=== PATIENT | female | born 1940 | race Caucasian/White ===

== ENCOUNTER 2019-12-26 10:56 | Outpatient (CLI) | payer MEDICARE, SELFPAY ==
--- NOTE | 2019-12-26 | ECG_ITS ---
Measurements Intervals [place] Rate: 71 P: 55 HI: 154 QRS: 219 QRSD: 149 T: 54 QT: 425 QTc: 462 Interpretive Statements ATRIAL SENSE- ELECTRONIC VENTRICULAR PACEMAKER BASELINE ARTIFACT- I, II, III NO FURTHER INTERPRETATION IS POSSIBLE ATYPICAL ECG Electronically Signed On 12-26-2019 12:05:49 ANALYST FOOD AND BEVERAGE by Alberto Carter D.O.
== END 2019-12-26 10:57 | disposition home or self-care (01) ==
DX: I48.3 Typical atrial flutter (principal); I25.5 Ischemic cardiomyopathy
CPT/HCPCS: 93005

== ENCOUNTER 2021-01-02 15:39 | Outpatient (CLI) | payer MEDICARE, SELFPAY ==
--- NOTE | 2021-01-02 16:17 | ECG_ITS ---
Measurements Intervals [place] Rate: 77 P: 70 PA: 165 QRS: 235 QRSD: 137 T: 111 QT: 398 QTc: 450 Interpretive Statements ATRIAL SENSE- ELECTRONIC VENTRICULAR PACEMAKER BASELINE WANDER- V4 NO FURTHER INTERPRETATION IS POSSIBLE ATYPICAL ECG Electronically Signed On 01-02-2021 18:21:10 HUMIDIFIER OPERATOR by Alberto Carter D.O.
[2021-01-02 16:33] LABS: Anion Gap 3 mmol/L (8-16); Blood Urea Nitrogen 11 mg/dL (7-17); Calcium 8.9 mg/dL (8.4-10.2); Carbon Dioxide 33 mmol/L (22-30); Chloride 99 mmol/L (98-107); Estimated Glomerular Filt Rate > 60; Glucose 116 mg/dL (65-105); Magnesium 1.8 mg/dL (1.6-2.3); Sodium 135 mmol/L (137-145)
== END 2021-01-02 15:40 | disposition home or self-care (01) ==
LOC: ANHLAB 15:46
DX: I25.5 Ischemic cardiomyopathy (principal); I50.43 Acute on chronic combined systolic (congestive) and diastolic (congestive) heart failure
CPT/HCPCS: 36415; 80048; 83735; 93005

== ENCOUNTER 2021-01-08 11:10 | Outpatient (RCR) | payer MEDICARE, SELFPAY ==
--- NOTE | 2021-01-07 | ECG_ITS ---
Measurements Intervals [place] Rate: 105 P: [place]: 0 QRS: 198 QRSD: 145 T: 42 QT: 380 QTc: 504 Interpretive Statements ELECTRONIC VENTRICULAR PACEMAKER FUSION COMPLEXES BASELINE ARTIFACT- I, II, III, AVR, AVL, V1, V5-V6 NO FURTHER INTERPRETATION IS POSSIBLE ATYPICAL ECG Electronically Signed On 01-07-2021 11:38:37 BULB GROWER by Alberto Carter D.O.
--- NOTE | 2021-01-08 | ECG_ITS ---
Measurements Intervals [place] Rate: 69 P: 93 NE: 141 QRS: 218 QRSD: 152 T: 42 QT: 488 QTc: 526 Interpretive Statements ELECTRONIC ATRIAL PACEMAKER ELECTRONIC VENTRICULAR PACEMAKER BASELINE ARTIFACT- I, III, AVR, AVL, AVF NO FURTHER INTERPRETATION IS POSSIBLE ATYPICAL ECG Electronically Signed On 01-08-2021 13:09:45 EYEGLASS INSPECTOR by Alberto Carter D.O.
[2021-01-08 11:56] LABS: Anion Gap 3 mmol/L (8-16); Blood Urea Nitrogen 9 mg/dL (7-17); Carbon Dioxide 35 mmol/L (22-30); Chloride 96 mmol/L (98-107); Estimated Glomerular Filt Rate > 60; Glucose 108 mg/dL (65-105); Potassium 4.1 mmol/L (3.4-5.0); Sodium 134 mmol/L (137-145)
== END 2021-04-07 23:59 | disposition home or self-care (01) ==
LOC: ANHCARD 11:10
PROVIDERS: PCP Family Medicine
DX: I25.5 Ischemic cardiomyopathy (principal); I50.43 Acute on chronic combined systolic (congestive) and diastolic (congestive) heart failure; I44.7 Left bundle-branch block, unspecified
CPT/HCPCS: 36415; 80048; 83735; 93005

== ENCOUNTER 2021-08-20 19:23 | Inpatient (IN) | payer MEDICARE, SELFPAY ==
[2021-08-20] VITALS (11 sets, daily range): BP systolic 98–124; BP diastolic 56–80; PULSE 65–70; RESP 12–20; TEMP 36.6; O2SAT 97–100
--- NOTE | ~2021-08-20 | NM_ITS ---
EXAMINATION: NM pulmonary perfusion DATE: 08/21/2021 11:15 INDICATION: Hypoxia. TECHNIQUE: 5.2 mCi Tc-99m MAA by intravenous route. Scintigraphic images of the chest were obtained. COMPARISON: Chest radiograph and CT dated 08/20/2021 FINDINGS: Photopenic defect projecting over the anterior left midlung zone corresponding to a cardiac pacemaker . Small perfusion defect at the anterobasilar segment of the right lower lobe. There is some central decreased perfusion on a few of the scintigrams but with peripheral stripe signs. No other larger per fusion defects extending to the periphery. IMPRESSION: 1. Low probability for pulmonary embolism. Reviewed, dictated and finalized at location A.
--- NOTE | ~2021-08-20 | CT_ITS ---
EXAMINATION: CT diagnostic chest wo con DATE: 08/20/2021 21:25 INDICATION: Syncope TECHNIQUE: Computed tomography (CT) of the chest was performed without intravenous contrast. The dose -length product (DLP) was 316.56 mGy-cm. Automated exposure control and iterative reconstruction tech [employer] were employed. COMPARISON: 03/13/2008 FINDINGS: There is severe emphysema. There are dependent opacities of the lower lobes. No pleural eff usion or pneumothorax is identified. Cardiomegaly is noted. A triple lead cardiac pacemaker of the le ft chest wall ends with leads in expected locations. There are no pathologically enlarged thoracic ly mph nodes. Calcified bilateral breast implants are noted. There is moderate thoracic spondylosis. IMPRESSION: 1. Dependent airspace opacities of the lower lobes, consistent with atelectasis and/or pneumonia. 2. Severe emphysema. Reviewed, dictated and finalized at location A.
--- NOTE | ~2021-08-20 | CT_ITS ---
EXAMINATION: CT brain wo con INDICATION: Transient alteration of awareness COMPARISON: 07/12/2009 TECHNIQUE: Standard unenhanced head CT. The dose-length product (DLP) was 605.33 mGy-cm. The mA was a djusted according to patient size. Iterative reconstruction technique was employed. FINDINGS: There is no acute intraparenchymal hemorrhage. No evidence of mass lesion. No evidence of a cute infarction. There is mild periventricular and subcortical hypodensity probably related to small vessel ischemic disease. There is mild prominence of the sulci and ventricles related to cerebral atr ophy. Intracranial calcified cerebral atherosclerosis is noted. There are no extra-axial collections. There is no mass effect or midline shift. Changes in the globes are likely from ocular lens surgery. There is complete opacification of the right maxillary sinus. IMPRESSION: 1. No acute intracranial abnormality. 2. Sinus disease. Reviewed, dictated and finalized at location A.
--- NOTE | ~2021-08-20 | XR_ITS ---
EXAMINATION: XR chest 1V portable INDICATION: Transient alteration of awareness TECHNIQUE: Portable AP chest at 1948 hours COMPARISON: 08/17/2019 FINDINGS: There are airspace opacities of the lung bases, left greater than right. There is no pleura l effusion or pneumothorax. The heart size is normal. A triple lead cardiac pacemaker of the left soy st wall ends with leads in expected locations. Calcified breast implants are noted. Median sternotomy wires are consistent with prior cardiac surgery IMPRESSION: 1. Bibasilar airspace opacities, consistent with atelectasis versus pneumonia. Reviewed, dictated and finalized at location A.
--- NOTE | 2021-08-20 19:40 | ECG_ITS ---
Measurements Intervals [place] Rate: 69 P: 88 CT: 149 QRS: 192 QRSD: 150 T: 45 QT: 484 QTc: 521 Interpretive Statements ELECTRONIC ATRIAL PACEMAKER ELECTRONIC VENTRICULAR PACEMAKER NO FURTHER INTERPRETATION IS POSSIBLE ATYPICAL ECG Electronically Signed On 08-20-2021 20:16:36 CDT by Alberto Carter D.O.
--- NOTE | 2021-08-20 19:42 | ED.GENADULT ---
HPI - General Adult General Chief complaint: Unspecified Stated complaint: unresponsive Time Seen by Provider: 08/20/21 19:37 Source: family, EMS and RN notes reviewed Mode of arrival: EMS Limitations: no limitations History of Present Illness HPI narrative: Patient is 81 years old female brought to the emergency room by ambulance from a restaurant on with syncope, hypoxia, hypotension. Patient was sitting eating with her family in a restaurant, few minutes after finishing her meal told her daughter that she feels that she is going to faint then fainted, EMT arrived, oxygenation was 70% on room air, blood pressure was 80/40., On arrival to the ED patient became awake, alert and oriented x4 and currently complaining of general fatigue and weakness. Patient denies any headache, fever, chills, nausea, vomiting, chest pain, shortness of breath, or back pain.. Patient is telling me that she have history of COPD, hypertension, currently is a smoker, denies alcohol abuse or drugs. Patient also on baby aspirin once a day. Patient is DNR. Patient also had pacemaker/defibrillator 12 years ago. Patient denies getting shocked by the defibrillator today Related Data Allergies Allergy/AdvReac Type Severity Reaction Status Date / Time No Known Allergies Allergy Verified 08/13/19 13:36 Review of Systems Review of Systems: CONSTITUTIONAL: Denies fever, chills, or sweats. EYES: Denies visual changes, redness, or discharge. ENT: Denies rhinorrhea, congestion, sore throat, or otalgia. CARDIOVASCULAR: Denies chest pain, palpitations, or edema. RESPIRATORY: Denies cough or dyspnea. GASTROINTESTINAL: Denies abdominal pain, nausea, vomiting, or diarrhea. GENITOURINARY: Denies dysuria or hematuria. SKIN: Denies rash or itching. MUSCULOSKELETAL: Denies back pain, joint pain, or myalgia. NEUROLOGIC: Denies headache, numbness, or weakness. PSYCHIATRIC: Denies anxiety or depression. PMFSH Family History Family History Mother Hypertension Father Family history of congenital heart disease Other Cerebrovascular accident Diabetes mellitus Social History Social History Smoking status: Smoker, status unknown Alcohol intake: current Exam Narrative: General appearance: Well-developed, well-nourished, generally weak, daughter at the bedside Skin: Normal color Head: Normocephalic, nontraumatic Eyes: Clear conjunctiva ENT: Oropharynx normal, ears normal, nose normal Neck: Supple, nontender Chest and respiratory: Airway patent, no respiratory distress, no accessory muscle use Heart: Regular rate/rhythm Abdomen: Soft, nontender, no organomegaly, quiet bowel sounds Vascular: Normal peripheral pulses, normal capillary refill. Musculoskeletal: Normal range of motion, nontender back Neurologic: Alert and oriented ?3, SOCK BOARDER is normal as tested, no gross motor deficit Course Course Emergency Course: Stable, improving Vital Signs Vital signs: Vital Signs Temperature 36.6 C 08/20/21 19:23 Pulse Rate 70 08/20/21 19:23 Respiratory Rate 15 08/20/21 19:23 Blood Pressure 100/58 L 08/20/21 19:23 Pulse Oximetry 100 08/20/21 19:23 Temperature 36.6 C 08/20/21 19:23 Pulse Rate 70 08/20/21 19:23 Respiratory Rate 15 08/20/21 19:23 Blood Pressure 100/58 L 08/20/21 19:23 Pulse Oximetry 100 08/20/21 19:23 Medical Decision Making MDM Narrative Medical decision making narrative: Sudden onset of fainting, hypoxia and hypotension raises the suspicious for pulmonary pulmonary embolism, cardiogenic shock. Labs, CT brain, chest x-ray ordered. Patient u
[2021-08-20 19:51] LABS: Alveolar/Arterial O2 Gradient 100.8 mmHg; Base Excess ABG -3.7 mEq/l (+/-2.0); Fractional Inspired Oxygen 28 %; HCO3 ABG 21.5 mEq/l (22.0-26.0); Oxygen Content ABG 13.2 %vol (16.0-22.0); Oxyhemoglobin 77.4 % THb (90.0-100.0); PCO2 ABG 39.5 mmHg (35.0-45.0); PO2 ABG 52.2 mmHg (80.0-100.0); PO2 FiO2 Ratio Arterial Blood 1.86 %; Total Hemoglobin 12.1 g/dL (12.0-18.0); pH ABG 7.353 (7.350-7.450)
[2021-08-20 19:54] LABS: Modified Allen's Test Pass; Oxygen Saturation ABG 85.5 % (95.0-100.0); Site Drawn RIGHT RADIAL
[2021-08-20 19:55] LABS: Device NASAL CANNULA
[2021-08-20 20:41] LABS: Basophils Absolute Auto 0.1 K/mm3 (0.0-0.1); Basophils Percent Auto 0.5 % (0.2-1.2); Eosinophils Absolute Auto 0.2 K/mm3 (0-0.3); Eosinophils Percent Auto 1.4 % (0-4.4); Hematocrit 36.3 % (37.0-47.0); Hemoglobin 12.1 g/dL (12.0-15.0); Immature Granulocyte Absolute 0.07 K/mm3 (0.00-0.031); Immature Granulocyte Percent A 0.5 % (0-0.5); Lymphocytes Percent Auto 36.9 % (18.3-44.2); Mean Corpuscular HGB Conc 33.3 g/dl (32-36); Mean Corpuscular Hemoglobin 30.6 pg (26-34); Mean Corpuscular Volume 91.7 fl (80-100); Mean Platelet Volume 9.8 fl (7.4-10.4); Monocytes Percent Auto 7.8 % (2.6-8.5); Neutrophils Percent Auto 52.9 % (45.5-73.1); Platelet Count Result 236 k/mm3 (150-375); Red Blood Count 3.96 M/mm3 (4.2-5.4); Red Cell Distribution Width 14.2 % (11.5-14.5); White Blood Count 13.3 K/mm3 (4.5-10.0)
[2021-08-20 20:54] LABS: Partial Thromboplastin Time 28.6 SECONDS (22.3-36.8)
[2021-08-20 20:59] LABS: Lactic Acid Reflex 3.7 mmol/L (0.7-2.1)
[2021-08-20 21:01] LABS: Alanine Aminotransferase 18 U/L (4-35); Albumin Level 3.9 g/dL (3.5-5.1); Alkaline Phosphatase 101 U/L (38-126); Anion Gap 10 mmol/L (8-16); Aspartate Amino Transferase 25 U/L (14-36); Bilirubin,Total 0.4 mg/dL (0.2-1.3); Blood Urea Nitrogen 14 mg/dL (7-17); CRP < 0.5 mg/dL (<1.0); Calcium 8.7 mg/dL (8.4-10.2); Carbon Dioxide 24 mmol/L (22-30); Chloride 99 mmol/L (98-107); Estimated CRCL calculation 58 ml/min; Estimated Glomerular Filt Rate > 60; Glucose 108 mg/dL (65-110); Potassium 3.7 mmol/L (3.4-5.0); Sodium 133 mmol/L (137-145)
[2021-08-20 21:10] LABS: Troponin I < 0.012 ng/mL (0.000-0.034)
[2021-08-20 22:28] LABS: Add Urine Microscopic? YES; Appearance Urine Cloudy (Clear); Bacteria Urine Trace /hpf; Bilirubin Urine Negative (Negative); Blood Urine Negative (Negative); Color Urine Yellow (Yellow); Glucose Urine UA Negative (Negative); Ketones Urine Negative (Negative); Leukocyte Esterase Ur Trace LEU/UL (Negative); Mucus Urine Few /lpf; Nitrate Urine Positive (Negative); Protein Urine 2+ mg/dL (Negative); Specific Grav Ur 1.021 (1.001-1.035); Squamous Epithelial Cell Urine Few /hpf (Few); Urobilinogen Urine Negative mg/dL (<2.0)
[2021-08-20] MEDS: ENOXAPARIN 80 MG/0.8 ML SYRINGE SUB-Q (22:53)
--- NOTE | 2021-08-20 23:32 | PC.NURSE ---
Assumed care of pt at this time. Report from MAUREEN Arrieta
--- NOTE | 2021-08-20 23:35 | PM.IMHP ---
H&P: HPI History of Present Illness Date/Time: 08/20/21 23:35 Chief Complaint: Syncope Narrative: This is an 81-year-old female with past medical history significant for coronary artery disease, status post coronary artery bypass graft, AICD, congestive heart failure, COPD/emphysema. 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 Patient denies any chest pain any shortness of breath, any cough, no sputum production ,any lightheadedness, dizziness ,no changes in her vision, no nausea no vomiting no abdominal pain no diarrhea no focal sensorimotor deficit. Patient is allergic to contrast solution a CT of the chest without contrast was significant for bilateral bases infiltrates and severe emphysema. Patient has a productive cough of scanty sputum which is yellow according to patient is her usual and has not changed. Patient has been placed in observation for further evaluation and treatment. Review of Systems Review of Systems: Patient presented to the emergency room after she fainted at a local restaurant she has no recollection of the events after she passed out and then woke up in the emergency room Constitutional: Constitutional: Denies chills, Denies daytime sleepiness, Denies excessive sweating, Denies fatigue, Denies fever(s), Denies lethargy, Denies malaise and Denies weakness Eyes: Eyes: Denies change in vision ENT: Denies dysphagia, Denies vertigo, Denies dizziness, Denies nasal congestion, Denies nasal discharge, Denies nasal obstruction and Denies odynophagia Cardiovascular: Cardiovascular: Denies chest pain, Denies chest pain at rest, Denies chest pain with activity, Denies diaphoresis, Reports syncope, Denies irregular heart rhythm, Denies claudication, Denies leg edema, Reports lightheadedness, Denies radiating jaw, neck or arm pain, Denies palpitations, Denies dyspnea and Denies orthopnea Respiratory: Respiratory: Denies change in phlegm color and Reports cough Gastrointestinal: Gastrointestinal: Denies abdominal pain, Denies GI cramping, Denies dyspepsia, Denies diarrhea and Denies nausea Genitourinary: Genitourinary: Reports no additional female genitourinary complaints Musculoskeletal: Musculoskeletal: Reports no additional musculoskeletal complaints Integumentary/Breasts: Skin/Breast: Reports system reviewed and no additional complaints, except as docu Neurologic: Reports system reviewed and no additional complaints, except as documented, Denies vertigo, Denies headache(s), Denies focal weakness, Denies loss of vision, Denies Other visual disturbances and Denies Sensory deficit (Neuro) Psychiatric: Psychiatric: Reports no additional psychiatric complaints Endocrine: Endocrine: Reports no additional endocrine complaints Hematologic/Lymphatic: Hematologic/Lymphatic: Reports no additional hematologic/lymphatic complaints Allergic/Immunologic: Allergic/Immunologic: Reports no additional allergic/immunologic complaints [facility] Family History Family History Mother Hypertension Father Family history of congenital heart disease Other Cerebrovascular accident Diabetes mellitus Social History Social History Smoking packs per day: 0.5 Smoking cigarettes per day: 10.0 Years smoked: 65 Smoking pack-years: 32.50 Smoking status: Current every day smoker Tobacco type: cigarettes Alcohol intake: never Substance use: never Substance use type: does not use Spiritual care concerns: No
[2021-08-20 23:38] LABS: Reflex Lactic Acid Yes or No Add Lactic
[2021-08-21] VITALS (18 sets, daily range): BP systolic 112–153; BP diastolic 58–86; PULSE 69–74; RESP 14–18; TEMP 36.1–36.6; O2SAT 90–97; BMI 29.6
--- NOTE | 2021-08-21 00:01 | PC.NURSE ---
Report received by MAUREEN Waldron with the ED at [id number].
--- NOTE | 2021-08-21 00:02 | ADMGEN ---
This patient, Jannette Urena, was admitted to IMU Room 201-01 at 1201 from the ED. Patient/family oriented to hospital policies and general routines including ID bracelet, bed and alarms, visiting hours, pain management, procedures, bathroom and other care routines, personal items, smoking policy, room service/diet, and visiting hours. Information on how to activate the Rapid Response Team has been discussed. Patient/Family are encouraged to report perceived risks to care and to ask questions if they do not understand what they are told or what they should do.
[2021-08-21] MEDS: ALBUTEROL SULFATE NEB 2.5 MG/0.5 ML INH 5 MG INHALATION ×3 (02:07→14:49)
[2021-08-21] MEDS: IPRATROPIUM BR 0.02% INH SOLN 0.5 MG/2.5 ML VIAL INHALATION ×3 (02:07→14:49)
[2021-08-21 05:25] LABS: Anion Gap 4 mmol/L (8-16); Blood Urea Nitrogen 17 mg/dL (7-17); Calcium 8.6 mg/dL (8.4-10.2); Carbon Dioxide 31 mmol/L (22-30); Chloride 100 mmol/L (98-107); Estimated CRCL calculation 67 ml/min; Estimated Glomerular Filt Rate > 60; Glucose 102 mg/dL (65-110); Potassium 4.2 mmol/L (3.4-5.0); Sodium 135 mmol/L (137-145)
[2021-08-21] MEDS: carvediloL 12.5 MG TABLET PO (08:36)
[2021-08-21] MEDS: ENOXAPARIN 80 MG/0.8 ML SYRINGE SUB-Q (08:37)
[2021-08-21] MEDS: PANTOPRAZOLE 40 MG TABLET PO (08:38)
[2021-08-21] MEDS: MAGNESIUM OXIDE 400 MG TABLET PO (08:38)
[2021-08-21] MEDS: FUROSEMIDE 20 MG TABLET PO (08:38)
[2021-08-21] MEDS: lisinopriL 20 MG TABLET PO (08:38)
[2021-08-21] MEDS: Dofetilide 250 mcg capsule 250 EACH PO (09:04)
[2021-08-21] MEDS: FLUTICASONE/SALMETEROL 115-21 MCG INHALER 1 PUFF 2 PUFF INHALATION (09:22)
--- NOTE | 2021-08-21 14:59 | PC.NURSE ---
On 08/21/21, the student, [Lary Blas], provided care and completed [facility] documentation on this patient. I have reviewed the student's documentation and agree with the findings.
--- NOTE | 2021-08-21 15:12 | PM.CNCAR ---
Assessment and Plan Assessment and plan (1) Syncope: Qualifiers: Syncope type: unspecified Qualified Code(s): R55 - Syncope and collapse Code(s): R55 - Syncope and collapse Status: Acute Assessment and Plan: Episode of syncope with a prodrome, and prolonged hypotension afterwards, suggestive of vasovagal syncope. No evidence of bleeding, or anemia No evidence of acute ischemic event No arrhythmias noted on telemetry Although apparently hypoxic, her V/Q scan was normal. May not have been perfusing well enough to obtain a good oximetry reading Blood pressure stable today. A ventricular arrhythmia is unlikely but has not been ruled out. Need to interrogate her ICD. OK for discharge today. I asked the patient to check her blood pressure daily for the next week and call Dr. Keita if low, lie down or sit down immediately if she has any more episodes of presyncope/syncope, stay well hydrated. Also asked her to send in a download of her Bi V ICD manually with her bedside monitor and touch base with Dr. Patterson about this episode. (2) Coronary artery disease involving autologous artery coronary bypass graft: Code(s): I25.810 - Atherosclerosis of coronary artery bypass graft(s) without angina pectoris Status: Acute Assessment and Plan: Stable, no angina or evidence of ischemia (3) AICD (automatic cardioverter/defibrillator) present: Code(s): Z95.810 - Presence of automatic (implantable) cardiac defibrillator Status: Acute Assessment and Plan: Medtronic Bi V ICD followed by Dr. Karen Patterson (4) COPD (chronic obstructive pulmonary disease): Code(s): J44.9 - Chronic obstructive pulmonary disease, unspecified Status: Acute Assessment and Plan: Severe COPD, and wheezy. I have asked the patient to make sure she uses her inhalers and consider a nebulizer at home. History of Present Illness History of Present Illness Consult date/time: 08/21/21 15:12 Consult reason: Other (Syncope) Reason For Visit: Syncope/acute hypoxic respiratory failure/pneumoni Narrative: Jannette Urena is an 81-year-old female whom we are asked to see at the request of the hospitalist for advice and opinion regarding her syncope in consultation. The patient was at dinner yesterday but felt fainty and then passed out. When EMS arrived her oxygenation was 70% on room air, blood pressure was 80/40, pulse 70, no respiratory distress.. She was described as diaphoretic and lethargic. In the ER her systolic blood pressure was 100, but now her systolic blood pressure is 130-150 mmHg. The patient had been feeling normal, no lightheadedness recently, keeps herself hydrated, and had not skipped any meals. She does not think her defibrillator fired. Not a particularly heavy meal. She did not feel overly heated, no chest pain or palpitations. No bleeding problems. The patient is eager for discharge as she has shots in her back scheduled for tomorrow and her daughter will be getting soon. She is feeling fine. The patient is usually seen by Dr. Jany perez for ischemic cardiomyopathy and history of CABG in 2007 ([place] to the Left anterior descending, free are [place] to the RCA, radial artery from the [place] to the OM2, preop EF 30%. Subsequent catheterization in 2007 showed occlusion of the radial artery graft to the OM2.) She has a Medtronic Bi V ICD that is followed by Dr. Karen Patterson, last generator change 03/2013. She also had a flutter ablation by Dr. Patterson in December 2019. Echo in November 2019 showed an EF of 40%, mild LVH, probable apical thrombus, akinesis of the apical and apical inferior huber mild MR and TR. She has a history of left carotid endarterectomy and her carotid disease is followed by Dr. Dean Newsome. 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 Referred to Dr. Beck Blackwood for evaluation. Rev
--- NOTE | 2021-08-21 16:08 | PM.DS ---
DS: Admitting Diagnosis Discharge Date 08/21/2021 Admitting Diagnosis syncope DS: Discharge Diagnosis Discharge Diagnosis (1) Syncope: Qualifiers: Syncope type: unspecified Qualified Code(s): R55 - Syncope and collapse Code(s): R55 - Syncope and collapse Status: Acute Assessment and Plan: Unclear etiology Will obtain V/Q scan in a.m. Patient received Lovenox Had been holding apixaban due to procedure (2) Acute respiratory failure with hypoxia: Code(s): J96.01 - Acute respiratory failure with hypoxia Status: Acute Assessment and Plan: Resolved (3) Coronary artery disease involving autologous artery coronary bypass graft: Code(s): I25.810 - Atherosclerosis of coronary artery bypass graft(s) without angina pectoris Status: Acute Assessment and Plan: Continue home meds (4) AICD (automatic cardioverter/defibrillator) present: Code(s): Z95.810 - Presence of automatic (implantable) cardiac defibrillator Status: Acute Assessment and Plan: Will interrogate device (5) Tobacco abuse disorder: Code(s): Z72.0 - Tobacco use Status: Acute Assessment and Plan: Nicotine patch as needed (6) COPD (chronic obstructive pulmonary disease): Code(s): J44.9 - Chronic obstructive pulmonary disease, unspecified Status: Acute Assessment and Plan: Continue home meds Continue breathing treatments DS: Summary Hospital Course Reason for hospitalization: Chief Complaint: Syncope Narrative: This is an 81-year-old female with past medical history significant for coronary artery disease, status post coronary artery bypass graft, AICD, congestive heart failure, COPD/emphysema. 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 Patient denies any chest pain any shortness of breath, any cough, no sputum production ,any lightheadedness, dizziness ,no changes in her vision, no nausea no vomiting no abdominal pain no diarrhea no focal sensorimotor deficit. Patient is allergic to contrast solution a CT of the chest without contrast was significant for bilateral bases infiltrates and severe emphysema. Patient has a productive cough of scanty sputum which is yellow according to patient is her usual and has not changed. Patient has been placed in observation for further evaluation and treatment. Hospital Course: Patient remains clinically stable, patient with syncope, seen by material control clerk etiology is not clear, but remains stable, will dicharge patient today Status at Discharge Functional status at discharge: independent ambulation Overall status at discharge: patient is back to baseline Time Spent with Patient Time attestation: Total time spent providing and/or coordinating discharge services: Time spent: Greater than 30 minutes Exam Narrative: Patient seen and examined at the time of discharge and stable DS: Data Data Completed and Pending Labs on day of discharge: Labs from last 24 hours 08/21/21 08/21/21 08/20/21 04:23 00:16 22:15 WBC RBC Hgb Hct MCV MCH MCHC RDW Plt Count MPV Immature Gran % (Auto) Neut % (Auto) Lymph % (Auto) [place] % (Auto) Eos % (Auto) Baso % (Auto) Lymph # (Auto) [place] # (Auto) Eos # (Auto) Baso # (Auto) Abs Immat Gran (auto) Absolute Neuts (auto) Absolute Nucleated RBC Nucleated RBC % PT INR APTT Puncture Site ABG pH ABG pCO2 ABG pO2 ABG PO2/FiO2 Ratio ABG HCO3
[2021-08-21] MEDS: GABAPENTIN 300 MG CAPSULE 1200 MG PO (16:47)
== END 2021-08-21 16:55 | disposition home or self-care (01) | DRG 312 ==
LOC: ANHED 22:25 → ANHIMU 08-21 02:57
PROVIDERS: Admitting Provider Internal Medicine; Emergency Provider Emergency Medicine; PCP Family Medicine; Visit Provider Family Medicine
DX: R55 Syncope and collapse (principal); J96.01 Acute respiratory failure with hypoxia; E87.1 Hypo-osmolality and hyponatremia; I25.810 Atherosclerosis of coronary artery bypass graft(s) without angina pectoris; I25.5 Ischemic cardiomyopathy; J43.9 Emphysema, unspecified; I50.9 Heart failure, unspecified; F17.210 Nicotine dependence, cigarettes, uncomplicated; Z66 Do not resuscitate; Z79.01 Long term (current) use of anticoagulants; Z79.82 Long term (current) use of aspirin; Z95.810 Presence of automatic (implantable) cardiac defibrillator; Z91.041 Radiographic dye allergy status
CPT/HCPCS: 36415; 36600; 70450; 71045; 71250; 78580; 80048; 80053; 81001; 82805; 83605; 84484; 85025; 85610; 85730; 86140; 87040; 87077; 87086; 87088; 87186; 93005; 94640; 99285; A9270; A9540; J1650; J1956

== ENCOUNTER → 2022-02-27 08:16 | Outpatient (CLI) | payer MEDICARE, SELFPAY ==
--- NOTE | ~2022-02-27 | XR_ITS ---
EXAMINATION: XR chest 2V EXAM DATE: 02/27/2022 08:38 INDICATION: Dyspnea . TECHNIQUE: Frontal and lateral projections of the chest obtained and reviewed. Comparison is made to prior examination from 08/20/2021. FINDINGS: Sternotomy wires are present without findings to suggest sternal dehiscence. There is a du al lead pacemaker/AICD seen with leads projecting over the expected locations of the right atrial philipp endage and right ventricle. The lungs are hyperinflated which can be seen with chronic obstructive pu lmonary disease (a clinical diagnosis of functional impairment), but is not diagnostic of it. No conf luent consolidation, pneumothorax or pleural effusion suspected. There are breast implants with capsu lar calcification, retraction. There are no osseous abnormalities identified. Interval resolution of previously seen bibasilar airspace disease. IMPRESSION: 1. No acute cardiac pulmonary findings. 2. Hyperinflation. Reviewed, dictated and finalized at location A.
== END ==
PROVIDERS: PCP Nurse Practitioner Family; Visit Provider Nurse Practitioner Family
DX: R06.00 Dyspnea, unspecified (principal)
CPT/HCPCS: 71046

== ENCOUNTER 2022-04-21 09:38 | Emergency (ER) | payer MEDICARE, SELFPAY ==
--- NOTE | 2022-04-21 09:47 | ED.GENADULT ---
HPI - General Adult General Chief complaint: Fall Stated complaint: back pain/head injury Time Seen by Provider: 04/21/22 09:47 Source: patient and RN notes reviewed Mode of arrival: ambulatory Limitations: no limitations History of Present Illness HPI narrative: 81-year-old female presents to the [facility] with complaints of falling 2 days ago has had a headache, nausea, back pain. Unknown reason of falling. Does not remember falling, states that she was on the ground and that was all she remembers. Tenderness through T-spine C-spine and L-spine. Posterior head with intermittent blurry vision and nausea. Patient is currently on Eliquis. Patient acutely confused, has told 3 different stories on reason she fell. Onset (ago): day(s) Related Data Home Medications Medication Instructions Recorded Confirmed apixaban 5 mg tablet (Eliquis) 5 mg PO BID 08/21/21 04/21/22 aspirin 81 mg capsule 81 mg PO HS 08/21/21 04/21/22 atorvastatin 40 mg tablet 40 mg PO HS 08/21/21 04/21/22 carvedilol 12.5 mg tablet 12.5 mg PO BID 08/21/21 04/21/22 dofetilide 250 mcg capsule 250 mcg PO BID 08/21/21 04/21/22 fluticasone 250 mcg-salmeterol 50 250 inh inhalation BID 08/21/21 04/21/22 mcg/dose blistr powdr for inhalation (Wixela Inhub) furosemide 20 mg tablet 20 mg PO DAILY 08/21/21 04/21/22 gabapentin 300 mg capsule 1,200 mg PO DAILY 08/21/21 04/21/22 ipratropium 20 mcg-albuterol 100 20 - 100 puff inhalation Q6H PRN 08/21/21 04/21/22 mcg/actuation mist for inhalation Shortness Of Breath (Combivent Respimat) lisinopril 20 mg tablet 20 mg PO BID 08/21/21 04/21/22 magnesium oxide 400 mg (241.3 mg 400 mg PO DAILY 08/21/21 04/21/22 magnesium) tablet montelukast 10 mg tablet 10 mg PO HS 08/21/21 04/21/22 pantoprazole 40 mg tablet,delayed 40 mg PO QAM 08/21/21 04/21/22 release Allergies Allergy/AdvReac Type Severity Reaction Status Date / Time No Known Allergies Allergy Verified 04/21/22 10:20 Review of Systems Review of Systems: All systems reviewed & are unremarkable except as noted in HPI and below Constitutional: Constitutional: Reports no additional constitutional complaints, Denies chills and Denies fever(s) Eyes: Eyes: Reports as per HPI and Reports change in vision ENT: Reports system reviewed and no additional complaints, except as documented Cardiovascular: Cardiovascular: Reports no additional cardiovascular complaints Respiratory: Respiratory: Reports no additional respiratory complaints Gastrointestinal: Gastrointestinal: Reports no additional gastrointestinal complaints Musculoskeletal: Musculoskeletal: Reports as per HPI and Reports back pain (C-spine T-spine and L-spine) Integumentary/Breasts: Skin/Breast: Reports system reviewed and no additional complaints, except as docu Neurologic: Reports as per HPI, Reports confusion, Reports dizziness, Reports headache(s) and Denies numbness Psychiatric: Psychiatric: Reports no additional psychiatric complaints Allergic/Immunologic: Allergic/Immunologic: Reports no additional allergic/immunologic complaints PMFSH Past Medical History Medical History Biventricular ICD (implantable cardioverter-defibrillator) in place Followed by Dr. Karen Patterson [employer], last generator change March 2013. Coronary artery disease involving autologous artery coronary bypass graft 2008: Cunningham to the Left anterior descending, free RI MA to the RCA, radial graft from the [place] to the OM 2. Later catheterization showed occlusion of the radial artery graft. Ischemic cardiomyopathy EF 40% in 2019 Surgical History Surgical History History of left-sided carotid endarterectomy 2020, Dr. Dean Newsome Hx of CABG Family History Family History Mother Hypertension Father Family history of congenital heart disease Other Cer
[2022-04-21 10:04] VITALS: BP 151/65; PULSE 70; RESP 16; TEMP 36.8; O2SAT 94
--- NOTE | 2022-04-21 10:05 | ECG_ITS ---
Measurements Intervals [place] Rate: 69 P: 95 MT: 143 QRS: 230 QRSD: 141 T: 72 QT: 459 QTc: 494 Interpretive Statements ELECTRONIC ATRIAL PACEMAKER ELECTRONIC VENTRICULAR PACEMAKER BASELINE ARTIFACT- I, II, III, AVR, AVL, AVF NO FURTHER INTERPRETATION IS POSSIBLE ATYPICAL ECG Electronically Signed On 04-21-2022 14:12:28 CDT by Alberto Carter D.O.
== END 2022-04-21 09:55 | disposition short-term general hospital (02) ==
PROVIDERS: Emergency Provider Nurse Practitioner
DX: M54.2 Cervicalgia (principal); M54.6 Pain in thoracic spine; M54.50 Low back pain, unspecified; S09.90XA Unspecified injury of head, initial encounter; W19.XXXA Unspecified fall, initial encounter; F17.210 Nicotine dependence, cigarettes, uncomplicated; Z95.1 Presence of aortocoronary bypass graft; Z95.810 Presence of automatic (implantable) cardiac defibrillator; Z79.82 Long term (current) use of aspirin
CPT/HCPCS: 93005; 99215; G0463

== ENCOUNTER 2022-12-23 10:58 | Emergency (ER) | payer MEDICARE, SELFPAY ==
[2022-12-23] VITALS (11 sets, daily range): BP systolic 92–150; BP diastolic 50–76; PULSE 74–80; RESP 12–20; TEMP 36.6; O2SAT 91–96
--- NOTE | ~2022-12-23 | CT_ITS ---
EXAMINATION: CT brain wo con INDICATION: Head injury COMPARISON: 08/20/2021 TECHNIQUE: Standard unenhanced head CT. The dose-length product (DLP) was 605.33 mGy-cm. The mA was a djusted according to patient size. Iterative reconstruction technique was employed. FINDINGS: There is no acute intraparenchymal hemorrhage. No evidence of mass lesion. No evidence of a cute infarction. There is mild periventricular and subcortical hypodensity probably related to small vessel ischemic disease. There is mild prominence of the sulci and ventricles related to cerebral atr ophy. Intracranial calcified cerebral atherosclerosis is noted. There are no extra-axial collections. There is no mass effect or midline shift. Changes in the globes are likely from ocular lens surgery. There is mild mucosal thickening of the paranasal sinuses. IMPRESSION: 1. No acute intracranial abnormality. 2. Age related findings. Reviewed, dictated and finalized at location B. NCT LECTURER
--- NOTE | ~2022-12-23 | XR_ITS ---
EXAMINATION: XR shoulder LT min 2V INDICATION: Left shoulder pain TECHNIQUE: Four views of the left shoulder are submitted. COMPARISON: None FINDINGS: Normal alignment. No fracture. There is mild glenohumeral and acromioclavicular joint osteo arthritis. Soft tissues are unremarkable. IMPRESSION: 1. Mild osteoarthritis. Reviewed, dictated and finalized at location B. SEALER IMPRESSION: 1. Mild osteoarthritis.
--- NOTE | ~2022-12-23 | CT_ITS ---
EXAMINATION: CT abd pelvis lumbar wo con DATE: 12/23/2022 12:58 INDICATION: Status post fall 1 day ago, abdominal pain, hip pain. TECHNIQUE: Computed tomography (CT) of the abdomen, pelvis, and lumber spine was performed without in travenous contrast, given history of contrast allergy. Automated exposure control and iterative recon struction technique were employed. The dose-length product was 798.90 mGy-cm. COMPARISON: None FINDINGS: ABDOMEN/PELVIS: Dependent bilateral subsegmental and groundglass opacity. Partially visualized pacer wires. Bilateral breast augmentation. No solid organ injury. Hepatomegaly. Status post cholecystectomy. No evidence of bowel or mesenteric injury. No free air. 7.3 x 10.4 cm irregular hyperdense collection in the right lower quadrant and deep right pelvis, like ly representing clot, with lower density irregular surrounding fluid. Extension into the right paraco lic gutter. Displacement of the urinary bladder to the left. No retroperitoneal hematoma. Small calcified saccular abdominal aortic aneurysm. Severe atherosclerot ic calcifications. Loss of fat plane at the dome of the bladder which appears to be in direct communication with the flu id collection. MUSCULOSKELETAL (excluding spine): Possible nondisplaced right superior pubic ramus fracture with small adjacent extraperitoneal hematom a. Uncomplicated small fat-containing supraumbilical ventral hernia. LUMBAR SPINE: No fracture or traumatic malalignment of the lumbar spine. Multilevel severe degenerative disc diseas e. 13 mm right subarticular L2-3 disc extrusion. Multilevel severe central canal narrowing. No severe neural foraminal narrowing. IMPRESSION: 1. Large volume right lower quadrant and deep right pelvic clot with surrounding unclotted blood or o ther fluid, possibly urine. A specific bleeding source is not identified noting this determination is limited without contrast. Intraperitoneal bladder rupture should be considered in the differential. 2. Possible nondisplaced right suprapubic ramus fracture, with adjacent extraperitoneal hematoma. 3. Otherwise, no acute traumatic finding detected in the abdomen, pelvis, or lumbar spine. Reviewed, dictated and finalized at location K. NSED MASS REAL ESTATE APPRAISER IMPRESSION: 1. Large volume right lower quadrant and deep right pelvic clot with surroundin g unclotted blood or other fluid, possibly urine. A specific bleeding source is not identified noting this determination is limited without contrast. Intraper itoneal bladder rupture should be considered in the differential. 2. Possible nondisplaced right suprapubic ramus fracture, with adjacent extrape ritoneal hematoma. 3. Otherwise, no acute traumatic finding detected in the abdomen, pelvis, or sea mbar spine.
--- NOTE | ~2022-12-23 | CT_ITS ---
EXAMINATION: CT thoracic spine wo con DATE: 12/23/2022 12:58 INDICATION: Back pain TECHNIQUE: Computed tomography (CT) of the thoracic spine was performed without intravenous contrast. The dose-length product (DLP) was 1069.06 mGy-cm. Iterative reconstruction was used. COMPARISON: None FINDINGS: Bone alignment is normal. There is no fracture. There is mild loss of intervertebral disc s pace height throughout the thoracic spine. The vertebral body heights are normal. Small degenerative osteophytes project from the anterior endplates of multiple vertebral bodies. IMPRESSION: 1. Moderate thoracic spondylosis without acute findings. Reviewed, dictated and finalized at location B. WORKER
--- NOTE | ~2022-12-23 | XR_ITS ---
EXAMINATION: XR chest 2V DATE: 12/23/2022 13:13 INDICATION: Pain after fall TECHNIQUE: AP and lateral views of the chest are obtained. COMPARISON: 02/27/2022 FINDINGS: The lungs are free of acute opacities. No pleural effusion or pneumothorax. The cardiomedia stinal silhouette is normal. There is mild thoracic spondylosis. Median sternotomy wires and mediasti nal surgical clips are seen, likely from prior coronary artery bypass grafting. A triple lead cardiac pacemaker of the left chest wall ends with leads in expected locations. Bilateral breast implants ar e noted. IMPRESSION: 1. No acute cardiopulmonary abnormality. Reviewed, dictated and finalized at location B. SPRINKLER APPARATUS INSPECTOR
--- NOTE | ~2022-12-23 | CT_ITS ---
EXAMINATION: CT cervical spine wo con DATE: 12/23/2022 12:57 INDICATION: neck pain, fall TECHNIQUE: Computed tomography (CT) of the cervical spine was performed without intravenous contrast. Automated exposure control and iterative reconstruction technique were employed. The dose-length pro duct was 222.18 mGy-cm. COMPARISON: None. FINDINGS: Vertebral Body Alignment: Reversed lordosis centered at C5. 3 mm anterolisthesis at C3-4, 2 mm toni listhesis at C4-5, both presumably on a degenerative basis. . Craniocervical and atlantoaxial alignment: Severe degenerative change with pannus. Alignment intact. Osseous structures/fracture: No evidence of a lytic or blastic process in the visualized spine. No e vidence of acute fracture. Bilateral C2-3 facet fusion. Cervical soft tissues: The paraspinal soft tissues planes are maintained. Trace left mastoid fluid. S ubcentimeter calcified left thyroid lobe nodule which requires no additional workup. Right carotid bi furcation calcification. Severe emphysematous change. Degenerative changes: Degenerative changes, without severe neural foraminal or central canal narrowin g. IMPRESSION: No acute fracture or traumatic malalignment in the cervical spine. Reviewed, dictated and finalized at location K. CONSULTANT
--- NOTE | 2022-12-23 12:17 | PC.NURSE ---
EDP at bedside to assess pt.
--- NOTE | 2022-12-23 12:18 | PC.NURSE ---
Patient attempted to urinate but unable at this time.
--- NOTE | 2022-12-23 12:23 | ED.FALL ---
HPI - Fall General Chief Complaint: Fall <Xochitl Ray PA-C - Last Filed: 12/23/22 18:55> Stated Complaint: abdominal pain <Xochitl Ray PA-C - Last Filed: 12/23/22 18:55> Time Seen by Provider: 12/23/22 11:46 <Xochitl Ray PA-C - Last Filed: 12/23/22 18:55> Source: patient <DONTRELL Daniels Last Filed: 12/23/22 18:55> Mode of arrival: ambulatory <DONTRELL Daniels Last Filed: 12/23/22 18:55> Limitations: no limitations <DONTRELL Daniels Last Filed: 12/23/22 18:55> History of Present Illness HPI Narrative: This is an 82-year-old female that presents to the emergency department after a fall yesterday with multiple complaints. Reports she tripped while walking into her doctor's office yesterday. Reports she landed on her left side. She did hit her head. She did not lose consciousness. Since she has had lower abdominal pain and hip pain. Also reports neck pain radiating into her left arm. Reports some tingling in the first 3 fingers of her left hand. Denies vision changes, chest pain, shortness of breath, vomiting, diarrhea, or dysuria. <Xochitl Ray PA-C - Last Filed: 12/23/22 18:55> Related Data Home Medications: Home Medications Medication Instructions Recorded Confirmed apixaban 5 mg tablet (Eliquis) 5 mg PO BID 08/21/21 04/21/22 aspirin 81 mg capsule 81 mg PO HS 08/21/21 04/21/22 atorvastatin 40 mg tablet 40 mg PO HS 08/21/21 04/21/22 carvedilol 12.5 mg tablet 12.5 mg PO BID 08/21/21 04/21/22 dofetilide 250 mcg capsule 250 mcg PO BID 08/21/21 04/21/22 fluticasone 250 mcg-salmeterol 50 250 inh inhalation BID 08/21/21 04/21/22 mcg/dose blistr powdr for inhalation (Wixela Inhub) furosemide 20 mg tablet 20 mg PO DAILY 08/21/21 04/21/22 gabapentin 300 mg capsule 1,200 mg PO DAILY 08/21/21 04/21/22 ipratropium 20 mcg-albuterol 100 20 - 100 puff inhalation Q6H PRN 08/21/21 04/21/22 mcg/actuation mist for inhalation Shortness Of Breath (Combivent Respimat) lisinopril 20 mg tablet 20 mg PO BID 08/21/21 04/21/22 magnesium oxide 400 mg (241.3 mg 400 mg PO DAILY 08/21/21 04/21/22 magnesium) tablet montelukast 10 mg tablet 10 mg PO HS 08/21/21 04/21/22 pantoprazole 40 mg tablet,delayed 40 mg PO QAM 08/21/21 04/21/22 release <Xochitl Ray PA-C - Last Filed: 12/23/22 18:55> Allergies/Adverse Reactions: Allergies Allergy/AdvReac Type Severity Reaction Status Date / Time iohexol Allergy Unknown Verified 12/23/22 11:31 [From contrast - CT, X-RAY] <Xochitl Ray PA-C - Last Filed: 12/23/22 18:55> Review of Systems Review of Systems: CONSTITUTIONAL: Denies fever EYES: Denies visual changes CARDIOVASCULAR: Denies chest pain, or edema. RESPIRATORY: Denies dyspnea. GASTROINTESTINAL: Reports abdominal pain. Denies nausea, vomiting, or diarrhea. GENITOURINARY: Denies dysuria MUSCULOSKELETAL: Reports joint pain and myalgia. Denies back pain NEUROLOGIC: Denies headache, numbness, or weakness. <Xochitl Ray PA-C - Last Filed: 12/23/22 18:55> All systems reviewed & are unremarkable except as noted in HPI and below <Xochitl Ray PA-C - Last Filed: 12/23/22 18:55> [facility] Past Medical History Medical History: Medical History Biventricular ICD (implantable cardioverter-defibrillator) in place Followed by Dr. Karen Harris, last generator change March 2013. Coronary artery disease involving autologous artery coronary bypass graft 2008: Cunningham to the Left anterior descending, free RI MA to the RCA, radial graft from the [place] to the OM 2. Later catheterization showed occlusion of the radial artery graft. Ischemic cardiomyopathy EF 40% in 2019 <Xochitl Ray PA-C - Last Filed: 12/23/22 18:55> Surgical History Surgical History: Surgical History History of left-sided carotid endar
[2022-12-23 12:25] LABS: Basophils Absolute Auto 0.1 K/mm3 (0.0-0.1); Basophils Percent Auto 0.4 % (0.2-1.2); Eosinophils Absolute Auto 0.1 K/mm3 (0-0.3); Eosinophils Percent Auto 0.6 % (0-4.4); Hematocrit 34.6 % (37.0-47.0); Hemoglobin 11.1 g/dL (12.0-15.0); Immature Granulocyte Absolute 0.12 K/mm3 (0.00-0.031); Immature Granulocyte Percent A 0.7 % (0-0.5); Immature Platelet Fraction Pct 3.2 % (0.9-11.2); Lymphocytes Absolute Auto 2.84 K/mm3 (0.9-3.2); Lymphocytes Percent Auto 15.9 % (18.3-44.2); Mean Corpuscular HGB Conc 32.1 g/dl (32-36); Mean Corpuscular Hemoglobin 28.1 pg (26-34); Mean Corpuscular Volume 87.6 fl (80-100); Monocytes Absolute Auto 1.3 K/mm3 (0.1-0.6); Monocytes Percent Auto 7.1 % (2.6-8.5); Neutrophils Absolute Auto 13.4 K/mm3 (1.3-6.7); Neutrophils Percent Auto 75.3 % (45.5-73.1); Red Blood Count 3.95 M/mm3 (4.2-5.4); Red Cell Distribution Width 17.6 % (11.5-14.5); White Blood Count 17.8 K/mm3 (4.5-10.0)
--- NOTE | 2022-12-23 13:03 | PC.NURSE ---
Patient off unit to CT.
--- NOTE | 2022-12-23 14:43 | PC.NURSE ---
RT notified of patient's ordered breathing treatment.
[2022-12-23] MEDS: ALBUTEROL SULFATE NEB 2.5 MG/3 ML INH 5 MG INHALATION (14:48)
[2022-12-23] MEDS: IPRATROPIUM BR 0.02% INH SOLN 0.5 MG/2.5 ML VIAL INHALATION (14:48)
--- NOTE | 2022-12-23 14:59 | PC.NURSE ---
RT at bedside to admin breathing treatment.
[2022-12-23 15:10] LABS: Prothrombin Time 13.2 Seconds (11.1-14.7)
[2022-12-23 15:11] LABS: Partial Thromboplastin Time 28.8 SECONDS (22.3-36.8)
[2022-12-23 15:12] LABS: Alanine Aminotransferase 20 U/L (6-35); Albumin Level 4.1 g/dL (3.5-5.1); Alkaline Phosphatase 105 U/L (38-126); Anion Gap 4 mmol/L (8-16); Aspartate Amino Transferase 27 U/L (14-36); Bilirubin,Total 0.5 mg/dL (0.2-1.3); Blood Urea Nitrogen 22 mg/dL (7-17); Calcium 8.9 mg/dL (8.4-10.2); Carbon Dioxide 29 mmol/L (22-30); Chloride 95 mmol/L (98-107); Estimated CRCL calculation 37 ml/min; Estimated Glomerular Filt Rate 48; Glucose 124 mg/dL (65-110); Lipase 29 U/L (23-300); Sodium 128 mmol/L (137-145)
[2022-12-23 15:54] LABS: Influenza A QL RT-PCR Negative (Negative); Influenza B QL RT-PCR Negative (Negative); SARS-CoV-2 RNA PCR Negative
[2022-12-23] MEDS: SODIUM CHLORIDE 0.9% IV 500 ML 999 ML IV CONT (15:55)
[2022-12-23] MEDS: diphenhydrAMINE HCl CAP 25 MG CAPSULE 50 MG PO (16:44)
[2022-12-23] MEDS: predniSONE 40 MG, predniSONE 10 MG 50 MG PO (16:44)
[2022-12-23 16:53] LABS: Hemoglobin 10.6 g/dL (12.0-15.0)
[2022-12-23 16:54] LABS: Appearance Urine Slightly Cloudy (Clear); Bilirubin Urine 1+ (Negative); Blood Urine Negative (Negative); Color Urine Yellow (Yellow); Glucose Urine UA Negative (Negative); Ketones Urine Trace mg/dL (Negative); Leukocyte Esterase Ur Negative LEU/UL (Negative); Nitrate Urine Negative (Negative); Protein Urine 2+ mg/dL (Negative); Specific Grav Ur >= 1.030 (1.001-1.035); Urobilinogen Urine 0.2 mg/dL (<2.0); pH Urine 5.5 (5.0-9.0)
[2022-12-23 17:05] LABS: Amorphous Sediment Urine Few; Bacteria Urine Trace /hpf; Hyaline Casts Urine 20-29 /lpf; Mucus Urine Few /lpf; Squamous Epithelial Cell Urine Occasional /hpf (Few)
[2022-12-23 17:09] LABS: Add Urine Microscopic? YES
== END 2022-12-23 18:30 | disposition short-term general hospital (02) ==
PROVIDERS: Physician Assistant; Emergency Provider Emergency Medicine
DX: J96.01 Acute respiratory failure with hypoxia (principal); J44.1 Chronic obstructive pulmonary disease with (acute) exacerbation; N17.9 Acute kidney failure, unspecified; S39.91XA Unspecified injury of abdomen, initial encounter; S32.511A Fracture of superior rim of right pubis, initial encounter for closed fracture; Z20.822 Contact with and (suspected) exposure to COVID-19; Z95.810 Presence of automatic (implantable) cardiac defibrillator; I25.10 Atherosclerotic heart disease of native coronary artery without angina pectoris; I25.5 Ischemic cardiomyopathy; W01.0XXA Fall on same level from slipping, tripping and stumbling without subsequent striking against object, initial encounter
CPT/HCPCS: 36415; 70450; 71046; 72125; 72128; 72131; 73030; 74176; 80053; 81001; 83690; 85014; 85018; 85025; 85055; 85610; 85730; 86850; 86900; 86901; 87086; 87636; 94640; 96361; 96365; 99291; A9270; J0131; J7040; J7512

== ENCOUNTER 2023-02-14 18:56 | Inpatient (IN) | payer MEDICARE, SELFPAY ==
[2023-02-14] VITALS (13 sets, daily range): BP systolic 158–199; BP diastolic 71–100; PULSE 73–83; RESP 10–23; TEMP 36.8; O2SAT 88–97
--- NOTE | ~2023-02-14 | XR_ITS ---
XR chest 1V portable DATE: 02/14/2023 19:55 INDICATION: Dyspnea, shortness of breath. TECHNIQUE: Portable upright AP chest 02/14/2023 1953 hours COMPARISON: December 23, 2022 2 view chest FINDINGS: Left AICD triple lead pacemaker device Status post sternotomy. Normal heart size. Aortic calcification and mild tortuosity. No hilar or mediastinal enlargement. No pulmonary infiltrate or consolidation, pleural effusion or pulmonary vascular congestion or pneumo thorax. Briefly calcified bilateral breast implants Osteopenia. IMPRESSION: No active cardiopulmonary disease 3-lead ICD/triple lead pacemaker Reviewed, dictated and finalized at location A.
--- NOTE | 2023-02-14 19:47 | ECG_ITS ---
Measurements Intervals [place] Rate: 71 P: 64 HI: 152 QRS: 242 QRSD: 146 T: 67 QT: 420 QTc: 458 Interpretive Statements ATRIAL SENSE- ELECTRONIC VENTRICULAR PACEMAKER BASELINE ARTIFACT- I, II, III, AVR, AVL, AVF, V1-V3 NO FURTHER INTERPRETATION IS POSSIBLE ATYPICAL ECG COMPARED TO ECG 04/21/2022 09:55:04 NO SIGNIFICANT CHANGES Electronically Signed On 02-14-2023 20:24:35 CDT by Alberto Carter D.O.
[2023-02-14] MEDS: methylPREDNISolone SOD SUCC 125 MG VIAL IV PUSH (20:04)
[2023-02-14] MEDS: ONDANSETRON INJ 4 MG/2 ML VIAL IV PUSH ×2 (20:04→21:49)
[2023-02-14] MEDS: ALBUTEROL SULFATE NEB 2.5 MG/3 ML INH INHALATION (20:11)
[2023-02-14] MEDS: IPRATROPIUM BR 0.02% INH SOLN 0.5 MG/2.5 ML VIAL INHALATION (20:11)
[2023-02-14 20:19] LABS: Basophils Absolute Auto 0.1 K/mm3 (0.0-0.1); Basophils Percent Auto 0.7 % (0.2-1.2); Eosinophils Absolute Auto 0.3 K/mm3 (0-0.3); Eosinophils Percent Auto 2.5 % (0-4.4); Hematocrit 38.7 % (37.0-47.0); Hemoglobin 12.6 g/dL (12.0-15.0); Immature Granulocyte Absolute 0.07 K/mm3 (0.00-0.031); Immature Granulocyte Percent A 0.7 % (0-0.5); Lymphocytes Absolute Auto 1.93 K/mm3 (0.9-3.2); Lymphocytes Percent Auto 18.4 % (18.3-44.2); Mean Corpuscular HGB Conc 32.6 g/dl (32-36); Mean Corpuscular Hemoglobin 27.6 pg (26-34); Mean Corpuscular Volume 84.9 fl (80-100); Mean Platelet Volume 9.3 fl (7.4-10.4); Monocytes Percent Auto 9.1 % (2.6-8.5); Neutrophils Absolute Auto 7.2 K/mm3 (1.3-6.7); Neutrophils Percent Auto 68.6 % (45.5-73.1); Platelet Count Result 262 k/mm3 (150-375); Red Blood Count 4.56 M/mm3 (4.2-5.4); Red Cell Distribution Width 16.3 % (11.5-14.5); White Blood Count 10.5 K/mm3 (4.5-10.0)
[2023-02-14 20:29] LABS: INR 1.1; Prothrombin Time 13.7 Seconds (11.1-14.7)
[2023-02-14 20:30] LABS: Partial Thromboplastin Time 28.4 SECONDS (22.3-36.8)
[2023-02-14 20:32] LABS: Alanine Aminotransferase 20 U/L (6-35); Albumin Level 4.1 g/dL (3.5-5.1); Alkaline Phosphatase 166 U/L (38-126); Anion Gap 4 mmol/L (8-16); Aspartate Amino Transferase 26 U/L (14-36); Bilirubin,Total 0.8 mg/dL (0.2-1.3); Blood Urea Nitrogen 9 mg/dL (7-17); Calcium 9.1 mg/dL (8.4-10.2); Carbon Dioxide 32 mmol/L (22-30); Chloride 96 mmol/L (98-107); Estimated CRCL calculation 93 ml/min; Estimated Glomerular Filt Rate > 60; Glucose 106 mg/dL (65-110); Magnesium 1.8 mg/dL (1.6-2.3); Potassium 3.9 mmol/L (3.4-5.0); Sodium 132 mmol/L (137-145)
[2023-02-14 20:41] LABS: Lactic Acid Reflex 1.1 mmol/L (0.7-2.0)
[2023-02-14 20:42] LABS: NT Pro B Type Natriuretic Pept 1230 pg/mL (19.9-100); Troponin I < 0.012 ng/mL (0.000-0.034)
[2023-02-14 20:51] LABS: Appearance Urine Clear (Clear); Bacteria Urine 4+ /hpf; Bilirubin Urine Negative (Negative); Blood Urine Negative (Negative); Color Urine Yellow (Yellow); Glucose Urine UA Negative (Negative); Ketones Urine 2+ mg/dL (Negative); Leukocyte Esterase Ur 1+ LEU/UL (Negative); Nitrate Urine Positive (Negative); Non Pathogenic Casts 0-2; Protein Urine Negative (Negative); RBC Urine 0-2 /hpf (0-2); Specific Grav Ur 1.008 (1.001-1.035); Squamous Epithelial Cell Urine None seen /hpf (Few); Urobilinogen Urine 0.2 mg/dL (<2.0)
[2023-02-14 20:53] LABS: Add Urine Microscopic? YES
[2023-02-14 20:54] LABS: Influenza A QL RT-PCR Negative (Negative); Influenza B QL RT-PCR Negative (Negative); RSV RNA, RT-PCR Negative (Negative); SARS-CoV-2 RNA PCR Negative
--- NOTE | 2023-02-14 21:16 | ED.GENADULT ---
HPI - General Adult General Chief complaint: Shortness of Breath/Dyspnea Stated complaint: DIFFICULTY BREATHING Time Seen by Provider: 02/14/23 19:39 History of Present Illness HPI narrative: Patient 82-year-old female who presents emerged from with chief complaint of shortness of breath. Patient has prior history of congestive heart failure and COPD patient reports that she has been having increasing shortness of breath over the last several days and reports has been feeling not so well. Patient reports he has had a dry cough patient denies fever per EMS the patient was saturating in the 80s whenever she was picked up the patient did respond with oxygen but does not use home oxygen. Related Data Home Medications Medication Instructions Recorded Confirmed apixaban 5 mg tablet (Eliquis) 5 mg PO BID 08/21/21 04/21/22 aspirin 81 mg capsule 81 mg PO HS 08/21/21 04/21/22 atorvastatin 40 mg tablet 40 mg PO HS 08/21/21 04/21/22 carvedilol 12.5 mg tablet 12.5 mg PO BID 08/21/21 04/21/22 dofetilide 250 mcg capsule 250 mcg PO BID 08/21/21 04/21/22 fluticasone 250 mcg-salmeterol 50 250 inh inhalation BID 08/21/21 04/21/22 mcg/dose blistr powdr for inhalation (Wixela Inhub) furosemide 20 mg tablet 20 mg PO DAILY 08/21/21 04/21/22 gabapentin 300 mg capsule 1,200 mg PO DAILY 08/21/21 04/21/22 ipratropium 20 mcg-albuterol 100 20 - 100 puff inhalation Q6H PRN 08/21/21 04/21/22 mcg/actuation mist for inhalation Shortness Of Breath (Combivent Respimat) lisinopril 20 mg tablet 20 mg PO BID 08/21/21 04/21/22 magnesium oxide 400 mg (241.3 mg 400 mg PO DAILY 08/21/21 04/21/22 magnesium) tablet montelukast 10 mg tablet 10 mg PO HS 08/21/21 04/21/22 pantoprazole 40 mg tablet,delayed 40 mg PO QAM 08/21/21 04/21/22 release Allergies Allergy/AdvReac Type Severity Reaction Status Date / Time iohexol Allergy Unknown Verified 12/23/22 11:31 [From contrast - CT, X-RAY] Review of Systems Review of Systems: A 10 system review of systems was completed on the patient and is negative except for what is stated in the HPI. Nursing and ancillary documentation was reviewed. [facility] Past Medical History Medical History Biventricular ICD (implantable cardioverter-defibrillator) in place Followed by Dr. Karen [employer], last generator change March 2013. Coronary artery disease involving autologous artery coronary bypass graft 2008: Cunningham to the Left anterior descending, free RI MA to the RCA, radial graft from the [place] to the OM 2. Later catheterization showed occlusion of the radial artery graft. Ischemic cardiomyopathy EF 40% in 2019 Surgical History Surgical History History of left-sided carotid endarterectomy 2020, Dr. Dean Newsome Hx of CABG Family History Family History Mother Hypertension Father Family history of congenital heart disease Other Cerebrovascular accident Diabetes mellitus Social History Social History Smoking packs per day: 0.5 Smoking cigarettes per day: 10.0 Years smoked: 65 Smoking pack-years: 32.50 Smoking status: Current every day smoker Tobacco type: cigarettes Alcohol intake: never Substance use: never Substance use type: does not use Spiritual care concerns: No Exam Narrative: GENERAL: Well-appearing, well-nourished, and in no acute distress. HEAD: Normocephalic, atraumatic. EYES: PERRLA and EOMI. ENT: Nares clear, no rhinorrhea or epistaxis. Mucous membranes moist. NECK: Supple. CHEST: Crackles and rhonchi to auscultation. No respiratory distress. HEART: Regular rate and rhythm. No murmur heard. Normal peripheral pulses. ABDOMEN: Soft, nontender, nondistended, normal active bowel sounds. EXTREMITIES: Normal rang
--- NOTE | 2023-02-14 21:48 | PM.IMHP ---
H&P: HPI History of Present Illness Date/Time: 02/14/23 21:48 Chief Complaint: Shortness of breath Narrative: This is an 82-year-old female with past medical history significant for COPD/emphysema, cardiomyopathy, ischemic, coronary artery bypass graft, biventricular AICD in place, tobacco dependence, patient smokes 1 pack of cigarettes daily. Patient presents to the emergency room due to worsening shortness of breath for the last 3 days or so, cough nonproductive, chest congestion, PND, orthopnea, bilateral lower extremity swelling, denies fevers rigors or chills, no chest pain. Patient found to have low oxygen saturation and placed on supplemental oxygen by nasal cannula. Preliminary workup was significant for brain natriuretic peptide 1230, a chest x-ray was reported as: FINDINGS: Left AICD triple lead pacemaker device Status post sternotomy. Normal heart size. Aortic calcification and mild tortuosity. No hilar or mediastinal enlargement. No pulmonary infiltrate or consolidation, pleural effusion or pulmonary vascular congestion or pneumothorax. Briefly calcified bilateral breast implants Osteopenia.? IMPRESSION: No active cardiopulmonary disease 3-lead ICD/triple lead pacemaker? Review of Systems Review of Systems: Shortness of breath, bilateral lower extremity edema Constitutional: Constitutional: Denies chills, Reports fatigue, Denies fever(s), Reports lethargy, Denies malaise, Denies night sweats and Denies weakness Eyes: Eyes: Denies change in vision ENT: Denies dysphagia and Denies odynophagia Cardiovascular: Cardiovascular: Denies chest pain, Reports leg edema, Denies radiating jaw, neck or arm pain and Denies palpitations Respiratory: Respiratory: Denies change in phlegm color, Reports chest congestion, Reports cough, Reports excessive phlegm production, Reports dyspnea and Reports wheezing Gastrointestinal: Gastrointestinal: Denies abdominal pain, Denies dyspepsia, Denies heartburn, Denies diarrhea, Denies nausea and Denies vomiting Genitourinary: Genitourinary: Denies dysuria Musculoskeletal: Musculoskeletal: Denies back pain, Denies myalgias and Denies muscle weakness Integumentary/Breasts: Skin/Breast: Denies rash Neurologic: Denies focal weakness and Denies Sensory deficit (Neuro) Psychiatric: Psychiatric: Reports no additional psychiatric complaints and Reports as per HPI Endocrine: Endocrine: Denies cold intolerance, Denies flushing, Denies heat intolerance, Denies polyphagia, Denies polydipsia and Denies palpitations Hematologic/Lymphatic: Hematologic/Lymphatic: Reports no additional hematologic/lymphatic complaints and Reports as per HPI Allergic/Immunologic: Allergic/Immunologic: Reports no additional allergic/immunologic complaints and Reports as per HPI [facility] Past Medical History Medical History Biventricular ICD (implantable cardioverter-defibrillator) in place Followed by Dr. Karen Patterson [employer], last generator change March 2013. Coronary artery disease involving autologous artery coronary bypass graft 2008: Cunningham to the Left anterior descending, free RI MA to the RCA, radial graft from the [place] to the OM 2. Later catheterization showed occlusion of the radial artery graft. Ischemic cardiomyopathy EF 40% in 2019 Surgical History Surgical History History of left-sided carotid endarterectomy 2020, Dr. Dean Newsome Hx of CABG Family History Family History (Updated 02/15/23 @ 00:21 by Ade Proctor RN) Mother No problems noted. Father Family history of congenital heart disease Diabetes mellitus Cerebrovascular accident Other Hypertension Social History Social History Smoking packs per day: 0.5 Smoking cigarettes per day: 10.0 Years smoked: 65 Smoking pack-years: 32.50 Smoking s
[2023-02-14] MEDS: FUROSEMIDE INJ 40 MG/4 ML VIAL IV PUSH (21:49)
[2023-02-15] VITALS (20 sets, daily range): BP systolic 134–147; BP diastolic 57–66; PULSE 77–88; RESP 16–20; TEMP 36.3–36.4; O2SAT 90–97
--- NOTE | 2023-02-15 | ECHO_ITS ---
Patient Info Name: Jannette Urena Age: 82 years : 1940 Gender: Female Ht: 65 in Wt: 174 lbs BSA: 1.92 m2 HR: 81 bpm BP: 147 / 62 mmHg Heart Rhythm: Sinus Rhythm Technical Quality: Fair Exam Date: 02/15/2023 11:20 AM Exam Location: [facility] Patient Status: Outpatient Admit Date: 02/14/2023 Staff Ordering Physician: Rachel Stevenson MD Power Bender Operator: Georgie Coronado RDCS Attending Provider: Rachel Stevenson MD Referring Physician: Elva RODRIGUEZ; Exam Type: CA echo dop color flow w con Study Info Indications I50.9 - Heart failure, unspecified Complete two-dimensional, color flow and Doppler transthoracic echocardiogram is performed with contrast to opacify the left ventricle and to improve the deliniation of the left ventricle endocardial borders. Contrast/Agitated Saline Contrast/Ag. Saline: Definity Amount: 4.00 ml Administered By: Georgie Coronado RDCS Existing IV Access: Yes IV Access Condition: patent with no signs of infiltration Summary 1. Left ventricular hypertrophy with vigorous/hyperdynamic appearing systolic function and grade 1 diastolic dysfunction. 2. Mobile structure in left ventricle most consistent with a disrupted mitral chordal element. 3. Definity contrast used to improve visualization. 4. Trivial mitral regurgitation. 5. Enlarged left atrium. 6. Pacemaker lead noted. Left Ventricle Left ventricular chamber dimension is normal. Left ventricular systolic function is hyperdynamic, estimated at >70%. There is mild concentric increased left ventricular wall thickness. The left ventricular diastolic function is grade I diastolic dysfunction. Right Ventricle Right ventricular chamber dimension is normal. Left Atria Left atrial chamber dimension is mildly enlarged. Right Atria Right atrial chamber dimension is normal. Aortic Valve The aortic valve is trileaflet. There is mild aortic valve sclerosis. Pulmonic Valve The pulmonic valve is not well visualized. Mitral Valve The mitral valve has normal leaflets. There is trace mitral valve regurgitation. The mitral valve annulus is mildly calcified. Tricuspid Valve The tricuspid valve leaflets are normal. Pericardium/Pleural The pericardium appears normal. Aorta The aortic root size at the sinus of Valsalva is normal. Left Ventricular Outflow Tract Name Value Normal LVOT 2D LVOT Diameter 1.90 cm LVOT Doppler LVOT Peak Gradient 8 mmHg LVOT Mean Gradient 4 mmHg LVOT VTI 27.23 cm LVOT VTI/AV VTI Ratio 0.84 LVOT Stroke Volume 77.34 ml LVOT CO 6.43 l/min LVOT CI 3.34 L/min/m2 Pulmonic Valve Name Value Normal RVOT Doppler
--- NOTE | 2023-02-15 00:08 | ADMGEN ---
This patient, Jannette Urena, was admitted to 3 Med Surg Room 331-01. Patient/family oriented to hospital policies and general routines including ID bracelet, bed and alarms, visiting hours, pain management, procedures, bathroom and other care routines, personal items, smoking policy, room service/diet, and visiting hours. Information on how to activate the Rapid Response Team has been discussed. Patient/Family are encouraged to report perceived risks to care and to ask questions if they do not understand what they are told or what they should do.
[2023-02-15 01:00] LABS: Troponin I < 0.012 ng/mL (0.000-0.034)
[2023-02-15] MEDS: ATORVASTATIN 40 MG TABLET PO ×2 (02:35→21:02)
[2023-02-15] MEDS: lisinopriL 20 MG TABLET PO ×3 (02:36→21:02)
[2023-02-15] MEDS: APIXABAN 5 MG TABLET PO ×3 (02:36→21:02)
[2023-02-15] MEDS: carvediloL 12.5 MG TABLET PO ×3 (02:36→21:10)
[2023-02-15] MEDS: MONTELUKAST SODIUM 10 MG TABLET PO ×2 (02:36→21:02)
[2023-02-15] MEDS: rOPINIRole HCL 1 MG TABLET PO ×2 (02:36→21:02)
[2023-02-15] MEDS: methylPREDNISolone SOD SUCC 125 MG VIAL 60 MG IV PUSH ×3 (05:47→21:01)
[2023-02-15] MEDS: ALBUTEROL SULFATE NEB 2.5 MG/3 ML INH INHALATION ×3 (07:51→20:02)
[2023-02-15] MEDS: FLUTICASONE/SALMETEROL 115-21 MCG INHALER 1 PUFF 2 PUFF INHALATION ×2 (07:51→20:02)
[2023-02-15] MEDS: IPRATROPIUM BR 0.02% INH SOLN 0.5 MG/2.5 ML VIAL INHALATION ×3 (07:51→20:02)
[2023-02-15] MEDS: OPTI-GEN TAB 1 TABLET PO ×2 (08:31→17:01)
[2023-02-15] MEDS: MAGNESIUM OXIDE 400 MG TABLET PO (08:31)
[2023-02-15] MEDS: ASPIRIN 81 MG CHEWABLE TABLET PO (08:31)
[2023-02-15] MEDS: GABAPENTIN 300 MG CAPSULE PO ×3 (08:31→17:00)
[2023-02-15] MEDS: PANTOPRAZOLE 40 MG TABLET PO (08:32)
[2023-02-15] MEDS: FUROSEMIDE INJ 40 MG/4 ML VIAL IV PUSH ×2 (08:34→21:02)
[2023-02-15] MEDS: Dofetilide 250 mcg capsule 1 EACH BY MOUTH (08:34)
[2023-02-15] MEDS: PERFLUTREN LIPID MICROSPHERES 1.5 ML VIAL DILUTED TO 10 ML TOTAL VOLUME IV PUSH (11:50)
--- NOTE | 2023-02-15 16:39 | PM.IMPN ---
Progress Note: A&P Assessment and Plan (1) Acute respiratory failure with hypoxia: Code(s): J96.01 - Acute respiratory failure with hypoxia Status: Acute Assessment and Plan: On supplemental oxygen stool L by nasal cannula Try and keep oxygen saturation at 94% Likely CHF/COPD exacerbation (2) Acute exacerbation of CHF (congestive heart failure): Code(s): I50.9 - Heart failure, unspecified Status: Acute Assessment and Plan: Daily intake and output Aggressive diuresis on Lasix 40 b.i.d. 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: Code(s): I25.810 - Atherosclerosis of coronary artery bypass graft(s) without angina pectoris Status: Acute Assessment and Plan: Unchanged (6) Biventricular ICD (implantable cardioverter-defibrillator) in place: Code(s): Z95.810 - Presence of automatic (implantable) cardiac defibrillator Status: Acute Assessment and Plan: Unchanged (7) Tobacco abuse disorder: Code(s): Z72.0 - Tobacco use Status: Acute Assessment and Plan: Patient is a current everyday smoker of 1 pack of cigarettes daily Nicotine patch as needed Plan Atrial fibrillation on dofetilide and apixaban rate controlled UTI on ceftriaxone Subjective Date/time seen: 02/15/23 16:39 Interval history: Presented with shortness of breath. Prior history of congestive heart failure and COPD. Increased shortness of breath the several days. Dry cough which is chronic. Saturation in she picked. Does not use oxygen at home. Feeling better today. Troponin negative. BNP 1230. UA with UTI. RSV flu COVID negative chest x-ray with no acute cardiopulmonary disease. EKG with paced rhythm. Lactate was normal procalcitonin is 0 Review of Systems Review of Systems: All systems reviewed & are unremarkable except as noted in HPI and below Exam Narrative: GENERAL: Well-appearing, well-nourished, and in no acute distress. HEAD: Normocephalic, atraumatic. EYES: PERRLA and EOMI. ENT: Nares clear, no rhinorrhea or epistaxis.? Mucous membranes moist. NECK: Supple. CHEST: Coarse breath sounds and expiratory wheezes noted on auscultation.? No respiratory distress. HEART: Regular rate and rhythm.? No murmur heard.? Normal peripheral pulses. ABDOMEN: Soft, nontender, nondistended, normal active bowel sounds. EXTREMITIES: Normal range of motion.? Trace edema bilateral lower extremities SKIN: Warm, dry, no rash. NEURO: No focal deficits.? Alert and oriented x3. PSYCH: Normal mood and affect. Objective Data Vital Signs Vital Signs: Vital Signs - 24 hr 02/14/23 19:10 02/14/23 19:07 02/14/23 19:18 Temperature 98.3 F Pulse Rate 75 Respiratory Rate 14 Blood Pressure 198/84 H Pulse Oximetry 97 96 96 Oxygen Delivery Nasal Cannula Nasal Cannula Nasal Cannula Oxygen Flow Rate 2 2 2 02/14/23 19:09 02/14/23 19:16 02/14/23 19:32 Temperature Pulse Rate 76 83 73 Respiratory Rate 10 L 15 14 Blood Pressure 177/86 H 198/84 H 198/80 H Pulse Oximetry 96 95 93 Oxygen Delivery Oxygen Flow Rate 02/14/23 19:47 02/14/23 20:02 02/14/23 20:14 Temperature Pulse Rate 81 79 76 Respiratory Rate 23 H 16 19 Blood Pressure 196/100 H 199/83 H Pulse Oximetry 92 93 Oxygen Delivery Oxygen Flow Rate 02/14/23 20:24 02/14/23 22:43 02/14/23 22:56 Temperature
[2023-02-15] MEDS: ASPIRIN 81 MG ENTERIC TABLET PO (21:02)
[2023-02-15] MEDS: Dofetilide 250 mcg capsule BY MOUTH (22:30)
[2023-02-16] VITALS (20 sets, daily range): BP systolic 105; BP diastolic 76; PULSE 70–86; RESP 16–18; TEMP 36.2; O2SAT 86–94
[2023-02-16] MEDS: ACETAMINOPHEN 325 MG TABLET 650 MG PO (01:42)
[2023-02-16] MEDS: IPRATROPIUM BR 0.02% INH SOLN 0.5 MG/2.5 ML VIAL INHALATION ×3 (01:44→14:36)
[2023-02-16] MEDS: ALBUTEROL SULFATE NEB 2.5 MG/3 ML INH INHALATION ×3 (01:44→14:37)
[2023-02-16] MEDS: methylPREDNISolone SOD SUCC 125 MG VIAL 60 MG IV PUSH ×2 (05:51→13:08)
[2023-02-16] MEDS: GABAPENTIN 300 MG CAPSULE PO ×2 (08:41→13:08)
[2023-02-16] MEDS: lisinopriL 20 MG TABLET PO (08:41)
[2023-02-16] MEDS: OPTI-GEN TAB 1 TABLET PO (08:41)
[2023-02-16] MEDS: FUROSEMIDE INJ 40 MG/4 ML VIAL IV PUSH (08:41)
[2023-02-16] MEDS: PANTOPRAZOLE 40 MG TABLET PO (08:41)
[2023-02-16] MEDS: APIXABAN 5 MG TABLET PO (08:41)
[2023-02-16] MEDS: carvediloL 12.5 MG TABLET PO (08:41)
[2023-02-16] MEDS: MAGNESIUM OXIDE 400 MG TABLET PO (08:41)
[2023-02-16] MEDS: Dofetilide 250 mcg capsule BY MOUTH (08:43)
[2023-02-16] MEDS: FLUTICASONE/SALMETEROL 115-21 MCG INHALER 1 PUFF 2 PUFF INHALATION (08:45)
--- NOTE | 2023-02-16 15:02 | PM.DS ---
DS: Admitting Diagnosis Discharge Date 02/16/2023 Admitting Diagnosis shortness of breath DS: Discharge Diagnosis Discharge Diagnosis (1) Acute respiratory failure with hypoxia: Code(s): J96.01 - Acute respiratory failure with hypoxia Status: Acute (2) Acute exacerbation of CHF (congestive heart failure): Code(s): I50.9 - Heart failure, unspecified Status: Acute (3) Asthma exacerbation in COPD: Code(s): J44.1 - Chronic obstructive pulmonary disease with (acute) exacerbation; J45.901 - Unspecified asthma with (acute) exacerbation Status: Acute (4) Ischemic cardiomyopathy: Code(s): I25.5 - Ischemic cardiomyopathy Status: Acute (5) Coronary artery disease involving autologous artery coronary bypass graft: Code(s): I25.810 - Atherosclerosis of coronary artery bypass graft(s) without angina pectoris Status: Acute (6) Biventricular ICD (implantable cardioverter-defibrillator) in place: Code(s): Z95.810 - Presence of automatic (implantable) cardiac defibrillator Status: Acute (7) Tobacco abuse disorder: Code(s): Z72.0 - Tobacco use Status: Acute DS: Summary Hospital Course Hospital Course: # Acute respiratory failure with hypoxia: On supplemental oxygen via by nasal cannula Try and keep oxygen saturation at 94% Likely CHF/COPD exacerbation. Chest x-ray was negative for CHF most likely COPD exacerbation suspected home oxygen eval done and rquired oxygen. arragned with help fo resp therapy # Acute exacerbation of CHF (congestive heart failure): Daily intake and output Aggressive diuresis on Lasix 40 b.i.d. Echo With left ventricular hypertrophy with vigorous/hyperdynamic appearing systolic function and grade 1 diastolic dysfunction. Mobile structure in left ventricular most consistent with Disrupted mitral chordal alignment. # Asthma exacerbation in COPD: Breathing treatments q.4 hours Systemic steroids Solu-Medrol 60 q.8 hours Continue same with bronchodilators Will switch to prednisone at discharge with taper # Ischemic cardiomyopathy: Chest pain-free Continue home meds Continue to monitor Troponin negative # Coronary artery disease involving autologous artery coronary bypass graft: Unchanged # Biventricular ICD (implantable cardioverter-defibrillator) in place: Unchanged # Tobacco abuse disorder: Patient is a current everyday smoker of 1 pack of cigarettes daily Nicotine patch as needed #Atrial fibrillation on dofetilide and apixaban rate controlled #UTI on ceftriaxone cultures pending. Patient does 1 a stay in hospital anymore and was switched to Omnicef at discharge. Urine culture to be followed up as an outpatient basis Time Spent with Patient Time attestation: Total time spent providing and/or coordinating discharge services: 45 minutes Exam Narrative: GENERAL: Well-appearing, well-nourished, and in no acute distress. HEAD: Normocephalic, atraumatic. EYES: PERRLA and EOMI. ENT: Nares clear, no rhinorrhea or epistaxis.? Mucous membranes moist. NECK: Supple. CHEST: Coarse breath sounds and expiratory wheezes noted on auscultation.? No respiratory distress. HEART: Regular rate and rhythm.? No murmur heard.? Normal peripheral pulses. ABDOMEN: Soft, nontender, nondistended, normal active bowel sounds. EXTREMITIES: Normal range of motion.? Trace edema bilateral lower extremities SKIN: Warm, dry, no rash. NEURO: No focal deficits.? Alert and oriented x3. PSYCH: Normal mood and affect. DS: Data Data Completed and Pending Labs on day of discharge: Preliminary micro results at discharge 02/14/23 20:37 Urine Culture - Preliminary Unspecified Escherichia Coli 02/14/23 20:10 Blood Culture - Preliminary Blood 02/14/23 20:02 Blood Culture - Preliminary Blood Imaging Radiologist's impression: ITS Impressions Chest X-Ray 02/14/23 19:56 IMPRESSION: No active cardiopulmonary disease 3-lead ICD/t
--- NOTE | 2023-02-16 15:34 | PCRCNOTE ---
SET UP WITH [facility], HOME O2 AT 2 L REST AND 3 L ACTIVITY
--- NOTE | 2023-02-16 15:35 | HOMEO2EVAL ---
Evaluation was performed at [facility] Home Oxygen Evaluation RC: Home Oxygen (O2) Evaluation Start: 02/16/23 11:32 Freq: ONCE Status: Active Protocol: RPE Activity Type Activity Date Activity User E-sign Co-sign Detail Recorded Client Recorded Date Recorded By Document 02/16/23 14:00 JEFF [email or web address] 02/16/23 15:34 JEFF Document 02/16/23 14:01 [email or web address] [email or web address] 02/16/23 15:34 JEFF Document 02/16/23 14:02 [email or web address] [email or web address] 02/16/23 15:34 JEFF Document 02/16/23 14:05 [email or web address] [email or web address] 02/16/23 15:34 JEFF Document 02/16/23 14:07 [email or web address] [email or web address] 02/16/23 15:34 JEFF Document 02/16/23 14:15 [email or web address] [email or web address] 02/16/23 15:34 JEFF 02/16/23 02/16/23 02/16/23 14:00 14:01 14:02 Home O2 Evaluation [Oxygen] -Test Phase Resting Resting Resting -Oxygen Delivery Room Air Nasal Cannula Nasal Cannula -Oxygen Flow Rate (L/min) 1 2 [Pulse Oximetry] -Pulse Oximetry (90-100 %) 86 L 87 L 89 L [Comments] -Home Oxygen Evaluation Comments [Charges] -Treatment Charges O2 Evaluation - Inpatient 02/16/23 02/16/23 02/16/23 14:05 14:07 14:15 Home O2 Evaluation [Oxygen] -Test Phase Exercise Exercise Resting -Oxygen Delivery Nasal Cannula Nasal Cannula Nasal Cannula -Oxygen Flow Rate (L/min) 2 3 2 [Pulse Oximetry] -Pulse Oximetry (90-100 %) 87 L 90 91 [Comments] -Home Oxygen Evaluation Comments 2 LITER AT REST AND 3 LITER WITH ACTIVITY [Charges] -Treatment Charges
== END 2023-02-16 16:50 | disposition home health service (06) | DRG 291 ==
LOC: ANHED 21:30 → ANH3MEDSUR 22:01
PROVIDERS: Admitting Provider Internal Medicine; Emergency Provider Emergency Medicine; Visit Provider Internal Medicine
DX: I11.0 Hypertensive heart disease with heart failure (principal); I50.33 Acute on chronic diastolic (congestive) heart failure; J44.1 Chronic obstructive pulmonary disease with (acute) exacerbation; J45.901 Unspecified asthma with (acute) exacerbation; I25.810 Atherosclerosis of coronary artery bypass graft(s) without angina pectoris; N39.0 Urinary tract infection, site not specified; I25.5 Ischemic cardiomyopathy; F17.210 Nicotine dependence, cigarettes, uncomplicated; Z95.810 Presence of automatic (implantable) cardiac defibrillator; Z20.822 Contact with and (suspected) exposure to COVID-19
CPT/HCPCS: 36415; 71045; 80053; 81001; 83605; 83735; 83880; 84145; 84484; 85025; 85610; 85730; 87040; 87077; 87086; 87186; 87637; 93005; 94618; 94640; 96365; 96375; 96376; 99285; A9270; C8929; G0378; J0696; J1940; J2405; J2930; Q9957

== ENCOUNTER → 2023-04-12 09:58 | Outpatient (CLI) | payer MEDICARE, SELFPAY ==
--- NOTE | ~2023-04-12 | US_ITS ---
US abdomen complete EXAMINATION: US Abdomen Complete INDICATION: Abdomen and pelvic pain PROCEDURE: Realtime High Resolution abdomen ultrasound. COMPARISON: No prior studies for comparison FINDINGS: Gallbladder is surgically absent Common bile duct measures 3.4 mm. Liver echotexture within normal limits without focal mass. Pancreas within normal limits. Pancreati c tail is obscured by bowel gas. Spleen is unremarkeable. Renal echotexture is within normal limits bilaterally without hydronephrosis, contour deforming mass or renal stone. Right kidney measures 11.2 cm. Left kidney measures 2 cm. Visualized aspects of the aorta and IVC are within normal limits. Portal vein is patent. No sonograph ic Salas's sign indicated by the technologist. IMPRESSION: 1: Normal abdominal ultrasound postcholecystectomy. Reviewed, dictated and finalized at location B.
--- NOTE | ~2023-04-12 | US_ITS ---
EXAMINATION: US pelvic complete DATE: 04/12/2023 11:18 INDICATION: Right lower quadrant pain Comparison:No prior studies for comparison. TECHNIQUE: Multiple transabdominal sonographic images of the pelvis performed. FINDINGS: The uterus measures 6.8 x 2 x 3.8 cm. The endometrial complex measures 3 mm. The right ovary measures 4.1 x 5.5 x 4 cm. The right ovary appears complex and is not well visualized . There is normal Doppler signal in the right ovary. The left ovary is not visualized. There is no free fluid in the pelvis. There are no abnormal masses seen on either side. IMPRESSION: 1. Complex mildly enlarged right ovary with normal vascular flow. Otherwise, unremarkable pelvic ultr asound. Reviewed, dictated and finalized at location B. IMPRESSION: 1. Complex mildly enlarged right ovary with normal vascular flow. Otherwise, un remarkable pelvic ultrasound.
== END ==
PROVIDERS: PCP Nurse Practitioner Family; Visit Provider Nurse Practitioner Family
DX: R10.9 Unspecified abdominal pain (principal); Z90.49 Acquired absence of other specified parts of digestive tract
CPT/HCPCS: 76700; 76856

== ENCOUNTER 2023-04-14 12:35 | Observation (INO) | payer MEDICARE, SELFPAY ==
[2023-04-14] VITALS (10 sets, daily range): BP systolic 142–210; BP diastolic 68–89; PULSE 80–94; RESP 14–20; TEMP 36.3–36.4; O2SAT 91–95; BMI 27.1
--- NOTE | ~2023-04-14 | CT_ITS ---
EXAMINATION: CT abdomen pelvis wo con DATE: 04/14/2023 17:35 INDICATION: RLQ pain TECHNIQUE: Computed tomography (CT) of the abdomen and pelvis was performed without intravenous contr ast. Automated exposure control and iterative reconstruction technique were employed. The dose-length product was 392.14 mGy-cm. COMPARISON: CT 12/23/2022; ultrasound pelvis 04/12/2023. FINDINGS: Lower thorax: Partially visualized pacing wires. Aortic valve, mitral, and coronary artery calcificat ions. Mild dependent atelectasis and scar. Bilateral breast implants. Extracapsular rupture on the le ft. Liver: Enlarged Biliary/Gallbladder: Gallbladder is absent. No bile duct dilation. Pancreas: No mass or duct dilation. Spleen: Normal. Adrenals: Mild adrenal hyperplasia. Kidneys: No mass, stone, or hydronephrosis. GI tract: No small or large bowel dilation. Appendix not visualized. Mesentery/Peritoneum: No ascites, mass, or free air. Retroperitoneum: No mass. Atherosclerotic abdominal aortic and/or arterial calcifications. 0.6 x 1.8 cm saccular infrarenal abdominal aortic aneurysm involving a 2.6 cm length of the aorta. Pelvis: Mild bladder wall thickening and inflammatory change. 4.2 cm right ovarian lesion measuring 3 6 Hounsfield units. The uterus is normal. Soft Tissues: Small fat-containing anterior abdominal periumbilical hernia. Small umbilical hernia co ntaining a loop of small bowel, without significant inflammation or obstruction. Bones: No acute osseous finding. Subacute/chronic right pelvic fractures. IMPRESSION: 1. 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 2. Hepatomegaly. 3. 0.6 x 1.8 cm saccular infrarenal abdominal aorta aneurysm. 4. Bladder wall thickening and inflammation may be secondary to cystitis, correlate with urinalysis. 5. 4.2 cm complex right ovarian cyst, in the region of previously identified large pelvic hematoma, m ay represent a resolving hemorrhagic cyst or other hemorrhagic ovarian lesion that had ruptured/bled in the prior examination. Consider gynecology referral and outpatient pelvic MRI. 6. Uncomplicated appearing small bowel containing umbilical hernia. ... Reviewed, dictated and finalized at location K. IMPRESSION: 1. 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 2. Hepatomegaly. 3. 0.6 x 1.8 cm saccular infrarenal abdominal aorta aneurysm. 4. Bladder wall thickening and inflammation may be secondary to cystitis, corre late with urinalysis. 5. 4.2 cm complex right ovarian cyst, in the region of previously identified la rge pelvic hematoma, may represent a resolving hemorrhagic cyst or other hemorr hagic ovarian lesion that had ruptured/bled in the prior examination. Consider gynecology referral and outpatient pelvic MRI. 6. Uncomplicated appearing small bowel containing umbilical hernia. ...
--- NOTE | ~2023-04-14 | XR_ITS ---
EXAMINATION: XR chest 1V portable DATE: 04/14/2023 17:33 INDICATION: Shortness of breath TECHNIQUE: frontal view of the chest was obtained. COMPARISON: Chest radiograph dated 02/14/2023 FINDINGS: Mild increased interstitial pattern in the bilateral perihilar regions and lower lung zones consisten t with mild pulmonary edema. No more focal airspace consolidation, pleural effusion or pneumothorax. Heart size within normal limits for AP technique. Median sternotomy wires and mediastinal surgical cl ips are seen, likely from prior coronary artery bypass grafting. Three lead pacemaker/AICD seen with leads projecting over the expected locations of the right atrial appendage, apex of the right ventric le and overlying the left ventricle likely having traversed the coronary sinus. Bilateral peripherall y calcified breast implants. IMPRESSION: 1. Mild increased bilateral perihilar and lower lung interstitial pattern consistent with mild pulmon jarad edema. Reviewed, dictated and finalized at location A. IMPRESSION: 1. Mild increased bilateral perihilar and lower lung interstitial pattern consi stent with mild pulmonary edema.
--- NOTE | 2023-04-14 17:09 | ECG_ITS ---
Measurements Intervals [place] Rate: 77 P: 127 [place]: 148 QRS: -65 QRSD: 142 T: 94 QT: 400 QTc: 454 Interpretive Statements ATRIAL SENSE- ELECTRONIC VENTRICULAR PACEMAKER BASELINE ARTIFACT- I, II, III, AVR, AVL, AVF NO FURTHER INTERPRETATION IS POSSIBLE ATYPICAL ECG COMPARED TO ECG 02/14/2023 19:59:48 NO SIGNIFICANT CHANGES Electronically Signed On 04-14-2023 18:57:50 CDT by Alberto Carter D.O.
--- NOTE | 2023-04-14 17:18 | ED.GENADULT ---
HPI - General Adult General Chief complaint: Extremity Injury, Lower <Luz Guido PA-C - Last Filed: 04/21/23 02:54> Stated complaint: pelvic pain <Luz Guido PA-C - Last Filed: 04/21/23 02:54> Time Seen by Provider: 04/14/23 16:43 <Luz Guido PA-C - Last Filed: 04/21/23 02:54> History of Present Illness HPI narrative: 82-year-old female with history of COPD, CABG, ischemic cardiomyopathy, and CHF reports for evaluation of right lower quadrant pain and right groin pain x3 weeks. Patient states she has been taking ibuprofen consistently without improvement in her pain. States she was transferred to [facility] in December from [facility] after having pain similar to what she has now. At that time, CT scan showed a large volume right lower quadrant and deep right pelvic clot with surrounding unclotted blood or other fluid, possibly urine. Patient states he was hospitalized at [facility] for 5 days and then released without needing surgery. She states she improved until sudden onset of pain again 3 weeks ago. States the pain is constant and has required her to start using her walker to ambulate. Normally she ambulates without a walker or cane. She is also reporting shortness of breath which is unchanged from her baseline. Reports taking her Combivent inhaler today. Patient also states she has not taken her blood pressure medications today because she was worried about her abdominal pain. She denies fever, chest pain, headache, vision changes, focal numbness or weakness, urinary complaints, diarrhea, obstipation. Last bowel movement was yesterday. <Luz Guido PA-C - Last Filed: 04/21/23 02:54> Related Data Home medications: Home Medications Medication Instructions Recorded Confirmed apixaban 5 mg tablet (Eliquis) 5 mg PO BID 08/21/21 04/15/23 aspirin 81 mg capsule 81 mg PO HS 08/21/21 04/15/23 atorvastatin 40 mg tablet 40 mg PO HS 08/21/21 04/15/23 carvedilol 12.5 mg tablet 12.5 mg PO BID 08/21/21 04/15/23 ipratropium 20 mcg-albuterol 100 1 puff inhalation Q6H PRN 08/21/21 04/15/23 mcg/actuation mist for inhalation Shortness Of Breath (Combivent Respimat) magnesium oxide 400 mg (241.3 mg 400 mg PO DAILY 08/21/21 04/15/23 magnesium) tablet montelukast 10 mg tablet 10 mg PO HS 08/21/21 04/15/23 pantoprazole 40 mg tablet,delayed 40 mg PO QAM 08/21/21 04/15/23 release PreserVision AREDS 1 tab-cap PO BID 02/14/23 04/15/23 ergocalciferol (vitamin D2) 1,250 50,000 unit PO WEEKLY 02/14/23 04/15/23 mcg (50,000 unit) capsule ropinirole 1 mg tablet 1 mg PO HS 02/15/23 04/15/23 loratadine 10 mg tablet (Claritin) 10 mg PO DAILY PRN allergies 04/15/23 04/15/23 <Luz Guiod PA-C - Last Filed: 04/21/23 02:54> Allergies/adverse reactions: Allergies Allergy/AdvReac Type Severity Reaction Status Date / Time iohexol Allergy Unknown Verified 02/14/23 22:41 [From contrast - CT, X-RAY] <Luz Guido PA-C - Last Filed: 04/21/23 02:54> Review of Systems Review of Systems: CONSTITUTIONAL: Denies fever, chills EYES: Denies visual changes, redness, or discharge. ENT: Denies rhinorrhea, congestion, sore throat, or otalgia. CARDIOVASCULAR: Denies chest pain, palpitations, or edema. RESPIRATORY: See HPI GASTROINTESTINAL: See HPI GENITOURINARY: Denies dysuria or hematuria. SKIN: Denies rash or itching. MUSCULOSKELETAL: Denies back pain, joint pain, or myalgia. NEUROLOGIC: Denies headache, numbness, dizziness, or weakness. PSYCHIATRIC: Denies anxiety or depression. <Luz Guido PA-C - Last Filed: 04/21/23 02:54> [facility] Past Medical History Medical History: Medical History Biventricular ICD (implantable cardioverter-defibrillator) in place Followed by Dr. Karen Patterson [employer], last generator change March 2013. Coronary artery disease involving autologous artery coronary bypass graft 2008:
[2023-04-14] MEDS: ALBUTEROL SULFATE NEB 2.5 MG/3 ML INH INHALATION (17:51)
[2023-04-14] MEDS: IPRATROPIUM BR 0.02% INH SOLN 0.5 MG/2.5 ML VIAL INHALATION (17:52)
[2023-04-14 18:02] LABS: Appearance Urine Cloudy (Clear); Bacteria Urine 4+ /hpf; Bilirubin Urine Negative (Negative); Blood Urine Negative (Negative); Color Urine Yellow (Yellow); Glucose Urine UA Negative (Negative); Ketones Urine Trace mg/dL (Negative); Leukocyte Esterase Ur 1+ LEU/UL (Negative); Nitrate Urine Positive (Negative); Non Pathogenic Casts 0-2; Protein Urine Trace mg/dL (Negative); RBC Urine 0-2 /hpf (0-2); Specific Grav Ur 1.015 (1.001-1.035); Squamous Epithelial Cell Urine Occasional /hpf (Few); pH Urine 7.5 (5.0-9.0)
[2023-04-14] MEDS: ONDANSETRON INJ 4 MG/2 ML VIAL IV PUSH (18:12)
[2023-04-14] MEDS: methylPREDNISolone SOD SUCC 125 MG VIAL IV PUSH (18:12)
[2023-04-14 18:13] LABS: Add Urine Microscopic? YES
[2023-04-14] MEDS: MORPHINE SULFATE (*CRX) 2 MG/ML INJ IV PUSH (18:13)
[2023-04-14 18:27] LABS: Hematocrit 44.3 % (37.0-47.0); Hemoglobin 14.6 g/dL (12.0-15.0); Mean Corpuscular Hemoglobin 27.3 pg (26-34); Mean Platelet Volume 9.2 fl (7.4-10.4); Platelet Count Result 296 k/mm3 (150-375); Red Blood Count 5.34 M/mm3 (4.2-5.4); Red Cell Distribution Width 22.9 % (11.5-14.5); White Blood Count 12.4 K/mm3 (4.5-10.0)
[2023-04-14 18:38] LABS: INR 0.9; Partial Thromboplastin Time 26.2 SECONDS (22.3-36.8); Prothrombin Time 12.6 Seconds (11.1-14.7)
[2023-04-14 18:52] LABS: Eosinophils Absolute Manual 0.12 K/mm3 (0.02-0.5); Eosinophils Percent Manual 1 % (0-4); Monocytes Absolute Manual 0.74 K/mm3 (0.1-0.90); Monocytes Percent Manual 6 % (3-9); Neutrophils Percent Manual 51 % (46-73); Total Cells Counted 100
[2023-04-14 18:53] LABS: Platelet Estimate Adequate (Adequate); Schistocytes None Seen (NORMAL)
[2023-04-14 18:54] LABS: Anisocytosis 3+ (NORMAL)
[2023-04-14 19:32] LABS: Alanine Aminotransferase 23 U/L (6-35); Albumin Level 4.1 g/dL (3.5-5.1); Alkaline Phosphatase 141 U/L (38-126); Anion Gap 2 mmol/L (8-16); Aspartate Amino Transferase 29 U/L (14-36); Bilirubin,Total 0.5 mg/dL (0.2-1.3); Blood Urea Nitrogen 9 mg/dL (7-17); Calcium 8.7 mg/dL (8.4-10.2); Carbon Dioxide 31 mmol/L (22-30); Chloride 100 mmol/L (98-107); Estimated CRCL calculation 81 ml/min; Estimated Glomerular Filt Rate > 60; Glucose 104 mg/dL (65-110); Lipase 37 U/L (23-300); Sodium 133 mmol/L (137-145)
[2023-04-14 19:43] LABS: Troponin I < 0.012 ng/mL (0.000-0.034)
--- NOTE | 2023-04-14 20:15 | PM.IMHP ---
H&P: HPI History of Present Illness Date/Time: 04/14/23 20:15 Chief Complaint: 82 years old female with past medical history of COPD cardiomyopathy CHF right lower quadrant pain going on for 3 weeks patient was recently seen [facility] in December CT scan of the abdomen showed right pelvic clot was transferred to [facility] for further evaluation and treatment patient presented again with shortness of breath lower extremity swelling and right lower quadrant abdominal pain chest x-ray consistent with pulmonary edema and probable pneumonia CT scan of the abdomen showed complex cyst with possible hemorrhage recommended manager ethics evaluation [facility] was consulted from the ER recommended pelvic ultrasound patient will be admitted for further evaluation and treatment of CHF exacerbation hypertensive urgency probable pneumonia and ID cyst/hemorrhage . Review of Systems Review of Systems: 12 system review was done negative except above [facility] Past Medical History Medical History Biventricular ICD (implantable cardioverter-defibrillator) in place Followed by Dr. Karen Patterson [employer], last generator change March 2013. Coronary artery disease involving autologous artery coronary bypass graft 2008: [place] to the Left anterior descending, free RI MA to the RCA, radial graft from the [place] to the OM 2. Later catheterization showed occlusion of the radial artery graft. Ischemic cardiomyopathy EF 40% in 2019 Surgical History Surgical History History of left-sided carotid endarterectomy 2020, Dr. Dean Newsome Hx of CABG Family History Family History Mother No problems noted. Father Family history of congenital heart disease Diabetes mellitus Cerebrovascular accident Other Hypertension Social History Social History Smoking packs per day: 1 Smoking cigarettes per day: 20.0 Years smoked: 71 Smoking pack-years: 71.00 Smoking status: Current every day smoker Tobacco type: cigarettes Alcohol intake: never Substance use: never Substance use type: does not use Lack of Transportation: No Lack of Food: Never True Current Housing: I Have Housing Concerned About Future Housing: No Difficulty Paying Gas/Electric Bills: No Difficulty Paying for Meds: No Currently Unemployed: No Education: High School Diploma/GED Difficulty w/ Childcare or Family Care: No Spiritual care concerns: No Meds Home Medications and Allergies Home Medications Medication Instructions Recorded Confirmed Type apixaban 5 mg tablet (Eliquis) 5 mg PO BID 08/21/21 02/15/23 History aspirin 81 mg capsule 81 mg PO HS 08/21/21 02/15/23 History atorvastatin 40 mg tablet 40 mg PO HS 08/21/21 02/15/23 History carvedilol 12.5 mg tablet 12.5 mg PO BID 08/21/21 02/15/23 History dofetilide 250 mcg capsule 250 mcg PO BID 08/21/21 02/15/23 History fluticasone 250 mcg-salmeterol 50 250 inh inhalation BID 08/21/21 02/15/23 History mcg/dose blistr powdr for inhalation (Wixela Inhub) furosemide 20 mg tablet 20 mg PO DAILY 08/21/21 02/15/23 History gabapentin 300 mg capsule 1,200 mg PO TID 08/21/21 02/15/23 History ipratropium 20 mcg-albuterol 100 20 - 100 puff inhalation Q6H PRN 08/21/21 02/15/23 History mcg/actuation mist for inhalation Shortness Of Breath (Combivent Respimat) lisinopril 20 mg tablet 20 mg PO BID 08/21/21 02/15/23 History magnesium oxide 400 mg (241.3 mg 400 mg PO DAILY 08/21/21 02/15/23 History magnesium) tablet montelukast 10 mg tablet 10 mg PO HS 08/21/21 02/15/23 History pantoprazole 40 mg tablet,delayed 40 mg PO QAM 08/21/21 02/15/23 History release PreserVision AREDS 1 tab-cap PO BID 02/14/23 02/15/23 History ergocalciferol (vitamin D2) 1,250 50,000 unit PO WEEK
[2023-04-14] MEDS: FUROSEMIDE INJ 40 MG/4 ML VIAL 20 MG IV PUSH (20:26)
[2023-04-14] MEDS: NITROGLYCERIN SL 0.4 MG TABLET SUBLINGUAL (20:26)
[2023-04-14] MEDS: hydrALAZINE HCL 20 MG/ML VIAL 10 MG IV PUSH (21:16)
[2023-04-14] MEDS: DOXYCYCLINE 100 MG/NS 100 ML 100 MG/100 ML BAG IVPB (22:30)
--- NOTE | 2023-04-14 23:53 | PC.NURSE ---
Dr. Gleason aware patient request DNR, ok to make DNR. Also aware patient does not have medication list and will call daughter in the morning to medication list. Patient does not want daughter called radha to go over medication list.
[2023-04-15] VITALS (17 sets, daily range): BP systolic 138–184; BP diastolic 53–86; PULSE 81–96; RESP 14–18; TEMP 35.7–36.1; O2SAT 90–94
[2023-04-15] MEDS: ALBUTEROL SULFATE NEB 2.5 MG/3 ML INH INHALATION ×4 (01:34→20:13)
[2023-04-15 06:48] LABS: Basophils Percent Auto 0.3 % (0.2-1.2); Hematocrit 40.2 % (37.0-47.0); Hemoglobin 13.1 g/dL (12.0-15.0); Immature Granulocyte Absolute 0.14 K/mm3 (0.00-0.031); Immature Granulocyte Percent A 1.3 % (0-0.5); Lymphocytes Percent Auto 15.8 % (18.3-44.2); Mean Corpuscular HGB Conc 32.6 g/dl (32-36); Mean Corpuscular Hemoglobin 26.8 pg (26-34); Mean Corpuscular Volume 82.2 fl (80-100); Monocytes Absolute Auto 0.4 K/mm3 (0.1-0.6); Monocytes Percent Auto 3.3 % (2.6-8.5); Neutrophils Absolute Auto 8.5 K/mm3 (1.3-6.7); Neutrophils Percent Auto 79.3 % (45.5-73.1); Platelet Count Result 286 k/mm3 (150-375); Red Blood Count 4.89 M/mm3 (4.2-5.4); Red Cell Distribution Width 22.5 % (11.5-14.5); White Blood Count 10.8 K/mm3 (4.5-10.0)
[2023-04-15 07:04] LABS: Alanine Aminotransferase 22 U/L (6-35); Albumin Level 3.8 g/dL (3.5-5.1); Alkaline Phosphatase 117 U/L (38-126); Anion Gap 4 mmol/L (8-16); Aspartate Amino Transferase 27 U/L (14-36); Bilirubin,Total 0.5 mg/dL (0.2-1.3); Blood Urea Nitrogen 13 mg/dL (7-17); Calcium 8.8 mg/dL (8.4-10.2); Carbon Dioxide 29 mmol/L (22-30); Chloride 99 mmol/L (98-107); Estimated CRCL calculation 81 ml/min; Estimated Glomerular Filt Rate > 60; Glucose 171 mg/dL (65-110); Sodium 132 mmol/L (137-145)
[2023-04-15 08:20] LABS: Platelet Estimate Adequate (Adequate)
[2023-04-15 08:21] LABS: Anisocytosis 1+ (NORMAL); Burr Cells 1+ (NORMAL); Schistocytes None Seen (NORMAL); Target Cells 1+ (NORMAL)
[2023-04-15] MEDS: FAMOTIDINE 20 MG TABLET PO ×2 (08:57→21:18)
[2023-04-15] MEDS: FUROSEMIDE INJ 40 MG/4 ML VIAL IV PUSH ×2 (08:58→18:08)
[2023-04-15] MEDS: DOXYCYCLINE 100 MG/NS 100 ML 100 MG/100 ML BAG IVPB (08:59)
--- NOTE | 2023-04-15 11:58 | PM.IMPN ---
Progress Note: A&P Assessment and Plan (1) CHF exacerbation: Qualifiers: Heart failure type: unspecified Qualified Code(s): I50.9 - Heart failure, unspecified Code(s): I50.9 - Heart failure, unspecified Status: Acute Assessment and Plan: acute on chronic systolic CHF exacerbation Continue iV Lasix echo daily weight intake and output (2) Complex cyst of right ovary: Code(s): N83.291 - Other ovarian cyst, right side Status: Acute Assessment and Plan: concern for possible hemorrhage monitor CBC Gynecology consulted (3) Asymptomatic hypertensive urgency: Code(s): I16.0 - Hypertensive urgency Status: Acute Assessment and Plan: resume home medication once confirmed p.r.n. hydralazine continue IV Lasix (4) Coronary artery disease involving autologous artery coronary bypass graft: Code(s): I25.810 - Atherosclerosis of coronary artery bypass graft(s) without angina pectoris Status: Acute Assessment and Plan: hold antiplatelet pending gynecology workup (5) AICD (automatic cardioverter/defibrillator) present: Code(s): Z95.810 - Presence of automatic (implantable) cardiac defibrillator Status: Acute Assessment and Plan: tele monitor was ordered (6) COPD (chronic obstructive pulmonary disease): Code(s): J44.9 - Chronic obstructive pulmonary disease, unspecified Status: Acute Assessment and Plan: stable resume home medication once confirmed (7) Aortic aneurysm: Code(s): I71.9 - Aortic aneurysm of unspecified site, without rupture Status: Acute Assessment and Plan: follow-up with cardiology as outpatient Subjective Date/time seen: 04/15/23 11:58 Interval history: No shortness of breath, no chest pain Review of Systems Review of Systems: 12 system review was done negative except above Exam Narrative: GENERAL: Well appearing, well-nourished, non-toxic, in no acute distress. HEAD: Normocephalic, atraumatic. NECK: Supple. No adenopathy, no masses. RESPIRATORY: bilateral crackles CARDIOVASCULAR: Regular rate and rhythm without murmurs, rubs, or gallops. Peripheral pulses 2+ and equal bilaterally. ABDOMINAL: Soft, nontender, nondistended, no hepatosplenomegaly. Normoactive BS. MUSCULOSKELETAL: bilateral lower extremity swelling SKIN: Warm, dry, normal color. No rashes. NEURO: A&O X3. Speech clear. Cranial nerves II-XII grossly intact. Steady gait. No ataxic movements. PSYCHIATRIC: Appropriate mood and affect. Normal interaction. Objective Data Vital Signs Vital Signs: Vital Signs - 24 hr 04/14/23 12:37 04/14/23 19:37 04/14/23 20:52 Temperature 97.4 F L Pulse Rate 83 85 80 Respiratory Rate 18 20 14 Blood Pressure 210/89 H 193/85 H Pulse Oximetry 95 93 92 Oxygen Delivery Room Air 04/14/23 21:05 04/14/23 21:16 04/14/23 21:30 Temperature Pulse Rate 86 94 88 Respiratory Rate 15 14 17 Blood Pressure Pulse Oximetry Oxygen Delivery 04/14/23 21:45 04/14/23 21:57 04/14/23 22:09 Temperature Pulse Rate 90 89 Respiratory Rate 16 19 Blood Pressure 155/72 H 142/68 H Pulse Oximetry 92 Oxygen Delivery 04/14/23 23:53 04/15/23 00:00 04/15/23 01:30 Temperature 97.5 F L Pulse Rate 93 94 88 Respiratory Rate 14 16 Blood Pressure 144/71 H Pulse Oximetry 91 Oxygen Delivery 04/15/23 01:39 04/15/23 01:38 04/15/23 04:00 Temperature Pulse Rate 89 85 Respiratory Rate 16 Blood Pressure Pulse Oximetry 92 Oxygen Delivery Room Air 04/15/23 06:00 04/15/23 08:27 04/15/23 08:30 Temperature 96.9 F L Pulse Rate 90 96 Respiratory Rate 14 18 Blood Pressure 138/53 L Pulse Oximetry 90 90 Oxygen Delivery Room Air 04/15/23 08:34 Temperature Pulse Rate 86 Respiratory Rate 18 Blood Pressure Pulse Oximetry Oxygen Delivery Intake/Output Intake/Output: Intake & Output
--- NOTE | 2023-04-15 12:36 | WPDCN ---
Assessment and Plan Assessment and plan (1) Complex cyst of right ovary: Code(s): N83.291 - Other ovarian cyst, right side Status: Acute Plan Jannette Urena is a 82 year old female who presented to the emergency department with right lower quadrant pain. On a CT scan of the abdomen pelvis she was found to have a mass in her right lower quadrant/ovary. It was a cystic mass. Follow-up pelvic ultrasound was performed. The images were poor. Features of the ovary or indistinguishable. There is a cystic and complex nature to it, however, specific risk cannot be stratified. Spoke to the patient. We talked about evaluation outside the hospital. The quality of ultrasound in the office along with transvaginal probe are superior. We could then shared the images and then talk about risk and possible referral to Gynecology Oncology. She was given contact information for the office and instructions on what to say to get in quickly. She denies any vaginal bleeding, abnormal vaginal discharge, or any history of abnormal Pap smears. She denies a family history of ovarian, cancer, or breast cancer. To follow-up in the office shortly after discharge HPI Data of Consult Date/Time: 04/15/23 12:36 Requesting Physician: Marybeth Gleason MD Primary Care Provider: Natalie Maddox, FRENCH FOLDER- Consult Narrative Narrative: Jannette Urena is a 82 year old female who presented to the emergency department with right lower quadrant pain. On a CT scan of the abdomen pelvis she was found to have a mass in her right lower quadrant/ovary. It was a cystic mass. Follow-up pelvic ultrasound was performed. The images were poor. Features of the ovary or indistinguishable. There is a cystic and complex nature to it, however, specific risk cannot be stratified. Spoke to the patient. We talked about evaluation outside the hospital. The quality of ultrasound in the office along with transvaginal probe are superior. We could then shared the images and then talk about risk and possible referral to Gynecology Oncology. She was given contact information for the office and instructions on what to say to get in quickly. She denies any vaginal bleeding, abnormal vaginal discharge, or any history of abnormal Pap smears. She denies a family history of ovarian, cancer, or breast cancer. To follow-up in the office shortly after discharge. Review of Systems Review of Systems: All systems reviewed & are unremarkable except as noted in HPI and below Constitutional: Constitutional: Denies chills, Denies fatigue, Denies fever(s) and Denies weakness Eyes: Eyes: Denies blurry vision, Denies change in vision, Denies loss of peripheral vision, Denies loss of vision, Denies other visual disturbances and Denies eye pain ENT: Denies vertigo, Denies dizziness, Denies hearing loss, Denies mouth pain, Denies nasal obstruction, Denies neck mass and Denies neck pain Cardiovascular: Cardiovascular: Denies chest pain, Denies diaphoresis, Denies syncope, Denies leg edema and Denies dyspnea Respiratory: Respiratory: Denies chest congestion, Denies cough, Denies hemoptysis, Denies dyspnea and Denies wheezing Gastrointestinal: Gastrointestinal: Denies abdominal pain, Denies constipation, Denies diarrhea, Denies nausea and Denies vomiting Genitourinary: Genitourinary: Denies hematuria, Denies change in libido, Denies nocturia, Denies genital lesions, Denies flank pain and Denies urinary urgency Musculoskeletal: Musculoskeletal: Denies abnormal gait, Denies back pain, Denies myalgias, Denies arthralgias, Denies joint swelling, Denies muscle weakness and Denies neck pain Integumentary/Breasts: Skin/Breast: Denies swelling, Denies breast pain, Denies breast mass, Denies dry skin, Denies nipple discharge, Denies unusual bruising and Denies jaundice Neurologic: Denies Neuro-related abnormal movements, Denies Abnormal speech present, Denies abnormal gait, Denies behavioral fuentes
[2023-04-15] MEDS: lisinopriL 20 MG TABLET PO (21:17)
[2023-04-15] MEDS: ATORVASTATIN 40 MG TABLET PO (21:17)
[2023-04-15] MEDS: APIXABAN 5 MG TABLET PO (21:17)
[2023-04-15] MEDS: rOPINIRole HCL 1 MG TABLET PO (21:17)
[2023-04-15] MEDS: ASPIRIN 81 MG ENTERIC TABLET PO (21:17)
[2023-04-15] MEDS: OPTI-GEN TAB 1 TABLET PO (21:17)
[2023-04-15] MEDS: MONTELUKAST SODIUM 10 MG TABLET PO (21:17)
[2023-04-15] MEDS: carvediloL 12.5 MG TABLET PO (21:18)
--- NOTE | 2023-04-15 21:21 | ECHO_ITS ---
Patient Info Name: Jannette Urena Age: 82 years : 1940 Gender: Female Ht: 65 in Wt: 162 lbs BSA: 1.85 m2 HR: 90 bpm BP: 138 / 53 mmHg Heart Rhythm: Paced Technical Quality: Fair Exam Date: 04/15/2023 10:02 AM Exam Location: [facility] Pulmonary Exam Room: 331 Patient Status: Inpatient Admit Date: 04/14/2023 Staff Ordering Physician: Marybeth Gleason M.A., MD Order Analyst: Elizabeth Key RDCS Attending Provider: Marybeth Gleason M.A., MD Referring Physician: Ori NASCIMENTO; Exam Type: CA echo doppler color flow Study Info Complete two-dimensional, color flow and Doppler transthoracic echocardiogram is performed. Summary 1. Complete two-dimensional, color flow and Doppler transthoracic echocardiogram is performed. 2. Left ventricular chamber dimension is normal. 3. Left ventricular systolic function is lower limits of normal, estimated at 50-55%. 4. There is mildly increased left ventricular wall thickness. 5. The left ventricular diastolic function is grade I diastolic dysfunction. 6. Right ventricular systolic function is normal. 7. Left atrial chamber dimension is moderately enlarged. 8. There is moderate mitral valve regurgitation. 9. There is mild to moderate tricuspid valve regurgitation. Left Ventricle Left ventricular chamber dimension is normal. Left ventricular systolic function is lower limits of normal, estimated at 50-55%. There is mildly increased left ventricular wall thickness. Left ventricular septal wall motion is abnormal with septal motion related to pacing. The left ventricular diastolic function is grade I diastolic dysfunction. Right Ventricle Linear artifact in right ventricle suggestive of catheter(s), pacemaker lead(s), or ICD lead(s). Right ventricular chamber dimension is normal. Right ventricular systolic function is normal. Left Atria Left atrial chamber dimension is moderately enlarged. Right Atria Linear artifact in the right atrium suggestive of catheter(s), pacemaker lead(s), or ICD lead(s). Right atrial chamber dimension is normal. Atrial Septum Intact interatrial septum visualized by color flow imaging. Aortic Valve The aortic valve is not well visualized. There is no aortic valve stenosis. There is no aortic valve regurgitation. There is mild aortic valve calcification. Pulmonic Valve The pulmonic valve is not well visualized. Mitral Valve The mitral valve has thickened leaflets. There is moderate mitral valve regurgitation. The mitral valve annulus is moderately calcified. Tricuspid Valve There is mild to moderate tricuspid valve regurgitation. Pericardium/Pleural There is trivial pericardial effusion. Inferior Vena Cava Normal inferior vena cava with >50% collapse upon inspiration consistent with normal right atrial pressure, 3 mmHg. Aorta The aortic root size at the sinus of Valsalva is normal. Left Ventricular Outflow Tract Name Value Normal LVOT 2D LVOT Diameter 2.0 cm LVOT Doppler LVOT Peak Gradient 6 mmHg LVOT Mean Gradient 4 mmHg LVOT VTI 24 cm LVOT VTI/AV VTI Ratio 0.7 LVOT Stroke
[2023-04-15] MEDS: LORATADINE 10 MG TABLET PO (21:23)
--- NOTE | 2023-04-15 21:33 | PC.NURSE ---
Tiffany, patient's daughter, called this AM at 0730 to bring in patient's home medication list. Daughter states that she will bring in medication list when she comes to see patient at 0800.
[2023-04-16 02:30] VITALS: PULSE 75; RESP 18
[2023-04-16] MEDS: ALBUTEROL SULFATE NEB 2.5 MG/3 ML INH INHALATION ×2 (02:31→08:50)
[2023-04-16 02:40] VITALS: PULSE 76; RESP 18
[2023-04-16 05:48] VITALS: BP 146/69; PULSE 67; RESP 16; TEMP 35.6; O2SAT 91
[2023-04-16 07:00] LABS: Basophils Absolute Auto 0.1 K/mm3 (0.0-0.1); Basophils Percent Auto 0.5 % (0.2-1.2); Eosinophils Absolute Auto 0.1 K/mm3 (0-0.3); Eosinophils Percent Auto 0.3 % (0-4.4); Hematocrit 41.6 % (37.0-47.0); Hemoglobin 13.7 g/dL (12.0-15.0); Immature Granulocyte Absolute 0.12 K/mm3 (0.00-0.031); Immature Granulocyte Percent A 0.8 % (0-0.5); Lymphocytes Absolute Auto 5.86 K/mm3 (0.9-3.2); Lymphocytes Percent Auto 38.7 % (18.3-44.2); Mean Corpuscular HGB Conc 32.9 g/dl (32-36); Mean Corpuscular Hemoglobin 27.4 pg (26-34); Mean Corpuscular Volume 83.2 fl (80-100); Mean Platelet Volume 9.3 fl (7.4-10.4); Monocytes Absolute Auto 1.2 K/mm3 (0.1-0.6); Monocytes Percent Auto 7.9 % (2.6-8.5); Neutrophils Absolute Auto 7.9 K/mm3 (1.3-6.7); Neutrophils Percent Auto 51.8 % (45.5-73.1); Platelet Count Result 295 k/mm3 (150-375); Red Cell Distribution Width 22.9 % (11.5-14.5); White Blood Count 15.1 K/mm3 (4.5-10.0)
[2023-04-16 07:13] LABS: Alanine Aminotransferase 22 U/L (6-35); Albumin Level 3.7 g/dL (3.5-5.1); Alkaline Phosphatase 106 U/L (38-126); Anion Gap 2 mmol/L (8-16); Aspartate Amino Transferase 27 U/L (14-36); Bilirubin,Total 0.6 mg/dL (0.2-1.3); Blood Urea Nitrogen 20 mg/dL (7-17); Carbon Dioxide 37 mmol/L (22-30); Chloride 95 mmol/L (98-107); Estimated CRCL calculation 66 ml/min; Estimated Glomerular Filt Rate > 60; Glucose 111 mg/dL (65-110); Magnesium 1.8 mg/dL (1.6-2.3); Potassium 3.2 mmol/L (3.4-5.0); Sodium 134 mmol/L (137-145)
[2023-04-16 07:32] LABS: Anisocytosis 1+ (NORMAL); Burr Cells 1+ (NORMAL); Hypochromasia 1+ (NORMAL); Platelet Estimate Adequate (Adequate); Schistocytes None Seen (NORMAL)
[2023-04-16 08:05] VITALS: PULSE 70
[2023-04-16] MEDS: carvediloL 12.5 MG TABLET PO (08:05)
[2023-04-16] MEDS: MAGNESIUM OXIDE 400 MG TABLET PO (08:05)
[2023-04-16] MEDS: FAMOTIDINE 20 MG TABLET PO (08:05)
[2023-04-16] MEDS: lisinopriL 20 MG TABLET PO (08:05)
[2023-04-16] MEDS: APIXABAN 5 MG TABLET PO (08:05)
[2023-04-16] MEDS: FUROSEMIDE INJ 40 MG/4 ML VIAL IV PUSH (08:05)
[2023-04-16] MEDS: OPTI-GEN TAB 1 TABLET PO (08:05)
[2023-04-16] MEDS: PANTOPRAZOLE 40 MG TABLET PO (08:05)
--- NOTE | 2023-04-16 08:05 | PM.GYNPNOP ---
STOCKHOLDER - A/P Assessment and plan (1) Complex cyst of right ovary: Code(s): N83.291 - Other ovarian cyst, right side Status: Acute Assessment and Plan: 04/16/23 08:05 Spoke with patient, to obtain CA 125. Patient to have better imaging and consult in the office with me. We will likely refer out to Gynecology Oncology for expert opinion on the cyst Time Spent With Patient Time: Total time spent is greater than 50% in coordination of care (as documented) at patient's floor/unit and/or counseling patient: Time with patient: less than 15 minutes STOCKHOLDER- PN:Subj Post-Op Subjective Date/time seen: 04/16/23 08:05 Spoke with patient, to obtain CA 125. Patient to have better imaging and consult in the office with me. We will likely refer out to Gynecology Oncology for expert opinion on the cyst Interval history: No shortness of breath, no chest pain, STOCKHOLDER - PN: Obj Data Vital Signs Vital Signs: Vital Signs - 24 hr 04/15/23 08:27 04/15/23 08:30 04/15/23 08:34 Temperature Pulse Rate 96 86 Respiratory Rate 18 18 Blood Pressure Pulse Oximetry 90 Oxygen Delivery Room Air 04/15/23 13:49 04/15/23 13:55 04/15/23 14:00 Temperature 97.0 F L Pulse Rate 87 88 Respiratory Rate 18 18 16 Blood Pressure 161/64 H Pulse Oximetry 94 Oxygen Delivery 04/15/23 20:15 04/15/23 20:16 04/15/23 21:18 Temperature Pulse Rate 82 81 Respiratory Rate 18 Blood Pressure Pulse Oximetry 92 Oxygen Delivery Room Air 04/15/23 21:24 04/16/23 02:30 04/15/23 20:26 Temperature 96.3 F L Pulse Rate 83 75 84 Respiratory Rate 16 18 18 Blood Pressure 184/86 H Pulse Oximetry 93 Oxygen Delivery 04/16/23 02:40 04/16/23 05:48 Temperature 96.1 F L Pulse Rate 76 67 Respiratory Rate 18 16 Blood Pressure 146/69 H Pulse Oximetry 91 Oxygen Delivery Intake/Output Intake/Output: Intake & Output 04/13/23 04/14/23 04/15/23 04/16/23 23:59 23:59 23:59 23:59 Intake Total 50 1380 222 Balance 50 1380 222 Meds/Results Medications: Active Medications Generic Name Dose Route Start Last Admin Trade Name Freq PRN Reason Stop Dose Admin Acetaminophen 650 mg 04/14/23 21:21 Acetaminophen 325 Mg Tablet PO Q6H PRN Mild Pain (1-3) Hydrocodone Bitart/Acetaminophen 1 tab 04/14/23 21:21 Hydrocodone/Acetaminophen (*Crx) 5-325 Mg Tablet PO Q6H PRN Pain Rated 4-6 Albuterol 2.5 mg 04/15/23 02:00 04/16/23 02:31 Albuterol Sulfate Neb 2.5 Mg/3 Ml Inh INHALATION 2.5 mg Q6HRT GILMER Administration Apixaban 5 mg 04/15/23 21:00 04/15/23 21:17 Apixaban 5 Mg Tablet PO 5 mg Q12HR GILMER Administration Aspirin 81 mg 04/15/23 21:00 04/15/23 21:17 Aspirin 81 Mg Enteric Tablet PO 05/15/23 20:59 81 mg HS GILMER Administration Atorvastatin Calcium 40 mg 04/15/23 21:00 04/15/23 21:17 Atorvastatin 40 Mg Tablet PO 40 mg HS GILMER Administration Carvedilol 12.5 mg 04/15/23 21:00 04/15/23 21:18 Carvedilol 12.5 Mg Tablet PO 12.5 mg Q12HR GILMER Administration Famotidine 20 mg 04/15/23 09:00 04/15/23 21:18 Famotidine 20 Mg Tablet PO 20 mg Q12HR GILMER Administration Furosemide 40 mg 04/15/23 09:00 04/15/23 18:08 Furosemide Inj 40 Mg/4 Ml Vial IV PUSH 40 mg BID GILMER Administration Guaifenesin/Dextromethorphan 10 ml 04/14/23 21:21 Guaifenesin/Dextromethorphan 10 Ml Udc PO Q4H PRN Cough Lisinopril 20 mg 04/15/23 21:00 04/15/23 21:17 Lisinopril 20 Mg Tablet PO 20 mg Q12HR GILMER Administration Loratadine 10 mg 04/15/23 20:38 04/15/23 21:23 Loratadine 10 Mg Tablet PO 10 mg DAILY PRN Administration allergies Magnesium Oxide 400 mg 04/16/23 09:00 Magnesium Oxide 400 Mg Tablet PO DAILY GILMER Melatonin 3 mg 04/14/23 21:21 Melatonin 3 Mg Tablet PO HS PRN INSOMINA Montelukast Sodium 10 mg 04/15/23 21:00 04/15/23 21:17 Montelukast Sodium 10
[2023-04-16] MEDS: POTASSIUM CHLORIDE 20 MEQ TABLET 40 MEQ PO (08:22)
[2023-04-16 08:51] VITALS: PULSE 72; RESP 18; O2SAT 92
[2023-04-16 08:59] VITALS: PULSE 68
--- NOTE | 2023-04-16 10:29 | PM.DS ---
DS: Admitting Diagnosis Discharge Date 04/16/2023 Admitting Diagnosis CHF exacerbation Abdominal pain Cystic ovarian mass DS: Discharge Diagnosis Discharge Diagnosis (1) CHF exacerbation: Qualifiers: Heart failure type: unspecified Qualified Code(s): I50.9 - Heart failure, unspecified Code(s): I50.9 - Heart failure, unspecified Status: Acute (2) Complex cyst of right ovary: Code(s): N83.291 - Other ovarian cyst, right side Status: Acute (3) Coronary artery disease involving autologous artery coronary bypass graft: Code(s): I25.810 - Atherosclerosis of coronary artery bypass graft(s) without angina pectoris Status: Acute DS: Summary Hospital Course Hospital Course: Jannette Urena is a 82 year old female who presented to the emergency department with acute onset of shortness of breath and right lower quadrant pain.? On a CT scan of the abdomen pelvis she was found to have a mass in her right lower quadrant/ovary.? It was a cystic mass.? Follow-up pelvic ultrasound was performed.? The images were poor.? Features of the ovary or indistinguishable.? There is a cystic and complex nature to it, however, specific risk cannot be stratified.? obstetrics gynecology physician was consulted and recommended outpatient follow-up in the office and possibly repeat ultrasound. Patient was started on IV Lasix b.i.d. for CHF exacerbation. Echo was obtained which showed heart failure with preserved ejection fraction: ? 1. Complete two-dimensional, color flow and Doppler transthoracic echocardiogram is performed. ? 2. Left ventricular chamber dimension is normal. ? 3. Left ventricular systolic function is lower limits of normal, estimated at 50-55%. ? 4. There is mildly increased left ventricular wall thickness. ? 5. The left ventricular diastolic function is grade I diastolic dysfunction. ? 6. Right ventricular systolic function is normal. ? 7. Left atrial chamber dimension is moderately enlarged. ? 8. There is moderate mitral valve regurgitation. ? 9. There is mild to moderate tricuspid valve regurgitation. Patient had a good response to IV diuresis. At this time she is clinically stable and on room air and has no pedal or pulmonary edema. She is stable and is being discharged home Time Spent with Patient Time attestation: Total time spent providing and/or coordinating discharge services: Exam Narrative: GENERAL: Well appearing, well-nourished, non-toxic, in no acute distress. HEAD: Normocephalic, atraumatic. NECK: Supple. No adenopathy, no masses. RESPIRATORY: bilateral crackles CARDIOVASCULAR: Regular rate and rhythm without murmurs, rubs, or gallops. Peripheral pulses 2+ and equal bilaterally. ABDOMINAL: Soft, nontender, nondistended, no hepatosplenomegaly. Normoactive BS. MUSCULOSKELETAL: bilateral lower extremity swelling SKIN: Warm, dry, normal color. No rashes. NEURO: A&O X3. Speech clear. Cranial nerves II-XII grossly intact. Steady gait. No ataxic movements. PSYCHIATRIC: Appropriate mood and affect. Normal interaction. DS: Data Data Completed and Pending Labs on day of discharge: Labs from last 24 hours 04/16/23 04/16/23 09:12 06:22 WBC 15.1 H RBC 5.00 Hgb 13.7 Hct 41.6 MCV 83.2 MCH 27.4 MCHC 32.9 RDW 22.9 H Plt Count 295 MPV 9.3 Immature Gran % (Auto) 0.8 H Neut % (Auto) 51.8 Lymph % (Auto) 38.7 [place] % (Auto) 7.9 Eos % (Auto) 0.3 Baso % (Auto) 0.5 Lymph # (Auto) 5.86 H [place] # (Auto) 1.2 H Eos # (Auto) 0.1 Baso # (Auto) 0.1 Abs Immat Gran (auto) 0.12 H Absolute Neuts (auto) 7.9 H Absolute Nucleated RBC 0.0 Nucleated RBC % 0.0 Platelet Estimate Adequate Hypochromasia 1+ Anisocytosis 1+ Vinnie Cells 1+ Schistocytes None seen Sodium 134 L Potassium 3.2 L Chloride 95 L Carbon Dioxide 37 H Anion Gap 2 L BUN 20 H Creatinine 0.50 L Estim Creat Clear Calc 66 Estimated GFR > 60 Glucose 111 H Calcium 9.0
--- NOTE | 2023-04-18 12:04 | PC.NURSE ---
Patient's daughter called stating she feels her mom still has a UTI and that no antibiotics were sent home with her at discharge. This RN noted that the UA sent for C&S did not show any bacteria growing and to seek care from PCP or urgent care or if it is felt to be an urgent concern to go to the nearest ER for evaluation. Daughter voiced understanding.
[2023-04-19 22:04] LABS: Pneumococcal Antigen Urine Not Detected (Not Detected)
[2023-04-21 18:43] LABS: CA-125 14 U/mL (<35)
== END 2023-04-16 11:50 | disposition home or self-care (01) ==
LOC: ANHED 20:32 → ANH3MEDSUR 23:55
PROVIDERS: Obstetrics & Gynecology; Admitting Provider Internal Medicine; Emergency Provider Physician Assistant; PCP Nurse Practitioner Family; Visit Provider Hospitalist
DX: I11.0 Hypertensive heart disease with heart failure (principal); I50.23 Acute on chronic systolic (congestive) heart failure; N83.291 Other ovarian cyst, right side; I16.0 Hypertensive urgency; Z95.810 Presence of automatic (implantable) cardiac defibrillator; J44.9 Chronic obstructive pulmonary disease, unspecified; E87.1 Hypo-osmolality and hyponatremia; I71.43 Infrarenal abdominal aortic aneurysm, without rupture; J18.9 Pneumonia, unspecified organism; N30.00 Acute cystitis without hematuria; R16.0 Hepatomegaly, not elsewhere classified; I50.9 Heart failure, unspecified; I25.10 Atherosclerotic heart disease of native coronary artery without angina pectoris; I08.1 Rheumatic disorders of both mitral and tricuspid valves; Z95.1 Presence of aortocoronary bypass graft; I25.5 Ischemic cardiomyopathy; K42.9 Umbilical hernia without obstruction or gangrene; R91.8 Other nonspecific abnormal finding of lung field; F10.90 Alcohol use, unspecified, uncomplicated; F17.210 Nicotine dependence, cigarettes, uncomplicated; Z79.01 Long term (current) use of anticoagulants; Z79.82 Long term (current) use of aspirin; Z79.51 Long term (current) use of inhaled steroids; Z79.899 Other long term (current) drug therapy
CPT/HCPCS: 36415; 71045; 74176; 80053; 81001; 83690; 83735; 84484; 85025; 85610; 85730; 86304; 87040; 87086; 87088; 87899; 93005; 93306; 94640; 96365; 96375; 96376; 99285; A9270; G0378; J0360; J0696; J1940; J2270; J2405; J2930

== ENCOUNTER 2023-06-21 13:28 | Outpatient (CLI) | payer MEDICARE, SELFPAY ==
[2023-06-21 14:24] LABS: Anion Gap 2 mmol/L (8-16); Blood Urea Nitrogen 10 mg/dL (7-17); Calcium 8.8 mg/dL (8.4-10.2); Carbon Dioxide 34 mmol/L (22-30); Chloride 95 mmol/L (98-107); Estimated Glomerular Filt Rate > 60; Glucose 103 mg/dL (65-110); Potassium 4.2 mmol/L (3.4-5.0); Sodium 131 mmol/L (137-145)
== END 2023-06-21 13:29 | disposition home or self-care (01) ==
LOC: ANHSURGERY 13:33
PROVIDERS: Anesthesiology; PCP Nurse Practitioner Family; Visit Provider Obstetrics & Gynecology
DX: Z79.899 Other long term (current) drug therapy (principal); Z01.818 Encounter for other preprocedural examination
CPT/HCPCS: 36415; 80048

== ENCOUNTER 2023-06-23 00:24 | Day surgery (SDC) | payer MEDICARE, SELFPAY ==
--- NOTE | 2023-06-17 09:33 | PC.NURSE ---
PRE-OP INSTRUCTIONS, PLEASE READ CAREFULLY Report to the Outpatient Waiting Room, entrance under the green pavilion located off [facility], at time _0800_ on date _06/23/23_. Planned Procedure Time: _1000_. Time changes happen often and if your time is changed the preop area will call you the afternoon before. - You and your visitor will be asked to self-screen and do not enter if you have any COVID symptoms. - A mask is optional within the hospital at this time. Patients may have clear liquids (water, carbonated beverages, clear teas, apple juice) until 3 hours prior to surgery (0700 AM) with a maximum of 20 ounces. - No food from midnight until time of surgery Take the following medications with a SIP of water the morning of surgery: _CARVEDILOL, & INHALER IF NEEDED_ DO NOT STOP ANY OF YOUR OTHER PRESCRIPTION MEDICATIONS PRIOR TO SURGERY ?EXCEPT THE FOLLOWING Medications to discontinue - _ELIQUIS 3 DAYS PRIOR TO SURGERY, Date to take last dose 06/19/23_ -_ASPIRIN PER DR. LAWRENCE'S INSTRUCTIONS Medications to discontinue per ANESTHESIA - AREDS 3 DAYS PRIOR TO SURGERY, Date to take last dose 06/19/23_ Please no make-up, nail khmer, hairspray, perfume, deodorant, or body powder the day of surgery. No jewelry (including any body piercings) or valuables the day of surgery, leave them at home. Please take a shower or bath the night before, or the morning of, surgery with an antibacterial soap. Wear comfortable, loose fitting clothing. - Jewelry must be removed prior to entering the operating room. Rings and piercings that are not removed may be cut off. - The hospital will not accept responsibility for valuables. - Please leave all valuables, including medications, at home the day of surgery. If you are going home after surgery, a licensed driver supervisor must drive you home. - NO public transportation without another adult if you receive anesthesia. - We recommend that an adult stay with you for 24 hours following discharge. - We also recommend that you do not drive, make important decision, drink alcoholic beverages, or take any drugs that were not prescribed by your health care provider for at least 24 hours after your discharge time. Follow any additional instructions given to you from your surgeon. DR. LACEY GREGORY SHOWER AM OF SURGERY If you or anyone in your household have experienced Covid symptoms in the past week, please notify your surgeon or the nurse liaison at the phone number below for possible testing. Telephone instructions given to _PATIENT_and asked if any additional questions and then verbalized understanding. Patient advised to call surgeon office or pre surgery nurse liaison [phone] if any additional questions.
[2023-06-17 09:57] VITALS: BMI 27.5
--- NOTE | 2023-06-22 14:13 | WPDANESEPPF ---
Anes - Initial Pre Proc Eval Procedure: Operation Date: 06/23/23 10:00 Proposed Procedures p Bilateral Laparoscopic Salpingo Oophorectomy - Becky Cuevas MD s Open Repair Reducible Umbilical Incisional Hernia - Henri Lane MD Date/Time: 06/22/23 14:13 Surgeon: Becky Cuevas MD Pre Op Diagnosis: mass of ovary,Umbilical Incisional Hernia Patient Data Age: 83 Gender: F Height: 1.65 m Weight: 75 kg Allergies Allergy/AdvReac Type Severity Reaction Status Date / Time iohexol Allergy Rash Verified 06/23/23 08:12 [From contrast - CT, X-RAY] Home Medications Medication Instructions Recorded Confirmed Type apixaban 5 mg tablet (Eliquis) 5 mg PO BID 08/21/21 06/23/23 History aspirin 81 mg capsule 81 mg PO HS 08/21/21 06/23/23 History atorvastatin 40 mg tablet 40 mg PO HS 08/21/21 06/23/23 History carvedilol 12.5 mg tablet 12.5 mg PO BID 08/21/21 06/23/23 History ipratropium 20 mcg-albuterol 100 1 puff inhalation Q6H PRN 08/21/21 06/23/23 History mcg/actuation mist for inhalation Shortness Of Breath (Combivent Respimat) magnesium oxide 400 mg (241.3 mg 400 mg PO DAILY 08/21/21 06/23/23 History magnesium) tablet montelukast 10 mg tablet 10 mg PO HS 08/21/21 06/23/23 History pantoprazole 40 mg tablet,delayed 40 mg PO QAM 08/21/21 06/23/23 History release PreserVision AREDS 1 tab-cap PO BID 02/14/23 06/23/23 History ergocalciferol (vitamin D2) 1,250 50,000 unit PO WEEKLY 02/14/23 06/23/23 History mcg (50,000 unit) capsule ropinirole 1 mg tablet 1 mg PO HS 02/15/23 06/23/23 History loratadine 10 mg tablet (Claritin) 10 mg PO DAILY PRN allergies 04/15/23 06/17/23 History furosemide 20 mg tablet 20 mg PO BID 30 days #0 tabs 04/16/23 06/23/23 Rx lisinopril 20 mg tablet 20 mg PO DAILY 30 days #0 tabs 04/16/23 06/23/23 Rx Patient hx anesthesia problems: none Family hx anesthesia problems: none Results Review: All pre-operative results and documents have been reviewed as part of the pre-operative evaluation. [facility] Past Medical History Medical History (Updated 06/22/23 @ 14:15 by Herson Dan DO) Aortic aneurysm Asthma exacerbation in COPD Atrial fibrillation Biventricular ICD (implantable cardioverter-defibrillator) in place Followed by Dr. Karen Patterson [employer] [employer], last generator change March 2013. CHF exacerbation COPD (chronic obstructive pulmonary disease) Coronary artery disease involving autologous artery coronary bypass graft 2008: Cunningham to the Left anterior descending, free RI MA to the RCA, radial graft from the [place] to the OM 2. Later catheterization showed occlusion of the radial artery graft. High cholesterol History of COPD Hypertension Ischemic cardiomyopathy EF 40% in 2019 Kidney stones Surgical History Surgical History (Updated 06/22/23 @ 14:15 by Herson Dan DO) History of delivery History of left-sided carotid endarterectomy 2020, Dr. Dean Newsome Hx of CABG x3 Family History Family History Mother No problems noted. Father Family history of congenital heart disease Diabetes mellitus Cerebrovascular accident Other Hypertension Social History Social History Smoking packs per day: 1 Smoking cigarettes per day: 20.0 Years smoked: 68 Smoking pack-years: 68.00 Smoking status: Current every day smoker Tobacco type: cigarettes Alcohol intake: current Drinks per week: 1 Alcohol use details: STATES VERY, VERY RARELY Substance use: never Substance use type: does not use Lack of Transportation: No Lack of Food: Never True Current Housing: I Have Housing Concerned About Future Housing: No Difficulty Paying Gas/Electric Bills: No Difficulty Paying for Meds: No Currently Unemployed: No Education: High School Diploma/GED Difficulty w/ Childcare or Family Care: No Living ar
[2023-06-23] VITALS (9 sets, daily range): BP systolic 115–183; BP diastolic 61–88; PULSE 69–71; RESP 12–20; TEMP 36.5–36.6; O2SAT 87–98
[2023-06-23] MEDS: ACETAMINOPHEN 500 MG TABLET 1000 MG PO (08:17)
[2023-06-23] MEDS: LACTATED RINGERS 1,000 ML 30 ML IV CONT (08:49)
[2023-06-23] MEDS: KETOROLAC 15 MG/ML VIAL (*BKC) IV PUSH (08:50)
[2023-06-23 08:56] LABS: Sodium 133 mmol/L (137-145)
--- NOTE | 2023-06-23 09:35 | WPDHPUPDATE1 ---
History and Physical Update Update Date/Time: 06/23/23 09:36 History and Physical has been reviewed, including an updated exam of the patient. There are NO changes in the patient's condition. Risks, benefits, and alternatives have been discussed and questions answered. Patient agrees to proceed with procedure.
--- NOTE | 2023-06-23 09:58 | WPDHPUPDATE1 ---
History and Physical Update Update Date/Time: 06/23/23 09:58 History and Physical has been reviewed, including an updated exam of the patient. There are NO changes in the patient's condition. Risks, benefits, and alternatives have been discussed and questions answered. Patient agrees to proceed with procedure.
--- NOTE | 2023-06-23 10:00 | PM.IMHP ---
H&P: HPI History of Present Illness Date/Time: 06/23/23 10:00 Chief Complaint: umbilical hernia, reducible. Narrative: Ms. Urena presents to the office at the request of Dr. Cuevas for evaluation.? She first noticed a bulge at her umbilicus in November of this year, and since then, has increased in size and now causes her intermittent discomfort.? No overlying skin changes, abdominal distension, or change in bowel habits. She was recently hospitalized from 04/14/2023 - 04/16/2023 for CHF exacerbation and RLQ abdominal pain. CT was performed showin. 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 2. Hepatomegaly. 3. 0.6 x 1.8 cm saccular infrarenal abdominal aorta aneurysm. 4. Bladder wall thickening and inflammation may be secondary to cystitis, correlate with urinalysis. 5. 4.2 cm complex right ovarian cyst, in the region of previously identified large pelvic hematoma, may represent a resolving hemorrhagic cyst or other hemorrhagic ovarian lesion that had ruptured/bled in the prior examination. Consider gynecology referral and outpatient pelvic MRI. 6. Uncomplicated appearing small bowel containing umbilical hernia. Has history of a abdominoplasty 40+ years ago.? Other surgical history includes open heart surgery and placement of pacemaker 17 years ago, 44 years ago, laparoscopic cholecystectomy, and breast augmentation. Dr. Cuevas is planning a [employer] procedure for her complex right ovarian cyst, although she is unsure exactly what he is planning to do.? She would like to coordinate surgeries if possible. [facility] Medical History? Asthma exacerbation in COPD Biventricular ICD (implantable cardioverter-defibrillator) in place Followed by Dr. Karen Patterson [employer], last generator change March 2013.COPD (chronic obstructive pulmonary disease) Coronary artery disease involving autologous artery coronary bypass graft 2007: Cunningham to the Left anterior descending, free RI MA to the RCA, radial graft from the [place] to the OM 2.? Later catheterization showed occlusion of the radial artery graft.High cholesterol History of COPD Hypertension Ischemic cardiomyopathy EF 40% in 2019Kidney stones Surgical History? History of delivery History of left-sided carotid endarterectomy 2020, Dr. Dean Harden of CABG Family History? Mother ?? No problems noted. Father Family history of congenital heart disease Diabetes mellitus Cerebrovascular accidentOther Hypertension Social History? Smoking packs per day:? 1 Smoking cigarettes per day:? 20.0 Years smoked:? 71 Smoking pack-years:? 71.00 Smoking status:? Current every day smoker Tobacco type:? cigarettes Alcohol intake:? current Drinks per week:? 1 Substance use:? never Substance use type:? does not use Lack of Transportation:? No Lack of Food:? Never True Current Housing:? I Have Housing Concerned About Future Housing:? No Difficulty Paying Gas/Electric Bills:? No Difficulty Paying for Meds:? No Currently Unemployed:? No Education:? High School Diploma/GED Difficulty w/ Childcare or Family Care:? No Spiritual care concerns:? No Intake Vital Signs ? 05/12/2314:41 Height 1.65 m Height (Inches) 65 Weight 74.389 kg Weight (Lbs) 164 lbs., 0 oz. BMI 27.3 BP 134/72 Blood Pressure Location Rt brachial Position Sitting Respiration 18 Pulse 76 Pulse Source Monitor Temp 36.3 C L Temp Source Tympanic Pulse Oximetry (%) 86 L Oxygen Delivery Method Room Air Visit Reasons:?Hernia Allergies/Adverse Reactions iohexol [From contrast - CT, X-RAY] Allergy (Verified 05/12/23 14:33) Rash Pre-Planning preparation?: Yes Review of Systems Const All systems reviewed & are unremarkable except as noted in HPI and below Denies chills, Denies fever(s), Denies headache(s) an
[2023-06-23] MEDS: ceFAZolin 2 GM/D5W 50 ML 2 GM/50 ML BAG IVPB (10:13)
[2023-06-23] MEDS: BUPivacaine HCL 0.5% PF 30 ML VIAL 20 ML INFILTRATE (11:08)
[2023-06-23] MEDS: LIDO 1%/EPINEPHRINE 1:100,000 20 ML VIAL INFILTRATE (11:11)
--- NOTE | 2023-06-23 12:26 | P.OP_ITS ---
Procedure Note - Detailed Date of Procedure 06/23/23 Pre-op Diagnosis mass of ovary,Umbilical Incisional Hernia Post-op Diagnosis Same Procedure Performed Open periumbilical reducible incisional hernia repair without mesh. Surgeon Henri Lane MD Anesthesia General Indications Patient is a 83-year-old female who is presenting to the operating room for a laparoscopic bilateral salpingo-oophorectomy by Dr. Cuevas. Patient also has a small reducible periumbilical port site incisional hernia from prior laparosco pic cholecystectomy. Patient will have a open repair of the umbilical port site incisional hernia after Bears down with this procedure. Findings Periumbilical incisional port site defect was approximately 1cm in diameter. The hernia is easily reducible and there was no evidence of bowel or omentum within the hernia sac. Description of Procedure One into the operating patient was already in the dorsal lithotomy position under general endotracheal anesthesia in operating room. Dr. Cuevas had finished his portion of his procedure. Patient was stable. The abdomen was already prepped and draped usual sterile fashion. A new time-out was then performed correctly identifying the patient as well as procedure to be performed. She had already been given preoperative IV antibiotics. I then proceeded to make a small curved incision in the superior umbilical fold with a scalpel and dissected down through the dermis skin with a scalpel. Electrocautery dissected down to the hernia sac and then encircled the hernia sac were blunt dissection with a Мария clamp. I then disconnected the overlying dermis of the umbilicus from the underlying hernia sac utilize electrocautery. This exposed a 1cm defect in the fascia at the umbilicus. I then resected away the excess portion of the hernia sac and then placed my index finger into the abdomen and swept underneath the anterior abdominal wall. There were no adhesions of the bowel or omentum insert. Due to its small size I then proceeded to close the cm hernia defect primarily with the use of 5 separate 0 Ethibond sutures. Made sure to get approximate 1cm of the fascia on either side and the defect closed without any tension. I then irrigated out the incision sterile saline solution hemostasis was good. I then injected 1% lidocaine mixed with 0.5% Marcaine around the incision for local anesthetic effect. We treated the inverted u mbilicus by tacking down the dermis of the umbilicus that the deeper fascia utilizing 3-0 Vicryl suture. Subcutaneous tissue was then closed utilizing interrupted 2-0 and 3-0 Vicryl sutures. Skin edges were then approximated utilizing a running subcuticular 4-0 Monocryl suture. The incision was then cleaned the skin glue was placed. The patient tolerated the procedure well no complications. All sponges, needles, and instrument counts were correct at the end procedure. EBL was _ 2 __cc. The patient was awakened and taken to recovery in stable and satisfactory condition. Implants None Estimated Blood Loss 2 Drains No Packing No Pathology None sent Complications No immediate complications Condition Stable Disposition PACU [facility] Billing Surgery - Charge Forward: Surgery Billing
[2023-06-23] MEDS: ONDANSETRON INJ 4 MG/2 ML VIAL IV PUSH (12:56)
[2023-06-23] MEDS: fentaNYL CITRATE INJ (*CRX) 100 MCG/2 ML VIAL 25 MCG IV PUSH (12:58)
--- NOTE | 2023-06-24 21:39 | W.PM.PROC2 ---
Procedure Note - Detailed Date of Procedure 06/24/23 Pre-op Diagnosis mass of ovary,Umbilical Incisional Hernia Post-op Diagnosis Same Procedure Performed Laparoscopic bilateral salpingo-oophorectomy Surgeon Becky Cuevas MD Anesthesia General Indications Unwanted fertility Findings Normal pelvic anatomy Description of Procedure The patient was taken the operating room. She was prepped and draped in the dorsal lithotomy position after induction of general anesthesia. A 5 mm skin incision was made in the left upper quadrant of the abdominal skin. A 5 mm trocar was inserted the intra-abdominal cavity under direct visualization of the scope. Pneumoperitoneum was achieved. A 11 mm trocar was inserted in the left lower quadrant identical fashion. A 5 mm infraumbilical trocar was inserted in identical fashion as well. The bilateral ovaries and fallopian tubes were removed. This was done by using a LigaSure cautery. the infundibulopelvic ligaments were isolated away from the ureter. They were cauterized and transected with LigaSure cautery. The mesosalpinx adjacent to the tube was cauterized transected with LigaSure. This was initiated in the area the ovary and in a stepwise fashion moved medially to the area of the cornu of the uterus. Once there the fallopian tube And suspensory ligament of the ovary were cauterized and transected. This was done in identical fashion on each side. The fallopian tubes and ovaries were taken out through the left lower quadrant trocar site using endobag. There were intact.. The pneumoperitoneum was reduced. The trocars removed. The skin was closed with subcuticular 4 Monocryl and covered with Dermabond. She was taken to cover stable condition. Sponge lap and needle counts were correct x2. Estimated Blood Loss 2 Drains No Packing No Pathology Yes Complications No immediate complications Condition Stable Disposition PACU
== END 2023-06-23 14:49 | disposition home or self-care (01) ==
PROVIDERS: Anesthesiology; Surgery; PCP Nurse Practitioner Family; Visit Provider Obstetrics & Gynecology
PROC: (CPT 49320; principal; 2023-06-23 10:00)
PROC: (CPT 49591; 2023-06-23 10:00)
DX: N83.201 Unspecified ovarian cyst, right side (principal); K43.2 Incisional hernia without obstruction or gangrene; I48.91 Unspecified atrial fibrillation; J44.9 Chronic obstructive pulmonary disease, unspecified; I11.0 Hypertensive heart disease with heart failure; I50.9 Heart failure, unspecified; I25.810 Atherosclerosis of coronary artery bypass graft(s) without angina pectoris; I71.43 Infrarenal abdominal aortic aneurysm, without rupture; E78.00 Pure hypercholesterolemia, unspecified; I25.5 Ischemic cardiomyopathy; Z95.810 Presence of automatic (implantable) cardiac defibrillator; Z79.01 Long term (current) use of anticoagulants; Z79.82 Long term (current) use of aspirin; Z79.51 Long term (current) use of inhaled steroids; F17.210 Nicotine dependence, cigarettes, uncomplicated
CPT/HCPCS: 49591; 58661; 36415; 80048; 84295; 88305; A9270; J0690; J1100; J1885; J2405; J2704; J3010; J7120

== ENCOUNTER → 2023-12-08 12:40 | Outpatient (CLI) | payer MEDICARE, SELFPAY ==
--- NOTE | ~2023-12-08 | XR_ITS ---
XR thoracic spine 3V DATE: 12/08/2023 13:14 INDICATION: Chronic back pain TECHNIQUE: AP, lateral, swimmer views COMPARISON: None FINDINGS: Status post sternotomy. Left AICD triple lead pacemaker device. There is thoracic aortic ca lcification, mild aortic tortuosity. Borderline heart size. Calcified bilateral breast implants. There is diffuse prominent osteopenia. No fracture or dislocation or bone destruction of the thoracic spine is evident. No paraspinal soft t issue thickening is detected. Incidentally noted is multilevel cervical spine degenerative disc disease and degenerative change at the cervical uncovertebral and apophyseal joints IMPRESSION: Prominent diffuse osteopenia; no thoracic spine fracture or bone destruction is evident Reviewed, dictated and finalized at location B. [employer] IMPRESSION: Prominent diffuse osteopenia; no thoracic spine fracture or bone de struction is evident
--- NOTE | ~2023-12-08 | XR_ITS ---
Left Shoulder Technique: AP and axillary views were obtained. Clinical History: Pain Findings: No fracture or dislocation is seen. Osseous alignment is anatomic. The glenohumeral and acr omioclavicular joint spaces are preserved. Soft tissues are unremarkable. Impression: Unremarkable left shoulder radiographs. Reviewed, dictated and finalized at [facility]. 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
--- NOTE | ~2023-12-08 | XR_ITS ---
XR lumbar spine 2-3V DATE: 12/08/2023 13:14 INDICATION: Chronic back pain TECHNIQUE: AP, lateral, coned lateral lumbosacral standing views of the lumbar spine COMPARISON: December 23, 2022 CDT abdomen pelvis lumbar spine FINDINGS: There is slight lumbar levoscoliosis. There is diffuse severe osteopenia. There is very prominent degenerative disc disease throughout the lumbar and lumbosacral spine, severe at L1-2, L2-3 and L5-S1, moderate to moderately severe at L3-4 and L4-5. There is associated minimal retrolisthesis at L1-2, L2-3 and L3-4. There is degenerative change at the apophyseal joints particularly at L4-5 and L5-S1, with associated minimal grade 1 anterolisthesis at L4-5. The sacroiliac joints are intact. Extensive calcification of the abdominal aorta, without aneurysm. Calcification of the common iliac a rteries. Surgical clips, right upper quadrant, probably due to cholecystectomy. IMPRESSION: Prominent osteopenia Prominent multilevel degenerative disc disease of the lumbar and lumbosacral spine, with associated m ild retrolisthesis at L1-2, L2-3 and L3-4 Degenerative changes at the apophyseal joints with associated minimal grade 1 anterolisthesis at L4-5 Little interval change since December 23, 2022 Reviewed, dictated and finalized at location B. UCTION ASSEMBLER IMPRESSION: Prominent osteopenia Prominent multilevel degenerative disc disease of the lumbar and lumbosacral sp ine, with associated mild retrolisthesis at L1-2, L2-3 and L3-4 Degenerative changes at the apophyseal joints with associated minimal grade 1 a nterolisthesis at L4-5 Little interval change since December 23, 2022
== END ==
PROVIDERS: PCP Family Medicine; Visit Provider Family Medicine
DX: M25.512 Pain in left shoulder (principal); M85.88 Other specified disorders of bone density and structure, other site; M51.36 Other intervertebral disc degeneration, lumbar region; M51.37 Other intervertebral disc degeneration, lumbosacral region; M43.16 Spondylolisthesis, lumbar region
CPT/HCPCS: 72072; 72100; 73030

== ENCOUNTER 2024-10-10 18:36 | Inpatient (IN) | payer MEDICARE, MEDICAID, SELFPAY ==
[2024-10-10] VITALS (27 sets, daily range): BP systolic 137–169; BP diastolic 83–129; PULSE 63–115; RESP 12–24; TEMP 35.7–36.6; O2SAT 94–100; BMI 28.2
--- NOTE | ~2024-10-10 | XR_ITS ---
XR chest 1V portable DATE: 10/14/2024 13:43 INDICATION: Cough. TECHNIQUE: Portable upright AP chest on 10/14/2024 at 1340 hours COMPARISON: 10/10/2024 AP and lateral chest FINDINGS: Calcified bilateral breast implants. Status post sternotomy. Cardiomegaly. Triple lead left transvenous pacemaker device with leads in expected position. Aortic arch calcification, mild thoracic aortic tortuosity. No hilar or mediastinal enlargement. There is mild infiltrate or atelectasis at the lung bases, right greater than left. Osteopenia. IMPRESSION: Mild infiltrate or atelectasis at the lung bases, right greater than left Reviewed, dictated and finalized at location A. GER CONVENTION IMPRESSION: Mild infiltrate or atelectasis at the lung bases, right greater arden n left
--- NOTE | ~2024-10-10 | XR_ITS ---
EXAMINATION: XR chest 2V DATE: 10/10/2024 19:12 INDICATION: Shortness of breath. TECHNIQUE: Frontal and lateral views of the chest were obtained. COMPARISON: Chest single view 04/14/2023 FINDINGS: There is mild atelectasis in the lower lung zones. There are lucencies and interstitial opa cities in the lungs, consistent with emphysema. No pleural effusion or pneumothorax. The heart size i s normal. There is a left chest pacer with leads in right atrium, right ventricle, and coronary sinus . Median sternotomy wires and mediastinal surgical clips are seen, likely from prior coronary artery bypass grafting. There are bilateral breast implants. IMPRESSION: 1. Mild atelectasis in the lower lung zones. 2. Emphysema. Reviewed, dictated and finalized at location A. WARE TECHNICIAN
--- NOTE | 2024-10-10 18:46 | ECG_ITS ---
Test Date: 2024-10-10 18:46:11 Measurements Intervals [place] Rate: 105 P: 0 AL: 0 QRS: 220 QRSD: 137 T: 14 QT: 374 QTc: 496 Interpretive Statements ELECTRONIC VENTRICULAR PACEMAKER WITH INHIBITION FREQUENT VENTRICULAR PREMATURE COMPLEXES UNDERLYING ATRIAL FIBRILLATION LEFT BUNDLE BRANCH BLOCK BASELINE ARTIFACT- I, II, III, AVR, AVL, AVF, V2, V4-V6 NO FURTHER INTERPRETATION IS POSSIBLE ABNORMAL ECG No previous ECG available for comparison Electronically Signed On 10-10-2024 20:24:19 MESSENGER OFFICE by Alberto Carter D.O.
[2024-10-10] MEDS: ALBUTEROL SULFATE NEB 2.5 MG/3 ML INH 10 MG INHALATION (19:34)
[2024-10-10] MEDS: IPRATROPIUM BR 0.02% INH SOLN 0.5 MG/2.5 ML VIAL 2 MG INHALATION (19:34)
--- NOTE | 2024-10-10 20:06 | ED.GENADULT ---
HPI - General Adult General Chief complaint: Shortness of Breath/Dyspnea Stated complaint: Sob Time Seen by Provider: 10/10/24 19:06 History of Present Illness HPI narrative: Patient is an 84 year old female who presents to the emergency department this evening from [facility] complaining of shortness breath. Patient states that she has been having shortness of breath for the past few days but today was worse. She admits that she does have a history of COPD and CHF and admits that she does use home inhalers and a nebulizer. Patient wears 3-4 L of nasal cannula at all the time. She is currently denying any chest pain, denies any recent URI illness denies any fevers or chills. Patient also denies any nausea vomiting or abdominal pain. No additional symptoms or concerns at this time. Related Data Home Medications Medication Instructions Recorded Confirmed apixaban 5 mg tablet (Eliquis) 5 mg PO BID 08/21/21 07/28/23 aspirin 81 mg capsule 81 mg PO HS 08/21/21 07/28/23 atorvastatin 40 mg tablet 40 mg PO HS 08/21/21 07/28/23 carvedilol 12.5 mg tablet 12.5 mg PO BID 08/21/21 07/28/23 ipratropium 20 mcg-albuterol 100 1 puff inhalation Q6H PRN 08/21/21 07/28/23 mcg/actuation mist for inhalation Shortness Of Breath (Combivent Respimat) magnesium oxide 400 mg (241.3 mg 400 mg PO DAILY 08/21/21 07/28/23 magnesium) tablet montelukast 10 mg tablet 10 mg PO HS 08/21/21 07/28/23 pantoprazole 40 mg tablet,delayed 40 mg PO QAM 08/21/21 07/28/23 release PreserVision AREDS 1 tab-cap PO BID 02/14/23 07/28/23 ergocalciferol (vitamin D2) 1,250 50,000 unit PO WEEKLY 02/14/23 07/28/23 mcg (50,000 unit) capsule ropinirole 1 mg tablet 1 mg PO HS 02/15/23 07/28/23 loratadine 10 mg tablet (Claritin) 10 mg PO DAILY PRN allergies 04/15/23 07/28/23 Allergies Allergy/AdvReac Type Severity Reaction Status Date / Time iohexol Allergy Rash Verified 10/10/24 18:57 [From contrast - CT, X-RAY] Review of Systems Review of Systems: All systems are reviewed and are negative unless stated otherwise in the HPI. [facility] Past Medical History Medical History Aortic aneurysm Asthma exacerbation in COPD Atrial fibrillation Biventricular ICD (implantable cardioverter-defibrillator) in place Followed by Dr. Karen Patterson [employer], last generator change March 2013. CHF exacerbation COPD (chronic obstructive pulmonary disease) Coronary artery disease involving autologous artery coronary bypass graft 2008: Cunningham to the Left anterior descending, free RI MA to the RCA, radial graft from the [place] to the OM 2. Later catheterization showed occlusion of the radial artery graft. High cholesterol History of COPD Hypertension Ischemic cardiomyopathy EF 40% in 2019 Kidney stones Surgical History Surgical History History of delivery History of left-sided carotid endarterectomy 2020, Dr. Dean Newsome History of umbilical hernia repair open periumbilical reducible incisional hernia repair without mesh 06/23/23 Hx of CABG x3 Family History Family History Mother No problems noted. Father Family history of congenital heart disease Diabetes mellitus Cerebrovascular accident Other Hypertension Social History Social History Smoking packs per day: 1 Smoking cigarettes per day: 20.0 Years smoked: 68 Smoking pack-years: 68.00 Smoking status: Current every day smoker Tobacco type: cigarettes Alcohol intake: current Drinks per week: 1 Alcohol use details: STATES VERY, VERY RARELY Substance use: never Substance use type: does not use Lack of Transportation: No Lack of Food: Never True Current Housing: I Have Housing Concerned About Future Housing: No Difficulty Paying Gas/Electric Bills: No Difficulty Paying for Meds: No Currently Unemployed: No Education: High School Diploma/GED Difficulty w/ Childcare or Family Care: No Living arrangements: alone Spiritual care concerns: No Exam Narrative: General: Alert, awake, afebrile, in no acute distress. HEENT: PERRL, no rhinorrhea, no post nasal drip, oropharynx clear. Neck: Trachea midline, no JVD, no lymphadenopathy. Cardiovascular: Regular rate and rhythm, no murmurs, rubs or gallops, no peripheral edema. Respiratory: Diffuse wheezing bilaterally in all lung stewart, tachypnea, no rhonchi, no rubs, mild respiratory distress. Abdomen: Soft, nontender, nondistended, no rebound, no guarding, no peritoneal signs. Musculoskeletal: No joint swelling or deformity, normal muscle tone. Skin: No rashes or petechia, no signs of infection. Psychiatric: Alert and oriented, normal behavior and judgment for situation. Neurological: Alert and oriented to person, place, and time. Follows all commands. No focal deficits, speech is clear and fluent. Course Vital Signs Vital signs: Vital Signs Temperature 97.9 F 10/10/24 18:46 Pulse Rate 106 H 10/10/24 18:46 Respiratory Rate 20 10/10/24 18:46 Blood Pressure 137/85 10/10/24 18:46 Pulse Oximetry 96 10/10/24 18:46 Oxygen Delivery Nasal Cannula 10/10/24 18:46 Oxygen Flow Rate 4 10/10/24 18:46 Temperature 97.9 F 10/10/24 18:46 Pulse Rate 91 10/10/24 21:45 Respiratory Rate 16 10/10/24 21:45 Blood Pressure 150/91 H 10/10/24 21:02 Pulse Oximetry 98 10/10/24 21:45 Oxygen Delivery Nasal Cannula 10/10/24 18:54 Oxygen Flow Rate 4 10/10/24 18:54 Medical Decision Making MDM Narrative Medical decision making narrative: The patient was evaluated by myself in the emergency department. History is obtained from patient who is an independent historian and physical exam was performed. External medical records were reviewed at this time. IV was established and pertinent tests were ordered. Patient was administered 125 mg of IV Solu-Medrol and started on an hour long DuoNeb breathing treatment. EKG was obtained which revealed a paced rhythm at a rate of 105 beats per minute, PVC's, negative Sgarbossa. EKG was independently interpreted by me and is currently pending official cardiology read. Laboratory results obtained revealing a leukocytosis of 14.8, AST 51, ALT 50, proBNP 3490 otherwise unremarkable. No clinical evidence of fluid overload. Imaging studies obtained included CXR which was independently interpreted by me revealing emphysema otherwise no acute process, which is pending final radiology interpretation. Differential diagnosis considerations include COPD exacerbation, CHF exacerbation, acute viral syndrome, infectious process such as pneumonia. Comorbidities impacting this visit include history of COPD and CHF. I have evaluated and discussed social determinants of health with the patient that could potentially impact subsequent diagnosis and treatment plans. On repeat assessment of the patient, reevaluation revealed that the patient is doing well and is in no acute distress. Patient symptoms have improved since she arrived to our emergency department. Patient states that she feels much better and feels that she can breathe better, however, patient is still wheezing. At this time I did recommend hospital admission for COPD exacerbation and patient is agreeable with this plan. Repeat vital signs were all reviewed and noted to be stable. Differential diagnosis and treatment plan were discussed with the patient at bedside. Patient agrees with discussion and after shared medical decision making agrees with admission. All questions were answered to the patient's satisfaction. Case discussed with on-call hospitalist Dr. Stevenson at 2159 and she accepted admission. Vital Signs Vital Signs: Vital Signs Temperature 97.9 F 10/10/24 18:46 Pulse Rate 106 H 10/10/24 18:46 Respiratory Rate 20 10/10/24 18:46 Blood Pressure 137/85 10/10/24 18:46 Pulse Oximetry 96 10/10/24 18:46 Oxygen Delivery Nasal Cannula 10/10/24 18:46 Oxygen Flow Rate 4 10/10/24 18:46 Temperature 97.9 F 10/10/24 18:46 Pulse Rate 91 10/10/24 21:45 Respiratory Rate 16 10/10/24 21:45 Blood Pressure 150/91 H 10/10/24 21:02 Pulse Oximetry 98 10/10/24 21:45 Oxygen Delivery Nasal Cannula 10/10/24 18:54 Oxygen Flow Rate 4 10/10/24 18:54 Lab Data 10/10/24 19:59 10/10/24 19:59 Labs: Lab Results 10/10/24 10/10/24 Range/Units 19:59 20:40 WBC 14.8 H (4.5-10.0) K/mm3 RBC 3.68 L (4.2-5.4) M/mm3 Hgb 11.3 L (12.0-15.0) g/dL Hct 34.8 L (37.0-47.0) % MCV 94.6 (80-100) fl MCH 30.7 (26-34) pg MCHC 32.5 (32-36) g/dl RDW 14.6 H (11.5-14.5) % Plt Count 229 (150-375) k/mm3 MPV 9.6 (7.4-10.4) fl Immature Gran % (Auto) 0.9 H (0-0.5) % Neut % (Auto) 74.3 H (45.5-73.1) % Lymph % (Auto) 15.7 L (18.3-44.2) % Platte % (Auto) 7.8 (2.6-8.5) % Eos % (Auto) 0.6 (0-4.4) % Baso % (Auto) 0.7 (0.2-1.2) % Lymph # (Auto) 2.33 (0.9-3.2) K/mm3 Platte # (Auto) 1.2 H (0.1-0.6) K/mm3 Eos # (Auto) 0.1 (0-0.3) K/mm3 Baso # (Auto) 0.1 (0.0-0.1) K/mm3 Abs Immat Gran (auto) 0.13 H (0.00-0.031) K/mm3 Absolute Neuts (auto) 11.0 H (1.3-6.7) K/mm3 Absolute Nucleated RBC 0.000 (0.0-0.012) K/mm3 Nucleated RBC % 0.0 (0.0-0.2) % Sodium 133 L (137-145) mmol/L Potassium 3.9 (3.4-5.0) mmol/L Chloride 89 L (98-107) mmol/L Carbon Dioxide > 40 H (22-30) mmol/L Anion Gap (4-12) mmol/L BUN 15 D (7-17) mg/dL Creatinine 0.70 (0.7-1.0) mg/dL Estim Creat Clear Calc 54 ml/min Estimated GFR > 60 (59 - ) Glucose 125 H (65-110) mg/dL Calcium 9.1 (8.4-10.2) mg/dL Total Bilirubin 0.9 (0.2-1.3) mg/dL AST 51 H (14-36) U/L ALT 50 H (6-35) U/L Alkaline Phosphatase 93 (38-126) U/L Troponin I 0.015 (0.000-0.034) ng/mL NT-Pro-B Natriuret Pep 3490 H (19.9-100) pg/mL Total Protein 7.0 (6.3-8.2) g/dL Albumin 4.0 (3.5-5.1) g/dL Influenza A (RT-PCR) Negative (Negative) Influenza B (RT-PCR) Negative (Negative) SARS-CoV-2 RNA (RT-PCR) Negative (Negative) ABG Data ABG results: 10/10/24 20:38 VBG pH 7.459 H* VBG pCO2 52.8 H VBG pO2 40.3 VBG HCO3 36.6 H O2 Delivery Device Nasal cannula O2 Liters/Min 3.0 FiO2 32 Discharge Plan Discharge Clinical Impression: COPD exacerbation Patient Disposition: Still a Patient Condition: Improved Prescriptions: No Action ergocalciferol (vitamin D2) 1,250 mcg (50,000 unit) capsule 50,000 unit PO WEEKLY Rx Instructions: Wednesday PreserVision AREDS 1 tab-cap PO BID ropinirole 1 mg tablet 1 mg PO HS loratadine [Claritin] 10 mg Tablet 10 mg PO DAILY PRN (Reason: allergies) lisinopril 20 mg tablet 20 mg PO DAILY 30 Days Qty: 0 0RF furosemide 20 mg tablet 20 mg PO BID 30 Days Qty: 0 0RF atorvastatin 40 mg tablet 40 mg PO HS carvedilol 12.5 mg tablet 12.5 mg PO BID pantoprazole 40 mg tablet,delayed release (DR/EC) 40 mg PO QAM montelukast 10 mg tablet 10 mg PO HS Eliquis 5 mg tablet 5 mg PO BID Rx Instructions: Take one tablet in AM and one tablet in PM. Combivent Respimat 20-100 mcg/actuation mist 1 puff INHALATION Q6H PRN (Reason: Shortness Of Breath) aspirin 81 mg Capsule 81 mg PO HS magnesium oxide 400 mg (241.3 mg magnesium) tablet 400 mg PO DAILY Follow-up/Referrals: Adam,MD Ben [Primary Care Provider] - Time of Disposition: 22:03
[2024-10-10] MEDS: methylPREDNISolone SOD SUCC 125 MG VIAL IV PUSH (20:07)
[2024-10-10 20:13] LABS: Basophils Absolute Auto 0.1 K/mm3 (0.0-0.1); Basophils Percent Auto 0.7 % (0.2-1.2); Eosinophils Absolute Auto 0.1 K/mm3 (0-0.3); Eosinophils Percent Auto 0.6 % (0-4.4); Hematocrit 34.8 % (37.0-47.0); Hemoglobin 11.3 g/dL (12.0-15.0); Immature Granulocyte Absolute 0.13 K/mm3 (0.00-0.031); Immature Granulocyte Percent A 0.9 % (0-0.5); Lymphocytes Absolute Auto 2.33 K/mm3 (0.9-3.2); Lymphocytes Percent Auto 15.7 % (18.3-44.2); Mean Corpuscular HGB Conc 32.5 g/dl (32-36); Mean Corpuscular Hemoglobin 30.7 pg (26-34); Mean Corpuscular Volume 94.6 fl (80-100); Mean Platelet Volume 9.6 fl (7.4-10.4); Monocytes Absolute Auto 1.2 K/mm3 (0.1-0.6); Monocytes Percent Auto 7.8 % (2.6-8.5); Neutrophils Percent Auto 74.3 % (45.5-73.1); Platelet Count Result 229 k/mm3 (150-375); Red Blood Count 3.68 M/mm3 (4.2-5.4); Red Cell Distribution Width 14.6 % (11.5-14.5); White Blood Count 14.8 K/mm3 (4.5-10.0)
[2024-10-10 20:24] LABS: Alanine Aminotransferase 50 U/L (6-35); Alkaline Phosphatase 93 U/L (38-126); Aspartate Amino Transferase 51 U/L (14-36); Bilirubin,Total 0.9 mg/dL (0.2-1.3); Blood Urea Nitrogen 15 mg/dL (7-17); Calcium 9.1 mg/dL (8.4-10.2); Carbon Dioxide > 40 mmol/L (22-30); Chloride 89 mmol/L (98-107); Estimated CRCL calculation 54 ml/min; Estimated Glomerular Filt Rate > 60; Glucose 125 mg/dL (65-110); Potassium 3.9 mmol/L (3.4-5.0); Sodium 133 mmol/L (137-145)
[2024-10-10 20:34] LABS: NT Pro B Type Natriuretic Pept 3490 pg/mL (19.9-100); Troponin I 0.015 ng/mL (0.000-0.034)
[2024-10-10 20:42] LABS: Fractional Inspired Oxygen 32 %; HCO3 VBG 36.6 mEq/l (24.0-30.0); PCO2 VBG 52.8 mmHg (42.0-48.0); PO2 VBG 40.3 mmHg (35.0-45.0)
[2024-10-10 20:43] LABS: Device NASAL CANNULA; pH VBG 7.459 (7.300-7.400)
[2024-10-10 21:20] LABS: Influenza A QL RT-PCR Negative (Negative); Influenza B QL RT-PCR Negative (Negative); SARS-CoV-2 RNA PCR Negative (Negative)
--- NOTE | 2024-10-10 21:59 | PM.IMHP ---
H&P: HPI History of Present Illness Date/Time: 10/10/24 21:59 Chief Complaint: shortness of breath Narrative: This is an 84-year-old female with past medical history significant for COPD/emphysema, tobacco dependence, patient is a current everyday smoker, coronary artery disease, cardiomyopathy, AICD in place, atrial fibrillation, hypertension, congestive heart failure, history of coronary artery bypass graft. Patient presents to the emergency room due to several days of persistent cough, productive of scanty white phlegm, shortness of breath, has been using her inhaler quite frequently with no relief of symptoms has actually worsened over the course of the last day or so, patient denies any fevers, rigors, chills, nausea, vomiting. in emergency room patient received breathing treatments however continue to be short of breath decision has been made to admit patient for further evaluation management and treatment. EXAMINATION: XR chest 2V DATE: 10/10/2024 19:12 INDICATION: Shortness of breath. TECHNIQUE: Frontal and lateral views of the chest were obtained. COMPARISON: Chest single view 04/14/2023 FINDINGS: There is mild atelectasis in the lower lung zones. There are lucencies and interstitial opacities in the lungs, consistent with emphysema. No pleural effusion or pneumothorax. The heart size is normal. There is a left chest pacer with leads in right atrium, right ventricle, and coronary sinus. Median sternotomy wires and mediastinal surgical clips are seen, likely from prior coronary artery bypass grafting. There are bilateral breast implants. IMPRESSION: 1. Mild atelectasis in the lower lung zones. 2. Emphysema. Review of Systems Review of Systems: shortness of breath, wheezing, productive cough. COUNTS INCLUDE 234 BEDS AT THE [facility] Past Medical History Medical History (Updated 10/11/24 @ 02:03 by Rachel Stevenson MD) Aortic aneurysm Asthma exacerbation in COPD Atrial fibrillation Biventricular ICD (implantable cardioverter-defibrillator) in place Followed by Dr. Karen Harris, last generator change March 2013. CHF exacerbation COPD (chronic obstructive pulmonary disease) Coronary artery disease involving autologous artery coronary bypass graft 2007: Cunningham to the Left anterior descending, free RI MA to the RCA, radial graft from the [place] to the OM 2. Later catheterization showed occlusion of the radial artery graft. High cholesterol History of COPD Hypertension Ischemic cardiomyopathy EF 40% in 2019 Kidney stones Surgical History Surgical History History of delivery History of left-sided carotid endarterectomy 2020, Dr. Dean Newsome History of umbilical hernia repair open periumbilical reducible incisional hernia repair without mesh 06/23/23 Hx of CABG x3 Family History Family History Mother No problems noted. Father Family history of congenital heart disease Diabetes mellitus Cerebrovascular accident Other Hypertension Social History Social History Smoking packs per day: 1 Smoking cigarettes per day: 20.0 Years smoked: 68 Smoking pack-years: 68.00 Smoking status: Current every day smoker Alcohol use details: STATES VERY, VERY RARELY Substance use: never Substance use type: does not use Do You Feel Safe in your Home?: Yes Lack of Transportation: No Lack of Food: Never True Current Housing: I Have Housing Concerned About Future Housing: No Difficulty Paying Gas/Electric Bills: No Difficulty Paying for Meds: No Currently Unemployed: No Education: High School Diploma/GED Difficulty w/ Childcare or Family Care: No Living arrangements: alone Spiritual care concerns: No Meds Home Medications and Allergies Home Medications Medication Instructions Recorded Confirmed Type apixaban 5 mg tablet (Eliquis) 5 mg PO BID 08/21/21 10/10/24 History atorvastatin 40 mg tablet 40 mg PO HS 08/21/21 10/10/24 History carvedilol 12.5 mg tablet 12.5 mg PO BID 08/21/21 10/10/24 History ipratropium 20 mcg-albuterol 100 1 puff inhalation Q6H PRN 08/21/21 10/10/24 History mcg/actuation mist for inhalation Shortness Of Breath (Combivent Respimat) montelukast 10 mg tablet 10 mg PO HS 08/21/21 10/10/24 History pantoprazole 40 mg tablet,delayed 40 mg PO QAM 08/21/21 10/10/24 History release PreserVision AREDS 1 tab-cap PO BID 02/14/23 10/10/24 History ropinirole 1 mg tablet 1 mg PO HS 02/15/23 10/10/24 History B-complex with vitamin C 1 tablet PO DAILY 10/10/24 10/10/24 History acetaminophen 500 mg tablet 1,000 mg PO Q8H PRN Pain 10/10/24 10/10/24 History albuterol sulfate 90 mcg/actuation 2 puff inhalation Q4H PRN sob 10/10/24 10/10/24 History aerosol inhaler albuterol sulfate 90 mcg/actuation 1 puff inhalation Q4H PRN sob 10/10/24 10/10/24 History aerosol inhaler (Ventolin HFA) bupropion HCl 150 mg 24 hr tablet, 150 mg PO DAILY 10/10/24 10/10/24 History extended release buspirone 5 mg tablet 5 mg PO BID 10/10/24 10/10/24 History cetirizine 10 mg tablet 10 mg PO DAILY PRN ALLERGIES 10/10/24 10/10/24 History cyanocobalamin (vitamin B-12) 1 tablet PO DAILY 10/10/24 10/10/24 History famotidine 20 mg tablet 20 mg PO DAILY 10/10/24 10/10/24 History fluticasone 100 mcg-salmeterol 50 1 inh inhalation DAILY 10/10/24 10/10/24 History mcg/dose blistr powdr for inhalation furosemide 20 mg tablet 40 mg PO DAILY 10/10/24 10/10/24 History gabapentin 300 mg capsule 300 mg PO TID 10/10/24 10/10/24 History lisinopril 20 mg tablet 20 mg PO BID 10/10/24 10/10/24 History metoclopramide HCl 5 mg tablet 5 mg PO PRN PRN Nausea 10/10/24 10/10/24 History spironolactone 25 mg tablet 25 mg PO DAILY 10/10/24 10/10/24 History tramadol 50 mg tablet 50 mg PO BID 10/10/24 10/10/24 History Allergies Allergy/AdvReac Type Severity Reaction Status Date / Time iohexol Allergy Rash Verified 10/10/24 18:57 [From contrast - CT, X-RAY] Vital Signs Vital Signs - 24 hr 10/10/24 18:46 10/10/24 18:54 10/10/24 19:34 Temperature 97.9 F Pulse Rate 106 H 108 H Respiratory Rate 20 24 H Blood Pressure 137/85 Pulse Oximetry 96 96 Oxygen Delivery Nasal Cannula Nasal Cannula Oxygen Flow Rate 4 4 10/10/24 18:55 10/10/24 19:00 10/10/24 19:01 Temperature Pulse Rate 104 H 109 H 101 H Respiratory Rate 22 H 17 12 Blood Pressure 137/85 138/84 Pulse Oximetry 96 96 95 Oxygen Delivery Oxygen Flow Rate 10/10/24 19:30 10/10/24 19:45 10/10/24 20:00 Temperature Pulse Rate 108 H 94 107 H Respiratory Rate 14 13 14 Blood Pressure Pulse Oximetry 95 100 100 Oxygen Delivery Oxygen Flow Rate 10/10/24 20:01 10/10/24 20:15 10/10/24 20:30 Temperature Pulse Rate 108 H 99 109 H Respiratory Rate 14 15 23 H Blood Pressure 157/86 H Pulse Oximetry 99 100 97 Oxygen Delivery Oxygen Flow Rate 10/10/24 20:45 10/10/24 21:00 10/10/24 21:02 Temperature Pulse Rate 115 H 100 96 Respiratory Rate 17 18 15 Blood Pressure 150/91 H Pulse Oximetry 97 97 97 Oxygen Delivery Oxygen Flow Rate 10/10/24 21:15 10/10/24 21:30 10/10/24 21:45 Temperature Pulse Rate 94 101 H 91 Respiratory Rate 18 14 16 Blood Pressure Pulse Oximetry 98 99 98 Oxygen Delivery Oxygen Flow Rate Exam Narrative: Patient is laying in a stretcher Const: General: comfortable, no acute distress, well developed, alert, awake, ill appearing chronically, tired appearing and average body habitus Nutritional Appearance: average body habitus Orientation/consciousness: patient oriented x3 HENMT: Head: normal to inspection, normocephalic and atraumatic Ears: hearing grossly normal bilaterally Face/Nose/Sinus: normal facial exam Face and sinus: normal facial exam Eyes: General: appearance normal, both eyes and all related structures Pupils: Equal, round and reactive pupils present EOM: EOMs intact bilaterally Neck: Neck: full ROM, no lymphadenopathy and no JVD Thyroid: thyroid normal Lymphatic: no lymphadenopathy noted Resp: Effort & Inspection: normal respiratory effort, able to speak in complete sentences and tachypneic Auscultation: crackles, rales, wheezes and diminished lung sounds Cardio: Jugular venous distension: no JVD Rate: regular rate Rhythm: regular rhythm Heart sounds: S1 normal heart sound present and S2 normal heart sound present GI: GI Palp: Yes Soft to palpation and Yes No hepatosplenomegaly present : General: Yes deferred Skin: Rashes: no rashes Wounds: no wounds Neuro: General: patient oriented x3 and CN's II-XI intact bilaterally Cranial nerves: Yes CN's II-XII intact bilaterally and Yes Equal, round and reactive pupils present Cognition (Neuro): normal cognition Speech: normal speech Gait exam (Neuro): Normal gait present Motor exam (neuro): 5/5 motor strength present throughout Extrem: General: normal to inspection, full ROM, no joint enlargement and no pedal edema H&P: Results Labs Labs: Short CBC 10/10/24 Range/Units 19:59 WBC 14.8 H (4.5-10.0) K/mm3 Hgb 11.3 L (12.0-15.0) g/dL Hct 34.8 L (37.0-47.0) % Plt Count 229 (150-375) k/mm3 BMP 10/10/24 19:59 Sodium 133 L Potassium 3.9 Chloride 89 L Carbon Dioxide > 40 H BUN 15 D Creatinine 0.70 Glucose 125 H Calcium 9.1 Cardiac Enzymes 10/10/24 Range/Units 19:59 Troponin I 0.015 (0.000-0.034) ng/mL Liver Function 10/10/24 Range/Units 19:59 Total Bilirubin 0.9 (0.2-1.3) mg/dL AST 51 H (14-36) U/L ALT 50 H (6-35) U/L Alkaline Phosphatase 93 (38-126) U/L Albumin 4.0 (3.5-5.1) g/dL Assessment and Plan Assessment and plan (1) COPD exacerbation: Code(s): J44.1 - Chronic obstructive pulmonary disease with (acute) exacerbation Status: Acute (2) Acute respiratory failure with hypoxia: Code(s): J96.01 - Acute respiratory failure with hypoxia Status: Acute (3) Ischemic cardiomyopathy: Code(s): I25.5 - Ischemic cardiomyopathy Status: Acute (4) Coronary artery disease involving autologous artery coronary bypass graft: Code(s): I25.810 - Atherosclerosis of coronary artery bypass graft(s) without angina pectoris Status: Acute (5) AICD (automatic cardioverter/defibrillator) present: Code(s): Z95.810 - Presence of automatic (implantable) cardiac defibrillator Status: Acute (6) Atrial fibrillation: Code(s): I48.91 - Unspecified atrial fibrillation Status: Acute (7) Tobacco dependence: Code(s): F17.200 - Nicotine dependence, unspecified, uncomplicated Status: Acute Hospitalist MIPS Advance Care Plan I have confirmed that the patient's Advanced Care Plan is present, code status is documented, or surrogate decision maker is listed in patient medical record.: Yes Medication Reconciliation I have utilized all available resources to obtain, update and review the patients current medications (includes all prescriptions, OTC, herbals, cannabis, and nutritional supplements).: Yes
[2024-10-11] VITALS (16 sets, daily range): BP systolic 139–162; BP diastolic 76–102; PULSE 93–110; RESP 14–24; TEMP 36.1–36.6; O2SAT 93–100
[2024-10-11] MEDS: IPRATROPIUM 0.5 MG/ALBUTEROL SULFATE 2.5 MG AMPUL.NEB 3 ML INHALATION ×4 (00:25→19:55)
--- NOTE | 2024-10-11 00:45 | ADMGEN ---
This patient, Jannette Urena, was admitted to 3 Med Surg Room 323-01. Patient/family oriented to hospital policies and general routines including ID bracelet, bed and alarms, visiting hours, pain management, procedures, bathroom and other care routines, personal items, smoking policy, room service/diet, and visiting hours. Information on how to activate the Rapid Response Team has been discussed. Patient/Family are encouraged to report perceived risks to care and to ask questions if they do not understand what they are told or what they should do.
[2024-10-11] MEDS: levoFLOXacin 750 MG/D5W 150 ML 750 MG/150 ML BAG 100 MG IVPB (02:28)
[2024-10-11] MEDS: methylPREDNISolone SOD SUCC 125 MG VIAL 60 MG IV PUSH ×4 (02:28→21:10)
[2024-10-11] MEDS: FUROSEMIDE INJ 40 MG/4 ML VIAL IV PUSH ×2 (02:28→12:20)
[2024-10-11 05:16] LABS: Add Urine Microscopic? NO; Appearance Urine Clear (Clear); Bilirubin Urine Negative (Negative); Blood Urine Negative (Negative); Color Urine Yellow (Yellow); Glucose Urine UA Negative (Negative); Ketones Urine Negative (Negative); Leukocyte Esterase Ur Negative LEU/UL (Negative); Nitrate Urine Negative (Negative); Protein Urine Negative (Negative); Specific Grav Ur 1.007 (1.001-1.035); Urobilinogen Urine 0.2 mg/dL (<2.0); pH Urine 7.5 (5.0-9.0)
[2024-10-11] MEDS: FLUTICASONE/SALMETEROL 45-21 MCG INHALER 1 PUFF 2 PUFF INHALATION ×2 (07:08→19:55)
[2024-10-11] MEDS: PANTOPRAZOLE 40 MG TABLET PO (08:35)
[2024-10-11] MEDS: lisinopriL 20 MG TABLET PO ×2 (08:35→21:09)
[2024-10-11] MEDS: GABAPENTIN 300 MG CAPSULE PO ×3 (08:35→16:17)
[2024-10-11] MEDS: APIXABAN 5 MG TABLET PO ×2 (08:35→21:09)
[2024-10-11] MEDS: FAMOTIDINE 20 MG TABLET PO (08:35)
[2024-10-11] MEDS: buPROPion HCL XL (24 HR) 150 MG TABCR PO (08:36)
[2024-10-11] MEDS: SPIRONOLACTONE 25 MG TABLET PO (08:36)
[2024-10-11] MEDS: busPIRone HCL 5 MG TABLET PO ×2 (08:36→16:17)
[2024-10-11] MEDS: OPTI-GEN TAB 1 TABLET PO ×2 (08:37→16:17)
[2024-10-11] MEDS: carvediloL 12.5 MG TABLET PO ×2 (08:38→21:09)
--- NOTE | 2024-10-11 15:10 | P.PNIM_ITS ---
Progress Note: A&P Assessment and Plan (1) COPD exacerbation: Code(s): J44.1 - Chronic obstructive pulmonary disease with (acute) exacerbation Status: Acute Assessment and Plan: - CXR: IMPRESSION: 1. Mild atelectasis in the lower lung zones. 2. Emphysema. - No infiltates on CXR. - Continue IV steroids, Levaquin, Advair, scheduled duoneb updrafts and supplemental O2 now @4L/NC for sats > 90 %. - Wean steroids and wean O2 as mary to maintain sats > 90 %. - Patient on continuous home O2 @3-4L/NC for sats > 90 %. - Encouraged with smoking cessation. (2) Acute respiratory failure with hypoxia: Code(s): J96.01 - Acute respiratory failure with hypoxia Status: Acute Assessment and Plan: - Likely related to above +/vs pulmonary edema vs other. - Mgt as # 1 above. - Currently on 4L/NC for sats > 90 %. - Wean as mary to maintain sats > 90 %. (3) Ischemic cardiomyopathy: Code(s): I25.5 - Ischemic cardiomyopathy Status: Acute Assessment and Plan: - Possible decompensated. - Given IV lasix 40 mg on admission. - Repeat IV lasix 40 mg X1. - Continue supplemental O2 to maintain sats > 90 %. - Continue Lisinopril and spironolactone. (4) Coronary artery disease involving autologous artery coronary bypass graft: Code(s): I25.810 - Atherosclerosis of coronary artery bypass graft(s) without angina pectoris Status: Acute Assessment and Plan: - Continue statin and coreg. (5) AICD (automatic cardioverter/defibrillator) present: Code(s): Z95.810 - Presence of automatic (implantable) cardiac defibrillator Status: Acute Assessment and Plan: - Stable. - Continue outpatient internal communications manager f/u. (6) Atrial fibrillation: Code(s): I48.91 - Unspecified atrial fibrillation Status: Acute Assessment and Plan: - Rate fairly well controlled. - Maintains A-Fib with V-pacing on telemetry. - Continue Eliquis and Coreg. - Continue tele monitoring. (7) Tobacco dependence: Code(s): F17.200 - Nicotine dependence, unspecified, uncomplicated Status: Acute Assessment and Plan: - Encouraged with cessation. - Nicotine patch PRN. (8) Asthma exacerbation in COPD: Code(s): J44.1 - Chronic obstructive pulmonary disease with (acute) exacerbation; J45.901 - Unspecified asthma with (acute) exacerbation Status: Acute Assessment and Plan: - Mgt as per # 1. - Continue Advair, singulair and cetirizine. - Supplemental O2 for sats > 90 %. Plan Continue COPD and possible CHF exacerbation mgt. Wean O2 as mary to maintain sats > 90 %, monitor closely for decompensation. Time Spent With Patient Time with patient: 25 - 35 minutes Subjective Date/time seen: 10/11/24 11:10 Patient states she feels much better now compared to yesterday. States she has been getting progressively SOB with minimal activity but yesterday she just couldn't catch her breath, prompting her to come to the ER for evaluation. Interval history: Patient calm on bedrest and looks to be in no acute distress. Review of Systems Review of Systems: All systems reviewed & are unremarkable except as noted in HPI and below Exam Narrative: General: Well appearing, no acute distress. HEENT: Atraumatic, PERRL, EOM, moist mucosa. Neck: Supple. Lungs: Diminished with some expiratory wheezes. Heart: Irregularly irregular, 2-3+ left sternal border murmur Abdomen: Soft, obese, non-tender, +ve bowel sounds X4 quadrants. Extremities: Acyanotic, no edema, 2+ pedal pulses. Skin: Warm and dry with no lesions. Neuro: Well oriented. No focal neuro deficits noted. Psych: Pleasant and co-operative. Objective Data Vital Signs Vital Signs: Vital Signs - 24 hr 10/10/24 18:46 10/10/24 18:54 10/10/24 19:34 Temperature 97.9 F Pulse Rate 106 H 108 H Respiratory Rate 20 24 H Blood Pressure 137/85 Pulse Oximetry 96 96 Oxygen Delivery Nasal Cannula Nasal Cannula Oxygen Flow Rate 4 4 10/10/24 18:55 10/10/24 19:00 10/10/24 19:01 Temperature Pulse Rate 104 H 109 H 101 H Respiratory Rate 22 H 17 12 Blood Pressure 137/85 138/84 Pulse Oximetry 96 96 95 Oxygen Delivery Oxygen Flow Rate 10/10/24 19:30 10/10/24 19:45 10/10/24 20:00 Temperature Pulse Rate 108 H 94 107 H Respiratory Rate 14 13 14 Blood Pressure Pulse Oximetry 95 100 100 Oxygen Delivery Oxygen Flow Rate 10/10/24 20:01 10/10/24 20:15 10/10/24 20:30 Temperature Pulse Rate 108 H 99 109 H Respiratory Rate 14 15 23 H Blood Pressure 157/86 H Pulse Oximetry 99 100 97 Oxygen Delivery Oxygen Flow Rate 10/10/24 20:45 10/10/24 21:00 10/10/24 21:02 Temperature Pulse Rate 115 H 100 96 Respiratory Rate 17 18 15 Blood Pressure 150/91 H Pulse Oximetry 97 97 97 Oxygen Delivery Oxygen Flow Rate 10/10/24 21:15 10/10/24 21:30 10/10/24 21:45 Temperature Pulse Rate 94 101 H 91 Respiratory Rate 18 14 16 Blood Pressure Pulse Oximetry 98 99 98 Oxygen Delivery Oxygen Flow Rate 10/10/24 22:00 10/10/24 22:01 10/10/24 22:15 Temperature Pulse Rate 104 H 103 H 98 Respiratory Rate 14 12 16 Blood Pressure 151/88 H Pulse Oximetry 96 94 98 Oxygen Delivery Oxygen Flow Rate 10/10/24 22:30 10/10/24 22:45 10/10/24 23:00 Temperature Pulse Rate 94 110 H 111 H Respiratory Rate 15 12 17 Blood Pressure Pulse Oximetry 97 95 96 Oxygen Delivery Oxygen Flow Rate 10/10/24 23:01 10/10/24 23:54 10/11/24 00:25 Temperature 96.3 F L Pulse Rate 103 H 63 110 H Respiratory Rate 16 20 24 H Blood Pressure 147/83 H 169/129 H Pulse Oximetry 94 96 Oxygen Delivery Oxygen Flow Rate 10/10/24 23:40 10/11/24 05:34 10/11/24 07:08 Temperature 97.9 F Pulse Rate 98 104 H Respiratory Rate 19 18 Blood Pressure 143/102 H Pulse Oximetry 96 99 95 Oxygen Delivery Nasal Cannula Nasal Cannula Oxygen Flow Rate 4 4 10/11/24 07:08 10/11/24 07:18 10/11/24 08:38 Temperature Pulse Rate 104 H 106 H 103 H Respiratory Rate 18 20 Blood Pressure Pulse Oximetry Oxygen Delivery Oxygen Flow Rate 10/11/24 08:00 10/11/24 12:19 10/11/24 12:38 Temperature Pulse Rate 103 H 101 H Respiratory Rate 20 Blood Pressure 162/94 H Pulse Oximetry 93 Oxygen Delivery Nasal Cannula Oxygen Flow Rate 4 10/11/24 12:48 10/11/24 14:00 Temperature 96.9 F L Pulse Rate 102 H 99 Respiratory Rate 20 14 Blood Pressure 148/76 H Pulse Oximetry 97 Oxygen Delivery Oxygen Flow Rate Intake/Output Intake/Output: Intake & Output 10/08/24 10/09/24 10/10/24 10/11/24 23:59 23:59 23:59 23:59 Intake Total 290 Balance 290 Meds/Results Medications: Active Medications Generic Name Dose Route Start Last Admin Trade Name Freq PRN Reason Stop Dose Admin Acetaminophen 1,000 mg 10/11/24 01:59 Acetaminophen 500 Mg Tablet PO Q8H PRN Pain 1-3 Al Hydrox/Mg Hydrox/Simethicone 30 ml 10/11/24 02:01 Mag Hydrox/Al Hydrox/Simeth 30 Ml Udc PO Q6H PRN Indigestion Albuterol/Ipratropium 3 ml 10/11/24 08:00 10/11/24 12:37 Ipratropium 0.5 Mg/Albuterol Sulfate 2.5 Mg Ampul.Neb 3 Ml INHALATION 3 ml Q6HRT GILMER Administration Apixaban 5 mg 10/11/24 09:00 10/11/24 08:35 Apixaban 5 Mg Tablet PO 5 mg Q12HR GILMER Administration Atorvastatin Calcium 40 mg 10/11/24 21:00 Atorvastatin 40 Mg Tablet PO HS GILMER Bupropion HCl 150 mg 10/11/24 09:00 10/11/24 08:36 Bupropion Hcl Xl (24 Hr) 150 Mg Tabcr PO 150 mg DAILY GILMER Administration Buspirone HCl 5 mg 10/11/24 09:00 10/11/24 08:36 Buspirone Hcl 5 Mg Tablet PO 5 mg BID GILMER Administration Carvedilol 12.5 mg 10/11/24 09:00 10/11/24 08:38 Carvedilol 12.5 Mg Tablet PO 12.5 mg Q12HR GILMER Administration Famotidine 20 mg 10/11/24 09:00 10/11/24 08:35 Famotidine 20 Mg Tablet PO 20 mg DAILY GILMER Administration Gabapentin 300 mg 10/11/24 09:00 10/11/24 12:19 Gabapentin 300 Mg Capsule PO 300 mg TID GILMER Administration Levofloxacin/Dextrose 750 mg in 150 mls @ 100 mls/hr 10/11/24 02:00 10/11/24 02:28 Levaquin 750 Mg/D5w 150 Ml IVPB 100 mls/hr Q24H [facility] Administration Lisinopril 20 mg 10/11/24 09:00 10/11/24 08:35 Lisinopril 20 Mg Tablet PO 20 mg Q12HR GILMER Administration Loratadine 10 mg 10/11/24 02:05 Loratadine 10 Mg Tablet PO DAILY PRN ALLERGIES Methylprednisolone Sodium Succinate 60 mg 10/11/24 02:00 10/11/24 12:59 Methylprednisolone Sod Succ 125 Mg Vial IV PUSH 60 mg Q6H GILMER Administration Montelukast Sodium 10 mg 10/11/24 21:00 Montelukast Sodium 10 Mg Tablet PO [facility] Multivitamins/Minerals 1 tablet 10/11/24 09:00 10/11/24 08:37 Opti-Gen Tab PO 1 tablet BID [facility] Administration Pantoprazole Sodium 40 mg 10/11/24 09:00 10/11/24 08:35 Pantoprazole 40 Mg Tablet PO 40 mg QAM [facility] Administration Polyethylene Glycol 17 gm 10/11/24 02:01 Polyethylene Glycol 3350 17 Gm Powd.Pack PO QAM PRN Constipation Ropinirole HCl 1 mg 10/11/24 21:00 Ropinirole Hcl 1 Mg Tablet PO HS [facility] Fluticasone/Salmeterol 2 puff 10/11/24 08:00 10/11/24 07:08 Fluticasone/Salmeterol 45-21 Mcg Inhaler 1 Puff INHALATION 2 puff Q12HRT [facility] Administration Spironolactone 25 mg 10/11/24 09:00 10/11/24 08:36 Spironolactone 25 Mg Tablet PO 25 mg DAILY [facility] Administration Tramadol HCl 50 mg 10/11/24 09:00 10/11/24 08:37 Tramadol Hcl (*Crx) 50 Mg Tablet PO Not Given BID [facility] Radiology Results: ITS Impressions Chest X-Ray 10/10/24 19:21 IMPRESSION: 1. Mild atelectasis in the lower lung zones. 2. Emphysema. Labs Labs: Laboratory Results - last 24 hr 10/10/24 10/10/24 10/10/24 19:59 20:38 20:40 WBC 14.8 H RBC 3.68 L Hgb 11.3 L Hct 34.8 L MCV 94.6 MCH 30.7 MCHC 32.5 RDW 14.6 H Plt Count 229 MPV 9.6 Immature Gran % (Auto) 0.9 H Neut % (Auto) 74.3 H Lymph % (Auto) 15.7 L [place] % (Auto) 7.8 Eos % (Auto) 0.6 Baso % (Auto) 0.7 Lymph # (Auto) 2.33 [place] # (Auto) 1.2 H Eos # (Auto) 0.1 Baso # (Auto) 0.1 Abs Immat Gran (auto) 0.13 H Absolute Neuts (auto) 11.0 H Absolute Nucleated RBC 0.000 Nucleated RBC % 0.0 VBG pH 7.459 H* VBG pCO2 52.8 H VBG pO2 40.3 VBG HCO3 36.6 H O2 Delivery Device Nasal cannula O2 Liters/Min 3.0 FiO2 32 Sodium 133 L Potassium 3.9 Chloride 89 L Carbon Dioxide > 40 H Anion Gap BUN 15 D Creatinine 0.70 Estim Creat Clear Calc 54 Estimated GFR > 60 Glucose 125 H Calcium 9.1 Total Bilirubin 0.9 AST 51 H ALT 50 H Alkaline Phosphatase 93 Troponin I 0.015 NT-Pro-B Natriuret Pep 3490 H Total Protein 7.0 Albumin 4.0 Urine Color Urine Appearance Urine pH Ur Specific Irene Urine Protein Urine Glucose (UA) Urine Ketones Ur Blood (Man) Urine Nitrate Urine Bilirubin Urine Urobilinogen Leukocyte Esterase Rfl Influenza A (RT-PCR) Negative Influenza B (RT-PCR) Negative SARS-CoV-2 RNA (RT-PCR) Negative 10/11/24 05:07 WBC RBC Hgb Hct MCV MCH MCHC RDW Plt Count MPV Immature Gran % (Auto) Neut % (Auto) Lymph % (Auto) [place] % (Auto) Eos % (Auto) Baso % (Auto) Lymph # (Auto) [place] # (Auto) Eos # (Auto) Baso # (Auto) Abs Immat Gran (auto) Absolute Neuts (auto) Absolute Nucleated RBC Nucleated RBC % VBG pH VBG pCO2 VBG pO2 VBG HCO3 O2 Delivery Device O2 Liters/Min FiO2 Sodium Potassium Chloride Carbon Dioxide Anion Gap BUN Creatinine Estim Creat Clear Calc Estimated GFR Glucose Calcium Total Bilirubin AST ALT Alkaline Phosphatase Troponin I NT-Pro-B Natriuret Pep Total Protein Albumin Urine Color Yellow Urine Appearance Clear Urine pH 7.5 Ur Specific Irene 1.007 Urine Protein Negative Urine Glucose (UA) Negative Urine Ketones Negative Ur Blood (Man) Negative Urine Nitrate Negative Urine Bilirubin Negative Urine Urobilinogen 0.2 Leukocyte Esterase Rfl Negative Influenza A (RT-PCR) Influenza B (RT-PCR) SARS-CoV-2 RNA (RT-PCR) Quality VTE Prophylaxis VTE prophylaxis: pharmacologic ordered Hospitalist MIPS Advance Care Plan I have confirmed that the patient's Advanced Care Plan is present, code status is documented, or surrogate decision maker is listed in patient medical record.: Yes Medication Reconciliation I have utilized all available resources to obtain, update and review the patients current medications (includes all prescriptions, OTC, herbals, cannabis, and nutritional supplements).: Yes
[2024-10-11] MEDS: MONTELUKAST SODIUM 10 MG TABLET PO (21:09)
[2024-10-11] MEDS: ATORVASTATIN 40 MG TABLET PO (21:09)
[2024-10-11] MEDS: rOPINIRole HCL 1 MG TABLET PO (21:09)
[2024-10-12] VITALS (15 sets, daily range): BP systolic 128–154; BP diastolic 66–88; PULSE 74–110; RESP 16–20; TEMP 36.3–36.4; O2SAT 94–99
[2024-10-12] MEDS: levoFLOXacin 750 MG/D5W 150 ML 750 MG/150 ML BAG 100 MG IVPB (01:25)
[2024-10-12] MEDS: IPRATROPIUM 0.5 MG/ALBUTEROL SULFATE 2.5 MG AMPUL.NEB 3 ML INHALATION ×4 (02:55→20:51)
[2024-10-12] MEDS: methylPREDNISolone SOD SUCC 125 MG VIAL 60 MG IV PUSH ×3 (05:45→21:08)
[2024-10-12] MEDS: FLUTICASONE/SALMETEROL 45-21 MCG INHALER 1 PUFF 2 PUFF INHALATION ×2 (08:21→20:51)
[2024-10-12] MEDS: SPIRONOLACTONE 25 MG TABLET PO (08:25)
[2024-10-12] MEDS: APIXABAN 5 MG TABLET PO ×2 (08:25→21:07)
[2024-10-12] MEDS: carvediloL 12.5 MG TABLET PO ×2 (08:25→21:07)
[2024-10-12] MEDS: FAMOTIDINE 20 MG TABLET PO (08:25)
[2024-10-12] MEDS: lisinopriL 20 MG TABLET PO ×2 (08:28→21:07)
[2024-10-12] MEDS: OPTI-GEN TAB 1 TABLET PO ×2 (08:28→17:03)
[2024-10-12] MEDS: busPIRone HCL 5 MG TABLET PO ×2 (08:28→17:02)
[2024-10-12] MEDS: GABAPENTIN 300 MG CAPSULE PO ×3 (08:28→17:02)
[2024-10-12] MEDS: buPROPion HCL XL (24 HR) 150 MG TABCR PO (08:28)
[2024-10-12] MEDS: PANTOPRAZOLE 40 MG TABLET PO (08:28)
[2024-10-12 09:19] LABS: Basophils Percent Auto 0.2 % (0.2-1.2); Hematocrit 31.7 % (37.0-47.0); Hemoglobin 10.4 g/dL (12.0-15.0); Immature Granulocyte Absolute 0.16 K/mm3 (0.00-0.031); Immature Granulocyte Percent A 0.8 % (0-0.5); Lymphocytes Absolute Auto 0.87 K/mm3 (0.9-3.2); Lymphocytes Percent Auto 4.5 % (18.3-44.2); Mean Corpuscular HGB Conc 32.8 g/dl (32-36); Mean Corpuscular Hemoglobin 30.6 pg (26-34); Mean Corpuscular Volume 93.2 fl (80-100); Mean Platelet Volume 9.7 fl (7.4-10.4); Monocytes Absolute Auto 0.7 K/mm3 (0.1-0.6); Monocytes Percent Auto 3.5 % (2.6-8.5); Neutrophils Absolute Auto 17.4 K/mm3 (1.3-6.7); Platelet Count Result 245 k/mm3 (150-375); Red Cell Distribution Width 14.6 % (11.5-14.5); White Blood Count 19.2 K/mm3 (4.5-10.0)
[2024-10-12 09:29] LABS: Anion Gap 6 mmol/L (4-12); Blood Urea Nitrogen 20 mg/dL (7-17); Carbon Dioxide 38 mmol/L (22-30); Chloride 85 mmol/L (98-107); Estimated CRCL calculation 48 ml/min; Estimated Glomerular Filt Rate > 60; Glucose 226 mg/dL (65-110); Potassium 3.7 mmol/L (3.4-5.0); Sodium 129 mmol/L (137-145)
--- NOTE | 2024-10-12 15:38 | PM.IMPN ---
Progress Note: A&P Assessment and Plan (1) COPD exacerbation: Code(s): J44.1 - Chronic obstructive pulmonary disease with (acute) exacerbation Status: Acute Assessment and Plan: - CXR: IMPRESSION: 1. Mild atelectasis in the lower lung zones. 2. Emphysema. - No infiltates on CXR. - Continue IV steroids, Levaquin, Advair, scheduled duoneb updrafts and supplemental O2 now @4L/NC for sats > 90 %. Mucinex added. - IV steroids dosing reduced from QID to TID with pt still wheezing. - Currently on 4L/NC supplemental O2 and we'll wean as mary to maintain sats > 90 %. - Patient on continuous home O2 @3-4L/NC for sats > 90 %. - Encouraged with smoking cessation. (2) Acute respiratory failure with hypoxia: Code(s): J96.01 - Acute respiratory failure with hypoxia Status: Acute Assessment and Plan: - Likely related to above +/vs pulmonary edema vs other. - Mgt as # 1 above and # 3 below. - Currently on 4L/NC for sats > 90 %. - Wean as mary to maintain sats > 90 %. (3) Ischemic cardiomyopathy: Code(s): I25.5 - Ischemic cardiomyopathy Status: Acute Assessment and Plan: - Possibly decompensated. - Given IV lasix 40 mg on admission. - Repeat IV lasix 40 mg X1. - Restarted on home dose PO lasix. - Continue supplemental O2 to maintain sats > 90 %. - Continue Lisinopril, Coreg and spironolactone. (4) Coronary artery disease involving autologous artery coronary bypass graft: Code(s): I25.810 - Atherosclerosis of coronary artery bypass graft(s) without angina pectoris Status: Acute Assessment and Plan: - Continue statin and coreg. (5) AICD (automatic cardioverter/defibrillator) present: Code(s): Z95.810 - Presence of automatic (implantable) cardiac defibrillator Status: Acute Assessment and Plan: - Stable. - Continue outpatient compliance consultant f/u. (6) Atrial fibrillation: Code(s): I48.91 - Unspecified atrial fibrillation Status: Acute Assessment and Plan: - Rate fairly well controlled. - Maintains A-Fib with V-pacing on telemetry. - Continue Eliquis and Coreg. - Continue tele monitoring. (7) Tobacco dependence: Code(s): F17.200 - Nicotine dependence, unspecified, uncomplicated Status: Acute Assessment and Plan: - Encouraged with cessation. - Nicotine patch PRN. (8) Asthma exacerbation in COPD: Code(s): J44.1 - Chronic obstructive pulmonary disease with (acute) exacerbation; J45.901 - Unspecified asthma with (acute) exacerbation Status: Acute Assessment and Plan: - Mgt as per # 1. - Continue Advair, singulair and cetirizine. - Supplemental O2 for sats > 90 %. Plan Continue COPD and possible CHF exacerbation mgt. Wean O2 as mary to maintain sats > 90 %, continue to monitor closely for decompensation. Time Spent With Patient Time with patient: 25 - 35 minutes Subjective Date/time seen: 10/12/24 15:38 Patient calm on bedrest and states she's feeling much better though she still has some wheezes and has been coughing but unable to cough up any sputum. Interval history: Patient calm on bedrest and looks to be in no acute distress. Review of Systems Review of Systems: shortness of breath, wheezing, coughing. All systems reviewed & are unremarkable except as noted in HPI and below Exam Narrative: General: Fair appearing, no acute distress. HEENT: Atraumatic, PERRL, EOM, moist mucosa. Neck: Supple. Lungs: Diminished with some expiratory wheezes. Heart: Irregularly irregular, 2-3+ left sternal border murmur Abdomen: Soft, obese, non-tender, +ve bowel sounds X4 quadrants. Extremities: Acyanotic, no edema, 2+ pedal pulses. Skin: Warm and dry with no lesions. Neuro: Well oriented. No focal neuro deficits noted. Psych: Pleasant and co-operative. Objective Data Vital Signs Vital Signs: Vital Signs - 24 hr 10/11/24 19:55 10/11/24 19:55 10/11/24 20:05 Temperature Pulse Rate 101 H 101 H 104 H Respiratory Rate 20 20 Blood Pressure Pulse Oximetry 97 Oxygen Delivery Nasal Cannula Oxygen Flow Rate 3 10/11/24 20:13 10/11/24 21:09 10/11/24 21:00 Temperature 97.1 F L Pulse Rate 93 93 Respiratory Rate 16 Blood Pressure 139/84 Pulse Oximetry 97 97 Oxygen Delivery Nasal Cannula Oxygen Flow Rate 3 10/12/24 02:55 10/12/24 03:02 10/12/24 05:39 Temperature 97.6 F Pulse Rate 108 H 110 H 100 Respiratory Rate 20 20 16 Blood Pressure 134/78 Pulse Oximetry 94 Oxygen Delivery Oxygen Flow Rate 10/12/24 08:21 10/12/24 08:21 10/12/24 08:30 Temperature Pulse Rate 105 H 94 Respiratory Rate 20 20 Blood Pressure Pulse Oximetry 96 Oxygen Delivery Nasal Cannula Oxygen Flow Rate 3 10/12/24 08:25 10/12/24 08:25 10/12/24 08:25 Temperature Pulse Rate 96 96 Respiratory Rate Blood Pressure 128/66 Pulse Oximetry 99 99 Oxygen Delivery Nasal Cannula Oxygen Flow Rate 3 10/12/24 14:10 10/12/24 14:42 Temperature Pulse Rate 93 103 H Respiratory Rate 20 20 Blood Pressure Pulse Oximetry Oxygen Delivery Oxygen Flow Rate Intake/Output Intake/Output: Intake & Output 10/09/24 10/10/24 10/11/24 10/12/24 23:59 23:59 23:59 23:59 Intake Total 1180 1040 Balance 1180 1040 Meds/Results Medications: Active Medications Generic Name Dose Route Start Last Admin Trade Name Freq PRN Reason Stop Dose Admin Acetaminophen 1,000 mg 10/11/24 01:59 Acetaminophen 500 Mg Tablet PO Q8H PRN Pain 1-3 Al Hydrox/Mg Hydrox/Simethicone 30 ml 10/11/24 02:01 Mag Hydrox/Al Hydrox/Simeth 30 Ml Udc PO Q6H PRN Indigestion Albuterol/Ipratropium 3 ml 10/11/24 08:00 10/12/24 14:10 Ipratropium 0.5 Mg/Albuterol Sulfate 2.5 Mg Ampul.Neb 3 Ml INHALATION 3 ml Q6HRT GILMER Administration Apixaban 5 mg 10/11/24 09:00 10/12/24 08:25 Apixaban 5 Mg Tablet PO 5 mg Q12HR GILMER Administration Atorvastatin Calcium 40 mg 10/11/24 21:00 10/11/24 21:09 Atorvastatin 40 Mg Tablet PO 40 mg HS GILMER Administration Bupropion HCl 150 mg 10/11/24 09:00 10/12/24 08:28 Bupropion Hcl Xl (24 Hr) 150 Mg Tabcr PO 150 mg DAILY GILMER Administration Buspirone HCl 5 mg 10/11/24 09:00 10/12/24 08:28 Buspirone Hcl 5 Mg Tablet PO 5 mg BID GILMER Administration Carvedilol 12.5 mg 10/11/24 09:00 10/12/24 08:25 Carvedilol 12.5 Mg Tablet PO 12.5 mg Q12HR GILMER Administration Famotidine 20 mg 10/11/24 09:00 10/12/24 08:25 Famotidine 20 Mg Tablet PO 20 mg DAILY GILMER Administration Gabapentin 300 mg 10/11/24 09:00 10/12/24 13:27 Gabapentin 300 Mg Capsule PO 300 mg TID GILMER Administration Levofloxacin/Dextrose 750 mg in 150 mls @ 100 mls/hr 10/11/24 02:00 10/12/24 01:25 Levaquin 750 Mg/D5w 150 Ml IVPB 100 mls/hr Q24H GILMER Administration Lisinopril 20 mg 10/11/24 09:00 10/12/24 08:28 Lisinopril 20 Mg Tablet PO 20 mg Q12HR GILMER Administration Loratadine 10 mg 10/11/24 02:05 Loratadine 10 Mg Tablet PO DAILY PRN ALLERGIES Methylprednisolone Sodium Succinate 60 mg 10/11/24 22:00 10/12/24 13:28 Methylprednisolone Sod Succ 125 Mg Vial IV PUSH 60 mg Q8HR GILMER Administration Montelukast Sodium 10 mg 10/11/24 21:00 10/11/24 21:09 Montelukast Sodium 10 Mg Tablet PO 10 mg HS GILMER Administration Multivitamins/Minerals 1 tablet 10/11/24 09:00 10/12/24 08:28 Opti-Gen Tab PO 1 tablet BID GILMER Administration Pantoprazole Sodium 40 mg 10/11/24 09:00 10/12/24 08:28 Pantoprazole 40 Mg Tablet PO 40 mg QAM GILMER Administration Polyethylene Glycol 17 gm 10/11/24 02:01 Polyethylene Glycol 3350 17 Gm Powd.Pack PO QAM PRN Constipation Ropinirole HCl 1 mg 10/11/24 21:00 10/11/24 21:09 Ropinirole Hcl 1 Mg Tablet PO 1 mg HS GILMER Administration Fluticasone/Salmeterol 2 puff 10/11/24 08:00 10/12/24 08:21 Fluticasone/Salmeterol 45-21 Mcg Inhaler 1 Puff INHALATION 2 puff Q12HRT GILMER Administration Spironolactone 25 mg 10/11/24 09:00 10/12/24 08:25 Spironolactone 25 Mg Tablet PO 25 mg DAILY GILMER Administration Tramadol HCl 50 mg 10/11/24 09:00 10/12/24 08:28 Tramadol Hcl (*Crx) 50 Mg Tablet PO 50 mg BID GILMER Administration Radiology Results: ITS Impressions Chest X-Ray 10/10/24 19:21 IMPRESSION: 1. Mild atelectasis in the lower lung zones. 2. Emphysema. Labs Labs: Laboratory Results - last 24 hr 10/12/24 10/12/24 09:11 09:12 WBC 19.2 H RBC 3.40 L Hgb 10.4 L Hct 31.7 L MCV 93.2 MCH 30.6 MCHC 32.8 RDW 14.6 H Plt Count 245 MPV 9.7 Immature Gran % (Auto) 0.8 H Neut % (Auto) 91.0 H Lymph % (Auto) 4.5 L [place] % (Auto) 3.5 Eos % (Auto) 0.0 Baso % (Auto) 0.2 Lymph # (Auto) 0.87 L [place] # (Auto) 0.7 H Eos # (Auto) 0.0 Baso # (Auto) 0.0 Abs Immat Gran (auto) 0.16 H Absolute Neuts (auto) 17.4 H Absolute Nucleated RBC 0.000 Nucleated RBC % 0.0 Sodium 129 L Potassium 3.7 Chloride 85 L Carbon Dioxide 38 H Anion Gap 6 BUN 20 H Creatinine 0.80 Estim Creat Clear Calc 48 Estimated GFR > 60 Glucose 226 H Calcium 9.0 Quality VTE Prophylaxis VTE prophylaxis: pharmacologic ordered Hospitalist MIPS Advance Care Plan I have confirmed that the patient's Advanced Care Plan is present, code status is documented, or surrogate decision maker is listed in patient medical record.: Yes Medication Reconciliation I have utilized all available resources to obtain, update and review the patients current medications (includes all prescriptions, OTC, herbals, cannabis, and nutritional supplements).: Yes
[2024-10-12] MEDS: ATORVASTATIN 40 MG TABLET PO (21:07)
[2024-10-12] MEDS: rOPINIRole HCL 1 MG TABLET PO (21:07)
[2024-10-12] MEDS: MONTELUKAST SODIUM 10 MG TABLET PO (21:07)
[2024-10-12] MEDS: guaiFENesin 12 HR 600 MG TABCR PO (21:07)
[2024-10-13] VITALS (14 sets, daily range): BP systolic 142–143; BP diastolic 79–86; PULSE 84–104; RESP 14–20; TEMP 36.1–36.6; O2SAT 91–100
[2024-10-13] MEDS: levoFLOXacin 750 MG/D5W 150 ML 750 MG/150 ML BAG 100 MG IVPB (01:05)
[2024-10-13] MEDS: IPRATROPIUM 0.5 MG/ALBUTEROL SULFATE 2.5 MG AMPUL.NEB 3 ML INHALATION ×4 (02:04→20:40)
[2024-10-13] MEDS: methylPREDNISolone SOD SUCC 125 MG VIAL 60 MG IV PUSH ×3 (05:01→20:55)
[2024-10-13 07:21] LABS: Potassium 3.9 mmol/L (3.4-5.0)
[2024-10-13] MEDS: FLUTICASONE/SALMETEROL 45-21 MCG INHALER 1 PUFF 2 PUFF INHALATION ×2 (07:25→20:40)
[2024-10-13] MEDS: FUROSEMIDE 40 MG TABLET PO (09:39)
[2024-10-13] MEDS: GABAPENTIN 300 MG CAPSULE PO ×3 (09:40→17:21)
[2024-10-13] MEDS: buPROPion HCL XL (24 HR) 150 MG TABCR PO (09:40)
[2024-10-13] MEDS: OPTI-GEN TAB 1 TABLET PO ×2 (09:41→17:21)
[2024-10-13] MEDS: SPIRONOLACTONE 25 MG TABLET PO (09:41)
[2024-10-13] MEDS: traMADol HCL (*CRX) 50 MG TABLET PO (09:41)
[2024-10-13] MEDS: APIXABAN 5 MG TABLET PO ×2 (09:42→20:25)
[2024-10-13] MEDS: busPIRone HCL 5 MG TABLET PO ×2 (09:42→17:21)
[2024-10-13] MEDS: PANTOPRAZOLE 40 MG TABLET PO (09:42)
[2024-10-13] MEDS: carvediloL 12.5 MG TABLET PO ×2 (09:42→20:25)
[2024-10-13] MEDS: FAMOTIDINE 20 MG TABLET PO (09:42)
[2024-10-13] MEDS: lisinopriL 20 MG TABLET PO ×2 (09:42→20:25)
[2024-10-13] MEDS: guaiFENesin 12 HR 600 MG TABCR PO ×2 (09:43→20:25)
--- NOTE | 2024-10-13 14:14 | P.PN_ITS ---
Progress Note: A&P Assessment and Plan (1) COPD exacerbation: Code(s): J44.1 - Chronic obstructive pulmonary disease with (acute) exacerbation Status: Acute Assessment and Plan: - CXR: IMPRESSION: 1. Mild atelectasis in the lower lung zones. 2. Emphysema. - No infiltates on CXR. - Continue IV steroids, Levaquin, Advair, scheduled duoneb updrafts and supplemental O2 now @4L/NC for sats > 90 %. Mucinex added. - IV steroids dosing reduced from QID to TID with pt still wheezing. - Currently on 4L/NC supplemental O2 and we'll wean as mary to maintain sats > 90 %. - Patient on continuous home O2 @3-4L/NC for sats > 90 %. - Encouraged with smoking cessation. Patient calm on bedrest and looks to be in no acute distress however still has wheez, plan was to taper solumderal to BID but will TID and reassess tomorrow. discuss with ID pharmacist will stop levofloxacin and switch to doxycycline until 10/16, patient now only smokes 3-4 cigarettes a day and is planning to stop smoking. (2) Acute respiratory failure with hypoxia: Code(s): J96.01 - Acute respiratory failure with hypoxia Status: Acute Assessment and Plan: - Likely related to above +/vs pulmonary edema vs other. - Mgt as # 1 above and # 3 below. - Currently on 4L/NC for sats > 90 %. - Wean as mary to maintain sats > 90 %. (3) Ischemic cardiomyopathy: Code(s): I25.5 - Ischemic cardiomyopathy Status: Acute Assessment and Plan: - Possibly decompensated. - Given IV lasix 40 mg on admission. - Repeat IV lasix 40 mg X1. - Restarted on home dose PO lasix. - Continue supplemental O2 to maintain sats > 90 %. - Continue Lisinopril, Coreg and spironolactone. (4) Coronary artery disease involving autologous artery coronary bypass graft: Code(s): I25.810 - Atherosclerosis of coronary artery bypass graft(s) without angina pectoris Status: Acute Assessment and Plan: - Continue statin and coreg. (5) AICD (automatic cardioverter/defibrillator) present: Code(s): Z95.810 - Presence of automatic (implantable) cardiac defibrillator Status: Acute Assessment and Plan: - Stable. 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 (6) Atrial fibrillation: Code(s): I48.91 - Unspecified atrial fibrillation Status: Acute Assessment and Plan: - Rate fairly well controlled. - Maintains A-Fib with V-pacing on telemetry. - Continue Eliquis and Coreg. - Continue tele monitoring. (7) Tobacco dependence: Code(s): F17.200 - Nicotine dependence, unspecified, uncomplicated Status: Acute Assessment and Plan: - Encouraged with cessation. - Nicotine patch PRN. (8) Asthma exacerbation in COPD: Code(s): J44.1 - Chronic obstructive pulmonary disease with (acute) exacerbation; J45.901 - Unspecified asthma with (acute) exacerbation Status: Acute Assessment and Plan: - Mgt as per # 1. - Continue Advair, singulair and cetirizine. - Supplemental O2 for sats > 90 %. Plan Continue COPD and possible CHF exacerbation mgt. Wean O2 as mary to maintain sats > 90 %, continue to monitor closely for decompensation. Subjective Date/time seen: 10/13/24 14:14 Interval history: Patient calm on bedrest and looks to be in no acute distress however still has wheez, plan was to taper solumderal to BID but will TID and reassess tomorrow. discuss with ID pharmacist will stop levofloxacin and switch to doxycycline until 10/16, patient now only smokes 3-4 cigarettes a day and is planning to stop smoking. Review of Systems Review of Systems: shortness of breath, wheezing, coughing. All systems reviewed & are unremarkable except as noted in HPI and below Exam Narrative: Appears chronically ill Patient is comfortable, NAD HEENT: eyes are clear and none icteric LUNGS: Bilateral fair entry with wheezing HEART: RR S1S2 ABD: BS+, Soft and nontender Lower extremities: no edema SKIN: nonjaundiced Neuro: grossly intact. Objective Data Vital Signs Vital Signs: Vital Signs - 24 hr 10/12/24 14:42 10/12/24 20:51 10/12/24 20:53 Temperature Pulse Rate 103 H 98 98 Respiratory Rate 20 20 Blood Pressure Pulse Oximetry 98 Oxygen Delivery Nasal Cannula Oxygen Flow Rate 3 10/12/24 21:06 10/12/24 21:07 10/12/24 20:00 Temperature Pulse Rate 95 74 Respiratory Rate 20 Blood Pressure Pulse Oximetry 98 Oxygen Delivery Nasal Cannula Oxygen Flow Rate 3 10/12/24 21:30 10/13/24 02:04 10/13/24 02:18 Temperature 36.3 C L Pulse Rate 99 94 93 Respiratory Rate 20 20 20 Blood Pressure 154/88 H Pulse Oximetry 98 Oxygen Delivery Oxygen Flow Rate 10/13/24 05:05 10/13/24 07:25 10/13/24 07:25 Temperature 36.6 C Pulse Rate 93 100 Respiratory Rate 16 20 Blood Pressure 142/86 H Pulse Oximetry 91 97 Oxygen Delivery Nasal Cannula Oxygen Flow Rate 3 10/13/24 07:35 10/13/24 09:42 10/13/24 08:00 Temperature Pulse Rate 104 H 104 H Respiratory Rate 20 Blood Pressure Pulse Oximetry 94 Oxygen Delivery Nasal Cannula Oxygen Flow Rate 3 Intake/Output Intake/Output: Intake & Output 10/10/24 10/11/24 10/12/24 10/13/24 23:59 23:59 23:59 23:59 Intake Total 1180 0 737 Output Total 700 Balance 1180 0 37 Meds/Results Medications: Active Medications Generic Name Dose Route Start Last Admin Trade Name Freq PRN Reason Stop Dose Admin Acetaminophen 1,000 mg 10/11/24 01:59 Acetaminophen 500 Mg Tablet PO Q8H PRN Pain 1-3 Al Hydrox/Mg Hydrox/Simethicone 30 ml 10/11/24 02:01 Mag Hydrox/Al Hydrox/Simeth 30 Ml Udc PO Q6H PRN Indigestion Albuterol/Ipratropium 3 ml 10/11/24 08:00 10/13/24 07:24 Ipratropium 0.5 Mg/Albuterol Sulfate 2.5 Mg Ampul.Neb 3 Ml INHALATION 3 ml Q6HRT GILMER Administration Apixaban 5 mg 10/11/24 09:00 10/13/24 09:42 Apixaban 5 Mg Tablet PO 5 mg Q12HR GILMER Administration Atorvastatin Calcium 40 mg 10/11/24 21:00 10/12/24 21:07 Atorvastatin 40 Mg Tablet PO 40 mg HS GILMER Administration Bupropion HCl 150 mg 10/11/24 09:00 10/13/24 09:40 Bupropion Hcl Xl (24 Hr) 150 Mg Tabcr PO 150 mg DAILY GILMER Administration Buspirone HCl 5 mg 10/11/24 09:00 10/13/24 09:42 Buspirone Hcl 5 Mg Tablet PO 5 mg BID GILMER Administration Carvedilol 12.5 mg 10/11/24 09:00 10/13/24 09:42 Carvedilol 12.5 Mg Tablet PO 12.5 mg Q12HR GILMER Administration Doxycycline Hyclate 100 mg 10/13/24 21:00 Doxycycline Hyclate 100 Mg Tablet PO 10/16/24 09:01 Q12HR GILMER Famotidine 20 mg 10/11/24 09:00 10/13/24 09:42 Famotidine 20 Mg Tablet PO 20 mg DAILY GILMER Administration Furosemide 40 mg 10/13/24 09:00 10/13/24 09:39 Furosemide 40 Mg Tablet PO 40 mg DAILY GILMER Administration Gabapentin 300 mg 10/11/24 09:00 10/13/24 12:14 Gabapentin 300 Mg Capsule PO 300 mg TID GILMER Administration Guaifenesin 600 mg 10/12/24 21:00 10/13/24 09:43 Guaifenesin 12 Hr 600 Mg Tabcr PO 600 mg Q12HR GILMER Administration Lisinopril 20 mg 10/11/24 09:00 10/13/24 09:42 Lisinopril 20 Mg Tablet PO 20 mg Q12HR GILMER Administration Loratadine 10 mg 10/11/24 02:05 Loratadine 10 Mg Tablet PO DAILY PRN ALLERGIES Methylprednisolone Sodium Succinate 60 mg 10/11/24 22:00 10/13/24 05:01 Methylprednisolone Sod Succ 125 Mg Vial IV PUSH 60 mg Q8HR GILMER Administration Montelukast Sodium 10 mg 10/11/24 21:00 10/12/24 21:07 Montelukast Sodium 10 Mg Tablet PO 10 mg HS GILMER Administration Multivitamins/Minerals 1 tablet 10/11/24 09:00 10/13/24 09:41 Opti-Gen Tab PO 1 tablet BID GILMER Administration Pantoprazole Sodium 40 mg 10/11/24 09:00 10/13/24 09:42 Pantoprazole 40 Mg Tablet PO 40 mg QAM GILMER Administration Polyethylene Glycol 17 gm 10/11/24 02:01 Polyethylene Glycol 3350 17 Gm Powd.Pack PO QAM PRN Constipation Ropinirole HCl 1 mg 10/11/24 21:00 10/12/24 21:07 Ropinirole Hcl 1 Mg Tablet PO 1 mg HS GILMER Administration Fluticasone/Salmeterol 2 puff 10/11/24 08:00 10/13/24 07:25 Fluticasone/Salmeterol 45-21 Mcg Inhaler 1 Puff INHALATION 2 puff Q12HRT GILMER Administration Spironolactone 25 mg 10/11/24 09:00 10/13/24 09:41 Spironolactone 25 Mg Tablet PO 25 mg DAILY GILMER Administration Tramadol HCl 50 mg 10/11/24 09:00 10/13/24 09:41 Tramadol Hcl (*Crx) 50 Mg Tablet PO 50 mg BID GILMER Administration Radiology Results: ITS Impressions Chest X-Ray 10/10/24 19:21 IMPRESSION: 1. Mild atelectasis in the lower lung zones. 2. Emphysema. Labs Labs: Laboratory Results - last 24 hr 10/13/24 06:35 Potassium 3.9 Quality VTE Prophylaxis VTE prophylaxis: pharmacologic ordered
[2024-10-13] MEDS: DOXYCYCLINE HYCLATE 100 MG TABLET PO (20:25)
[2024-10-13] MEDS: ATORVASTATIN 40 MG TABLET PO (20:25)
[2024-10-13] MEDS: MONTELUKAST SODIUM 10 MG TABLET PO (20:25)
[2024-10-13] MEDS: rOPINIRole HCL 1 MG TABLET PO (20:25)
[2024-10-14] VITALS (14 sets, daily range): BP systolic 152–153; BP diastolic 81–95; PULSE 72–99; RESP 14–20; TEMP 36.1–36.7; O2SAT 94–100
[2024-10-14] MEDS: IPRATROPIUM 0.5 MG/ALBUTEROL SULFATE 2.5 MG AMPUL.NEB 3 ML INHALATION ×4 (02:27→22:06)
[2024-10-14] MEDS: methylPREDNISolone SOD SUCC 125 MG VIAL 60 MG IV PUSH ×2 (05:20→20:47)
[2024-10-14] MEDS: FLUTICASONE/SALMETEROL 45-21 MCG INHALER 1 PUFF 2 PUFF INHALATION ×2 (07:42→22:08)
[2024-10-14] MEDS: SPIRONOLACTONE 25 MG TABLET PO (08:54)
[2024-10-14] MEDS: APIXABAN 5 MG TABLET PO ×2 (08:54→20:47)
[2024-10-14] MEDS: FUROSEMIDE 40 MG TABLET PO (08:54)
[2024-10-14] MEDS: guaiFENesin 12 HR 600 MG TABCR PO ×2 (08:54→20:47)
[2024-10-14] MEDS: OPTI-GEN TAB 1 TABLET PO ×2 (08:54→18:20)
[2024-10-14] MEDS: FAMOTIDINE 20 MG TABLET PO (08:54)
[2024-10-14] MEDS: lisinopriL 20 MG TABLET PO ×2 (08:54→20:47)
[2024-10-14] MEDS: busPIRone HCL 5 MG TABLET PO ×2 (08:54→18:20)
[2024-10-14] MEDS: GABAPENTIN 300 MG CAPSULE PO ×3 (08:54→18:20)
[2024-10-14] MEDS: PANTOPRAZOLE 40 MG TABLET PO (08:54)
[2024-10-14] MEDS: buPROPion HCL XL (24 HR) 150 MG TABCR PO (08:55)
[2024-10-14] MEDS: DOXYCYCLINE HYCLATE 100 MG TABLET PO ×2 (08:55→20:47)
[2024-10-14] MEDS: carvediloL 12.5 MG TABLET PO ×2 (08:55→20:46)
--- NOTE | 2024-10-14 15:46 | P.PNIM_ITS ---
Progress Note: A&P Assessment and Plan (1) COPD exacerbation: Code(s): J44.1 - Chronic obstructive pulmonary disease with (acute) exacerbation Status: Acute Assessment and Plan: - CXR: IMPRESSION: 1. Mild atelectasis in the lower lung zones. 2. Emphysema. - No infiltates on CXR. - Continue IV steroids, Levaquin, Advair, scheduled duoneb updrafts and supplemental O2 now @4L/NC for sats > 90 %. Mucinex added. - IV steroids dosing reduced - Currently on 4L/NC supplemental O2 and we'll wean as mary to maintain sats > 90 %. - Patient on continuous home O2 @3-4L/NC for sats > 90 %. - Encouraged with smoking cessation. Patient calm on bedrest and looks to be in no acute distress however still has wheez, plan was to taper solumderal to BID but will TID and reassess tomorrow. discuss with ID pharmacist will stop levofloxacin and switch to doxycycline until 10/16, patient now only smokes 3-4 cigarettes a day and is planning to stop smoking. (2) Acute respiratory failure with hypoxia: Code(s): J96.01 - Acute respiratory failure with hypoxia Status: Acute Assessment and Plan: - Likely related to above +/vs pulmonary edema vs other. - Mgt as # 1 above and # 3 below. - Currently on 4L/NC for sats > 90 %. - Wean as mary to maintain sats > 90 %. (3) Ischemic cardiomyopathy: Code(s): I25.5 - Ischemic cardiomyopathy Status: Acute Assessment and Plan: - Possibly decompensated. - Given IV lasix 40 mg on admission. - Repeat IV lasix 40 mg X1. - Restarted on home dose PO lasix. - Continue supplemental O2 to maintain sats > 90 %. - Continue Lisinopril, Coreg and spironolactone. (4) Coronary artery disease involving autologous artery coronary bypass graft: Code(s): I25.810 - Atherosclerosis of coronary artery bypass graft(s) without angina pectoris Status: Acute Assessment and Plan: - Continue statin and coreg. (5) AICD (automatic cardioverter/defibrillator) present: Code(s): Z95.810 - Presence of automatic (implantable) cardiac defibrillator Status: Acute Assessment and Plan: - Stable. 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 (6) Atrial fibrillation: Code(s): I48.91 - Unspecified atrial fibrillation Status: Acute Assessment and Plan: - Rate fairly well controlled. - Maintains A-Fib with V-pacing on telemetry. - Continue Eliquis and Coreg. - Continue tele monitoring. (7) Tobacco dependence: Code(s): F17.200 - Nicotine dependence, unspecified, uncomplicated Status: Acute Assessment and Plan: - Encouraged with cessation. - Nicotine patch PRN. (8) Asthma exacerbation in COPD: Code(s): J44.1 - Chronic obstructive pulmonary disease with (acute) exacerbation; J45.901 - Unspecified asthma with (acute) exacerbation Status: Acute Assessment and Plan: - Mgt as per # 1. - Continue Advair, singulair and cetirizine. - Supplemental O2 for sats > 90 %. Plan Continue COPD and possible CHF exacerbation mgt. Wean O2 as mary to maintain sats > 90 %, continue to monitor closely for decompensation. Subjective Date/time seen: 10/14/24 15:46 Interval history: Patient is currently on 3 L oxygen her home baseline. Patient WBC has been increased possibly due to steroid. Today we decrease methylprednisone 60 from q8 to q.12 hours. Patient will be switched to oral prednisone tomorrow. Advised to use incentive spirometry Review of Systems Review of Systems: shortness of breath, wheezing, coughing. All systems reviewed & are unremarkable except as noted in HPI and below Exam 2 Narrative: Appears chronically ill Patient is comfortable, NAD HEENT: eyes are clear and none icteric LUNGS: Bilateral fair entry with wheezing HEART: RR S1S2 ABD: BS+, Soft and nontender Lower extremities: no edema SKIN: nonjaundiced Neuro: grossly intact. Const: General: comfortable, no acute distress, well developed, alert, awake, ill appearing chronically, tired appearing and average body habitus Nutritional Appearance: average body habitus Orientation/consciousness: patient oriented x3 HENMT: Head: normal to inspection, normocephalic and atraumatic Ears: hearing grossly normal bilaterally Face/Nose/Sinus: normal facial exam Face and sinus: normal facial exam Eyes: General: appearance normal, both eyes and all related structures Pupils: Equal, round and reactive pupils present EOM: EOMs intact bilaterally Neck: Neck: full ROM, no lymphadenopathy and no JVD Thyroid: thyroid normal Lymphatic: no lymphadenopathy noted Resp: Effort & Inspection: normal respiratory effort, able to speak in complete sentences and tachypneic Auscultation: crackles, rales, wheezes and diminished lung sounds Cardio: Jugular venous distension: no JVD Rate: regular rate Rhythm: regular rhythm Heart sounds: S1 normal heart sound present and S2 normal heart sound present : General: Yes deferred Skin: Rashes: no rashes Wounds: no wounds Neuro: General: patient oriented x3 and CN's II-XI intact bilaterally Cranial nerves: Yes CN's II-XII intact bilaterally and Yes Equal, round and reactive pupils present Cognition (Neuro): normal cognition Speech: normal speech Gait exam (Neuro): Normal gait present Motor exam (neuro): 5/5 motor strength present throughout Extrem: General: normal to inspection, full ROM, no joint enlargement and no pedal edema Objective Data Vital Signs Vital Signs: Vital Signs - 24 hr 10/13/24 20:25 10/13/24 20:41 10/13/24 20:50 Temperature Pulse Rate 89 84 88 Respiratory Rate 20 20 Blood Pressure Pulse Oximetry Oxygen Delivery Oxygen Flow Rate Fraction of Inspired Oxygen 10/13/24 21:59 10/14/24 02:27 10/14/24 02:35 Temperature 97.8 F Pulse Rate 88 80 88 Respiratory Rate 14 20 20 Blood Pressure Pulse Oximetry 100 Oxygen Delivery Oxygen Flow Rate Fraction of Inspired Oxygen 10/14/24 06:00 10/14/24 07:43 10/14/24 07:43 Temperature 97.1 F L Pulse Rate 76 89 Respiratory Rate 14 20 Blood Pressure 153/92 H Pulse Oximetry 94 98 Oxygen Delivery Nasal Cannula Oxygen Flow Rate 3 Fraction of Inspired Oxygen 10/14/24 07:55 10/14/24 08:55 10/14/24 09:00 Temperature Pulse Rate 98 76 Respiratory Rate 20 Blood Pressure Pulse Oximetry 94 Oxygen Delivery Nasal Cannula Oxygen Flow Rate 3 Fraction of Inspired Oxygen 10/14/24 14:00 10/14/24 15:25 10/14/24 15:25 Temperature 98.1 F Pulse Rate 80 88 Respiratory Rate 16 20 Blood Pressure 153/95 H Pulse Oximetry 100 99 Oxygen Delivery Nasal Cannula Oxygen Flow Rate 3 Fraction of Inspired Oxygen 32 10/14/24 15:33 Temperature Pulse Rate 99 Respiratory Rate 20 Blood Pressure Pulse Oximetry Oxygen Delivery Oxygen Flow Rate Fraction of Inspired Oxygen Intake/Output Intake/Output: Intake & Output 10/11/24 10/12/24 10/13/24 10/14/24 23:59 23:59 23:59 23:59 Intake Total 1180 0 2167 590 Output Total 700 Balance 1180 0 1467 590 Meds/Results Medications: Active Medications Generic Name Dose Route Start Last Admin Trade Name Freq PRN Reason Stop Dose Admin Acetaminophen 1,000 mg 10/11/24 01:59 Acetaminophen 500 Mg Tablet PO Q8H PRN Pain 1-3 Al Hydrox/Mg Hydrox/Simethicone 30 ml 10/11/24 02:01 Mag Hydrox/Al Hydrox/Simeth 30 Ml Udc PO Q6H PRN Indigestion Albuterol/Ipratropium 3 ml 10/11/24 08:00 10/14/24 15:25 Ipratropium 0.5 Mg/Albuterol Sulfate 2.5 Mg Ampul.Neb 3 Ml INHALATION 3 ml Q6HRT GILMER Administration Apixaban 5 mg 10/11/24 09:00 10/14/24 08:54 Apixaban 5 Mg Tablet PO 5 mg Q12HR GILMER Administration Atorvastatin Calcium 40 mg 10/11/24 21:00 10/13/24 20:25 Atorvastatin 40 Mg Tablet PO 40 mg HS GILMER Administration Bupropion HCl 150 mg 10/11/24 09:00 10/14/24 08:55 Bupropion Hcl Xl (24 Hr) 150 Mg Tabcr PO 150 mg DAILY GILMER Administration Buspirone HCl 5 mg 10/11/24 09:00 10/14/24 08:54 Buspirone Hcl 5 Mg Tablet PO 5 mg BID GILMER Administration Carvedilol 12.5 mg 10/11/24 09:00 10/14/24 08:55 Carvedilol 12.5 Mg Tablet PO 12.5 mg Q12HR GILMER Administration Doxycycline Hyclate 100 mg 10/13/24 21:00 10/14/24 08:55 Doxycycline Hyclate 100 Mg Tablet PO 10/16/24 09:01 100 mg Q12HR GILMER Administration Famotidine 20 mg 10/11/24 09:00 10/14/24 08:54 Famotidine 20 Mg Tablet PO 20 mg DAILY GILMER Administration Furosemide 40 mg 10/13/24 09:00 10/14/24 08:54 Furosemide 40 Mg Tablet PO 40 mg DAILY GILMER Administration Gabapentin 300 mg 10/11/24 09:00 10/14/24 15:24 Gabapentin 300 Mg Capsule PO 300 mg TID GILMER Administration Guaifenesin 600 mg 10/12/24 21:00 10/14/24 08:54 Guaifenesin 12 Hr 600 Mg Tabcr PO 600 mg Q12HR GILMER Administration Lisinopril 20 mg 10/11/24 09:00 10/14/24 08:54 Lisinopril 20 Mg Tablet PO 20 mg Q12HR GILMER Administration Loratadine 10 mg 10/11/24 02:05 Loratadine 10 Mg Tablet PO DAILY PRN ALLERGIES Methylprednisolone Sodium Succinate 60 mg 10/14/24 21:00 Methylprednisolone Sod Succ 125 Mg Vial IV PUSH Q12HR GILMER Montelukast Sodium 10 mg 10/11/24 21:00 10/13/24 20:25 Montelukast Sodium 10 Mg Tablet PO 10 mg HS GILMER Administration Multivitamins/Minerals 1 tablet 10/11/24 09:00 10/14/24 08:54 Opti-Gen Tab PO 1 tablet BID IGLMER Administration Pantoprazole Sodium 40 mg 10/11/24 09:00 10/14/24 08:54 Pantoprazole 40 Mg Tablet PO 40 mg QAM GILMER Administration Polyethylene Glycol 17 gm 10/11/24 02:01 Polyethylene Glycol 3350 17 Gm Powd.Pack PO QAM PRN Constipation Ropinirole HCl 1 mg 10/11/24 21:00 10/13/24 20:25 Ropinirole Hcl 1 Mg Tablet PO 1 mg HS GILMER Administration Fluticasone/Salmeterol 2 puff 10/11/24 08:00 10/14/24 07:42 Fluticasone/Salmeterol 45-21 Mcg Inhaler 1 Puff INHALATION 2 puff Q12HRT GILMER Administration Spironolactone 25 mg 10/11/24 09:00 10/14/24 08:54 Spironolactone 25 Mg Tablet PO 25 mg DAILY GILMER Administration Tramadol HCl 50 mg 10/11/24 09:00 10/14/24 09:00 Tramadol Hcl (*Crx) 50 Mg Tablet PO Not Given BID [facility] Radiology Results: ITS Impressions Chest X-Ray 10/14/24 15:06 IMPRESSION: Mild infiltrate or atelectasis at the lung bases, right greater than left Quality VTE Prophylaxis VTE prophylaxis: pharmacologic ordered Hospitalist MIPS Advance Care Plan I have confirmed that the patient's Advanced Care Plan is present, code status is documented, or surrogate decision maker is listed in patient medical record.: Yes Medication Reconciliation I have utilized all available resources to obtain, update and review the patients current medications (includes all prescriptions, OTC, herbals, cannabis, and nutritional supplements).: Yes
[2024-10-14] MEDS: MONTELUKAST SODIUM 10 MG TABLET PO (20:46)
[2024-10-14] MEDS: ATORVASTATIN 40 MG TABLET PO (20:47)
[2024-10-14] MEDS: rOPINIRole HCL 1 MG TABLET PO (20:47)
[2024-10-15] VITALS (15 sets, daily range): BP systolic 152–163; BP diastolic 80–87; PULSE 70–101; RESP 14–20; TEMP 36.3–36.7; O2SAT 94–98
[2024-10-15] MEDS: IPRATROPIUM 0.5 MG/ALBUTEROL SULFATE 2.5 MG AMPUL.NEB 3 ML INHALATION ×4 (03:09→20:41)
[2024-10-15 06:42] LABS: Hematocrit 35.4 % (37.0-47.0); Hemoglobin 11.5 g/dL (12.0-15.0); Mean Corpuscular HGB Conc 32.5 g/dl (32-36); Mean Corpuscular Hemoglobin 29.9 pg (26-34); Mean Corpuscular Volume 92.2 fl (80-100); Mean Platelet Volume 9.7 fl (7.4-10.4); Platelet Count Result 289 k/mm3 (150-375); Red Blood Count 3.84 M/mm3 (4.2-5.4); Red Cell Distribution Width 14.4 % (11.5-14.5); White Blood Count 17.5 K/mm3 (4.5-10.0)
[2024-10-15 06:54] LABS: Alanine Aminotransferase 68 U/L (6-35); Albumin Level 3.6 g/dL (3.5-5.1); Alkaline Phosphatase 86 U/L (38-126); Aspartate Amino Transferase 49 U/L (14-36); Bilirubin,Total 0.7 mg/dL (0.2-1.3); Blood Urea Nitrogen 28 mg/dL (7-17); Calcium 8.7 mg/dL (8.4-10.2); Carbon Dioxide > 40 mmol/L (22-30); Chloride 85 mmol/L (98-107); Estimated CRCL calculation 48 ml/min; Estimated Glomerular Filt Rate > 60; Glucose 201 mg/dL (65-110); Potassium 3.6 mmol/L (3.4-5.0); Sodium 131 mmol/L (137-145)
--- NOTE | 2024-10-15 08:16 | P.PNIM_ITS ---
Progress Note: A&P Assessment and Plan (1) COPD exacerbation: Code(s): J44.1 - Chronic obstructive pulmonary disease with (acute) exacerbation Status: Acute Assessment and Plan: - CXR: IMPRESSION: 1. Mild atelectasis in the lower lung zones. 2. Emphysema. - No infiltates on CXR. - d/c IV steroids, Levaquin, -Cont Advair, scheduled duoneb updrafts and supplemental O2 now @4L/NC for sats > 90 %. Mucinex added. - Started prednisone 60 mg and will taper - Currently on 3L/NC supplemental O2 and we'll wean as mary to maintain sats > 90 %. - Patient on continuous home O2 @3-4L/NC for sats > 90 %. - Encouraged with smoking cessation. 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 - Mgt as # 1 above and # 3 below. - Currently on 4L/NC for sats > 90 %. - Wean as mary to maintain sats > 90 %. (3) Ischemic cardiomyopathy: Code(s): I25.5 - Ischemic cardiomyopathy Status: Acute Assessment and Plan: - Possibly decompensated. - Given IV lasix 40 mg on admission. - Repeat IV lasix 40 mg X1. - Restarted on home dose PO lasix. - Continue supplemental O2 to maintain sats > 90 %. - Continue Lisinopril, Coreg and spironolactone. (4) Coronary artery disease involving autologous artery coronary bypass graft: Code(s): I25.810 - Atherosclerosis of coronary artery bypass graft(s) without angina pectoris Status: Acute Assessment and Plan: - Continue statin and coreg. (5) AICD (automatic cardioverter/defibrillator) present: Code(s): Z95.810 - Presence of automatic (implantable) cardiac defibrillator Status: Acute Assessment and Plan: - Stable. 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 (6) Atrial fibrillation: Code(s): I48.91 - Unspecified atrial fibrillation Status: Acute Assessment and Plan: - Rate fairly well controlled. - Maintains A-Fib with V-pacing on telemetry. - Continue Eliquis and Coreg. - Continue tele monitoring. (7) Tobacco dependence: Code(s): F17.200 - Nicotine dependence, unspecified, uncomplicated Status: Acute Assessment and Plan: - Encouraged with cessation. - Nicotine patch PRN. (8) Asthma exacerbation in COPD: Code(s): J44.1 - Chronic obstructive pulmonary disease with (acute) exacerbation; J45.901 - Unspecified asthma with (acute) exacerbation Status: Acute Assessment and Plan: - Mgt as per # 1. - Continue Advair, singulair and cetirizine. - Supplemental O2 for sats > 90 %. Plan Continue COPD and possible CHF exacerbation mgt. Wean O2 as mary to maintain sats > 90 %, continue to monitor closely for decompensation. Subjective Date/time seen: 10/15/24 08:16 Interval history: Patient started on prednisone 60 mg p.o. q.d. and will taper. Patient WBC is trending down from 19.2-17.5. Even though we believe the rise in the WBC possibly due to the steroid but with her underlying long history of smoking from the age of 14, multiple COPD exacerbation we recommend completing antibiotic tomorrow and trend the WBC. Patient will be discharged possibly tomorrow. Review of Systems Review of Systems: shortness of breath, wheezing, coughing. All systems reviewed & are unremarkable except as noted in HPI and below Exam Narrative: Appears chronically ill Patient is comfortable, NAD HEENT: eyes are clear and none icteric LUNGS: Bilateral fair entry with wheezing HEART: RR S1S2 ABD: BS+, Soft and nontender Lower extremities: no edema SKIN: nonjaundiced Neuro: grossly intact. Const: General: comfortable, no acute distress, well developed, alert, awake, ill appearing chronically, tired appearing and average body habitus Nutritional Appearance: average body habitus Orientation/consciousness: patient oriented x3 HENMT: Head: normal to inspection, normocephalic and atraumatic Ears: hearing grossly normal bilaterally Face/Nose/Sinus: normal facial exam Face and sinus: normal facial exam Eyes: General: appearance normal, both eyes and all related structures Pupils: Equal, round and reactive pupils present EOM: EOMs intact bilaterally Neck: Neck: full ROM, no lymphadenopathy and no JVD Thyroid: thyroid normal Lymphatic: no lymphadenopathy noted Resp: Effort & Inspection: normal respiratory effort, able to speak in complete sentences and tachypneic Auscultation: crackles, rales, wheezes and diminished lung sounds Cardio: Jugular venous distension: no JVD Rate: regular rate Rhythm: regular rhythm Heart sounds: S1 normal heart sound present and S2 normal heart sound present : General: Yes deferred Skin: Rashes: no rashes Wounds: no wounds Neuro: General: patient oriented x3 and CN's II-XI intact bilaterally Cran ial nerves: Yes CN's II-XII intact bilaterally and Yes Equal, round and reactive pupils present Cognition (Neuro): normal cognition Speech: normal speech Gait exam (Neuro): Normal gait present Motor exam (neuro): 5/5 motor strength present throughout Extrem: General: normal to inspection, full ROM, no joint enlargement and no pedal edema Objective Data Vital Signs Vital Signs: Vital Signs - 24 hr 10/14/24 08:55 10/14/24 09:00 10/14/24 14:00 Temperature 98.1 F Pulse Rate 76 80 Respiratory Rate 16 Blood Pressure 153/95 H Pulse Oximetry 94 100 Oxygen Delivery Nasal Cannula Oxygen Flow Rate 3 Fraction of Inspired Oxygen 10/14/24 15:25 10/14/24 15:25 10/14/24 15:33 Temperature Pulse Rate 88 99 Respiratory Rate 20 20 Blood Pressure Pulse Oximetry 99 Oxygen Delivery Nasal Cannula Oxygen Flow Rate 3 Fraction of Inspired Oxygen 32 10/14/24 20:46 10/14/24 21:31 10/14/24 22:09 Temperature 97.0 F L Pulse Rate 72 76 87 Respiratory Rate 14 18 Blood Pressure 152/81 H Pulse Oximetry 100 Oxygen Delivery Oxygen Flow Rate Fraction of Inspired Oxygen 10/14/24 22:14 10/15/24 03:09 10/15/24 03:15 Temperature Pulse Rate 86 83 82 Respiratory Rate 18 18 18 Blood Pressure Pulse Oximetry Oxygen Delivery Oxygen Flow Rate Fraction of Inspired Oxygen 10/15/24 05:39 Temperature 97.6 F Pulse Rate 71 Respiratory Rate 14 Blood Pressure 161/87 H Pulse Oximetry 94 Oxygen Delivery Oxygen Flow Rate Fraction of Inspired Oxygen Intake/Output Intake/Output: Intake & Output 10/12/24 10/13/24 10/14/24 10/15/24 23:59 23:59 23:59 23:59 Intake Total 2049 2167 830 350 Output Total 700 Balance 2049 1467 830 350 Meds/Results Medications: Active Medications Generic Name Dose Route Start Last Admin Trade Name Freq PRN Reason Stop Dose Admin Acetaminophen 1,000 mg 10/11/24 01:59 Acetaminophen 500 Mg Tablet PO Q8H PRN Pain 1-3 Al Hydrox/Mg Hydrox/Simethicone 30 ml 10/11/24 02:01 Mag Hydrox/Al Hydrox/Simeth 30 Ml Udc PO Q6H PRN Indigestion Albuterol/Ipratropium 3 ml 10/11/24 08:00 10/15/24 03:09 Ipratropium 0.5 Mg/Albuterol Sulfate 2.5 Mg Ampul.Neb 3 Ml INHALATION 3 ml Q6HRT GILMER Administration Apixaban 5 mg 10/11/24 09:00 10/14/24 20:47 Apixaban 5 Mg Tablet PO 5 mg Q12HR GILMER Administration Atorvastatin Calcium 40 mg 10/11/24 21:00 10/14/24 20:47 Atorvastatin 40 Mg Tablet PO 40 mg HS GILMER Administration Bupropion HCl 150 mg 10/11/24 09:00 10/14/24 08:55 Bupropion Hcl Xl (24 Hr) 150 Mg Tabcr PO 150 mg DAILY GILMER Administration Buspirone HCl 5 mg 10/11/24 09:00 10/14/24 18:20 Buspirone Hcl 5 Mg Tablet PO 5 mg BID GILMER Administration Carvedilol 12.5 mg 10/11/24 09:00 10/14/24 20:46 Carvedilol 12.5 Mg Tablet PO 12.5 mg Q12HR GILMER Administration Doxycycline Hyclate 100 mg 10/13/24 21:00 10/14/24 20:47 Doxycycline Hyclate 100 Mg Tablet PO 10/16/24 09:01 100 mg Q12HR GILMER Administration Famotidine 20 mg 10/11/24 09:00 10/14/24 08:54 Famotidine 20 Mg Tablet PO 20 mg DAILY GILMER Administration Furosemide 40 mg 10/13/24 09:00 10/14/24 08:54 Furosemide 40 Mg Tablet PO 40 mg DAILY GILMER Administration Gabapentin 300 mg 10/11/24 09:00 10/14/24 18:20 Gabapentin 300 Mg Capsule PO 300 mg TID GILMER Administration Guaifenesin 600 mg 10/12/24 21:00 10/14/24 20:47 Guaifenesin 12 Hr 600 Mg Tabcr PO 600 mg Q12HR GILMER Administration Lisinopril 20 mg 10/11/24 09:00 10/14/24 20:47 Lisinopril 20 Mg Tablet PO 20 mg Q12HR GILMER Administration Loratadine 10 mg 10/11/24 02:05 Loratadine 10 Mg Tablet PO DAILY PRN ALLERGIES Montelukast Sodium 10 mg 10/11/24 21:00 10/14/24 20:46 Montelukast Sodium 10 Mg Tablet PO 10 mg HS GILMER Administration Multivitamins/Minerals 1 tablet 10/11/24 09:00 10/14/24 18:20 Opti-Gen Tab PO 1 tablet BID GILMER Administration Pantoprazole Sodium 40 mg 10/11/24 09:00 10/14/24 08:54 Pantoprazole 40 Mg Tablet PO 40 mg QAM GILMER Administration Polyethylene Glycol 17 gm 10/11/24 02:01 Polyethylene Glycol 3350 17 Gm Powd.Pack PO QAM PRN Constipation Ropinirole HCl 1 mg 10/11/24 21:00 10/14/24 20:47 Ropinirole Hcl 1 Mg Tablet PO 1 mg HS GILMER Administration Fluticasone/Salmeterol 2 puff 10/11/24 08:00 10/14/24 22:08 Fluticasone/Salmeterol 45-21 Mcg Inhaler 1 Puff INHALATION 2 puff Q12HRT GILMER Administration Spironolactone 25 mg 10/11/24 09:00 10/14/24 08:54 Spironolactone 25 Mg Tablet PO 25 mg DAILY GILMER Administration Tramadol HCl 50 mg 10/11/24 09:00 10/14/24 18:20 Tramadol Hcl (*Crx) 50 Mg Tablet PO Not Given BID [facility] Radiology Results: ITS Impressions Chest X-Ray 10/14/24 15:06 IMPRESSION: Mild infiltrate or atelectasis at the lung bases, right greater than left Labs Labs: Laboratory Results - last 24 hr 10/15/24 06:24 WBC 17.5 H RBC 3.84 L Hgb 11.5 L Hct 35.4 L MCV 92.2 MCH 29.9 MCHC 32.5 RDW 14.4 Plt Count 289 MPV 9.7 Sodium 131 L Potassium 3.6 Chloride 85 L Carbon Dioxide > 40 H Anion Gap BUN 28 H Creatinine 0.80 Estim Creat Clear Calc 48 Estimated GFR > 60 Glucose 201 H Calcium 8.7 Total Bilirubin 0.7 AST 49 H ALT 68 H Alkaline Phosphatase 86 Total Protein 6.0 L Albumin 3.6 Quality VTE Prophylaxis VTE prophylaxis: pharmacologic ordered Hospitalist [facility] Advance Care Plan I have confirmed that the patient's Advanced Care Plan is present, code status is documented, or surrogate decision maker is listed in patient medical record.: Yes Medication Reconciliation I have utilized all available resources to obtain, update and review the patients current medications (includes all prescriptions, OTC, herbals, cannabis, and nutritional supplements).: Yes
[2024-10-15] MEDS: FLUTICASONE/SALMETEROL 45-21 MCG INHALER 1 PUFF 2 PUFF INHALATION ×2 (08:28→20:41)
[2024-10-15] MEDS: OPTI-GEN TAB 1 TABLET PO ×2 (08:31→16:58)
[2024-10-15] MEDS: guaiFENesin 12 HR 600 MG TABCR PO ×2 (08:31→20:07)
[2024-10-15] MEDS: LORATADINE 10 MG TABLET PO (08:31)
[2024-10-15] MEDS: DOXYCYCLINE HYCLATE 100 MG TABLET PO ×2 (08:31→20:07)
[2024-10-15] MEDS: APIXABAN 5 MG TABLET PO ×2 (08:31→20:07)
[2024-10-15] MEDS: GABAPENTIN 300 MG CAPSULE PO ×3 (08:31→16:58)
[2024-10-15] MEDS: predniSONE 20 MG TABLET 60 MG PO (08:32)
[2024-10-15] MEDS: PANTOPRAZOLE 40 MG TABLET PO (08:32)
[2024-10-15] MEDS: carvediloL 12.5 MG TABLET PO ×2 (08:34→20:06)
[2024-10-15] MEDS: traMADol HCL (*CRX) 50 MG TABLET PO ×2 (08:34→16:58)
[2024-10-15] MEDS: buPROPion HCL XL (24 HR) 150 MG TABCR PO (08:34)
[2024-10-15] MEDS: FAMOTIDINE 20 MG TABLET PO (08:34)
[2024-10-15] MEDS: SPIRONOLACTONE 25 MG TABLET PO (08:34)
[2024-10-15] MEDS: lisinopriL 20 MG TABLET PO ×2 (08:34→20:07)
[2024-10-15] MEDS: FUROSEMIDE 40 MG TABLET PO (08:34)
[2024-10-15] MEDS: busPIRone HCL 5 MG TABLET PO ×2 (08:34→16:58)
[2024-10-15] MEDS: ATORVASTATIN 40 MG TABLET PO (20:06)
[2024-10-15] MEDS: MONTELUKAST SODIUM 10 MG TABLET PO (20:07)
[2024-10-15] MEDS: rOPINIRole HCL 1 MG TABLET PO (20:07)
[2024-10-16 02:30] VITALS: PULSE 69; RESP 16
[2024-10-16] MEDS: IPRATROPIUM 0.5 MG/ALBUTEROL SULFATE 2.5 MG AMPUL.NEB 3 ML INHALATION ×2 (02:30→08:07)
[2024-10-16 02:35] VITALS: PULSE 75; RESP 16
[2024-10-16 05:43] VITALS: BP 140/85; PULSE 82; RESP 20; TEMP 36.3; O2SAT 96
[2024-10-16 07:18] LABS: Hematocrit 33.2 % (37.0-47.0); Hemoglobin 10.9 g/dL (12.0-15.0); Mean Corpuscular HGB Conc 32.8 g/dl (32-36); Mean Corpuscular Hemoglobin 29.9 pg (26-34); Mean Platelet Volume 9.7 fl (7.4-10.4); Platelet Count Result 257 k/mm3 (150-375); Red Blood Count 3.65 M/mm3 (4.2-5.4); Red Cell Distribution Width 14.4 % (11.5-14.5); White Blood Count 14.5 K/mm3 (4.5-10.0)
[2024-10-16 07:49] LABS: Alanine Aminotransferase 67 U/L (6-35); Albumin Level 3.2 g/dL (3.5-5.1); Alkaline Phosphatase 73 U/L (38-126); Aspartate Amino Transferase 35 U/L (14-36); Bilirubin,Total 0.7 mg/dL (0.2-1.3); Blood Urea Nitrogen 27 mg/dL (7-17); Calcium 8.4 mg/dL (8.4-10.2); Carbon Dioxide > 40 mmol/L (22-30); Chloride 86 mmol/L (98-107); Estimated CRCL calculation 54 ml/min; Estimated Glomerular Filt Rate > 60; Glucose 124 mg/dL (65-110); Potassium 3.1 mmol/L (3.4-5.0); Sodium 132 mmol/L (137-145)
[2024-10-16 08:07] VITALS: PULSE 80; RESP 18; O2SAT 96
[2024-10-16] MEDS: FLUTICASONE/SALMETEROL 45-21 MCG INHALER 1 PUFF 2 PUFF INHALATION (08:08)
[2024-10-16 08:20] VITALS: PULSE 79; RESP 18
[2024-10-16 08:40] VITALS: PULSE 80
[2024-10-16] MEDS: carvediloL 12.5 MG TABLET PO (08:40)
[2024-10-16] MEDS: traMADol HCL (*CRX) 50 MG TABLET PO (08:40)
[2024-10-16] MEDS: predniSONE 20 MG TABLET 60 MG PO (08:40)
[2024-10-16] MEDS: guaiFENesin 12 HR 600 MG TABCR PO (08:40)
[2024-10-16] MEDS: PANTOPRAZOLE 40 MG TABLET PO (08:40)
[2024-10-16] MEDS: busPIRone HCL 5 MG TABLET PO (08:40)
[2024-10-16] MEDS: GABAPENTIN 300 MG CAPSULE PO (08:40)
[2024-10-16] MEDS: OPTI-GEN TAB 1 TABLET PO (08:41)
[2024-10-16] MEDS: FAMOTIDINE 20 MG TABLET PO (08:41)
[2024-10-16] MEDS: SPIRONOLACTONE 25 MG TABLET PO (08:41)
[2024-10-16] MEDS: DOXYCYCLINE HYCLATE 100 MG TABLET PO (08:41)
[2024-10-16] MEDS: APIXABAN 5 MG TABLET PO (08:41)
[2024-10-16] MEDS: FUROSEMIDE 40 MG TABLET PO (08:41)
[2024-10-16] MEDS: buPROPion HCL XL (24 HR) 150 MG TABCR PO (08:41)
[2024-10-16] MEDS: lisinopriL 20 MG TABLET PO (08:42)
--- NOTE | 2024-10-16 10:18 | PM.DS ---
DS: Admitting Diagnosis Discharge Date 10/16/2024 Admitting Diagnosis Shortness of breath DS: Discharge Diagnosis Discharge Diagnosis (1) COPD exacerbation: Code(s): J44.1 - Chronic obstructive pulmonary disease with (acute) exacerbation Status: Acute Assessment and Plan: - CXR: IMPRESSION: 1. Mild atelectasis in the lower lung zones. 2. Emphysema. - No infiltates on CXR. - d/c IV steroids, Levaquin, -Cont Advair, scheduled duoneb updrafts and supplemental O2 now @4L/NC for sats > 90 %. Mucinex added. - Started prednisone 60 mg and will taper - Currently on 3L/NC supplemental O2 and we'll wean as mary to maintain sats > 90 %. - Patient on continuous home O2 @3-4L/NC for sats > 90 %. - Encouraged with smoking cessation. 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 - Mgt as # 1 above and # 3 below. - Currently on 4L/NC for sats > 90 %. - Wean as mary to maintain sats > 90 %. (3) Ischemic cardiomyopathy: Code(s): I25.5 - Ischemic cardiomyopathy Status: Acute Assessment and Plan: - Possibly decompensated. - Given IV lasix 40 mg on admission. - Repeat IV lasix 40 mg X1. - Restarted on home dose PO lasix. - Continue supplemental O2 to maintain sats > 90 %. - Continue Lisinopril, Coreg and spironolactone. (4) Coronary artery disease involving autologous artery coronary bypass graft: Code(s): I25.810 - Atherosclerosis of coronary artery bypass graft(s) without angina pectoris Status: Acute Assessment and Plan: - Continue statin and coreg. (5) AICD (automatic cardioverter/defibrillator) present: Code(s): Z95.810 - Presence of automatic (implantable) cardiac defibrillator Status: Acute Assessment and Plan: - Stable. 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 (6) Atrial fibrillation: Code(s): I48.91 - Unspecified atrial fibrillation Status: Acute Assessment and Plan: - Rate fairly well controlled. - Maintains A-Fib with V-pacing on telemetry. - Continue Eliquis and Coreg. - Continue tele monitoring. (7) Tobacco dependence: Code(s): F17.200 - Nicotine dependence, unspecified, uncomplicated Status: Acute Assessment and Plan: - Encouraged with cessation. - Nicotine patch PRN. (8) Asthma exacerbation in COPD: Code(s): J44.1 - Chronic obstructive pulmonary disease with (acute) exacerbation; J45.901 - Unspecified asthma with (acute) exacerbation Status: Acute Assessment and Plan: - Mgt as per # 1. - Continue Advair, singulair and cetirizine. - Supplemental O2 for sats > 90 %. Plan Continue COPD and possible CHF exacerbation mgt. Wean O2 as mary to maintain sats > 90 %, continue to monitor closely for decompensation. DS: Summary Hospital Course Hospital Course: Patient is an 84 year old female who presents to the emergency department this evening from [facility] complaining of shortness breath. Patient states that she has been having shortness of breath for the past few days but today was worse. She admits that she does have a history of COPD and CHF and admits that she does use home inhalers and a nebulizer. Patient wears 3-4 L of nasal cannula at all the time. She is currently denying any chest pain, denies any recent URI illness denies any fevers or chills. Patient also denies any nausea vomiting or abdominal pain. No additional symptoms or concerns at this time. After assuming the care 10/14 patient reports she had multiple COPD exacerbation in last year almost 3-4 time which leads to hospitalization. Patient lives in a assisted living and her home oxygen 3 L. she walks independently. She had open-heart surgery approximately 19 years ago. Patient has a pacemaker/defibrillator. Patient is currently on 3 L oxygen her home baseline. Patient WBC has been increased possibly due to steroid. During the course of hospitalization patient received antibiotics and IV methylprednisone and later switched to oral prednisone. Patient needs tapering dose of prednisone as instructed in the discharge instruction. Advised to use incentive spirometry. Patient needs to follow up with remote pilot operator and PCP within a week upon discharge. Patient needs a pulmonary rehabilitation. Patient was counseled for smoking cessation. Status at Discharge Cognitive/behavioral status at discharge: Stable Time Spent with Patient Time attestation: Total time spent providing and/or coordinating discharge services: 45 minute Exam Narrative: Appears chronically ill Patient is comfortable, NAD HEENT: eyes are clear and none icteric LUNGS: Bilateral fair entry with wheezing HEART: RR S1S2 ABD: BS+, Soft and nontender Lower extremities: no edema SKIN: nonjaundiced Neuro: grossly intact. Const: General: comfortable, no acute distress, well developed, alert, awake, ill appearing chronically, tired appearing and average body habitus Nutritional Appearance: average body habitus Orientation/consciousness: patient oriented x3 HENMT: Head: normal to inspection, normocephalic and atraumatic Ears: hearing grossly normal bilaterally Face/Nose/Sinus: normal facial exam Face and sinus: normal facial exam Eyes: General: appearance normal, both eyes and all related structures Pupils: Equal, round and reactive pupils present EOM: EOMs intact bilaterally Neck: Neck: full ROM, no lymphadenopathy and no JVD Thyroid: thyroid normal Lymphatic: no lymphadenopathy noted Resp: Effort & Inspection: normal respiratory effort, able to speak in complete sentences and tachypneic Auscultation: crackles, rales, wheezes and diminished lung sounds Cardio: Jugular venous distension: no JVD Rate: regular rate Rhythm: regular rhythm Heart sounds: S1 normal heart sound present and S2 normal heart sound present : General: Yes deferred Skin: Rashes: no rashes Wounds: no wounds Neuro: General: patient oriented x3 and CN's II-XI intact bilaterally Cranial nerves: Yes CN's II-XII intact bilaterally and Yes Equal, round and reactive pupils present Cognition (Neuro): normal cognition Speech: normal speech Gait exam (Neuro): Normal gait present Motor exam (neuro): 5/5 motor strength present throughout Extrem: General: normal to inspection, full ROM, no joint enlargement and no pedal edema DS: Data Data Completed and Pending Labs on day of discharge: Labs from last 24 hours 10/16/24 06:43 WBC 14.5 H RBC 3.65 L Hgb 10.9 L Hct 33.2 L MCV 91.0 MCH 29.9 MCHC 32.8 RDW 14.4 Plt Count 257 MPV 9.7 Sodium 132 L Potassium 3.1 L Chloride 86 L Carbon Dioxide > 40 H Anion Gap BUN 27 H Creatinine 0.70 Estim Creat Clear Calc 54 Estimated GFR > 60 Glucose 124 H Calcium 8.4 Total Bilirubin 0.7 AST 35 ALT 67 H Alkaline Phosphatase 73 Total Protein 6.0 L Albumin 3.2 L Discharge Plan Discharge Attending physician on discharge: Ash Youssef Discharging Clinician: Ash Youssef Anticipated Discharge Date/Time: 10/16/24 10:08 Patient Disposition: NH Mcfp/Asst Living Activity: as tolerated Diet: regular Discharge Instructions: Patient needs to follow up with the PCP and remote pilot operator in a week upon discharge Patient needs pulmonary rehabilitation Patient need to complete the course of steroid as indicated( 50mg x 2 days, 40mg x 2days, 30 mg x 2 days,20mg x 2 days, 10mg x 2 days) Patient Instructions: Antibiotic Form, Apixaban (By mouth), Heart Failure (DC), Pain Management (DC) Stand Alone Forms: General Discharge Information Follow-up/Referrals: Christopher,Kathie Pena, SQL SERVER DEVELOPER [Primary Care Provider] - 1 Week Discharge Medications: New guaifenesin [Mucus Relief ER] 600 mg Tablet Extended Release 12hr 600 mg PO Q12HR Qty: 30 0RF prednisone 10 mg tablet 10 mg PO DIRECTED Qty: 30 0RF Rx Instructions: see taper instructions 50mg x 2 days, 40mg x 2days, 30 mg x 2 days,20mg x 2 days, 10mg x 2 days Continued PreserVision AREDS 1 tab-cap PO BID ropinirole 1 mg tablet 1 mg PO HS atorvastatin 40 mg tablet 40 mg PO HS carvedilol 12.5 mg tablet 12.5 mg PO BID pantoprazole 40 mg tablet,delayed release (DR/EC) 40 mg PO QAM montelukast 10 mg tablet 10 mg PO HS Eliquis 5 mg tablet 5 mg PO BID Rx Instructions: Take one tablet in AM and one tablet in PM. Combivent Respimat 20-100 mcg/actuation mist 1 puff INHALATION Q6H PRN (Reason: Shortness Of Breath) buspirone 5 mg tablet 5 mg PO BID cetirizine 10 mg Tablet 10 mg PO DAILY PRN (Reason: ALLERGIES) tramadol 50 mg tablet 50 mg PO BID acetaminophen 500 mg Tablet 1,000 mg PO Q8H PRN (Reason: Pain) spironolactone 25 mg tablet 25 mg PO DAILY famotidine 20 mg tablet 20 mg PO DAILY metoclopramide HCl 5 mg tablet 5 mg PO PRN PRN (Reason: Nausea) gabapentin 300 mg capsule 300 mg PO TID fluticasone propion-salmeterol 100-50 mcg/dose blister with device 1 inh INHALATION DAILY albuterol sulfate [Ventolin HFA] 90 mcg/actuation HFA aerosol inhaler 1 puff INHALATION Q4H PRN (Reason: sob) albuterol sulfate 90 mcg/actuation Hfa Aerosol Inhaler 2 puff INHALATION Q4H PRN (Reason: sob) B-complex with vitamin C Tablet 1 tablet PO DAILY cyanocobalamin (vitamin B-12) Tablet,Chewable 1 tablet PO DAILY bupropion HCl 150 mg tablet extended release 24 hr 150 mg PO DAILY lisinopril 20 mg tablet 20 mg PO BID furosemide 20 mg tablet 40 mg PO DAILY Date of admission: 10/13/24 09:09 Primary Care Provider: Christopher,Kathie Pena Admitting Provider: Rachel Stevenson V. Attending physician on admission: Rachel Stevenson V. Condition: Stable Quality VTE Prophylaxis VTE prophylaxis: pharmacologic ordered
== END 2024-10-16 13:15 | DRG 191 ==
LOC: ANHED 22:03 → ANH3MEDSUR 23:14
PROVIDERS: Emergency Medicine; Nurse Practitioner Adult Health; Admitting Provider Internal Medicine; Emergency Provider Emergency Medicine; PCP Nurse Practitioner Family; Visit Provider General Practice
DX: J44.1 Chronic obstructive pulmonary disease with (acute) exacerbation (principal); I25.810 Atherosclerosis of coronary artery bypass graft(s) without angina pectoris; J43.9 Emphysema, unspecified; F17.210 Nicotine dependence, cigarettes, uncomplicated; I11.0 Hypertensive heart disease with heart failure; I50.9 Heart failure, unspecified; I48.91 Unspecified atrial fibrillation; I25.5 Ischemic cardiomyopathy; Z79.01 Long term (current) use of anticoagulants; Z20.822 Contact with and (suspected) exposure to COVID-19; Z95.810 Presence of automatic (implantable) cardiac defibrillator; Z95.1 Presence of aortocoronary bypass graft; Z99.81 Dependence on supplemental oxygen
CPT/HCPCS: 36415; 71045; 71046; 80048; 80053; 81003; 82803; 83880; 84132; 84484; 85025; 85027; 87636; 93005; 94640; 96365; 96366; 96375; 96376; 99285; A9270; G0378; J1940; J1956; J2919; J7512

== ENCOUNTER 2024-10-31 08:38 | Inpatient (IN) | payer MEDICARE, SELFPAY ==
[2024-10-31] VITALS (50 sets, daily range): BP systolic 108–158; BP diastolic 63–108; PULSE 96–174; RESP 8–24; TEMP 36.4–36.6; O2SAT 95–100; BMI 26.7
--- NOTE | ~2024-10-31 | XR_ITS ---
XR chest 1V portable Ordering provider: Nallely Bennett MD History: 84 years Female with . chest pain . Comparison: October 14, 2024. FINDINGS: Bilateral breast implants. MEDIASTINUM: The cardiac silhouette is slightly enlarged. Left tripolar pacemaker. Postoperative zazueta ges in the mediastinum. Congestive nava. LUNGS: No infiltrates, effusions or pneumothorax. Bilateral interstitial changes which may indicate pulmonary edema versus pneumonitis. OTHER: No free air under the diaphragm. IMPRESSION: Bilateral interstitial changes which may indicate pneumonitis versus pulmonary edema. Clinical correl ation advised. Underlying fibrotic changes is not excluded. Reviewed, dictated and finalized at location A. CS MANUFACTURING TECHNICIAN IMPRESSION: Bilateral interstitial changes which may indicate pneumonitis versus pulmonary edema. Clinical correlation advised. Underlying fibrotic changes is not exclude george
--- NOTE | ~2024-10-31 | XR_ITS ---
XR chest 1V portable Ordering provider: Fiona Rivera MD History: 84 years Female with . sob . Comparison: October 31, 2024 FINDINGS: Bilateral breast implants. MEDIASTINUM: The cardiac silhouette is slightly enlarged. Left tripolar pacemaker. Postoperative zazueta ges in the mediastinum. LUNGS: No effusions or pneumothorax. Minimal opacification the left lower lobes suggestive of atelect asis versus pneumonia. Minimal bilateral interstitial thickening which may be pneumonitis versus fibr osis. OTHER: No free air under the diaphragm. IMPRESSION: Bibasilar atelectasis versus pneumonia more on the right side. Reviewed, dictated and finalized at location A. LLOGRAPHIC TECHNICIAN
--- NOTE | ~2024-10-31 | CT_ITS ---
CT Scan of the Chest without Contrast: Clinical Indication: Shortness of breath Technique: Contiguous sections were acquired throughout the chest without intravenous contrast. Dose reduction technique was used on this scan by utilizing automated exposure control and iterative recon struction technique. The dose-length product (DLP) was 230.22 mGy-cm. COMPARISON: 08/20/2021 Findings: There is no evidence of any significant mediastinal, hilar or axillary lymphadenopathy. Extensive cor onary artery calcifications are present. Pacemaker is present. Minimal right pleural effusion present. No left pleural effusion. Advanced emphysema present. Probable mild bibasilar atelectatic change, less likely pneumonia. Images through the upper abdomen reveal no abnormalities. Impression: Advanced emphysema. Probable mild bibasilar atelectasis, less likely pneumonia. Correlate clinically for signs/symptoms o f infection. Minimal right pleural fluid. Reviewed, dictated and finalized at [facility]. [employer] ADMISSIONS DIRECTOR Impression: Advanced emphysema. Probable mild bibasilar atelectasis, less likely pneumonia. Correlate clinicall y for signs/symptoms of infection. Minimal right pleural fluid.
--- NOTE | 2024-10-31 08:42 | ECG_ITS ---
Test Date: 2024-10-31 08:58:53 Measurements Intervals [place] Rate: 112 P: 0 KS: 0 QRS: -33 QRSD: 156 T: 150 QT: 377 QTc: 515 Interpretive Statements ELECTRONIC VENTRICULAR PACEMAKER ABNORUNDERLYING RHYTHM ATIRLA FIBRILLATION LEFT BUNDLE BRANCH BLOCK Compared to ECG 10/10/2024 18:46:11 NO SIGNIFICANT CHANGES Electronically Signed On 10-31-2024 14:57:34 PARKING WORKER by Mina Medina M.D.
--- NOTE | 2024-10-31 08:47 | ED.SOB ---
HPI - SOB/Dyspnea General Chief Complaint: Shortness of Breath/Dyspnea Stated Complaint: dyspnea History of Present Illness HPI Narrative: Patient presenting with shortness of breath possibly since yesterday. was given albuterol by EMS without much improvement. Related Data Home Medications ?Medication ?Instructions ?Recorded ?Confirmed ?Last Taken ?Type apixaban 5 mg tablet (Eliquis) 5 mg PO BID 08/21/21 10/10/24 06/19/23 History atorvastatin 40 mg tablet 40 mg PO HS 08/21/21 10/10/24 06/22/23 History carvedilol 12.5 mg tablet 12.5 mg PO BID 08/21/21 10/10/24 06/23/23 06:30 History ipratropium 20 mcg-albuterol 100 1 puff inhalation Q6H PRN 08/21/21 10/10/24 06/23/23 06:30 History mcg/actuation mist for inhalation Shortness Of Breath (Combivent Respimat) montelukast 10 mg tablet 10 mg PO HS 08/21/21 10/10/24 06/22/23 History pantoprazole 40 mg tablet,delayed 40 mg PO QAM 08/21/21 10/10/24 06/22/23 History release PreserVision AREDS 1 tab-cap PO BID 02/14/23 10/10/24 06/22/23 History ropinirole 1 mg tablet 1 mg PO HS 02/15/23 10/10/24 06/22/23 History B-complex with vitamin C 1 tablet PO DAILY 10/10/24 10/10/24 Unknown History acetaminophen 500 mg tablet 1,000 mg PO Q8H PRN Pain 10/10/24 10/10/24 Unknown History albuterol sulfate 90 mcg/actuation 2 puff inhalation Q4H PRN sob 10/10/24 10/10/24 Unknown History aerosol inhaler albuterol sulfate 90 mcg/actuation 1 puff inhalation Q4H PRN sob 10/10/24 10/10/24 Unknown History aerosol inhaler (Ventolin HFA) bupropion HCl 150 mg 24 hr tablet, 150 mg PO DAILY 10/10/24 10/10/24 Unknown History extended release buspirone 5 mg tablet 5 mg PO BID 10/10/24 10/10/24 Unknown History cetirizine 10 mg tablet 10 mg PO DAILY PRN ALLERGIES 10/10/24 10/10/24 Unknown History cyanocobalamin (vitamin B-12) 1 tablet PO DAILY 10/10/24 10/10/24 Unknown History famotidine 20 mg tablet 20 mg PO DAILY 10/10/24 10/10/24 Unknown History fluticasone 100 mcg-salmeterol 50 1 inh inhalation DAILY 10/10/24 10/10/24 Unknown History mcg/dose blistr powdr for inhalation furosemide 20 mg tablet 40 mg PO DAILY 10/10/24 10/10/24 Unknown History gabapentin 300 mg capsule 300 mg PO TID 10/10/24 10/10/24 Unknown History lisinopril 20 mg tablet 20 mg PO BID 10/10/24 10/10/24 Unknown History metoclopramide HCl 5 mg tablet 5 mg PO PRN PRN Nausea 10/10/24 10/10/24 Unknown History spironolactone 25 mg tablet 25 mg PO DAILY 10/10/24 10/10/24 Unknown History tramadol 50 mg tablet 50 mg PO BID 10/10/24 10/10/24 Unknown History Allergies Allergy/AdvReac Type Severity Reaction Status Date / Time iohexol (From contrast - CT, Allergy Rash Verified 10/31/24 08:43 X-RAY) Review of Systems Review of Systems: All systems reviewed & are unremarkable except as noted in HPI and below PMFSH Past Medical History Medical History (Updated 10/31/24 @ 13:52 by Nallely Bennett MD) Atrial fibrillation Hypertension High cholesterol Kidney stones Aortic aneurysm CHF exacerbation Asthma exacerbation in COPD Ischemic cardiomyopathy EF 40% in 2019 Biventricular ICD (implantable cardioverter-defibrillator) in place Followed by Dr. Karen Patterson [employer], last generator change March 2013. Coronary artery disease involving autologous artery coronary bypass graft 2008: [place] to the Left anterior descending, free RI MA to the RCA, radial graft from the [place] to the OM 2. Later catheterization showed occlusion of the radial artery graft. COPD (chronic obstructive pulmonary disease) History of COPD Surgical History Surgical History History of umbilical hernia repair open periumbilical reducible incisional hernia repair without mesh 06/23/23 History of delivery History of left-sided carotid endarterectomy 2020, Dr. Dean Newsome Hx of CABG x3 Family History Family History Mother No problems noted. Father Family history of congenital heart disease Diabetes mellitus Cerebrovascular accident Other Hypertension Social History Social History Smoking packs per day: 1 Smoking cigarettes per day: 20.0 Years smoked: 68 Smoking pack-years: 68.00 Smoking status: Current every day smoker Alcohol use details: STATES VERY, VERY RARELY Substance use: never Substance use type: does not use Do You Feel Safe in your Home?: Yes Lack of Transportation: No Lack of Food: Never True Current Housing: I Have Housing Concerned About Future Housing: No Difficulty Paying Gas/Electric Bills: No Difficulty Paying for Meds: No Currently Unemployed: No Education: High School Diploma/GED Difficulty w/ Childcare or Family Care: No Living arrangements: alone Spiritual care concerns: No Exam Narrative: EXAMINATION OF ORGAN SYSTEMS/BODY AREAS: Constitutional: Vital signs per nursing GENERAL: appears uncomfortable HEAD: Normal with no signs of head trauma. EYES: EOMI, conjunctiva normal ENT: Hearing grossly intact LUNGS: some coarse lung sounds HEART: tachycardic ABD: [Soft], [nontender to palpation] EXT: Normal range of motion SKIN: [No rashes or lesions.] NEURO: [Alert. No gross focal sensory or strength deficits.] PSYCH: Normal affect Course Vital Signs Vital signs: Vital Signs Temperature 98 F 10/31/24 08:37 Pulse Rate 107 H 10/31/24 08:37 Respiratory Rate 17 10/31/24 08:37 Blood Pressure 158/79 H 10/31/24 08:37 Pulse Oximetry 98 10/31/24 08:37 Oxygen Delivery Nasal Cannula 10/31/24 08:37 Oxygen Flow Rate 3 10/31/24 08:37 Temperature 98 F 10/31/24 08:37 Pulse Rate 132 H 10/31/24 12:19 Respiratory Rate 11 L 10/31/24 12:19 Blood Pressure 125/99 H 10/31/24 12:18 Pulse Oximetry 99 10/31/24 12:19 Oxygen Delivery Nasal Cannula 10/31/24 08:43 Oxygen Flow Rate 3 10/31/24 08:43 MDM - SOB/Dyspnea MDM Narrative Medical decision making narrative: patient presents with some shortness of breath, seems slightly hypoxic with a room respirations per EMS and they started breathing treatment which they state help her at more ease. She did have some coarse lung sounds tomorrow wheezing, I did order some more breathing treatments, as well as Lasix since she does appear to have some pulmonary edema. Unfortunately she did go into AFib with RVR, up to as high as 185 beats per minute, am became quite uncomfortable, since she does have history of CHF per EMR, I do give multiple doses of metoprolol which did improve her heart rate from 180 to 140s, but since her blood pressure started becoming lower, he I did opt for amiodarone drip, discussed this with the invoicing specialist, and with the hospitalist for admission. Her heart rate did improve to 120s Lab Data 10/31/24 08:39 10/31/24 08:39 Labs: Lab Results 10/31/24 Range/Units 08:39 WBC 13.4 H (4.5-10.0) K/mm3 RBC 3.72 L (4.2-5.4) M/mm3 Hgb 11.1 L (12.0-15.0) g/dL Hct 34.6 L (37.0-47.0) % MCV 93.0 (80-100) fl MCH 29.8 (26-34) pg MCHC 32.1 (32-36) g/dl RDW 15.6 H (11.5-14.5) % Plt Count 193 (150-375) k/mm3 MPV 9.6 (7.4-10.4) fl Immature Gran % (Auto) 1.4 H (0-0.5) % Neut % (Auto) 79.9 H (45.5-73.1) % Lymph % (Auto) 12.1 L (18.3-44.2) % [place] % (Auto) 5.5 (2.6-8.5) % Eos % (Auto) 0.7 (0-4.4) % Baso % (Auto) 0.4 (0.2-1.2) % Lymph # (Auto) 1.63 (0.9-3.2) K/mm3 [place] # (Auto) 0.7 H (0.1-0.6) K/mm3 Eos # (Auto) 0.1 (0-0.3) K/mm3 Baso # (Auto) 0.1 (0.0-0.1) K/mm3 Abs Immat Gran (auto) 0.19 H (0.00-0.031) K/mm3 Absolute Neuts (auto) 10.7 H (1.3-6.7) K/mm3 Absolute Nucleated RBC 0.000 (0.0-0.012) K/mm3 Nucleated RBC % 0.0 (0.0-0.2) % Sodium 132 L (137-145) mmol/L Potassium 3.3 L (3.4-5.0) mmol/L Chloride 95 L (98-107) mmol/L Carbon Dioxide 34 H (22-30) mmol/L Anion Gap 3 L (4-12) mmol/L BUN 8 D (7-17) mg/dL Creatinine 0.50 L (0.7-1.0) mg/dL Estim Creat Clear Calc 75 ml/min Estimated GFR > 60 (59 - ) Glucose 202 H (65-110) mg/dL Calcium 8.9 (8.4-10.2) mg/dL Magnesium 1.8 (1.6-2.3) mg/dL Total Bilirubin 0.9 (0.2-1.3) mg/dL AST 30 (14-36) U/L ALT 39 H (6-35) U/L Alkaline Phosphatase 87 (38-126) U/L Troponin I 0.012 (0.000-0.034) ng/mL NT-Pro-B Natriuret Pep 2620 H (19.9-100) pg/mL Total Protein 6.0 L (6.3-8.2) g/dL Albumin 3.5 (3.5-5.1) g/dL Critical Care Time Critical Care Time Critical Care Time: Yes Total Critical Care Time: 31 Discharge Plan Discharge Clinical Impression: Atrial fibrillation with rapid ventricular response Patient Disposition: Still a Patient Condition: Serious
[2024-10-31 09:09] LABS: Basophils Absolute Auto 0.1 K/mm3 (0.0-0.1); Basophils Percent Auto 0.4 % (0.2-1.2); Eosinophils Absolute Auto 0.1 K/mm3 (0-0.3); Eosinophils Percent Auto 0.7 % (0-4.4); Hematocrit 34.6 % (37.0-47.0); Hemoglobin 11.1 g/dL (12.0-15.0); Immature Granulocyte Absolute 0.19 K/mm3 (0.00-0.031); Immature Granulocyte Percent A 1.4 % (0-0.5); Lymphocytes Absolute Auto 1.63 K/mm3 (0.9-3.2); Lymphocytes Percent Auto 12.1 % (18.3-44.2); Mean Corpuscular HGB Conc 32.1 g/dl (32-36); Mean Corpuscular Hemoglobin 29.8 pg (26-34); Mean Platelet Volume 9.6 fl (7.4-10.4); Monocytes Absolute Auto 0.7 K/mm3 (0.1-0.6); Monocytes Percent Auto 5.5 % (2.6-8.5); Neutrophils Absolute Auto 10.7 K/mm3 (1.3-6.7); Neutrophils Percent Auto 79.9 % (45.5-73.1); Platelet Count Result 193 k/mm3 (150-375); Red Blood Count 3.72 M/mm3 (4.2-5.4); Red Cell Distribution Width 15.6 % (11.5-14.5); White Blood Count 13.4 K/mm3 (4.5-10.0)
[2024-10-31 09:22] LABS: Alanine Aminotransferase 39 U/L (6-35); Albumin Level 3.5 g/dL (3.5-5.1); Alkaline Phosphatase 87 U/L (38-126); Anion Gap 3 mmol/L (4-12); Aspartate Amino Transferase 30 U/L (14-36); Bilirubin,Total 0.9 mg/dL (0.2-1.3); Blood Urea Nitrogen 8 mg/dL (7-17); Calcium 8.9 mg/dL (8.4-10.2); Carbon Dioxide 34 mmol/L (22-30); Chloride 95 mmol/L (98-107); Estimated CRCL calculation 75 ml/min; Estimated Glomerular Filt Rate > 60; Glucose 202 mg/dL (65-110); Magnesium 1.8 mg/dL (1.6-2.3); Potassium 3.3 mmol/L (3.4-5.0); Sodium 132 mmol/L (137-145)
[2024-10-31] MEDS: methylPREDNISolone SOD SUCC 40 MG VIAL IV PUSH (09:28)
[2024-10-31 09:32] LABS: NT Pro B Type Natriuretic Pept 2620 pg/mL (19.9-100); Troponin I 0.012 ng/mL (0.000-0.034)
[2024-10-31] MEDS: ALBUTEROL SULFATE NEB 2.5 MG/3 ML INH 15 MG INHALATION (09:42)
[2024-10-31] MEDS: IPRATROPIUM BR 0.02% INH SOLN 0.5 MG/2.5 ML VIAL 1 MG INHALATION (09:42)
[2024-10-31] MEDS: FUROSEMIDE INJ 40 MG/4 ML VIAL IV PUSH ×3 (09:57→22:25)
[2024-10-31] MEDS: POTASSIUM CHLORIDE 20 MEQ PACKET (FOR LIQUID) 40 MEQ PO (10:00)
--- NOTE | 2024-10-31 10:35 | ECG_ITS ---
Test Date: 2024-10-31 10:35:37 Measurements Intervals [place] Rate: 185 P: 0 NE: 0 QRS: -48 QRSD: 140 T: 146 QT: 270 QTc: 474 Interpretive Statements ATRIAL FIBRILLATION WITH RAPID VENTRICULAR RESPONSE MARKED LEFT AXIS DEVIATION [QRS AXIS < -30] LEFT BUNDLE BRANCH BLOCK [120+ ms QRS DURATION, 80+ ms Q/S IN V1/V2, 85+ ms R IN I/aVL/V5/V6] Compared to ECG 10/31/2024 08:58:53 ATRIAL FIBRILLATION WITH RVR NOW PRESENT Electronically Signed On 10-31-2024 14:59:[address]GRAPHER by Mina Medina M.D.
[2024-10-31] MEDS: METOPROLOL TARTRATE INJ 5 MG/5 ML VIAL IV PUSH ×3 (10:38→20:27)
[2024-10-31] MEDS: METOPROLOL TARTRATE 25 MG TABLET PO (10:39)
--- NOTE | 2024-10-31 10:42 | PC.NURSE ---
Pt HR between 160-[address] Bennett made aware, new orders placed on chart. ED respiratory stopped albuterol tx.
--- NOTE | 2024-10-31 10:43 | PC.NURSE ---
Pt HR remains unchanged. EDP at bedside, new orders placed on chart
--- NOTE | 2024-10-31 10:50 | PC.NURSE ---
Pt HR remains in 140-160 range. EDP aware, new order on chart
[2024-10-31] MEDS: METOPROLOL TARTRATE INJ 5 MG/5 ML VIAL (10:57)
[2024-10-31] MEDS: AMIODARONE 150 MG/D5W 100 ML 150 MG/100 ML BAG 600 MG IV CONT (11:39)
[2024-10-31] MEDS: AMIODARONE 360 MG/D5W 200 ML 360 MG/200 ML BAG 33.33 MG IV CONT (11:52)
[2024-10-31 12:24] LABS: Alveolar/Arterial O2 Gradient 81.3 mmHg; Base Excess ABG 5.7 mEq/l (+/-2.0); Device NASAL CANNULA; Fractional Inspired Oxygen 32 %; HCO3 ABG 29.8 mEq/l (22.0-26.0); Methemoglobin ABG 0.1 %THb (0-1.5); Modified Allen's Test Pass; Oxygen Content ABG 17.1 %vol (16.0-22.0); Oxygen Saturation ABG 97.8 % (95.0-100.0); Oxyhemoglobin 96.8 % THb (90.0-100.0); PCO2 ABG 41.4 mmHg (35.0-45.0); PO2 ABG 98.4 mmHg (80.0-100.0); PO2 FiO2 Ratio Arterial Blood 3.08 %; Reduced Hemoglobin 2.1 %THb (0-5.0); Site Drawn RIGHT RADIAL; Total Hemoglobin 12.5 g/dL (12.0-18.0); pH ABG 7.475 (7.350-7.450)
--- NOTE | 2024-10-31 12:45 | ADMGEN ---
This patient, Jannette Urena, was admitted to IMU Room 207-01. Patient/family oriented to hospital policies and general routines including ID bracelet, bed and alarms, visiting hours, pain management, procedures, bathroom and other care routines, personal items, smoking policy, room service/diet, and visiting hours. Information on how to activate the Rapid Response Team has been discussed. Patient/Family are encouraged to report perceived risks to care and to ask questions if they do not understand what they are told or what they should do.
--- NOTE | 2024-10-31 13:41 | PM.CNCAR ---
Assessment and Plan Assessment and plan (1) Atrial fibrillation with rapid ventricular response: Code(s): I48.91 - Unspecified atrial fibrillation Status: Acute Assessment and Plan: History of atrial fibrillation previously managed with dofetilide. However, it appears this medication was discontinued during one of her many hospitalizations as it is not on her most recent discharge summary from this hospital or discharge summary from outside hospital discharge on 10/25. Therefore, we will continue with amiodarone for now If we have trouble managing her AF with amiodarone, will need DI/DCCV tomorrow with anesthesia (two doses of Eliquis missed recently, needs anesthesia because of her cardiomyopathy). Continue with eliquis for cardioembolic risk reduction Will order p.r.n. lopressor for tachycardia K+ was 3.3, K+ has been replaced. Check BMP in the morning Will keep her NPO at midmight in case she needs DI/CV tomorrow (2) COPD exacerbation: Code(s): J44.1 - Chronic obstructive pulmonary disease with (acute) exacerbation Status: Acute Assessment and Plan: Management per hospitalist (3) Acute exacerbation of CHF (congestive heart failure): Code(s): I50.9 - Heart failure, unspecified Status: Acute Assessment and Plan: Mild systolic heart failure exacerbation. She rec'd 40 mg IV furosemide x 1 in the ED. She still has pulmonary rales and some lower extremity edema so will give another one time dose now. (4) Ischemic cardiomyopathy: Code(s): I25.5 - Ischemic cardiomyopathy Status: Acute Assessment and Plan: As above, mild acute on chronic systolic heart failure. Resume home lisinopril, spironolactone, coreg History of Present Illness History of Present Illness Consult date/time: 10/31/24 13:41 Requesting physician: Nallely Bennett MD Consult reason: atrial fibrillation Reason For Visit: AFIB RVR Narrative: Jannette Urena is an 84 year old female with ischemic cardiomyopathy, BiV ICD, atrial fibrillation, and coronary artery disease status post CABG. She comes to the hospital with a chief complaint of shortness of breath. Cardiology is consulted for atrial fibrillation with rapid ventricular response. Patient has been hospitalized 5 times in recent months for COPD exacerbation. Most of these hospitalizations were at [facility] so the records of the events of those hospital stays are not available to me. She does not recall having problems with atrial fibrillation during other recent hospital stays. At present her heart rate is in the 120's while on an amiodarone drip. She is denying any palpitations or chest pain. She states she did have chest pain earlier today but it has resolved. She remains short of breath but does say her breathing has improved since she got to the hospital. Review of Systems Review of Systems: All systems reviewed & are unremarkable except as noted in HPI and below [facility] Past Medical History Medical History Atrial fibrillation Hypertension High cholesterol Kidney stones Aortic aneurysm CHF exacerbation Asthma exacerbation in COPD Ischemic cardiomyopathy EF 40% in 2019 Biventricular ICD (implantable cardioverter-defibrillator) in place Followed by Dr. Karen Patterson [employer], last generator change March 2013. Coronary artery disease involving autologous artery coronary bypass graft 2008: [place] to the Left anterior descending, free RI MA to the RCA, radial graft from the [place] to the OM 2. Later catheterization showed occlusion of the radial artery graft. COPD (chronic obstructive pulmonary disease) History of COPD Surgical History Surgical History (Reviewed 10/31/24 @ :00 by JOYCE Abraham) History of umbilical hernia repair open periumbilical reducible incisional hernia repair without mesh 06/23/23 History of delivery History of left-sided carotid endarterectomy 2020, Dr. Dean Newsome Hx of CABG x3 Family History Family History Mother No problems noted. Father Family history of congenital heart disease Diabetes mellitus Cerebrovascular accident Other Hypertension Social History Social History Smoking packs per day: 1 Smoking cigarettes per day: 20.0 Years smoked: 68 Smoking pack-years: 68.00 Smoking status: Current every day smoker Alcohol use details: STATES VERY, VERY RARELY Substance use: never Substance use type: does not use Do You Feel Safe in your Home?: Yes Lack of Transportation: No Lack of Food: Never True Current Housing: I Have Housing Concerned About Future Housing: No Difficulty Paying Gas/Electric Bills: No Difficulty Paying for Meds: No Currently Unemployed: No Education: High School Diploma/GED Difficulty w/ Childcare or Family Care: No Living arrangements: alone Spiritual care concerns: No Meds Home Medications and Allergies Home Medications ?Medication ?Instructions ?Recorded ?Confirmed ?Type apixaban 5 mg tablet (Eliquis) 5 mg PO BID 08/21/21 10/10/24 History atorvastatin 40 mg tablet 40 mg PO HS 08/21/21 10/10/24 History carvedilol 12.5 mg tablet 12.5 mg PO BID 08/21/21 10/10/24 History ipratropium 20 mcg-albuterol 100 1 puff inhalation Q6H PRN 08/21/21 10/10/24 History mcg/actuation mist for inhalation Shortness Of Breath (Combivent Respimat) montelukast 10 mg tablet 10 mg PO HS 08/21/21 10/10/24 History pantoprazole 40 mg tablet,delayed 40 mg PO QAM 08/21/21 10/10/24 History release PreserVision AREDS 1 tab-cap PO BID 02/14/23 10/10/24 History ropinirole 1 mg tablet 1 mg PO HS 02/15/23 10/10/24 History B-complex with vitamin C 1 tablet PO DAILY 10/10/24 10/10/24 History acetaminophen 500 mg tablet 1,000 mg PO Q8H PRN Pain 10/10/24 10/10/24 History albuterol sulfate 90 mcg/actuation 2 puff inhalation Q4H PRN sob 10/10/24 10/10/24 History aerosol inhaler albuterol sulfate 90 mcg/actuation 1 puff inhalation Q4H PRN sob 10/10/24 10/10/24 History aerosol inhaler (Ventolin HFA) bupropion HCl 150 mg 24 hr tablet, 150 mg PO DAILY 10/10/24 10/10/24 History extended release buspirone 5 mg tablet 5 mg PO BID 10/10/24 10/10/24 History cetirizine 10 mg tablet 10 mg PO DAILY PRN ALLERGIES 10/10/24 10/10/24 History cyanocobalamin (vitamin B-12) 1 tablet PO DAILY 10/10/24 10/10/24 History famotidine 20 mg tablet 20 mg PO DAILY 10/10/24 10/10/24 History fluticasone 100 mcg-salmeterol 50 1 inh inhalation DAILY 10/10/24 10/10/24 History mcg/dose blistr powdr for inhalation furosemide 20 mg tablet 40 mg PO DAILY 10/10/24 10/10/24 History gabapentin 300 mg capsule 300 mg PO TID 10/10/24 10/10/24 History lisinopril 20 mg tablet 20 mg PO BID 10/10/24 10/10/24 History metoclopramide HCl 5 mg tablet 5 mg PO PRN PRN Nausea 10/10/24 10/10/24 History spironolactone 25 mg tablet 25 mg PO DAILY 10/10/24 10/10/24 History tramadol 50 mg tablet 50 mg PO BID 10/10/24 10/10/24 History guaifenesin 600 mg tablet, 600 mg PO Q12HR #30 tabs 10/16/24 Rx extended release 12 hr (Mucus Relief ER) prednisone 10 mg tablet 10 mg PO DIRECTED #30 tabs 10/16/24 Rx Allergies Allergy/AdvReac Type Severity Reaction Status Date / Time iohexol (From contrast - CT, Allergy Rash Verified 10/31/24 08:43 X-RAY) Vital Signs Vital Signs - 24 hr 10/31/24 08:37 10/31/24 08:43 10/31/24 09:29 Temperature 36.6 C Pulse Rate 107 H 106 H Respiratory Rate 17 19 Blood Pressure 158/79 H 129/81 Pulse Oximetry 98 98 99 Oxygen Delivery Nasal Cannula Nasal Cannula Oxygen Flow Rate 3 3 10/31/24 09:33 10/31/24 09:42 10/31/24 09:46 Temperature Pulse Rate 116 H 108 H 115 H Respiratory Rate 18 20 19 Blood Pressure Pulse Oximetry 99 100 Oxygen Delivery Oxygen Flow Rate 10/31/24 09:59 10/31/24 10:00 10/31/24 10:15 Temperature Pulse Rate 114 H 111 H 129 H Respiratory Rate 15 19 15 Blood Pressure 132/83 Pulse Oximetry 100 100 100 Oxygen Delivery Oxygen Flow Rate 10/31/24 10:38 10/31/24 10:39 10/31/24 10:43 Temperature Pulse Rate 174 H 161 H 152 H Respiratory Rate 14 Blood Pressure 131/108 H Pulse Oximetry 98 Oxygen Delivery Oxygen Flow Rate 10/31/24 10:44 10/31/24 10:45 10/31/24 10:46 Temperature Pulse Rate 158 H 165 H 163 H Respiratory Rate 9 L 8 L 11 L Blood Pressure 131/108 H Pulse Oximetry 98 99 98 Oxygen Delivery Oxygen Flow Rate 10/31/24 10:51 10/31/24 10:57 10/31/24 11:24 Temperature Pulse Rate 157 H 151 H 153 H Respiratory Rate 15 Blood Pressure Pulse Oximetry 98 Oxygen Delivery Oxygen Flow Rate 10/31/24 11:30 10/31/24 11:31 10/31/24 11:39 Temperature Pulse Rate 153 H 151 H 155 H Respiratory Rate 15 16 Blood Pressure 116/103 H 116/103 H Pulse Oximetry 100 Oxygen Delivery Oxygen Flow Rate 10/31/24 11:45 10/31/24 11:47 10/31/24 11:50 Temperature Pulse Rate 136 H 137 H 117 H Respiratory Rate 16 20 Blood Pressure 116/103 H 112/78 Pulse Oximetry 96 96 Oxygen Delivery Oxygen Flow Rate 10/31/24 11:52 10/31/24 11:54 10/31/24 12:00 Temperature Pulse Rate 117 H 128 H 128 H Respiratory Rate 19 20 Blood Pressure 112/78 112/78 Pulse Oximetry 98 Oxygen Delivery Oxygen Flow Rate 10/31/24 12:01 10/31/24 12:15 10/31/24 12:18 Temperature Pulse Rate 128 H 140 H 135 H Respiratory Rate 22 H 19 Blood Pressure 108/89 125/99 H Pulse Oximetry 99 99 Oxygen Delivery Oxygen Flow Rate 10/31/24 12:19 Temperature Pulse Rate 132 H Respiratory Rate 11 L Blood Pressure Pulse Oximetry 99 Oxygen Delivery Oxygen Flow Rate Exam Const: General: comfortable, no acute distress, alert and awake Orientation/consciousness: patient oriented x3 HENMT: Head: normal to inspection Eyes: General: appearance normal, both eyes and all related structures Pupils: Equal, round and reactive pupils present Neck: Neck: normal visual inspection, supple and no JVD Carotids: normal carotid upstroke Resp: Auscultation: not clear to auscultation bilaterally, rales on the right, wheezes and diminished lung sounds Cardio: Rate: tachycardic Rhythm: abnormal rhythm Heart sounds: S1 normal heart sound present, S2 normal heart sound present and no murmurs GI: Auscultation: normal bowel sounds Skin: General skin exam: normal color Neuro: General: patient oriented x3 Cranial nerves: Yes Equal, round and reactive pupils present Extrem: Other: mild bilateral pretibial and pedal edema Psych: Appearance: grossly normal Mental Status: mental status grossly normal Results Labs and Meds 10/31/24 08:39 10/31/24 08:39 Lab results: Cardiac Enzymes 10/31/24 Range/Units 08:39 AST 30 (14-36) U/L Troponin I 0.012 (0.000-0.034) ng/mL CBC 10/31/24 Range/Units 08:39 WBC 13.4 H (4.5-10.0) K/mm3 RBC 3.72 L (4.2-5.4) M/mm3 Hgb 11.1 L (12.0-15.0) g/dL Hct 34.6 L (37.0-47.0) % Plt Count 193 (150-375) k/mm3 Lymph # (Auto) 1.63 (0.9-3.2) K/mm3 [place] # (Auto) 0.7 H (0.1-0.6) K/mm3 Eos # (Auto) 0.1 (0-0.3) K/mm3 Baso # (Auto) 0.1 (0.0-0.1) K/mm3 Comprehensive Metabolic Panel 10/31/24 Range/Units 08:39 Sodium 132 L (137-145) mmol/L Potassium 3.3 L (3.4-5.0) mmol/L Chloride 95 L (98-107) mmol/L Carbon Dioxide 34 H (22-30) mmol/L BUN 8 D (7-17) mg/dL Creatinine 0.50 L (0.7-1.0) mg/dL Glucose 202 H (65-110) mg/dL Calcium 8.9 (8.4-10.2) mg/dL AST 30 (14-36) U/L ALT 39 H (6-35) U/L Alkaline Phosphatase 87 (38-126) U/L Total Protein 6.0 L (6.3-8.2) g/dL Albumin 3.5 (3.5-5.1) g/dL Intake and Output 10/30/24 10/31/24 10/31/24 23:59 07:59 15:59 Intake Total 100 Balance 100 Intake: IV 100 Amiodarone 150 mg/D5w 100 ml 100 150 mg In 100 ml @ 15 MG/MIN 600 mls/hr IV CONT .Q10M ONE Rx #:[id number] Patient Weight 10/31/24 23:59 Weight 81 kg
[2024-10-31] MEDS: AMIODARONE 360 MG/D5W 200 ML 360 MG/200 ML BAG 16.67 MG IV CONT (17:46)
--- NOTE | 2024-10-31 17:58 | P.HP_ITS ---
H&P: HPI History of Present Illness Date/Time: 10/31/24 17:58 Chief Complaint: SOB Narrative: 84 year old female with ischemic cardiomyopathy, BiV ICD, atrial fibrillation, and coronary artery disease status post CABG Presented to the ER on account of her shortness of breath of 2 days duration. noted orthopnea no PND, dry cough and next 1, no fever, no vomiting abdominal pain no diarrhea no dysuria no focal symptoms. Also endorses night sweats. ER evaluation notable for temperature 97.5?, pulse was 1 9, respiratory 20 saturating 100% on room air, Blood pressure 128/90. Labs notable for WBC 13.4, hemoglobin 11.1, ABG 7.475/41.4/98.4/29.8. Sodium 132, potassium 3.3, creatinine 0.5, blood glucose 202. NT proBNP [address] chest showed probable mild bibasilar atelectasis less likely pneumonia. Right pleural effusion. EKG showed atrial fibrillation with rapid ventricular response. Cardiology evaluation noted. Continue amiodarone. Review of Systems Review of Systems: All other systems reviewed and negative except as Noted in the HPI above. [facility] Past Medical History Medical History Atrial fibrillation Hypertension High cholesterol Kidney stones Aortic aneurysm CHF exacerbation Asthma exacerbation in COPD Ischemic cardiomyopathy EF 40% in 2019 Biventricular ICD (implantable cardioverter-defibrillator) in place Followed by Dr. Karen Patterson [employer]hemtr[employer], last generator change March 2013. Coronary artery disease involving autologous artery coronary bypass graft 2008: [place] to the Left anterior descending, free RI MA to the RCA, radial graft from the [place] to the OM 2. Later catheterization showed occlusion of the radial artery graft. COPD (chronic obstructive pulmonary disease) History of COPD Surgical History Surgical History History of umbilical hernia repair open periumbilical reducible incisional hernia repair without mesh 06/23/23 History of delivery History of left-sided carotid endarterectomy 2020, Dr. Dean Newsome Hx of CABG x3 Family History Family History (Updated 10/31/24 @ 14:36 by DEBBY GONZALEZ) Mother Failure to thrive Father Diabetes mellitus Family history of congenital heart disease Hypertension Cerebrovascular accident Social History Social History Smoking packs per day: 1 Smoking cigarettes per day: 20.0 Years smoked: 70 Smoking pack-years: 70.00 Smoking status: Current every day smoker Tobacco type: cigarettes Alcohol intake: never Alcohol use details: STATES VERY, VERY RARELY Substance use: never Substance use type: does not use Do You Feel Safe in your Home?: Yes Lack of Transportation: No Lack of Food: Never True Current Housing: I Have Housing Concerned About Future Housing: No Difficulty Paying Gas/Electric Bills: No Difficulty Paying for Meds: No Currently Unemployed: No Education: High School Diploma/GED Difficulty w/ Childcare or Family Care: No Living arrangements: alone Spiritual care concerns: No Meds Home Medications and Allergies Home Medications ?Medication ?Instructions ?Recorded ?Confirmed ?Type apixaban 5 mg tablet (Eliquis) 5 mg PO BID 08/21/21 10/31/24 History atorvastatin 40 mg tablet 40 mg PO HS 08/21/21 10/31/24 History carvedilol 12.5 mg tablet 12.5 mg PO BID 08/21/21 10/31/24 History ipratropium 20 mcg-albuterol 100 1 puff inhalation Q6H PRN 08/21/21 10/31/24 History mcg/actuation mist for inhalation Shortness Of Breath (Combivent Respimat) montelukast 10 mg tablet 10 mg PO HS 08/21/21 10/31/24 History pantoprazole 40 mg tablet,delayed 40 mg PO QAM 08/21/21 10/31/24 History release PreserVision AREDS 1 tab-cap PO BID 02/14/23 10/31/24 History ropinirole 1 mg tablet 1 mg PO HS 02/15/23 10/31/24 History B-complex with vitamin C 1 tablet PO DAILY 10/10/24 10/31/24 History acetaminophen 500 mg tablet 1,000 mg PO Q8H PRN Pain 10/10/24 10/31/24 History albuterol sulfate 90 mcg/actuation 2 puff inhalation Q4H PRN sob 10/10/24 10/31/24 History aerosol inhaler albuterol sulfate 90 mcg/actuation 1 puff inhalation Q4H PRN sob 10/10/24 10/31/24 History aerosol inhaler (Ventolin HFA) bupropion HCl 150 mg 24 hr tablet, 150 mg PO DAILY 10/10/24 10/31/24 History extended release buspirone 5 mg tablet 5 mg PO BID 10/10/24 10/31/24 History cetirizine 10 mg tablet 10 mg PO DAILY PRN ALLERGIES 10/10/24 10/31/24 History cyanocobalamin (vitamin B-12) 1 tablet PO DAILY 10/10/24 10/31/24 History fluticasone 100 mcg-salmeterol 50 1 inh inhalation DAILY 10/10/24 10/31/24 History mcg/dose blistr powdr for inhalation furosemide 20 mg tablet 40 mg PO DAILY 10/10/24 10/31/24 History gabapentin 300 mg capsule 300 mg PO TID 10/10/24 10/31/24 History lisinopril 20 mg tablet 20 mg PO BID 10/10/24 10/31/24 History metoclopramide HCl 5 mg tablet 5 mg PO PRN PRN Nausea 10/10/24 10/31/24 History spironolactone 25 mg tablet 25 mg PO DAILY 10/10/24 10/31/24 History tramadol 50 mg tablet 50 mg PO Q8H PRN pain 10/10/24 10/31/24 History guaifenesin 600 mg tablet, 600 mg PO Q12HR #30 tabs 10/16/24 10/31/24 Rx extended release 12 hr (Mucus Relief ER) prednisone 10 mg tablet 10 mg PO DIRECTED #30 tabs 10/16/24 10/31/24 Rx amoxicillin 875 mg-potassium 1 tablet PO Q12H 10/31/24 10/31/24 History clavulanate 125 mg tablet azithromycin 250 mg tablet 250 mg PO DAILY 10/31/24 10/31/24 History fluticasone fur. 200 mcg-umeclid 1 inh inhalation Q24H 10/31/24 10/31/24 History 62.5 mcg-vilant 25 mcg inhalat.powder (Trelegy Ellipta) Allergies Allergy/AdvReac Type Severity Reaction Status Date / Time iohexol (From contrast - CT, Allergy Rash Verified 10/31/24 08:43 X-RAY) Vital Signs Vital Signs - 24 hr 10/31/24 08:37 10/31/24 08:43 10/31/24 09:29 Temperature 98 F Pulse Rate 107 H 106 H Respiratory Rate 17 19 Blood Pressure 158/79 H 129/81 Pulse Oximetry 98 98 99 Oxygen Delivery Nasal Cannula Nasal Cannula Oxygen Flow Rate 3 3 10/31/24 09:33 10/31/24 09:42 10/31/24 09:46 Temperature Pulse Rate 116 H 108 H 115 H Respiratory Rate 18 20 19 Blood Pressure Pulse Oximetry 99 100 Oxygen Delivery Oxygen Flow Rate 10/31/24 09:59 10/31/24 10:00 10/31/24 10:15 Temperature Pulse Rate 114 H 111 H 129 H Respiratory Rate 15 19 15 Blood Pressure 132/83 Pulse Oximetry 100 100 100 Oxygen Delivery Oxygen Flow Rate 10/31/24 10:38 10/31/24 10:39 10/31/24 10:43 Temperature Pulse Rate 174 H 161 H 152 H Respiratory Rate 14 Blood Pressure 131/108 H Pulse Oximetry 98 Oxygen Delivery Oxygen Flow Rate 10/31/24 10:44 10/31/24 10:45 10/31/24 10:46 Temperature Pulse Rate 158 H 165 H 163 H Respiratory Rate 9 L 8 L 11 L Blood Pressure 131/108 H Pulse Oximetry 98 99 98 Oxygen Delivery Oxygen Flow Rate 10/31/24 10:51 10/31/24 10:57 10/31/24 11:24 Temperature Pulse Rate 157 H 151 H 153 H Respiratory Rate 15 Blood Pressure Pulse Oximetry 98 Oxygen Delivery Oxygen Flow Rate 10/31/24 11:30 10/31/24 11:31 10/31/24 11:39 Temperature Pulse Rate 153 H 151 H 155 H Respiratory Rate 15 16 Blood Pressure 116/103 H 116/103 H Pulse Oximetry 100 Oxygen Delivery Oxygen Flow Rate 10/31/24 11:45 10/31/24 11:47 10/31/24 11:50 Temperature Pulse Rate 136 H 137 H 117 H Respiratory Rate 16 20 Blood Pressure 116/103 H 112/78 Pulse Oximetry 96 96 Oxygen Delivery Oxygen Flow Rate 10/31/24 11:52 10/31/24 11:54 10/31/24 12:00 Temperature Pulse Rate 117 H 128 H 128 H Respiratory Rate 19 20 Blood Pressure 112/78 112/78 Pulse Oximetry 98 Oxygen Delivery Oxygen Flow Rate 10/31/24 12:01 10/31/24 12:15 10/31/24 12:18 Temperature Pulse Rate 128 H 140 H 135 H Respiratory Rate 22 H 19 Blood Pressure 108/89 125/99 H Pulse Oximetry 99 99 Oxygen Delivery Oxygen Flow Rate 10/31/24 12:19 10/31/24 12:45 10/31/24 12:45 Temperature 97.5 F L Pulse Rate 132 H 111 H 111 H Respiratory Rate 11 L 16 Blood Pressure 127/97 H 127/97 H Pulse Oximetry 99 96 Oxygen Delivery Oxygen Flow Rate 10/31/24 14:00 10/31/24 14:51 10/31/24 14:52 Temperature Pulse Rate 111 H 104 H 104 H Respiratory Rate 17 Blood Pressure 121/72 121/72 Pulse Oximetry 97 Oxygen Delivery Oxygen Flow Rate 10/31/24 16:00 10/31/24 16:00 10/31/24 16:00 Temperature 97.5 F L Pulse Rate 119 H 118 H Respiratory Rate 20 Blood Pressure 128/90 Pulse Oximetry 97 100 Oxygen Delivery Nasal Cannula Oxygen Flow Rate 4 10/31/24 16:30 10/31/24 17:46 10/31/24 17:49 Temperature Pulse Rate 118 H 105 H 105 H Respiratory Rate Blood Pressure 128/90 127/84 127/84 Pulse Oximetry Oxygen Delivery Oxygen Flow Rate Exam Narrative: General: alert and comfortable Eyes: EOMI, PERRLA ENNT External ears normal, Neck is supple, no masses, Respiratory systems: Clear to auscultation Cardiovascular S1, S2, normal rhythm, no murmur, rub, or gallop; no thrill or palpable murmurs on palpation. Gastrointestinal: soft, non-tender, and non-distended abdomen with no masses; BS present Skin: no rash, lesions, ulcerations, subcutaneous nodules or induration Musculoskeletal: mild leg edema Neurologic: Alert and oriented x3, non focal Mental Status Exam: normal affect H&P: Results Labs Labs: Short CBC 10/31/24 Range/Units 08:39 WBC 13.4 H (4.5-10.0) K/mm3 Hgb 11.1 L (12.0-15.0) g/dL Hct 34.6 L (37.0-47.0) % Plt Count 193 (150-375) k/mm3 [facility] 10/31/24 08:39 Sodium 132 L Potassium 3.3 L Chloride 95 L Carbon Dioxide 34 H BUN 8 D Creatinine 0.50 L Glucose 202 H Calcium 8.9 Cardiac Enzymes 10/31/24 Range/Units 08:39 Troponin I 0.012 (0.000-0.034) ng/mL Liver Function 10/31/24 Range/Units 08:39 Total Bilirubin 0.9 (0.2-1.3) mg/dL AST 30 (14-36) U/L ALT 39 H (6-35) U/L Alkaline Phosphatase 87 (38-126) U/L Albumin 3.5 (3.5-5.1) g/dL Assessment and Plan Assessment and plan (1) Atrial fibrillation with rapid ventricular response: Code(s): I48.91 - Unspecified atrial fibrillation Status: Acute (2) Pneumonia: Code(s): J18.9 - Pneumonia, unspecified organism Status: Acute Plan atrial fibrillation with rapid ventricular response Heart rate 1 9, EKG reviewed. Continue amiodarone per Cardiology. Restarted home Eliquis. CHF exacerbation on biventricular ICD Patient has leg edema, reported orthopnea. No PND CT chest did not show any pulmonary edema. Continue diuresis per Cardiology. Possible pneumonia Patient reported night sweats or cough or shortness of breath. Labs showed a leukocytosis, and CT scans showed a possible pneumonia. Start patient on Rocephin and doxycycline Blood culture, MRSA ordered. coronary artery disease status post CABG Continue home medications. Hypertension Titrate medications with clinical course. DVT prophylaxis patient is Eliquis. Code status: DNR Surrogate decision maker is seamus Urena [facility] Advance Care Plan I have confirmed that the patient's Advanced Care Plan is present, code status is documented, or surrogate decision maker is listed in patient medical record.: Yes Medication Reconciliation I have utilized all available resources to obtain, update and review the patients current medications (includes all prescriptions, OTC, herbals, cannabis, and nutritional supplements).: Yes
[2024-10-31 18:24] LABS: Potassium 4.4 mmol/L (3.4-5.0)
[2024-10-31 20:06] LABS: MRSA (PCR) NOT DETECTED (NOT DETECTE)
[2024-10-31] MEDS: cefTRIAXone 2 GM/NS 100 ML 2 GM/100 ML BAG IVPB (20:24)
[2024-10-31] MEDS: ATORVASTATIN 40 MG TABLET PO (20:24)
[2024-10-31] MEDS: carvediloL 12.5 MG TABLET PO (20:24)
[2024-10-31] MEDS: APIXABAN 5 MG TABLET PO (20:24)
[2024-10-31] MEDS: DOXYCYCLINE 100 MG/NS 100 ML 100 MG/100 ML BAG IVPB (20:53)
--- NOTE | 2024-10-31 22:00 | PC.NURSE ---
Around 2200 patient complaining of increased shortness of breath and diaphoresis. Vitals obtained and stable at this time. Lung sounds auscultated and patient having increased coarse breath sounds to bilateral lungs. Dr. Stevenson notified of change in patient condition and patient received 40 mg IV Lasix once and a stat duoneb treatment from RT. Shortness of breath improving after breathing treatment and lasix. Will continue to monitor.
[2024-10-31] MEDS: IPRATROPIUM 0.5 MG/ALBUTEROL SULFATE 2.5 MG AMPUL.NEB 3 ML INHALATION (22:30)
[2024-11-01] VITALS (30 sets, daily range): BP systolic 115–139; BP diastolic 52–92; PULSE 80–992; RESP 16–24; TEMP 36.3–36.7; O2SAT 95–100
[2024-11-01] MEDS: IPRATROPIUM 0.5 MG/ALBUTEROL SULFATE 2.5 MG AMPUL.NEB 3 ML INHALATION ×4 (02:18→21:19)
[2024-11-01] MEDS: AMIODARONE 360 MG/D5W 200 ML 360 MG/200 ML BAG 16.67 MG IV CONT ×2 (05:20→17:21)
[2024-11-01 05:27] LABS: Basophils Percent Auto 0.3 % (0.2-1.2); Eosinophils Absolute Auto 0.1 K/mm3 (0-0.3); Eosinophils Percent Auto 0.5 % (0-4.4); Hematocrit 30.6 % (37.0-47.0); Hemoglobin 9.8 g/dL (12.0-15.0); Immature Granulocyte Absolute 0.11 K/mm3 (0.00-0.031); Immature Granulocyte Percent A 0.8 % (0-0.5); Lymphocytes Absolute Auto 2.71 K/mm3 (0.9-3.2); Lymphocytes Percent Auto 20.2 % (18.3-44.2); Mean Corpuscular Hemoglobin 29.6 pg (26-34); Mean Corpuscular Volume 92.4 fl (80-100); Mean Platelet Volume 9.5 fl (7.4-10.4); Monocytes Absolute Auto 1.1 K/mm3 (0.1-0.6); Monocytes Percent Auto 7.9 % (2.6-8.5); Neutrophils Absolute Auto 9.4 K/mm3 (1.3-6.7); Neutrophils Percent Auto 70.3 % (45.5-73.1); Platelet Count Result 173 k/mm3 (150-375); Red Blood Count 3.31 M/mm3 (4.2-5.4); Red Cell Distribution Width 15.8 % (11.5-14.5); White Blood Count 13.4 K/mm3 (4.5-10.0)
[2024-11-01 05:52] LABS: Alanine Aminotransferase 66 U/L (6-35); Albumin Level 3.3 g/dL (3.5-5.1); Alkaline Phosphatase 84 U/L (38-126); Anion Gap -1 mmol/L (4-12); Aspartate Amino Transferase 38 U/L (14-36); Bilirubin,Total 0.4 mg/dL (0.2-1.3); Blood Urea Nitrogen 13 mg/dL (7-17); Calcium 8.7 mg/dL (8.4-10.2); Carbon Dioxide 39 mmol/L (22-30); Chloride 93 mmol/L (98-107); Estimated CRCL calculation 47 ml/min; Estimated Glomerular Filt Rate > 60; Glucose 150 mg/dL (65-110); Magnesium 1.9 mg/dL (1.6-2.3); Potassium 4.5 mmol/L (3.4-5.0); Sodium 131 mmol/L (137-145)
--- NOTE | 2024-11-01 08:38 | ECG_ITS ---
Test Date: 2024-11-01 11:05:42 Measurements Intervals [place] Rate: 98 P: 0 [place]: 0 QRS: 216 QRSD: 154 T: 32 QT: 423 QTc: 540 Interpretive Statements ELECTRONIC VENTRICULAR PACEMAKER ABNORMAL RHYTHM ECG Compared to ECG 10/31/2024 10:35:37 Atrial fibrillation no longer present Left-axis deviation no longer present Left bundle-branch block no longer present Electronically Signed On 11-01-2024 18:59:29 MALTED MILK MASHER by Gigi Munroe
[2024-11-01 09:03] LABS: Alveolar/Arterial O2 Gradient 115.4 mmHg; Base Excess ABG 8.7 mEq/l (+/-2.0); Device NASAL CANNULA; Fractional Inspired Oxygen 36 %; HCO3 ABG 33.6 mEq/l (22.0-26.0); Oxygen Content ABG 14.6 %vol (16.0-22.0); Oxygen Saturation ABG 96.8 % (95.0-100.0); Oxyhemoglobin 95.7 % THb (90.0-100.0); PCO2 ABG 48.2 mmHg (35.0-45.0); PO2 ABG 85.4 mmHg (80.0-100.0); PO2 FiO2 Ratio Arterial Blood 2.37 %; Site Drawn LEFT BRACHIAL; Total Hemoglobin 10.8 g/dL (12.0-18.0); pH ABG 7.461 (7.350-7.450)
[2024-11-01 09:27] LABS: Iron 35 ug/dL (37-170)
[2024-11-01 09:40] LABS: Percent Iron Saturation 12 % (20-50)
--- NOTE | 2024-11-01 10:03 | PCRCNOTE ---
ABG delayed, RT not notified of STAT order.
[2024-11-01] MEDS: busPIRone HCL 5 MG TABLET PO (10:53)
[2024-11-01] MEDS: FUROSEMIDE INJ 40 MG/4 ML VIAL 20 MG IV PUSH ×2 (10:53→17:28)
[2024-11-01] MEDS: buPROPion HCL XL (24 HR) 150 MG TABCR PO (10:53)
[2024-11-01] MEDS: carvediloL 12.5 MG TABLET PO ×2 (10:53→21:37)
[2024-11-01] MEDS: APIXABAN 5 MG TABLET PO ×2 (10:54→21:37)
[2024-11-01] MEDS: metroNIDAZOLE 500 MG/ISO 100ML 500 MG/100 ML BAG 100 MG IVPB ×2 (11:47→17:27)
--- NOTE | 2024-11-01 12:56 | PM.IMPN ---
Progress Note: A&P Assessment and Plan (1) Atrial fibrillation with rapid ventricular response: Code(s): I48.91 - Unspecified atrial fibrillation Status: Acute (2) Pneumonia: Code(s): J18.9 - Pneumonia, unspecified organism Status: Acute Plan atrial fibrillation with rapid ventricular response Heart rate 1 9, EKG reviewed. Continue amiodarone per Cardiology. Restarted home Eliquis. FOr DI with cardioversion today CHF exacerbation on biventricular ICD Patient has leg edema, reported orthopnea. No PND CT chest did not show any pulmonary edema. Continue lasix 20mg bid cardiology following Possible pneumonia Patient reported night sweats or cough or shortness of breath. Labs showed a leukocytosis, and CT scans showed a possible pneumonia. on Rocephin and doxycycline Blood culture, MRSA negative coronary artery disease status post CABG Continue home medications. Hypertension Titrate medications with clinical course. DVT prophylaxis patient is Eliquis. Code status: DNR Surrogate decision maker is seamus Urena Subjective Date/time seen: 11/01/24 12:56 Interval history: COmfortable at bedside For DI with cardioversion today Review of Systems Review of Systems: All other systems reviewed and negative except as Noted in the HPI above. Exam Narrative: General: alert and comfortable Eyes: EOMI, PERRLA ENNT External ears normal, Neck is supple, no masses, Respiratory systems: Clear to auscultation Cardiovascular S1, S2, normal rhythm, no murmur, rub, or gallop; no thrill or palpable murmurs on palpation. Gastrointestinal: soft, non-tender, and non-distended abdomen with no masses; BS present Skin: no rash, lesions, ulcerations, subcutaneous nodules or induration Musculoskeletal: mild leg edema Neurologic: Alert and oriented x3, non focal Mental Status Exam: normal affect Objective Data Vital Signs Vital Signs: Vital Signs - 24 hr 10/31/24 14:00 10/31/24 14:51 10/31/24 14:52 Temperature Pulse Rate 111 H 104 H 104 H Respiratory Rate 17 Blood Pressure 121/72 121/72 Pulse Oximetry 97 Oxygen Delivery Oxygen Flow Rate 10/31/24 16:00 10/31/24 16:00 10/31/24 16:00 Temperature 97.5 F L Pulse Rate 119 H 118 H Respiratory Rate 20 Blood Pressure 128/90 Pulse Oximetry 97 100 Oxygen Delivery Nasal Cannula Oxygen Flow Rate 4 10/31/24 16:30 10/31/24 17:46 10/31/24 17:49 Temperature Pulse Rate 118 H 105 H 105 H Respiratory Rate Blood Pressure 128/90 127/84 127/84 Pulse Oximetry Oxygen Delivery Oxygen Flow Rate 10/31/24 18:00 10/31/24 20:00 10/31/24 20:00 Temperature Pulse Rate 104 H 108 H 112 H Respiratory Rate Blood Pressure 128/82 Pulse Oximetry Oxygen Delivery Oxygen Flow Rate 10/31/24 20:24 10/31/24 20:25 10/31/24 20:27 Temperature Pulse Rate 102 H 110 H 110 H Respiratory Rate 20 Blood Pressure Pulse Oximetry 100 Oxygen Delivery Nasal Cannula Oxygen Flow Rate 3 10/31/24 20:44 10/31/24 21:42 10/31/24 22:00 Temperature 97.8 F Pulse Rate 96 99 119 H Respiratory Rate 20 Blood Pressure 128/82 114/63 Pulse Oximetry 100 99 Oxygen Delivery Oxygen Flow Rate 10/31/24 22:00 10/31/24 22:33 10/31/24 22:37 Temperature Pulse Rate 118 H 110 H 103 H Respiratory Rate 24 H 24 H Blood Pressure 114/63 Pulse Oximetry Oxygen Delivery Oxygen Flow Rate 10/31/24 23:05 11/01/24 00:00 11/01/24 00:00 Temperature Pulse Rate 103 H 87 Respiratory Rate 24 H Blood Pressure Pulse Oximetry 95 99 Oxygen Delivery Nasal Cannula Nasal Cannula Oxygen Flow Rate 3 4 11/01/24 00:00 11/01/24 00:22 11/01/24 01:57 Temperature 97.7 F 97.7 F Pulse Rate 87 99 88 Respiratory Rate 20 20 Blood Pressure 127/92 H 127/92 H 115/69 Pulse Oximetry 100 100 Oxygen Delivery Oxygen Flow Rate 11/01/24 02:00 11/01/24 02:00 11/01/24 02:18 Temperature Pulse Rate 84 83 85 Respiratory Rate 20 Blood Pressure 116/70 Pulse Oximetry Oxygen Delivery Oxygen Flow Rate 11/01/24 02:25 11/01/24 03:45 11/01/24 04:00 Temperature Pulse Rate 91 91 85 Respiratory Rate 20 20 Blood Pressure Pulse Oximetry 100 Oxygen Delivery Nasal Cannula Oxygen Flow Rate 4 11/01/24 04:00 11/01/24 05:20 11/01/24 05:20 Temperature Pulse Rate 88 87 87 Respiratory Rate Blood Pressure 119/85 115/72 115/72 Pulse Oximetry Oxygen Delivery Oxygen Flow Rate 11/01/24 05:30 11/01/24 06:00 11/01/24 06:00 Temperature 97.7 F Pulse Rate 92 84 80 Respiratory Rate 20 18 Blood Pressure 119/85 128/78 Pulse Oximetry 99 100 Oxygen Delivery Oxygen Flow Rate 11/01/24 06:00 11/01/24 07:53 11/01/24 07:54 Temperature Pulse Rate 80 93 Respiratory Rate 20 Blood Pressure 128/78 Pulse Oximetry 96 Oxygen Delivery Nasal Cannula Oxygen Flow Rate 4 11/01/24 08:00 11/01/24 08:01 11/01/24 10:00 Temperature 97.4 F L Pulse Rate 87 93 97 Respiratory Rate 16 20 Blood Pressure 137/76 138/5 L Pulse Oximetry 100 Oxygen Delivery Oxygen Flow Rate Intake/Output Intake/Output: Intake & Output 10/29/24 10/30/24 10/31/24 11/01/24 23:59 23:59 23:59 23:59 Intake Total 764.8 483.2 Output Total 1100 1000 Balance -335.2 -516.8 Meds/Results Medications: Active Medications Generic Name Dose Route Start Last Admin Trade Name Freq PRN Reason Stop Dose Admin Albuterol/Ipratropium 3 ml 11/01/24 02:00 11/01/24 07:51 Ipratropium 0.5 Mg/Albuterol Sulfate 2.5 Mg Ampul.Neb 3 Ml INHALATION 3 ml Q6HRT GILMER Administration Apixaban 5 mg 10/31/24 21:00 11/01/24 10:54 Apixaban 5 Mg Tablet PO 5 mg Q12HR GILMER Administration Atorvastatin Calcium 40 mg 10/31/24 21:00 10/31/24 20:24 Atorvastatin 40 Mg Tablet PO 40 mg HS GILMER Administration Bupropion HCl 150 mg 11/01/24 09:00 11/01/24 10:53 Bupropion Hcl Xl (24 Hr) 150 Mg Tabcr PO 150 mg DAILY GILMER Administration Buspirone HCl 5 mg 11/01/24 09:00 11/01/24 10:53 Buspirone Hcl 5 Mg Tablet PO 5 mg BID GILMER Administration Carvedilol 12.5 mg 10/31/24 21:00 11/01/24 10:53 Carvedilol 12.5 Mg Tablet PO 12.5 mg Q12HR GILMER Administration Fluticasone/Umeclidinium/Vilanterol 1 puff 10/31/24 10:40 Fluticasone/Umeclidin/Vilanter 200-62.5-25 Mcg Ellipta INHALATION DAILYRT GILMER Furosemide 20 mg 11/01/24 10:35 11/01/24 10:53 Furosemide Inj 40 Mg/4 Ml Vial IV PUSH 20 mg BID GILMER Administration Amiodarone HCl/Dextrose 360 mg in 200 mls @ 16.667 mls/hr 10/31/24 17:40 11/01/24 06:00 Nexterone 360 Mg/D5w 200 Ml IV CONT 0.5 mg/min .Q12H GILMER 16.67 mls/hr Infusion 0.5 MG/MIN Ceftriaxone Sodium 2 gm in 100 mls @ 200 mls/hr 10/31/24 20:00 10/31/24 20:51 Rocephin 2 Gm/Ns 100 Ml IVPB Infused Q24H GILMER Infusion Doxycycline Hyclate 100 mg in 100 mls @ 100 mls/hr 10/31/24 21:00 10/31/24 21:53 Vibramycin 100 Mg/Ns 100 Ml IVPB Infused Q12H GILMER Infusion Metronidazole 500 mg in 100 mls @ 100 mls/hr 11/01/24 09:00 11/01/24 11:47 Flagyl 500 Mg/Iso Soln 100 Ml IVPB 100 mls/hr Q8H GILMER Administration Metoprolol Tartrate 5 mg 10/31/24 14:12 10/31/24 20:27 Metoprolol Tartrate Inj 5 Mg/5 Ml Vial IV PUSH 5 mg Q2H PRN Administration Tachycardia Radiology Results: ITS Impressions Chest CT 10/31/24 12:15 Impression: Advanced emphysema. Probable mild bibasilar atelectasis, less likely pneumonia. Correlate clinically for signs/symptoms of infection. Minimal right pleural fluid. Chest X-Ray 11/01/24 08:46 IMPRESSION: Bibasilar atelectasis versus pneumonia more on the right side. Labs Labs: Laboratory Results - last 24 hr 10/31/24 10/31/24 11/01/24 17:57 18:48 05:18 WBC 13.4 H RBC 3.31 L Hgb 9.8 L Hct 30.6 L MCV 92.4 MCH 29.6 MCHC 32.0 RDW 15.8 H Plt Count 173 MPV 9.5 Immature Gran % (Auto) 0.8 H Neut % (Auto) 70.3 Lymph % (Auto) 20.2 [place] % (Auto) 7.9 Eos % (Auto) 0.5 Baso % (Auto) 0.3 Lymph # (Auto) 2.71 [place] # (Auto) 1.1 H Eos # (Auto) 0.1 Baso # (Auto) 0.0 Abs Immat Gran (auto) 0.11 H Absolute Neuts (auto) 9.4 H Absolute Nucleated RBC 0.000 Nucleated RBC % 0.0 Puncture Site ABG pH ABG pCO2 ABG pO2 ABG PO2/FiO2 Ratio ABG HCO3 ABG O2 Saturation ABG O2 Content ABG Base Excess A-a Gradient Oxyhemoglobin Total Hemoglobin O2 Delivery Device O2 Liters/Min FiO2 Sodium 131 L Potassium 4.4 4.5 Chloride 93 L Carbon Dioxide 39 H Anion Gap -1 L BUN 13 D Creatinine 0.70 Estim Creat Clear Calc 47 Estimated GFR > 60 Glucose 150 H Calcium 8.7 Magnesium 1.9 Iron 35 L TIBC 301 % Saturation 12 L Ferritin 66.20 Total Bilirubin 0.4 AST 38 H ALT 66 H Alkaline Phosphatase 84 Total Protein 6.0 L Albumin 3.3 L Nasal MRSA (PCR) Not detected 11/01/24 09:00 WBC RBC Hgb Hct MCV MCH MCHC RDW Plt Count MPV Immature Gran % (Auto) Neut % (Auto) Lymph % (Auto) [place] % (Auto) Eos % (Auto) Baso % (Auto) Lymph # (Auto) [place] # (Auto) Eos # (Auto) Baso # (Auto) Abs Immat Gran (auto) Absolute Neuts (auto) Absolute Nucleated RBC Nucleated RBC % Puncture Site Left brachial ABG pH 7.461 H ABG pCO2 48.2 H ABG pO2 85.4 ABG PO2/FiO2 Ratio 2.37 ABG HCO3 33.6 H ABG O2 Saturation 96.8 ABG O2 Content 14.6 L ABG Base Excess 8.7 A-a Gradient 115.4 Oxyhemoglobin 95.7 Total Hemoglobin 10.8 L O2 Delivery Device Nasal cannula O2 Liters/Min 4.0 FiO2 36 Sodium Potassium Chloride Carbon Dioxide Anion Gap BUN Creatinine Estim Creat Clear Calc Estimated GFR Glucose Calcium Magnesium Iron TIBC % Saturation Ferritin Total Bilirubin AST ALT Alkaline Phosphatase Total Protein Albumin Nasal MRSA (PCR)
--- NOTE | 2024-11-01 14:54 | P.PNCA_ITS ---
Progress Note: A&P Assessment and Plan (1) Atrial fibrillation with rapid ventricular response: Code(s): I48.91 - Unspecified atrial fibrillation Status: Acute Assessment and Plan: Rates better controlled on amiodarone; will continue amiodarone -no need for cardioversion for now -continue with apixaban for anticoagulation * (2) COPD exacerbation: Code(s): J44.1 - Chronic obstructive pulmonary disease with (acute) exacerbation Status: Acute Assessment and Plan: Management per hospitalist (3) Acute exacerbation of CHF (congestive heart failure): Code(s): I50.9 - Heart failure, unspecified Status: Acute Assessment and Plan: Last echo showed normal EF Continue Diuresis (4) Ischemic cardiomyopathy: Code(s): I25.5 - Ischemic cardiomyopathy Status: Acute Assessment and Plan: Recovered EF (03/2023) Continue Coreg Resume home Lisinopril Spironolactone to be added later if BP allows Subjective Date/time seen: 11/01/24 14:54 Interval history: COmfortable at bedside For DI with cardioversion today Review of Systems Review of Systems: All systems reviewed & are unremarkable except as noted in HPI and below Exam Const: General: comfortable, no acute distress, alert and awake Orientation/consciousness: patient oriented x3 HENMT: Head: normal to inspection Eyes: General: appearance normal, both eyes and all related structures Pupils: Equal, round and reactive pupils present Neck: Neck: normal visual inspection, supple and no JVD Carotids: normal carotid upstroke Resp: Auscultation: not clear to auscultation bilaterally, rales on the right, wheezes and diminished lung sounds Cardio: Rate: tachycardic Rhythm: abnormal rhythm Heart sounds: S1 normal heart sound present, S2 normal heart sound present and no murmurs GI: Auscultation: normal bowel sounds Skin: General skin exam: normal color Neuro: General: patient oriented x3 Cranial nerves: Yes Equal, round and reactive pupils present Extrem: Other: mild bilateral pretibial and pedal edema Psych: Appearance: grossly normal Mental Status: mental status grossly normal Objective Data Vital Signs Vital Signs: Vital Signs - 24 hr 10/31/24 16:00 10/31/24 16:00 10/31/24 16:00 Temperature 36.4 C L Pulse Rate 119 H 118 H Respiratory Rate 20 Blood Pressure 128/90 Pulse Oximetry 97 100 Oxygen Delivery Nasal Cannula Oxygen Flow Rate 4 10/31/24 16:30 10/31/24 17:46 10/31/24 17:49 Temperature Pulse Rate 118 H 105 H 105 H Respiratory Rate Blood Pressure 128/90 127/84 127/84 Pulse Oximetry Oxygen Delivery Oxygen Flow Rate 10/31/24 18:00 10/31/24 20:00 10/31/24 20:00 Temperature Pulse Rate 104 H 108 H 112 H Respiratory Rate Blood Pressure 128/82 Pulse Oximetry Oxygen Delivery Oxygen Flow Rate 10/31/24 20:24 10/31/24 20:25 10/31/24 20:27 Temperature Pulse Rate 102 H 110 H 110 H Respiratory Rate 20 Blood Pressure Pulse Oximetry 100 Oxygen Delivery Nasal Cannula Oxygen Flow Rate 3 10/31/24 20:44 10/31/24 21:42 10/31/24 22:00 Temperature 36.6 C Pulse Rate 96 99 119 H Respiratory Rate 20 Blood Pressure 128/82 114/63 Pulse Oximetry 100 99 Oxygen Delivery Oxygen Flow Rate 10/31/24 22:00 10/31/24 22:33 10/31/24 22:37 Temperature Pulse Rate 118 H 110 H 103 H Respiratory Rate 24 H 24 H Blood Pressure 114/63 Pulse Oximetry Oxygen Delivery Oxygen Flow Rate 10/31/24 23:05 11/01/24 00:00 11/01/24 00:00 Temperature Pulse Rate 103 H 87 Respiratory Rate 24 H Blood Pressure Pulse Oximetry 95 99 Oxygen Delivery Nasal Cannula Nasal Cannula Oxygen Flow Rate 3 4 11/01/24 00:00 11/01/24 00:22 11/01/24 01:57 Temperature 36.5 C 36.5 C Pulse Rate 87 99 88 Respiratory Rate 20 20 Blood Pressure 127/92 H 127/92 H 115/69 Pulse Oximetry 100 100 Oxygen Delivery Oxygen Flow Rate 11/01/24 02:00 11/01/24 02:00 11/01/24 02:18 Temperature Pulse Rate 84 83 85 Respiratory Rate 20 Blood Pressure 116/70 Pulse Oximetry Oxygen Delivery Oxygen Flow Rate 11/01/24 02:25 11/01/24 03:45 11/01/24 04:00 Temperature Pulse Rate 91 91 85 Respiratory Rate 20 20 Blood Pressure Pulse Oximetry 100 Oxygen Delivery Nasal Cannula Oxygen Flow Rate 4 11/01/24 04:00 11/01/24 05:20 11/01/24 05:20 Temperature Pulse Rate 88 87 87 Respiratory Rate Blood Pressure 119/85 115/72 115/72 Pulse Oximetry Oxygen Delivery Oxygen Flow Rate 11/01/24 05:30 11/01/24 06:00 11/01/24 06:00 Temperature 36.5 C Pulse Rate 92 84 80 Respiratory Rate 20 18 Blood Pressure 119/85 128/78 Pulse Oximetry 99 100 Oxygen Delivery Oxygen Flow Rate 11/01/24 06:00 11/01/24 07:53 11/01/24 07:54 Temperature Pulse Rate 80 93 Respiratory Rate 20 Blood Pressure 128/78 Pulse Oximetry 96 Oxygen Delivery Nasal Cannula Oxygen Flow Rate 4 11/01/24 08:00 11/01/24 08:01 11/01/24 10:00 Temperature 36.3 C L Pulse Rate 87 93 97 Respiratory Rate 16 20 Blood Pressure 137/76 138/52 L Pulse Oximetry 100 Oxygen Delivery Oxygen Flow Rate 11/01/24 13:10 11/01/24 13:20 Temperature Pulse Rate 85 82 Respiratory Rate 20 20 Blood Pressure Pulse Oximetry Oxygen Delivery Oxygen Flow Rate Intake/Output Intake/Output: Intake & Output 10/29/24 10/30/24 10/31/24 11/01/24 23:59 23:59 23:59 23:59 Intake Total 764.8 483.2 Output Total 1100 1000 Balance -335.2 -516.8 Meds/Results Medications: Active Medications Generic Name Dose Route Start Last Admin Trade Name Freq PRN Reason Stop Dose Admin Albuterol/Ipratropium 3 ml 11/01/24 02:00 11/01/24 13:10 Ipratropium 0.5 Mg/Albuterol Sulfate 2.5 Mg Ampul.Neb 3 Ml INHALATION 3 ml Q6HRT GILMER Administration Apixaban 5 mg 10/31/24 21:00 11/01/24 10:54 Apixaban 5 Mg Tablet PO 5 mg Q12HR GILMER Administration Atorvastatin Calcium 40 mg 10/31/24 21:00 10/31/24 20:24 Atorvastatin 40 Mg Tablet PO 40 mg HS GILMER Administration Bupropion HCl 150 mg 11/01/24 09:00 11/01/24 10:53 Bupropion Hcl Xl (24 Hr) 150 Mg Tabcr PO 150 mg DAILY GILMER Administration Buspirone HCl 5 mg 11/01/24 09:00 11/01/24 10:53 Buspirone Hcl 5 Mg Tablet PO 5 mg BID GILMER Administration Carvedilol 12.5 mg 10/31/24 21:00 11/01/24 10:53 Carvedilol 12.5 Mg Tablet PO 12.5 mg Q12HR GILMER Administration Fluticasone/Umeclidinium/Vilanterol 1 puff 10/31/24 10:40 Fluticasone/Umeclidin/Vilanter 200-62.5-25 Mcg Ellipta INHALATION DAILYRT GILMER Furosemide 20 mg 11/01/24 10:35 11/01/24 10:53 Furosemide Inj 40 Mg/4 Ml Vial IV PUSH 20 mg BID GILMER Administration Amiodarone HCl/Dextrose 360 mg in 200 mls @ 16.667 mls/hr 10/31/24 17:40 11/01/24 06:00 Nexterone 360 Mg/D5w 200 Ml IV CONT 0.5 mg/min .Q12H GILMER 16.67 mls/hr Infusion 0.5 MG/MIN Ceftriaxone Sodium 2 gm in 100 mls @ 200 mls/hr 10/31/24 20:00 10/31/24 20:51 Rocephin 2 Gm/Ns 100 Ml IVPB Infused Q24H GILMER Infusion Doxycycline Hyclate 100 mg in 100 mls @ 100 mls/hr 10/31/24 21:00 10/31/24 21:53 Vibramycin 100 Mg/Ns 100 Ml IVPB Infused Q12H GILMER Infusion Metronidazole 500 mg in 100 mls @ 100 mls/hr 11/01/24 09:00 11/01/24 11:47 Flagyl 500 Mg/Iso Soln 100 Ml IVPB 100 mls/hr Q8H GILMER Administration Metoprolol Tartrate 5 mg 10/31/24 14:12 10/31/24 20:27 Metoprolol Tartrate Inj 5 Mg/5 Ml Vial IV PUSH 5 mg Q2H PRN Administration Tachycardia Radiology Results: ITS Impressions Chest CT 10/31/24 12:15 Impression: Advanced emphysema. Probable mild bibasilar atelectasis, less likely pneumonia. Correlate clinically for signs/symptoms of infection. Minimal right pleural fluid. Chest X-Ray 11/01/24 08:46 IMPRESSION: Bibasilar atelectasis versus pneumonia more on the right side. Labs Labs: Laboratory Results - last 24 hr 12/10/24 12/10/24 12/11/24 17:57 18:48 05:18 WBC 13.4 H RBC 3.31 L Hgb 9.8 L Hct 30.6 L MCV 92.4 MCH 29.6 MCHC 32.0 RDW 15.8 H Plt Count 173 MPV 9.5 Immature Gran % (Auto) 0.8 H Neut % (Auto) 70.3 Lymph % (Auto) 20.2 [place] % (Auto) 7.9 Eos % (Auto) 0.5 Baso % (Auto) 0.3 Lymph # (Auto) 2.71 [place] # (Auto) 1.1 H Eos # (Auto) 0.1 Baso # (Auto) 0.0 Abs Immat Gran (auto) 0.11 H Absolute Neuts (auto) 9.4 H Absolute Nucleated RBC 0.000 Nucleated RBC % 0.0 Puncture Site ABG pH ABG pCO2 ABG pO2 ABG PO2/FiO2 Ratio ABG HCO3 ABG O2 Saturation ABG O2 Content ABG Base Excess A-a Gradient Oxyhemoglobin Total Hemoglobin O2 Delivery Device O2 Liters/Min FiO2 Sodium 131 L Potassium 4.4 4.5 Chloride 93 L Carbon Dioxide 39 H Anion Gap -1 L BUN 13 D Creatinine 0.70 Estim Creat Clear Calc 47 Estimated GFR > 60 Glucose 150 H Calcium 8.7 Magnesium 1.9 Iron 35 L TIBC 301 % Saturation 12 L Ferritin 66.20 Total Bilirubin 0.4 AST 38 H ALT 66 H Alkaline Phosphatase 84 Total Protein 6.0 L Albumin 3.3 L Nasal MRSA (PCR) Not detected 11/01/24 09:00 WBC RBC Hgb Hct MCV MCH MCHC RDW Plt Count MPV Immature Gran % (Auto) Neut % (Auto) Lymph % (Auto) [place] % (Auto) Eos % (Auto) Baso % (Auto) Lymph # (Auto) [place] # (Auto) Eos # (Auto) Baso # (Auto) Abs Immat Gran (auto) Absolute Neuts (auto) Absolute Nucleated RBC Nucleated RBC % Puncture Site Left brachial ABG pH 7.461 H ABG pCO2 48.2 H ABG pO2 85.4 ABG PO2/FiO2 Ratio 2.37 ABG HCO3 33.6 H ABG O2 Saturation 96.8 ABG O2 Content 14.6 L ABG Base Excess 8.7 A-a Gradient 115.4 Oxyhemoglobin 95.7 Total Hemoglobin 10.8 L O2 Delivery Device Nasal cannula O2 Liters/Min 4.0 FiO2 36 Sodium Potassium Chloride Carbon Dioxide Anion Gap BUN Creatinine Estim Creat Clear Calc Estimated GFR Glucose Calcium Magnesium Iron TIBC % Saturation Ferritin Total Bilirubin AST ALT Alkaline Phosphatase Total Protein Albumin Nasal MRSA (PCR)
[2024-11-01] MEDS: DOXYCYCLINE 100 MG/NS 100 ML 100 MG/100 ML BAG IVPB (21:36)
[2024-11-01] MEDS: ATORVASTATIN 40 MG TABLET PO (21:37)
[2024-11-01] MEDS: cefTRIAXone 2 GM/NS 100 ML 2 GM/100 ML BAG IVPB (21:37)
[2024-11-02] VITALS (24 sets, daily range): BP systolic 113–147; BP diastolic 66–93; PULSE 82–114; RESP 16–24; TEMP 36.3–36.7; O2SAT 92–100
[2024-11-02] MEDS: metroNIDAZOLE 500 MG/ISO 100ML 500 MG/100 ML BAG 100 MG IVPB ×3 (00:55→16:39)
[2024-11-02] MEDS: IPRATROPIUM 0.5 MG/ALBUTEROL SULFATE 2.5 MG AMPUL.NEB 3 ML INHALATION ×4 (01:09→21:22)
[2024-11-02] MEDS: AMIODARONE 360 MG/D5W 200 ML 360 MG/200 ML BAG 16.67 MG IV CONT (05:00)
[2024-11-02] MEDS: FLUTICASONE/UMECLIDIN/VILANTER 200-62.5-25 MCG ELLIPTA 1 PUFF INHALATION (08:44)
--- NOTE | 2024-11-02 09:59 | PM.PNCARD ---
Progress Note: A&P Assessment and Plan (1) Atrial fibrillation with rapid ventricular response: Code(s): I48.91 - Unspecified atrial fibrillation Status: Acute Assessment and Plan: Rates better controlled on amiodarone; will continue amiodarone and shift from IV to p.o. today -continue with apixaban for anticoagulation -Amiodarone 400mg p.o. b.i.d. - will decrease this to maintenance dose of 200mg at discharge -Will shift her coreg to metoprolol in light of her COPD as this is a cardioselective beta bri, should also provide better rate control. -metoprolol 50mg q12h. Can up titrate if need be. Can be shifted to ToprolXL at discharge (2) COPD exacerbation: Code(s): J44.1 - Chronic obstructive pulmonary disease with (acute) exacerbation Status: Acute Assessment and Plan: Management per hospitalist (3) Acute exacerbation of CHF (congestive heart failure): Code(s): I50.9 - Heart failure, unspecified Status: Acute Assessment and Plan: Last echo showed normal EF Continue IV furosemide today, perhaps shift to p.o. tomorrow (4) Ischemic cardiomyopathy: Code(s): I25.5 - Ischemic cardiomyopathy Status: Acute Assessment and Plan: Recovered EF (03/2023) Continue beta bri Resume home Lisinopril Spironolactone to be added later if BP allows Subjective Date/time seen: 11/02/24 09:59 Interval history: COmfortable at bedside For DI with cardioversion today Date of service 11/02/2024: Feeling slightly better today. Had small BM this morning. Heart rate generally controlled around 100bpm on telemetry. Review of Systems Review of Systems: All systems reviewed & are unremarkable except as noted in HPI and below Exam Const: General: comfortable, no acute distress, alert and awake Orientation/consciousness: patient oriented x3 HENMT: Head: normal to inspection Eyes: General: appearance normal, both eyes and all related structures Pupils: Equal, round and reactive pupils present Neck: Neck: normal visual inspection, supple and no JVD Carotids: normal carotid upstroke Resp: Auscultation: not clear to auscultation bilaterally, wheezes and diminished lung sounds Cardio: Rate: regular rate Rhythm: abnormal rhythm Heart sounds: S1 normal heart sound present, S2 normal heart sound present and no murmurs GI: Auscultation: normal bowel sounds Skin: General skin exam: normal color Neuro: General: patient oriented x3 Cranial nerves: Yes Equal, round and reactive pupils present Extrem: Other: Trace bilateral pretibial and pedal edema Psych: Appearance: grossly normal Mental Status: mental status grossly normal Objective Data Vital Signs Vital Signs: Vital Signs - 24 hr 11/01/24 10:00 11/01/24 10:00 11/01/24 12:00 Temperature 36.4 C L Pulse Rate 97 90 86 Respiratory Rate 24 H Blood Pressure 138/52 L 122/64 Pulse Oximetry 95 Oxygen Delivery Oxygen Flow Rate 11/01/24 12:00 11/01/24 12:00 11/01/24 13:10 Temperature Pulse Rate 93 85 Respiratory Rate 22 H 20 Blood Pressure Pulse Oximetry 98 Oxygen Delivery Nasal Cannula Oxygen Flow Rate 2 11/01/24 13:20 11/01/24 14:00 11/01/24 16:00 Temperature 36.4 C L Pulse Rate 82 88 86 Respiratory Rate 20 24 H Blood Pressure 122/64 Pulse Oximetry 95 Oxygen Delivery Oxygen Flow Rate 11/01/24 16:00 11/01/24 16:00 11/01/24 17:20 Temperature Pulse Rate 992 H 90 Respiratory Rate 18 Blood Pressure Pulse Oximetry 99 Oxygen Delivery Nasal Cannula Oxygen Flow Rate 2 11/01/24 17:21 11/01/24 18:00 11/01/24 18:00 Temperature Pulse Rate 90 89 89 Respiratory Rate Blood Pressure 117/72 Pulse Oximetry 99 Oxygen Delivery Oxygen Flow Rate 11/01/24 20:00 11/01/24 20:00 11/01/24 20:00 Temperature Pulse Rate 103 H 103 H 103 H Respiratory Rate 20 Blood Pressure 132/77 Pulse Oximetry 98 Oxygen Delivery Nasal Cannula Oxygen Flow Rate 4 11/01/24 20:48 11/01/24 21:20 11/01/24 21:37 Temperature 36.5 C Pulse Rate 98 84 102 H Respiratory Rate 24 H 20 Blood Pressure 132/77 Pulse Oximetry 98 Oxygen Delivery Oxygen Flow Rate 11/01/24 22:00 11/01/24 22:00 11/01/24 22:00 Temperature Pulse Rate 98 98 Respiratory Rate Blood Pressure 139/73 139/73 Pulse Oximetry Oxygen Delivery Oxygen Flow Rate 11/01/24 23:33 11/02/24 00:00 11/02/24 00:00 Temperature 36.7 C Pulse Rate 95 95 95 Respiratory Rate 24 H 20 Blood Pressure 117/67 Pulse Oximetry 100 100 Oxygen Delivery Nasal Cannula Oxygen Flow Rate 3 11/02/24 00:00 11/02/24 01:09 11/02/24 01:19 Temperature Pulse Rate 95 88 90 Respiratory Rate 20 20 Blood Pressure 117/67 Pulse Oximetry Oxygen Delivery Oxygen Flow Rate 11/02/24 02:00 11/02/24 02:00 11/02/24 02:00 Temperature Pulse Rate 98 98 98 Respiratory Rate Blood Pressure 120/70 120/70 Pulse Oximetry 95 Oxygen Delivery Oxygen Flow Rate 11/02/24 04:00 11/02/24 04:00 11/02/24 04:09 Temperature 36.7 C Pulse Rate 87 87 92 Respiratory Rate 24 H 24 H Blood Pressure 113/66 Pulse Oximetry 92 92 Oxygen Delivery Nasal Cannula Oxygen Flow Rate 3 11/02/24 05:00 11/02/24 05:00 11/02/24 06:00 Temperature Pulse Rate 93 93 92 Respiratory Rate Blood Pressure 134/72 134/72 Pulse Oximetry Oxygen Delivery Oxygen Flow Rate 11/02/24 06:00 11/02/24 08:00 11/02/24 08:45 Temperature 36.6 C Pulse Rate 100 Respiratory Rate 18 Blood Pressure 134/72 146/93 H Pulse Oximetry 95 97 95 Oxygen Delivery Nasal Cannula Oxygen Flow Rate 3 11/02/24 08:45 11/02/24 08:55 Temperature Pulse Rate 101 H 94 Respiratory Rate 20 20 Blood Pressure Pulse Oximetry Oxygen Delivery Oxygen Flow Rate Intake/Output Intake/Output: Intake & Output 10/30/24 10/31/24 11/01/24 11/02/24 23:59 23:59 23:59 23:59 Intake Total 764.8 1969.6 766.6 Output Total 1100 2200 Balance -335.2 -230.4 766.6 Meds/Results Medications: Active Medications Generic Name Dose Route Start Last Admin Trade Name Freq PRN Reason Stop Dose Admin Albuterol/Ipratropium 3 ml 11/01/24 02:00 11/02/24 08:44 Ipratropium 0.5 Mg/Albuterol Sulfate 2.5 Mg Ampul.Neb 3 Ml INHALATION 3 ml Q6HRT GILMER Administration Apixaban 5 mg 10/31/24 21:00 11/01/24 21:37 Apixaban 5 Mg Tablet PO 5 mg Q12HR GILMER Administration Atorvastatin Calcium 40 mg 10/31/24 21:00 11/01/24 21:37 Atorvastatin 40 Mg Tablet PO 40 mg HS GILMER Administration Bupropion HCl 150 mg 11/01/24 09:00 11/01/24 10:53 Bupropion Hcl Xl (24 Hr) 150 Mg Tabcr PO 150 mg DAILY GILMER Administration Buspirone HCl 5 mg 11/01/24 09:00 11/01/24 21:26 Buspirone Hcl 5 Mg Tablet PO Not Given BID GILMER Carvedilol 12.5 mg 10/31/24 21:00 11/01/24 21:37 Carvedilol 12.5 Mg Tablet PO 12.5 mg Q12HR GILMER Administration Fluticasone/Umeclidinium/Vilanterol 1 puff 10/31/24 10:40 11/02/24 08:44 Fluticasone/Umeclidin/Vilanter 200-62.5-25 Mcg Ellipta INHALATION 1 puff DAILYRT GILMER Administration Furosemide 20 mg 11/01/24 10:35 11/01/24 17:28 Furosemide Inj 40 Mg/4 Ml Vial IV PUSH 20 mg BID GILMER Administration Amiodarone HCl/Dextrose 360 mg in 200 mls @ 16.667 mls/hr 10/31/24 17:40 11/02/24 05:00 Nexterone 360 Mg/D5w 200 Ml IV CONT 0.5 mg/min .Q12H GILMER 16.67 mls/hr Administration 0.5 MG/MIN Ceftriaxone Sodium 2 gm in 100 mls @ 200 mls/hr 10/31/24 20:00 11/01/24 22:05 Rocephin 2 Gm/Ns 100 Ml IVPB Infused Q24H GILMER Infusion Doxycycline Hyclate 100 mg in 100 mls @ 100 mls/hr 10/31/24 21:00 11/01/24 22:35 Vibramycin 100 Mg/Ns 100 Ml IVPB Infused Q12H GILMER Infusion Metronidazole 500 mg in 100 mls @ 100 mls/hr 11/01/24 09:00 11/02/24 01:55 Flagyl 500 Mg/Iso Soln 100 Ml IVPB Infused Q8H GILMER Infusion Metoprolol Tartrate 5 mg 10/31/24 14:12 10/31/24 20:27 Metoprolol Tartrate Inj 5 Mg/5 Ml Vial IV PUSH 5 mg Q2H PRN Administration Tachycardia Sodium Chloride 1 spray 11/02/24 01:02 Saline 0.65% Anil Soln 44 Ml Btl NASAL Q6HR PRN Congestion Radiology Results: ITS Impressions Chest CT 10/31/24 12:15 Impression: Advanced emphysema. Probable mild bibasilar atelectasis, less likely pneumonia. Correlate clinically for signs/symptoms of infection. Minimal right pleural fluid. Chest X-Ray 11/01/24 08:46 IMPRESSION: Bibasilar atelectasis versus pneumonia more on the right side. Labs Labs: Laboratory Results - last 24 hr 11/01/24 05:18 % Saturation 12 L Ferritin 66.20
[2024-11-02 10:12] LABS: Basophils Absolute Auto 0.1 K/mm3 (0.0-0.1); Basophils Percent Auto 0.4 % (0.2-1.2); Eosinophils Absolute Auto 0.1 K/mm3 (0-0.3); Eosinophils Percent Auto 0.7 % (0-4.4); Hematocrit 30.9 % (37.0-47.0); Hemoglobin 10.1 g/dL (12.0-15.0); Immature Granulocyte Percent A 0.9 % (0-0.5); Lymphocytes Absolute Auto 1.28 K/mm3 (0.9-3.2); Lymphocytes Percent Auto 11.2 % (18.3-44.2); Mean Corpuscular HGB Conc 32.7 g/dl (32-36); Mean Corpuscular Volume 91.7 fl (80-100); Mean Platelet Volume 9.6 fl (7.4-10.4); Monocytes Absolute Auto 0.9 K/mm3 (0.1-0.6); Monocytes Percent Auto 8.1 % (2.6-8.5); Neutrophils Percent Auto 78.7 % (45.5-73.1); Platelet Count Result 190 k/mm3 (150-375); Red Blood Count 3.37 M/mm3 (4.2-5.4); Red Cell Distribution Width 15.7 % (11.5-14.5); White Blood Count 11.4 K/mm3 (4.5-10.0)
[2024-11-02 10:34] LABS: Alanine Aminotransferase 64 U/L (6-35); Albumin Level 3.4 g/dL (3.5-5.1); Alkaline Phosphatase 79 U/L (38-126); Anion Gap 3 mmol/L (4-12); Aspartate Amino Transferase 38 U/L (14-36); Bilirubin,Total 0.6 mg/dL (0.2-1.3); Blood Urea Nitrogen 11 mg/dL (7-17); Calcium 8.8 mg/dL (8.4-10.2); Carbon Dioxide 35 mmol/L (22-30); Chloride 93 mmol/L (98-107); Estimated CRCL calculation 64 ml/min; Estimated Glomerular Filt Rate > 60; Glucose 173 mg/dL (65-110); Potassium 3.6 mmol/L (3.4-5.0); Sodium 131 mmol/L (137-145)
[2024-11-02] MEDS: buPROPion HCL XL (24 HR) 150 MG TABCR PO (10:35)
[2024-11-02] MEDS: DOXYCYCLINE 100 MG/NS 100 ML 100 MG/100 ML BAG IVPB ×2 (10:36→21:10)
[2024-11-02] MEDS: APIXABAN 5 MG TABLET PO ×2 (10:36→20:55)
[2024-11-02] MEDS: AMIODARONE HCL 200 MG TABLET 400 MG PO ×2 (10:36→16:37)
[2024-11-02] MEDS: busPIRone HCL 5 MG TABLET PO ×2 (10:36→16:37)
[2024-11-02] MEDS: FUROSEMIDE INJ 40 MG/4 ML VIAL 20 MG IV PUSH ×2 (10:38→16:37)
[2024-11-02 10:43] LABS: Alveolar/Arterial O2 Gradient 84.8 mmHg; Base Excess ABG 9.4 mEq/l (+/-2.0); Fractional Inspired Oxygen 32 %; HCO3 ABG 34.1 mEq/l (22.0-26.0); Oxygen Content ABG 14.3 %vol (16.0-22.0); Oxygen Saturation ABG 97.2 % (95.0-100.0); Oxyhemoglobin 96.2 % THb (90.0-100.0); PCO2 ABG 47.1 mmHg (35.0-45.0); PO2 ABG 88.3 mmHg (80.0-100.0); PO2 FiO2 Ratio Arterial Blood 2.76 %; Total Hemoglobin 10.5 g/dL (12.0-18.0); pH ABG 7.477 (7.350-7.450)
[2024-11-02 10:44] LABS: Device NASAL CANNULA; Site Drawn RIGHT BRACHIAL
[2024-11-02] MEDS: BENZONATATE 100 MG CAPSULE PO ×2 (13:45→16:37)
--- NOTE | 2024-11-02 14:14 | PM.IMPN ---
Progress Note: A&P Assessment and Plan (1) Atrial fibrillation with rapid ventricular response: Code(s): I48.91 - Unspecified atrial fibrillation Status: Acute (2) Pneumonia: Code(s): J18.9 - Pneumonia, unspecified organism Status: Acute Plan atrial fibrillation with rapid ventricular response Heart rate 1 9, EKG reviewed. DI with cardioversion no longer needed patient now on po Amiodarone 400mg bid and to transition to 200mg daily on discharge ALso started on Metoprolol, continue Eliquis if vital signs stable overnight will discharged tomorrow CHF exacerbation on biventricular ICD Patient has leg edema, reported orthopnea. No PND CT chest did not show any pulmonary edema. Continue lasix 20mg bid cardiology following Possible pneumonia Patient reported night sweats or cough or shortness of breath. Labs showed a leukocytosis, and CT scans showed a possible pneumonia. on Rocephin and doxycycline Blood culture, MRSA negative coronary artery disease status post CABG Continue home medications. Hypertension Titrate medications with clinical course. DVT prophylaxis patient is Eliquis. Code status: DNR Surrogate decision maker is seamus Urena Subjective Date/time seen: 11/02/24 14:14 Interval history: Patient comfortable at bedside Now at baseline oxygen Cardiology transitioned to PO Amiodarone adn Metoprolol will monitor overnight and possibly discharged tomorrow Review of Systems Review of Systems: All other systems reviewed and negative except as Noted in the HPI above. Exam Narrative: General: alert and comfortable Eyes: EOMI, PERRLA ENNT External ears normal, Neck is supple, no masses, Respiratory systems: Clear to auscultation Cardiovascular S1, S2, normal rhythm, no murmur, rub, or gallop; no thrill or palpable murmurs on palpation. Gastrointestinal: soft, non-tender, and non-distended abdomen with no masses; BS present Skin: no rash, lesions, ulcerations, subcutaneous nodules or induration Musculoskeletal: mild leg edema Neurologic: Alert and oriented x3, non focal Mental Status Exam: normal affect Objective Data Vital Signs Vital Signs: Vital Signs - 24 hr 11/01/24 16:00 11/01/24 16:00 11/01/24 16:00 Temperature 97.5 F L Pulse Rate 86 992 H Respiratory Rate 24 H 18 Blood Pressure 122/64 Pulse Oximetry 95 99 Oxygen Delivery Nasal Cannula Oxygen Flow Rate 2 11/01/24 17:20 11/01/24 17:21 11/01/24 18:00 Temperature Pulse Rate 90 90 89 Respiratory Rate Blood Pressure 117/72 Pulse Oximetry 99 Oxygen Delivery Oxygen Flow Rate 11/01/24 18:00 11/01/24 20:00 11/01/24 20:00 Temperature Pulse Rate 89 103 H 103 H Respiratory Rate 20 Blood Pressure Pulse Oximetry 98 Oxygen Delivery Nasal Cannula Oxygen Flow Rate 4 11/01/24 20:00 11/01/24 20:48 11/01/24 21:20 Temperature 97.7 F Pulse Rate 103 H 98 84 Respiratory Rate 24 H 20 Blood Pressure 132/77 132/77 Pulse Oximetry 98 Oxygen Delivery Oxygen Flow Rate 11/01/24 21:37 11/01/24 22:00 11/01/24 22:00 Temperature Pulse Rate 102 H 98 Respiratory Rate Blood Pressure 139/73 Pulse Oximetry Oxygen Delivery Oxygen Flow Rate 11/01/24 22:00 11/01/24 23:33 11/02/24 00:00 Temperature 98.0 F Pulse Rate 98 95 95 Respiratory Rate 24 H 20 Blood Pressure 139/73 117/67 Pulse Oximetry 100 100 Oxygen Delivery Nasal Cannula Oxygen Flow Rate 3 11/02/24 00:00 11/02/24 00:00 11/02/24 01:09 Temperature Pulse Rate 95 95 88 Respiratory Rate 20 Blood Pressure 117/67 Pulse Oximetry Oxygen Delivery Oxygen Flow Rate 11/02/24 01:19 11/02/24 02:00 11/02/24 02:00 Temperature Pulse Rate 90 98 98 Respiratory Rate 20 Blood Pressure 120/70 Pulse Oximetry 95 Oxygen Delivery Oxygen Flow Rate 11/02/24 02:00 11/02/24 04:00 11/02/24 04:00 Temperature Pulse Rate 98 87 87 Respiratory Rate 24 H Blood Pressure 120/70 Pulse Oximetry 92 Oxygen Delivery Nasal Cannula Oxygen Flow Rate 3 11/02/24 04:09 11/02/24 05:00 11/02/24 05:00 Temperature 98.0 F Pulse Rate 92 93 93 Respiratory Rate 24 H Blood Pressure 113/66 134/72 134/72 Pulse Oximetry 92 Oxygen Delivery Oxygen Flow Rate 11/02/24 06:00 11/02/24 06:00 11/02/24 08:00 Temperature 97.8 F Pulse Rate 92 100 Respiratory Rate 18 Blood Pressure 134/72 146/93 H Pulse Oximetry 95 97 Oxygen Delivery Oxygen Flow Rate 11/02/24 08:00 11/02/24 08:00 11/02/24 08:45 Temperature Pulse Rate 88 Respiratory Rate Blood Pressure Pulse Oximetry 96 95 Oxygen Delivery Nasal Cannula Nasal Cannula Oxygen Flow Rate 3 3 11/02/24 08:45 11/02/24 08:55 11/02/24 10:00 Temperature Pulse Rate 101 H 94 114 H Respiratory Rate 20 20 Blood Pressure 137/75 Pulse Oximetry 99 Oxygen Delivery Oxygen Flow Rate 11/02/24 10:00 11/02/24 12:00 11/02/24 12:00 Temperature 98.1 F Pulse Rate 82 85 93 Respiratory Rate 22 H Blood Pressure 129/77 Pulse Oximetry 98 Oxygen Delivery Oxygen Flow Rate Intake/Output Intake/Output: Intake & Output 10/30/24 10/31/24 11/01/24 11/02/24 23:59 23:59 23:59 23:59 Intake Total 764.8 1969.6 1286.6 Output Total 1100 2200 1350 Balance -335.2 -230.4 -63.4 Meds/Results Medications: Active Medications Generic Name Dose Route Start Last Admin Trade Name Freq PRN Reason Stop Dose Admin Albuterol/Ipratropium 3 ml 11/01/24 02:00 11/02/24 08:44 Ipratropium 0.5 Mg/Albuterol Sulfate 2.5 Mg Ampul.Neb 3 Ml INHALATION 3 ml Q6HRT GIMLER Administration Amiodarone HCl 400 mg 11/02/24 10:05 11/02/24 10:36 Amiodarone Hcl 200 Mg Tablet PO 400 mg BID GILMER Administration Apixaban 5 mg 10/31/24 21:00 11/02/24 10:36 Apixaban 5 Mg Tablet PO 5 mg Q12HR GILMER Administration Atorvastatin Calcium 40 mg 10/31/24 21:00 11/01/24 21:37 Atorvastatin 40 Mg Tablet PO 40 mg HS GILMER Administration Benzonatate 100 mg 11/02/24 13:00 Benzonatate 100 Mg Capsule PO TID GILMER Bupropion HCl 150 mg 11/01/24 09:00 11/02/24 10:35 Bupropion Hcl Xl (24 Hr) 150 Mg Tabcr PO 150 mg DAILY GILMER Administration Buspirone HCl 5 mg 11/01/24 09:00 11/02/24 10:36 Buspirone Hcl 5 Mg Tablet PO 5 mg BID GILMER Administration Fluticasone/Umeclidinium/Vilanterol 1 puff 10/31/24 10:40 11/02/24 08:44 Fluticasone/Umeclidin/Vilanter 200-62.5-25 Mcg Ellipta INHALATION 1 puff DAILYRT GILMER Administration Furosemide 20 mg 11/01/24 10:35 11/02/24 10:38 Furosemide Inj 40 Mg/4 Ml Vial IV PUSH 20 mg BID GILMER Administration Ceftriaxone Sodium 2 gm in 100 mls @ 200 mls/hr 10/31/24 20:00 11/01/24 22:05 Rocephin 2 Gm/Ns 100 Ml IVPB Infused Q24H GILMER Infusion Doxycycline Hyclate 100 mg in 100 mls @ 100 mls/hr 10/31/24 21:00 11/02/24 10:36 Vibramycin 100 Mg/Ns 100 Ml IVPB 100 mls/hr Q12H GILMER Administration Metronidazole 500 mg in 100 mls @ 100 mls/hr 11/01/24 09:00 11/02/24 10:37 Flagyl 500 Mg/Iso Soln 100 Ml IVPB 100 mls/hr Q8H GILMER Administration Metoprolol Tartrate 5 mg 10/31/24 14:12 10/31/24 20:27 Metoprolol Tartrate Inj 5 Mg/5 Ml Vial IV PUSH 5 mg Q2H PRN Administration Tachycardia Metoprolol Tartrate 50 mg 11/02/24 21:00 Metoprolol Tartrate 50 Mg Tab PO Q12HR GILMER Polyethylene Glycol 17 gm 11/02/24 11:01 Polyethylene Glycol 3350 17 Gm Powd.Pack PO QAM PRN Constipation Sodium Chloride 1 spray 11/02/24 01:02 Saline 0.65% Anil Soln 44 Ml Btl NASAL Q6HR PRN Congestion Radiology Results: ITS Impressions Chest CT 10/31/24 12:15 Impression: Advanced emphysema. Probable mild bibasilar atelectasis, less likely pneumonia. Correlate clinically for signs/symptoms of infection. Minimal right pleural fluid. Chest X-Ray 11/01/24 08:46 IMPRESSION: Bibasilar atelectasis versus pneumonia more on the right side. Labs Labs: Laboratory Results - last 24 hr 11/02/24 11/02/24 10:06 10:37 WBC 11.4 H RBC 3.37 L Hgb 10.1 L Hct 30.9 L MCV 91.7 MCH 30.0 MCHC 32.7 RDW 15.7 H Plt Count 190 MPV 9.6 Immature Gran % (Auto) 0.9 H Neut % (Auto) 78.7 H Lymph % (Auto) 11.2 L [place] % (Auto) 8.1 Eos % (Auto) 0.7 Baso % (Auto) 0.4 Lymph # (Auto) 1.28 [place] # (Auto) 0.9 H Eos # (Auto) 0.1 Baso # (Auto) 0.1 Abs Immat Gran (auto) 0.10 H Absolute Neuts (auto) 9.0 H Absolute Nucleated RBC 0.000 Nucleated RBC % 0.0 Puncture Site Right brachial ABG pH 7.477 H ABG pCO2 47.1 H ABG pO2 88.3 ABG PO2/FiO2 Ratio 2.76 ABG HCO3 34.1 H ABG O2 Saturation 97.2 ABG O2 Content 14.3 L ABG Base Excess 9.4 A-a Gradient 84.8 Oxyhemoglobin 96.2 Total Hemoglobin 10.5 L O2 Delivery Device Nasal cannula O2 Liters/Min 3.0 FiO2 32 Sodium 131 L Potassium 3.6 Chloride 93 L Carbon Dioxide 35 H Anion Gap 3 L BUN 11 Creatinine 0.50 L Estim Creat Clear Calc 64 Estimated GFR > 60 Glucose 173 H Calcium 8.8 Total Bilirubin 0.6 AST 38 H ALT 64 H Alkaline Phosphatase 79 Total Protein 6.0 L Albumin 3.4 L
[2024-11-02] MEDS: POTASSIUM CHLORIDE 20 MEQ PACKET (FOR LIQUID) 40 MEQ PO (15:11)
[2024-11-02] MEDS: cefTRIAXone 2 GM/NS 100 ML 2 GM/100 ML BAG IVPB (19:51)
[2024-11-02] MEDS: ATORVASTATIN 40 MG TABLET PO (20:55)
[2024-11-02] MEDS: METOPROLOL TARTRATE 50 MG TAB PO (20:55)
[2024-11-03] VITALS (20 sets, daily range): BP systolic 117–138; BP diastolic 64–83; PULSE 81–108; RESP 16–20; TEMP 36.2–36.9; O2SAT 95–99
[2024-11-03] MEDS: metroNIDAZOLE 500 MG/ISO 100ML 500 MG/100 ML BAG 100 MG IVPB ×2 (00:50→10:35)
[2024-11-03] MEDS: IPRATROPIUM 0.5 MG/ALBUTEROL SULFATE 2.5 MG AMPUL.NEB 3 ML INHALATION ×4 (02:05→20:16)
[2024-11-03 05:58] LABS: Basophils Percent Auto 0.3 % (0.2-1.2); Eosinophils Absolute Auto 0.1 K/mm3 (0-0.3); Hematocrit 30.4 % (37.0-47.0); Hemoglobin 10.1 g/dL (12.0-15.0); Immature Granulocyte Absolute 0.11 K/mm3 (0.00-0.031); Immature Granulocyte Percent A 1.2 % (0-0.5); Lymphocytes Absolute Auto 1.47 K/mm3 (0.9-3.2); Lymphocytes Percent Auto 15.7 % (18.3-44.2); Mean Corpuscular HGB Conc 33.2 g/dl (32-36); Mean Corpuscular Hemoglobin 30.4 pg (26-34); Mean Corpuscular Volume 91.6 fl (80-100); Mean Platelet Volume 9.2 fl (7.4-10.4); Monocytes Absolute Auto 0.9 K/mm3 (0.1-0.6); Neutrophils Absolute Auto 6.7 K/mm3 (1.3-6.7); Neutrophils Percent Auto 71.8 % (45.5-73.1); Platelet Count Result 192 k/mm3 (150-375); Red Blood Count 3.32 M/mm3 (4.2-5.4); Red Cell Distribution Width 15.7 % (11.5-14.5); White Blood Count 9.4 K/mm3 (4.5-10.0)
[2024-11-03 06:14] LABS: Alanine Aminotransferase 54 U/L (6-35); Albumin Level 3.2 g/dL (3.5-5.1); Alkaline Phosphatase 86 U/L (38-126); Anion Gap 0 mmol/L (4-12); Aspartate Amino Transferase 24 U/L (14-36); Bilirubin,Total 0.7 mg/dL (0.2-1.3); Blood Urea Nitrogen 9 mg/dL (7-17); Calcium 8.6 mg/dL (8.4-10.2); Carbon Dioxide 36 mmol/L (22-30); Chloride 94 mmol/L (98-107); Estimated CRCL calculation 64 ml/min; Estimated Glomerular Filt Rate > 60; Glucose 125 mg/dL (65-110); Magnesium 1.6 mg/dL (1.6-2.3); Potassium 3.2 mmol/L (3.4-5.0); Sodium 130 mmol/L (137-145)
[2024-11-03] MEDS: POTASSIUM CHLORIDE INJ 40 MEQ in SODIUM CHLORIDE 0.9% IV 500 ML 130 MEQ IVPB (08:45)
[2024-11-03] MEDS: POTASSIUM CHLORIDE 20 MEQ PACKET (FOR LIQUID) 40 MEQ PO (08:45)
[2024-11-03] MEDS: polyethylene glycoL 3350 17 GM POWD.PACK PO (08:46)
[2024-11-03] MEDS: METOPROLOL TARTRATE 50 MG TAB PO ×2 (08:47→22:12)
[2024-11-03] MEDS: AMIODARONE HCL 200 MG TABLET 400 MG PO ×2 (08:47→16:52)
[2024-11-03] MEDS: FUROSEMIDE INJ 40 MG/4 ML VIAL 20 MG IV PUSH (08:47)
[2024-11-03] MEDS: BENZONATATE 100 MG CAPSULE PO ×3 (08:47→16:52)
[2024-11-03] MEDS: APIXABAN 5 MG TABLET PO ×2 (08:48→22:11)
[2024-11-03] MEDS: buPROPion HCL XL (24 HR) 150 MG TABCR PO (08:48)
[2024-11-03] MEDS: busPIRone HCL 5 MG TABLET PO ×2 (08:48→16:52)
[2024-11-03] MEDS: DOXYCYCLINE 100 MG/NS 100 ML 100 MG/100 ML BAG IVPB (09:35)
--- NOTE | 2024-11-03 09:37 | PM.PNCARD ---
Progress Note: A&P Assessment and Plan (1) Atrial fibrillation with rapid ventricular response: Code(s): I48.91 - Unspecified atrial fibrillation Status: Acute Assessment and Plan: Rates better controlled on amiodarone; will continue amiodarone and shift from IV to p.o. today -continue with apixaban for anticoagulation -Amiodarone 400mg p.o. b.i.d. - will decrease this to maintenance dose of 200mg at discharge -Continue metoprolol 50mg q12h. Can up titrate if need be. Can be shifted to ToprolXL at discharge (2) COPD exacerbation: Code(s): J44.1 - Chronic obstructive pulmonary disease with (acute) exacerbation Status: Acute Assessment and Plan: Management per hospitalist (3) Acute exacerbation of CHF (congestive heart failure): Code(s): I50.9 - Heart failure, unspecified Status: Acute Assessment and Plan: Last echo showed normal EF Shift to p.o. furosemide today (4) Ischemic cardiomyopathy: Code(s): I25.5 - Ischemic cardiomyopathy Status: Acute Assessment and Plan: Recovered EF (03/2023) Continue beta bri Resume home Lisinopril Spironolactone to be added later if BP allows Subjective Date/time seen: 11/03/24 09:37 Interval history: Comfortable at bedside For DI with cardioversion today Date of service 11/02/2024: Feeling slightly better today. Had small BM this morning. Heart rate generally controlled around 100bpm on telemetry. Date of service 11/03/2024: Feels better in terms of her breathing but she is having significant anxiety. On telemetry her heart rate is generally well controlled in the 80's-90's. She is not having any palpitations or chest pain. Review of Systems Review of Systems: All systems reviewed & are unremarkable except as noted in HPI and below Exam Const: General: comfortable, no acute distress, alert and awake Orientation/consciousness: patient oriented x3 HENMT: Head: normal to inspection Eyes: General: appearance normal, both eyes and all related structures Pupils: Equal, round and reactive pupils present Neck: Neck: normal visual inspection, supple and no JVD Carotids: normal carotid upstroke Resp: Auscultation: not clear to auscultation bilaterally, rales on the right, wheezes and diminished lung sounds Cardio: Rate: regular rate Rhythm: abnormal rhythm Heart sounds: S1 normal heart sound present, S2 normal heart sound present and no murmurs GI: Auscultation: normal bowel sounds Skin: General skin exam: normal color Neuro: General: patient oriented x3 Cranial nerves: Yes Equal, round and reactive pupils present Extrem: Other: No edema Psych: Appearance: grossly normal Mental Status: mental status grossly normal Objective Data Vital Signs Vital Signs: Vital Signs - 24 hr 11/02/24 10:00 11/02/24 10:00 11/02/24 12:00 Temperature Pulse Rate 114 H 82 85 Respiratory Rate Blood Pressure 137/75 Pulse Oximetry 99 Oxygen Delivery Oxygen Flow Rate 11/02/24 12:00 11/02/24 14:41 11/02/24 15:23 Temperature 36.7 C 36.3 C L Pulse Rate 93 96 96 Respiratory Rate 22 H 16 20 Blood Pressure 129/77 139/80 Pulse Oximetry 98 100 Oxygen Delivery Oxygen Flow Rate 11/02/24 15:32 11/02/24 16:00 11/02/24 16:37 Temperature Pulse Rate 96 97 98 Respiratory Rate 20 Blood Pressure Pulse Oximetry Oxygen Delivery Oxygen Flow Rate 11/02/24 20:00 11/02/24 20:00 11/02/24 20:55 Temperature Pulse Rate 95 92 Respiratory Rate Blood Pressure Pulse Oximetry Oxygen Delivery Room Air Oxygen Flow Rate 11/02/24 21:25 11/02/24 21:26 11/02/24 21:36 Temperature Pulse Rate 90 93 Respiratory Rate 18 18 Blood Pressure Pulse Oximetry 97 Oxygen Delivery Nasal Cannula Oxygen Flow Rate 3 11/02/24 22:32 11/03/24 00:00 11/03/24 02:05 Temperature 36.4 C L Pulse Rate 90 89 81 Respiratory Rate 20 18 Blood Pressure 147/84 H Pulse Oximetry 100 Oxygen Delivery Oxygen Flow Rate 11/03/24 02:35 11/03/24 04:00 11/03/24 05:30 Temperature 36.2 C L 36.5 C Pulse Rate 87 87 90 Respiratory Rate 20 18 Blood Pressure 130/64 138/79 Pulse Oximetry 98 97 Oxygen Delivery Oxygen Flow Rate 11/03/24 07:50 11/03/24 07:50 11/03/24 07:57 Temperature Pulse Rate 85 98 Respiratory Rate 18 18 Blood Pressure Pulse Oximetry 95 Oxygen Delivery Nasal Cannula Oxygen Flow Rate 3 Intake/Output Intake/Output: Intake & Output 10/31/24 11/01/24 11/02/24 11/03/24 23:59 23:59 23:59 23:59 Intake Total 764.8 1969.6 2026.6 600 Output Total 1100 2200 2100 800 Balance -335.2 -230.4 -73.4 -200 Meds/Results Medications: Active Medications Generic Name Dose Route Start Last Admin Trade Name Charly PRN Reason Stop Dose Admin Albuterol/Ipratropium 3 ml 11/01/24 02:00 11/03/24 07:48 Ipratropium 0.5 Mg/Albuterol Sulfate 2.5 Mg Ampul.Neb 3 Ml INHALATION 3 ml Q6HRT GILMER Administration Amiodarone HCl 400 mg 11/02/24 10:05 11/03/24 08:47 Amiodarone Hcl 200 Mg Tablet PO 400 mg BID GILMER Administration Apixaban 5 mg 10/31/24 21:00 11/03/24 08:48 Apixaban 5 Mg Tablet PO 5 mg Q12HR GILMER Administration Atorvastatin Calcium 40 mg 10/31/24 21:00 11/02/24 20:55 Atorvastatin 40 Mg Tablet PO 40 mg HS GILMER Administration Benzonatate 100 mg 11/02/24 13:00 11/03/24 08:47 Benzonatate 100 Mg Capsule PO 100 mg TID GILMER Administration Bupropion HCl 150 mg 11/01/24 09:00 11/03/24 08:48 Bupropion Hcl Xl (24 Hr) 150 Mg Tabcr PO 150 mg DAILY GILMER Administration Buspirone HCl 5 mg 11/01/24 09:00 11/03/24 08:48 Buspirone Hcl 5 Mg Tablet PO 5 mg BID GILMER Administration Fluticasone/Umeclidinium/Vilanterol 1 puff 10/31/24 10:40 11/03/24 07:49 Fluticasone/Umeclidin/Vilanter 200-62.5-25 Mcg Ellipta INHALATION 1 puff DAILYRT GILMER Administration Furosemide 20 mg 11/01/24 10:35 11/03/24 08:47 Furosemide Inj 40 Mg/4 Ml Vial IV PUSH 20 mg BID GILMER Administration Ceftriaxone Sodium 2 gm in 100 mls @ 200 mls/hr 10/31/24 20:00 11/02/24 20:21 Rocephin 2 Gm/Ns 100 Ml IVPB Infused Q24H GILMER Infusion Doxycycline Hyclate 100 mg in 100 mls @ 100 mls/hr 10/31/24 21:00 11/02/24 22:10 Vibramycin 100 Mg/Ns 100 Ml IVPB Infused Q12H GILMER Infusion Metronidazole 500 mg in 100 mls @ 100 mls/hr 11/01/24 09:00 11/03/24 01:50 Flagyl 500 Mg/Iso Soln 100 Ml IVPB Infused Q8H GILMER Infusion Potassium Chloride 40 meq/ 520 mls @ 130 mls/hr 11/03/24 07:45 11/03/24 08:45 Sodium Chloride IVPB 11/03/24 11:44 130 mls/hr ONCE ONE Administration Metoprolol Tartrate 5 mg 10/31/24 14:12 10/31/24 20:27 Metoprolol Tartrate Inj 5 Mg/5 Ml Vial IV PUSH 5 mg Q2H PRN Administration Tachycardia Metoprolol Tartrate 50 mg 11/02/24 21:00 11/03/24 08:47 Metoprolol Tartrate 50 Mg Tab PO 50 mg Q12HR GILMER Administration Polyethylene Glycol 17 gm 11/02/24 11:01 11/03/24 08:46 Polyethylene Glycol 3350 17 Gm Powd.Pack PO 17 gm QAM PRN Administration Constipation Sodium Chloride 1 spray 11/02/24 01:02 Saline 0.65% Anil Soln 44 Ml Btl NASAL Q6HR PRN Congestion Radiology Results: ITS Impressions Chest CT 10/31/24 12:15 Impression: Advanced emphysema. Probable mild bibasilar atelectasis, less likely pneumonia. Correlate clinically for signs/symptoms of infection. Minimal right pleural fluid. Chest X-Ray 11/01/24 08:46 IMPRESSION: Bibasilar atelectasis versus pneumonia more on the right side. Labs Labs: Laboratory Results - last 24 hr 11/02/24 11/02/24 11/03/24 10:06 10:37 05:52 WBC 11.4 H 9.4 RBC 3.37 L 3.32 L Hgb 10.1 L 10.1 L Hct 30.9 L 30.4 L MCV 91.7 91.6 MCH 30.0 30.4 MCHC 32.7 33.2 RDW 15.7 H 15.7 H Plt Count 190 192 MPV 9.6 9.2 Immature Gran % (Auto) 0.9 H 1.2 H Neut % (Auto) 78.7 H 71.8 Lymph % (Auto) 11.2 L 15.7 L [place] % (Auto) 8.1 10.0 H Eos % (Auto) 0.7 1.0 Baso % (Auto) 0.4 0.3 Lymph # (Auto) 1.28 1.47 [place] # (Auto) 0.9 H 0.9 H Eos # (Auto) 0.1 0.1 Baso # (Auto) 0.1 0.0 Abs Immat Gran (auto) 0.10 H 0.11 H Absolute Neuts (auto) 9.0 H 6.7 Absolute Nucleated RBC 0.000 0.000 Nucleated RBC % 0.0 0.0 Puncture Site Right brachial ABG pH 7.477 H ABG pCO2 47.1 H ABG pO2 88.3 ABG PO2/FiO2 Ratio 2.76 ABG HCO3 34.1 H ABG O2 Saturation 97.2 ABG O2 Content 14.3 L ABG Base Excess 9.4 A-a Gradient 84.8 Oxyhemoglobin 96.2 Total Hemoglobin 10.5 L O2 Delivery Device Nasal cannula O2 Liters/Min 3.0 FiO2 32 Sodium 131 L 130 L Potassium 3.6 3.2 L Chloride 93 L 94 L Carbon Dioxide 35 H 36 H Anion Gap 3 L 0 L BUN 11 9 Creatinine 0.50 L 0.50 L Estim Creat Clear Calc 64 64 Estimated GFR > 60 > 60 Glucose 173 H 125 H Calcium 8.8 8.6 Magnesium 1.6 Total Bilirubin 0.6 0.7 AST 38 H 24 ALT 64 H 54 H Alkaline Phosphatase 79 86 Total Protein 6.0 L 5.0 L Albumin 3.4 L 3.2 L
[2024-11-03] MEDS: ALPRAZolam (*CRX) 0.25 MG TABLET PO ×2 (12:21→16:52)
[2024-11-03] MEDS: FLUTICASONE/UMECLIDIN/VILANTER 200-62.5-25 MCG ELLIPTA 1 PUFF INHALATION (13:30)
--- NOTE | 2024-11-03 13:35 | PM.IMPN ---
Progress Note: A&P Assessment and Plan (1) Atrial fibrillation with rapid ventricular response: Code(s): I48.91 - Unspecified atrial fibrillation Status: Acute (2) Pneumonia: Code(s): J18.9 - Pneumonia, unspecified organism Status: Acute Plan atrial fibrillation with rapid ventricular response Heart rate 1 9, EKG reviewed. DI with cardioversion no longer needed patient now on po Amiodarone 400mg bid and to transition to 200mg daily on discharge Also started on Metoprolol, continue Eliquis if vital signs stable overnight will discharged tomorrow CHF exacerbation on biventricular ICD Patient has leg edema, reported orthopnea. No PND CT chest did not show any pulmonary edema. Continue lasix 20mg bid cardiology following Possible pneumonia Patient reported night sweats or cough or shortness of breath. Labs showed a leukocytosis, and CT scans showed a possible pneumonia. on Rocephin and doxycycline Blood culture, MRSA negative COPD chronic respiratory failure on 3 L at baseline. Currently on baseline oxygen, continue home bronchodilators. Coronary artery disease status post CABG Continue home medications. Hypertension Titrate medications with clinical course. DVT prophylaxis patient is Eliquis. Code status: DNR Surrogate decision maker is seamus Urena PT/OT consulted for discharge disposition Subjective Date/time seen: 11/03/24 13:35 Interval history: Comfortable at bedside however noted that she is too weak for discharge today. PT/OT a bowel pending. Review of Systems Review of Systems: All other systems reviewed and negative except as Noted in the HPI above. Exam Narrative: General: alert and comfortable Eyes: EOMI, PERRLA ENNT External ears normal, Neck is supple, no masses, Respiratory systems: Clear to auscultation Cardiovascular S1, S2, normal rhythm, no murmur, rub, or gallop; no thrill or palpable murmurs on palpation. Gastrointestinal: soft, non-tender, and non-distended abdomen with no masses; BS present Skin: no rash, lesions, ulcerations, subcutaneous nodules or induration Musculoskeletal: mild leg edema Neurologic: Alert and oriented x3, non focal Mental Status Exam: normal affect Objective Data Vital Signs Vital Signs: Vital Signs - 24 hr 11/02/24 14:41 11/02/24 15:23 11/02/24 15:32 Temperature 97.3 F L Pulse Rate 96 96 96 Respiratory Rate 16 20 20 Blood Pressure 139/80 Pulse Oximetry 100 Oxygen Delivery Oxygen Flow Rate 11/02/24 16:00 11/02/24 16:37 11/02/24 20:00 Temperature Pulse Rate 97 98 Respiratory Rate Blood Pressure Pulse Oximetry Oxygen Delivery Room Air Oxygen Flow Rate 11/02/24 20:00 11/02/24 20:55 11/02/24 21:25 Temperature Pulse Rate 95 92 Respiratory Rate Blood Pressure Pulse Oximetry 97 Oxygen Delivery Nasal Cannula Oxygen Flow Rate 3 11/02/24 21:26 11/02/24 21:36 11/02/24 22:32 Temperature 97.5 F L Pulse Rate 90 93 90 Respiratory Rate 18 18 20 Blood Pressure 147/84 H Pulse Oximetry 100 Oxygen Delivery Oxygen Flow Rate 11/03/24 00:00 11/03/24 02:05 11/03/24 02:35 Temperature 97.1 F L Pulse Rate 89 81 87 Respiratory Rate 18 20 Blood Pressure 130/64 Pulse Oximetry 98 Oxygen Delivery Oxygen Flow Rate 11/03/24 04:00 11/03/24 05:30 11/03/24 07:50 Temperature 97.7 F Pulse Rate 87 90 Respiratory Rate 18 Blood Pressure 138/79 Pulse Oximetry 97 95 Oxygen Delivery Nasal Cannula Oxygen Flow Rate 3 11/03/24 07:50 11/03/24 07:57 11/03/24 10:41 Temperature 98.4 F Pulse Rate 85 98 90 Respiratory Rate 18 18 18 Blood Pressure 117/73 Pulse Oximetry 99 Oxygen Delivery Oxygen Flow Rate 11/03/24 13:30 Temperature Pulse Rate 89 Respiratory Rate 20 Blood Pressure Pulse Oximetry Oxygen Delivery Oxygen Flow Rate Intake/Output Intake/Output: Intake & Output 10/31/24 11/01/24 11/02/24 11/03/24 23:59 23:59 23:59 23:59 Intake Total 764.8 1969.6 2026.6 1050 Output Total 1100 2200 2100 800 Balance -335.2 -230.4 -73.4 250 Meds/Results Medications: Active Medications Generic Name Dose Route Start Last Admin Trade Name Freq PRN Reason Stop Dose Admin Albuterol/Ipratropium 3 ml 11/01/24 02:00 11/03/24 13:28 Ipratropium 0.5 Mg/Albuterol Sulfate 2.5 Mg Ampul.Neb 3 Ml INHALATION 3 ml Q6HRT GILMER Administration Alprazolam 0.25 mg 11/03/24 11:53 11/03/24 12:21 Alprazolam (*Crx) 0.25 Mg Tablet PO 0.25 mg TID PRN Administration Anxiety Amiodarone HCl 400 mg 11/02/24 10:05 11/03/24 08:47 Amiodarone Hcl 200 Mg Tablet PO 400 mg BID GILMER Administration Amoxicillin/Clavulanate Potassium 1 tablet 11/03/24 21:00 Amoxicillin/Clavulanate K 875-125 Mg Tab PO 11/07/24 09:01 Q12HR GILMER Apixaban 5 mg 10/31/24 21:00 11/03/24 08:48 Apixaban 5 Mg Tablet PO 5 mg Q12HR GILMER Administration Atorvastatin Calcium 40 mg 10/31/24 21:00 11/02/24 20:55 Atorvastatin 40 Mg Tablet PO 40 mg HS GILMER Administration Benzonatate 100 mg 11/02/24 13:00 11/03/24 12:21 Benzonatate 100 Mg Capsule PO 100 mg TID GILMER Administration Bupropion HCl 150 mg 11/01/24 09:00 11/03/24 08:48 Bupropion Hcl Xl (24 Hr) 150 Mg Tabcr PO 150 mg DAILY GILMER Administration Buspirone HCl 5 mg 11/01/24 09:00 11/03/24 08:48 Buspirone Hcl 5 Mg Tablet PO 5 mg BID GILMER Administration Doxycycline Hyclate 100 mg 11/03/24 21:00 Doxycycline Hyclate 100 Mg Tablet PO 11/05/24 21:01 Q12HR GILMER Fluticasone/Umeclidinium/Vilanterol 1 puff 10/31/24 10:40 11/03/24 13:30 Fluticasone/Umeclidin/Vilanter 200-62.5-25 Mcg Ellipta INHALATION 1 puff DAILYRT GILMER Administration Furosemide 40 mg 11/03/24 17:00 Furosemide 40 Mg Tablet PO BID GILMER Furosemide 40 mg 11/04/24 09:00 Furosemide 40 Mg Tablet PO DAILY GILMER Metoclopramide HCl 5 mg 11/03/24 13:32 Metoclopramide Hcl 5 Mg Tablet PO PRN PRN Nausea Metoprolol Tartrate 5 mg 10/31/24 14:12 10/31/24 20:27 Metoprolol Tartrate Inj 5 Mg/5 Ml Vial IV PUSH 5 mg Q2H PRN Administration Tachycardia Metoprolol Tartrate 50 mg 11/02/24 21:00 11/03/24 08:47 Metoprolol Tartrate 50 Mg Tab PO 50 mg Q12HR GILMER Administration Montelukast Sodium 10 mg 11/03/24 21:00 Montelukast Sodium 10 Mg Tablet PO HS GILMER Non-Formulary Medication 1 tablet 11/04/24 09:00 Cyanocobalamin (Vitamin B-12) PO 12/04/24 08:59 DAILY GILMER Polyethylene Glycol 17 gm 11/02/24 11:01 11/03/24 08:46 Polyethylene Glycol 3350 17 Gm Powd.Pack PO 17 gm QAM PRN Administration Constipation Ropinirole HCl 1 mg 11/03/24 21:00 Ropinirole Hcl 1 Mg Tablet PO HS GILMER Sodium Chloride 1 spray 11/02/24 01:02 Saline 0.65% Anil Soln 44 Ml Btl NASAL Q6HR PRN Congestion Radiology Results: ITS Impressions Chest CT 10/31/24 12:15 Impression: Advanced emphysema. Probable mild bibasilar atelectasis, less likely pneumonia. Correlate clinically for signs/symptoms of infection. Minimal right pleural fluid. Chest X-Ray 11/01/24 08:46 IMPRESSION: Bibasilar atelectasis versus pneumonia more on the right side. Labs Labs: Laboratory Results - last 24 hr 11/03/24 05:52 WBC 9.4 RBC 3.32 L Hgb 10.1 L Hct 30.4 L MCV 91.6 MCH 30.4 MCHC 33.2 RDW 15.7 H Plt Count 192 MPV 9.2 Immature Gran % (Auto) 1.2 H Neut % (Auto) 71.8 Lymph % (Auto) 15.7 L [place] % (Auto) 10.0 H Eos % (Auto) 1.0 Baso % (Auto) 0.3 Lymph # (Auto) 1.47 [place] # (Auto) 0.9 H Eos # (Auto) 0.1 Baso # (Auto) 0.0 Abs Immat Gran (auto) 0.11 H Absolute Neuts (auto) 6.7 Absolute Nucleated RBC 0.000 Nucleated RBC % 0.0 Sodium 130 L Potassium 3.2 L Chloride 94 L Carbon Dioxide 36 H Anion Gap 0 L BUN 9 Creatinine 0.50 L Estim Creat Clear Calc 64 Estimated GFR > 60 Glucose 125 H Calcium 8.6 Magnesium 1.6 Total Bilirubin 0.7 AST 24 ALT 54 H Alkaline Phosphatase 86 Total Protein 5.0 L Albumin 3.2 L
[2024-11-03] MEDS: FUROSEMIDE 40 MG TABLET PO (16:52)
[2024-11-03] MEDS: IRON SUCROSE COMPLEX 400 MG, IRON SUCROSE COMPLEX 100 MG in SODIUM CHLORIDE 0.9% IV 250 ML 78.57 MG IVPB (20:00)
[2024-11-03 21:46] LABS: Glucose Point of Care 199 mg/dl (65-105)
[2024-11-03] MEDS: ATORVASTATIN 40 MG TABLET PO (22:11)
[2024-11-03] MEDS: rOPINIRole HCL 1 MG TABLET PO (22:11)
[2024-11-03] MEDS: AMOXICILLIN/CLAVULANATE K 875-125 MG TAB 1 TABLET PO (22:11)
[2024-11-03] MEDS: DOXYCYCLINE HYCLATE 100 MG TABLET PO (22:11)
[2024-11-03] MEDS: MONTELUKAST SODIUM 10 MG TABLET PO (22:12)
[2024-11-03] MEDS: guaiFENesin 200 MG/10 ML UDC PO (22:15)
[2024-11-04] VITALS (17 sets, daily range): BP systolic 118–138; BP diastolic 65–83; PULSE 79–101; RESP 16–20; TEMP 36.1–36.4; O2SAT 92–99
[2024-11-04] MEDS: IPRATROPIUM 0.5 MG/ALBUTEROL SULFATE 2.5 MG AMPUL.NEB 3 ML INHALATION ×4 (02:24→20:00)
[2024-11-04] MEDS: FLUTICASONE/UMECLIDIN/VILANTER 200-62.5-25 MCG ELLIPTA 1 PUFF INHALATION (08:48)
[2024-11-04] MEDS: BENZONATATE 100 MG CAPSULE PO ×3 (09:11→17:28)
[2024-11-04] MEDS: AMIODARONE HCL 200 MG TABLET 400 MG PO ×2 (09:11→17:28)
[2024-11-04] MEDS: busPIRone HCL 5 MG TABLET PO ×2 (09:12→17:28)
[2024-11-04] MEDS: METOPROLOL TARTRATE 50 MG TAB PO ×2 (09:12→21:23)
[2024-11-04] MEDS: APIXABAN 5 MG TABLET PO ×2 (09:12→21:24)
[2024-11-04] MEDS: DOXYCYCLINE HYCLATE 100 MG TABLET PO ×2 (09:12→21:24)
[2024-11-04] MEDS: AMOXICILLIN/CLAVULANATE K 875-125 MG TAB 1 TABLET PO ×2 (09:12→21:24)
[2024-11-04] MEDS: FUROSEMIDE 40 MG TABLET PO ×2 (09:12→17:28)
[2024-11-04] MEDS: buPROPion HCL XL (24 HR) 150 MG TABCR PO (09:12)
[2024-11-04] MEDS: ALPRAZolam (*CRX) 0.25 MG TABLET PO ×2 (12:29→22:56)
--- NOTE | 2024-11-04 14:08 | PM.IMPN ---
Progress Note: A&P Assessment and Plan (1) Atrial fibrillation with rapid ventricular response: Code(s): I48.91 - Unspecified atrial fibrillation Status: Acute (2) Pneumonia: Code(s): J18.9 - Pneumonia, unspecified organism Status: Acute Plan atrial fibrillation with rapid ventricular response Heart rate 95, EKG reviewed. DI with cardioversion no longer needed patient now on po Amiodarone 400mg bid and to transition to 200mg daily on discharge Also started on Metoprolol, continue Eliquis if vital signs stable overnight will discharged tomorrow CHF exacerbation on biventricular ICD Patient has leg edema, reported orthopnea. No PND CT chest did not show any pulmonary edema. Continue lasix 20mg bid cardiology following Possible pneumonia Patient reported night sweats or cough or shortness of breath. Labs showed a leukocytosis, and CT scans showed a possible pneumonia. on Augmentin and doxycycline Blood culture, MRSA negative COPD chronic respiratory failure on 3 L at baseline. Currently on baseline oxygen, continue home bronchodilators. Coronary artery disease status post CABG Continue home medications. Hypertension Titrate medications with clinical course. DVT prophylaxis patient is Eliquis. Code status: DNR Surrogate decision maker is seamus Urena awaiting SNF placement per PT/OT Subjective Date/time seen: 11/04/24 14:08 Interval history: Comfortable at bedside PT/OT recommending SNF Review of Systems Review of Systems: All other systems reviewed and negative except as Noted in the HPI above. Exam Narrative: General: alert and comfortable Eyes: EOMI, PERRLA ENNT External ears normal, Neck is supple, no masses, Respiratory systems: Clear to auscultation Cardiovascular S1, S2, normal rhythm, no murmur, rub, or gallop; no thrill or palpable murmurs on palpation. Gastrointestinal: soft, non-tender, and non-distended abdomen with no masses; BS present Skin: no rash, lesions, ulcerations, subcutaneous nodules or induration Musculoskeletal: mild leg edema Neurologic: Alert and oriented x3, non focal Mental Status Exam: normal affect Objective Data Vital Signs Vital Signs: Vital Signs - 24 hr 11/03/24 14:23 11/03/24 15:47 11/03/24 16:00 Temperature 98.2 F Pulse Rate 107 H 108 H Respiratory Rate 16 Blood Pressure 128/83 Pulse Oximetry 98 Oxygen Delivery Nasal Cannula Oxygen Flow Rate 3 Fraction of Inspired Oxygen 11/03/24 20:00 11/03/24 20:00 11/03/24 20:17 Temperature Pulse Rate 90 90 Respiratory Rate 20 Blood Pressure Pulse Oximetry 96 Oxygen Delivery Nasal Cannula Oxygen Flow Rate 3 Fraction of Inspired Oxygen 11/03/24 20:20 11/03/24 20:25 11/03/24 22:00 Temperature 97.1 F L Pulse Rate 92 83 Respiratory Rate 20 20 Blood Pressure 132/76 Pulse Oximetry 96 98 Oxygen Delivery Nasal Cannula Oxygen Flow Rate 3 Fraction of Inspired Oxygen 11/03/24 22:12 11/04/24 00:00 11/04/24 02:26 Temperature Pulse Rate 92 101 H 84 Respiratory Rate 20 Blood Pressure Pulse Oximetry Oxygen Delivery Oxygen Flow Rate Fraction of Inspired Oxygen 11/04/24 02:45 11/04/24 04:00 11/04/24 06:00 Temperature 97.1 F L 97.0 F L Pulse Rate 79 94 86 Respiratory Rate 16 16 Blood Pressure 132/69 118/65 Pulse Oximetry 94 93 Oxygen Delivery Oxygen Flow Rate Fraction of Inspired Oxygen 11/04/24 08:00 11/04/24 08:39 11/04/24 08:39 Temperature Pulse Rate 79 90 Respiratory Rate 20 Blood Pressure Pulse Oximetry 92 Oxygen Delivery Nasal Cannula Oxygen Flow Rate 3 Fraction of Inspired Oxygen 32 11/04/24 08:48 Temperature Pulse Rate 95 Respiratory Rate 20 Blood Pressure Pulse Oximetry Oxygen Delivery Oxygen Flow Rate Fraction of Inspired Oxygen Intake/Output Intake/Output: Intake & Output 11/01/24 11/02/24 11/03/24 11/04/24 23:59 23:59 23:59 23:59 Intake Total 1969.6 2026.6 1755 720 Output Total 2200 2100 1600 1000 Balance -230.4 -73.4 155 -280 Meds/Results Medications: Active Medications Generic Name Dose Route Start Last Admin Trade Name Freq PRN Reason Stop Dose Admin Albuterol/Ipratropium 3 ml 11/01/24 02:00 11/04/24 08:39 Ipratropium 0.5 Mg/Albuterol Sulfate 2.5 Mg Ampul.Neb 3 Ml INHALATION 3 ml Q6HRT GILMER Administration Alprazolam 0.25 mg 11/03/24 11:53 11/04/24 12:29 Alprazolam (*Crx) 0.25 Mg Tablet PO 0.25 mg TID PRN Administration Anxiety Amiodarone HCl 400 mg 11/02/24 10:05 11/04/24 09:11 Amiodarone Hcl 200 Mg Tablet PO 400 mg BID GILMER Administration Amoxicillin/Clavulanate Potassium 1 tablet 11/03/24 21:00 11/04/24 09:12 Amoxicillin/Clavulanate K 875-125 Mg Tab PO 11/07/24 09:01 1 tablet Q12HR GILMER Administration Apixaban 5 mg 10/31/24 21:00 11/04/24 09:12 Apixaban 5 Mg Tablet PO 5 mg Q12HR GILMER Administration Atorvastatin Calcium 40 mg 10/31/24 21:00 11/03/24 22:11 Atorvastatin 40 Mg Tablet PO 40 mg HS GILMER Administration Benzonatate 100 mg 11/02/24 13:00 11/04/24 12:29 Benzonatate 100 Mg Capsule PO 100 mg TID GILMER Administration Bupropion HCl 150 mg 11/01/24 09:00 11/04/24 09:12 Bupropion Hcl Xl (24 Hr) 150 Mg Tabcr PO 150 mg DAILY GILMER Administration Buspirone HCl 5 mg 11/01/24 09:00 11/04/24 09:12 Buspirone Hcl 5 Mg Tablet PO 5 mg BID GILMER Administration Doxycycline Hyclate 100 mg 11/03/24 21:00 11/04/24 09:12 Doxycycline Hyclate 100 Mg Tablet PO 11/05/24 21:01 100 mg Q12HR GILMER Administration Fluticasone/Umeclidinium/Vilanterol 1 puff 10/31/24 10:40 11/04/24 08:48 Fluticasone/Umeclidin/Vilanter 200-62.5-25 Mcg Ellipta INHALATION 1 puff DAILYRT GILMER Administration Furosemide 40 mg 11/03/24 17:00 11/04/24 09:12 Furosemide 40 Mg Tablet PO 40 mg BID GILMER Administration Furosemide 40 mg 11/04/24 09:00 Furosemide 40 Mg Tablet PO DAILY GILMRE Guaifenesin 200 mg 11/03/24 20:15 11/03/24 22:15 Guaifenesin 200 Mg/10 Ml Udc PO 200 mg Q4H PRN Administration Cough Metoclopramide HCl 5 mg 11/03/24 13:32 Metoclopramide Hcl 5 Mg Tablet PO PRN PRN Nausea Metoprolol Tartrate 5 mg 10/31/24 14:12 10/31/24 20:27 Metoprolol Tartrate Inj 5 Mg/5 Ml Vial IV PUSH 5 mg Q2H PRN Administration Tachycardia Metoprolol Tartrate 50 mg 11/02/24 21:00 11/04/24 09:12 Metoprolol Tartrate 50 Mg Tab PO 50 mg Q12HR GILMRE Administration Miscellaneous Information 1 each 11/04/24 00:01 Med Rec Order Clarification XX 12/04/24 00:00 CLARIFY GILMER Miscellaneous Information 1 each 11/04/24 00:01 Med Rec Order Clarification XX 12/04/24 00:00 CLARIFY GILMER Miscellaneous Information 1 each 11/04/24 00:01 Med Rec Order Clarification XX 12/04/24 00:00 CLARIFY GILMER Montelukast Sodium 10 mg 11/03/24 21:00 11/03/24 22:12 Montelukast Sodium 10 Mg Tablet PO 10 mg HS GILMER Administration Non-Formulary Medication 1 tablet 11/04/24 09:00 Cyanocobalamin (Vitamin B-12) PO 12/04/24 08:59 DAILY GILMER Polyethylene Glycol 17 gm 11/02/24 11:01 11/03/24 08:46 Polyethylene Glycol 3350 17 Gm Powd.Pack PO 17 gm QAM PRN Administration Constipation Ropinirole HCl 1 mg 11/03/24 21:00 11/03/24 22:11 Ropinirole Hcl 1 Mg Tablet PO 1 mg HS GILMER Administration Sodium Chloride 1 spray 11/02/24 01:02 Saline 0.65% Anil Soln 44 Ml Btl NASAL Q6HR PRN Congestion Radiology Results: ITS Impressions Chest CT 10/31/24 12:15 Impression: Advanced emphysema. Probable mild bibasilar atelectasis, less likely pneumonia. Correlate clinically for signs/symptoms of infection. Minimal right pleural fluid. Chest X-Ray 11/01/24 08:46 IMPRESSION: Bibasilar atelectasis versus pneumonia more on the right side. Labs Labs: Laboratory Results - last 24 hr 11/03/24 20:59 POC Capillary Glucose 199 H
[2024-11-04] MEDS: ATORVASTATIN 40 MG TABLET PO (21:23)
[2024-11-04] MEDS: MONTELUKAST SODIUM 10 MG TABLET PO (21:24)
[2024-11-04] MEDS: rOPINIRole HCL 1 MG TABLET PO (21:24)
[2024-11-04] MEDS: guaiFENesin 200 MG/10 ML UDC PO (22:56)
[2024-11-05] VITALS (22 sets, daily range): BP systolic 128–148; BP diastolic 64–72; PULSE 72–99; RESP 16–26; TEMP 36.2–36.7; O2SAT 94–100
[2024-11-05] MEDS: IPRATROPIUM 0.5 MG/ALBUTEROL SULFATE 2.5 MG AMPUL.NEB 3 ML INHALATION ×4 (01:52→18:20)
[2024-11-05 06:16] LABS: Basophils Absolute Auto 0.1 K/mm3 (0.0-0.1); Eosinophils Absolute Auto 0.2 K/mm3 (0-0.3); Eosinophils Percent Auto 2.2 % (0-4.4); Hematocrit 33.2 % (37.0-47.0); Hemoglobin 10.8 g/dL (12.0-15.0); Immature Granulocyte Absolute 0.44 K/mm3 (0.00-0.031); Lymphocytes Absolute Auto 1.76 K/mm3 (0.9-3.2); Mean Corpuscular HGB Conc 32.5 g/dl (32-36); Mean Corpuscular Hemoglobin 30.2 pg (26-34); Mean Corpuscular Volume 92.7 fl (80-100); Mean Platelet Volume 9.6 fl (7.4-10.4); Monocytes Absolute Auto 0.9 K/mm3 (0.1-0.6); Monocytes Percent Auto 9.7 % (2.6-8.5); Neutrophils Absolute Auto 5.5 K/mm3 (1.3-6.7); Neutrophils Percent Auto 62.1 % (45.5-73.1); Platelet Count Result 234 k/mm3 (150-375); Red Blood Count 3.58 M/mm3 (4.2-5.4); Red Cell Distribution Width 15.9 % (11.5-14.5); White Blood Count 8.8 K/mm3 (4.5-10.0)
[2024-11-05 06:26] LABS: Alanine Aminotransferase 34 U/L (6-35); Albumin Level 3.1 g/dL (3.5-5.1); Alkaline Phosphatase 84 U/L (38-126); Anion Gap 1 mmol/L (4-12); Aspartate Amino Transferase 19 U/L (14-36); Bilirubin,Total 0.7 mg/dL (0.2-1.3); Blood Urea Nitrogen 11 mg/dL (7-17); Calcium 8.6 mg/dL (8.4-10.2); Carbon Dioxide 37 mmol/L (22-30); Chloride 96 mmol/L (98-107); Estimated CRCL calculation 54 ml/min; Estimated Glomerular Filt Rate > 60; Glucose 118 mg/dL (65-110); Magnesium 1.4 mg/dL (1.6-2.3); Potassium 3.2 mmol/L (3.4-5.0); Sodium 134 mmol/L (137-145)
[2024-11-05] MEDS: FLUTICASONE/UMECLIDIN/VILANTER 200-62.5-25 MCG ELLIPTA 1 PUFF INHALATION (08:51)
[2024-11-05] MEDS: busPIRone HCL 5 MG TABLET PO ×2 (09:41→17:20)
[2024-11-05] MEDS: AMOXICILLIN/CLAVULANATE K 875-125 MG TAB 1 TABLET PO ×2 (09:41→20:41)
[2024-11-05] MEDS: DOXYCYCLINE HYCLATE 100 MG TABLET PO ×2 (09:41→20:41)
[2024-11-05] MEDS: BENZONATATE 100 MG CAPSULE PO ×3 (09:41→17:20)
[2024-11-05] MEDS: METOPROLOL TARTRATE 50 MG TAB PO ×2 (09:42→20:41)
[2024-11-05] MEDS: APIXABAN 5 MG TABLET PO ×2 (09:43→20:41)
[2024-11-05] MEDS: buPROPion HCL XL (24 HR) 150 MG TABCR PO (09:43)
[2024-11-05] MEDS: AMIODARONE HCL 200 MG TABLET 400 MG PO ×2 (09:43→17:20)
--- NOTE | 2024-11-05 11:16 | PCOTNOTE ---
Attempted to see pt for OT treatment. Pt declined to participate on this date despite education on importance of therapy participation for increase independence with daily tasks due to feeling very overwhelmed influenced by increase anxiety. Pt request to speak with RN to address anxiety. Will continue per poc duration/frequency tomorrow.
[2024-11-05] MEDS: FUROSEMIDE 40 MG TABLET PO ×2 (12:07→17:20)
--- NOTE | 2024-11-05 12:08 | PC.NURSE ---
RN was waiting on Lasix phar approval and was able to give med
[2024-11-05] MEDS: ALPRAZolam (*CRX) 0.25 MG TABLET PO ×2 (13:49→23:11)
[2024-11-05] MEDS: MONTELUKAST SODIUM 10 MG TABLET PO (20:41)
[2024-11-05] MEDS: ATORVASTATIN 40 MG TABLET PO (20:41)
[2024-11-05] MEDS: rOPINIRole HCL 1 MG TABLET PO (20:41)
[2024-11-05] MEDS: guaiFENesin 200 MG/10 ML UDC PO (23:11)
[2024-11-06] VITALS (19 sets, daily range): BP systolic 121–136; BP diastolic 69–74; PULSE 77–98; RESP 16–24; TEMP 36.1–36.3; O2SAT 91–98
[2024-11-06] MEDS: IPRATROPIUM 0.5 MG/ALBUTEROL SULFATE 2.5 MG AMPUL.NEB 3 ML INHALATION ×4 (03:00→21:29)
[2024-11-06] MEDS: FLUTICASONE/UMECLIDIN/VILANTER 200-62.5-25 MCG ELLIPTA 1 PUFF INHALATION ×2 (06:46)
[2024-11-06] MEDS: APIXABAN 5 MG TABLET PO ×2 (08:30→20:05)
[2024-11-06] MEDS: buPROPion HCL XL (24 HR) 150 MG TABCR PO (08:30)
[2024-11-06] MEDS: AMIODARONE HCL 200 MG TABLET 400 MG PO ×2 (08:30→17:09)
[2024-11-06] MEDS: busPIRone HCL 5 MG TABLET PO ×2 (08:30→17:10)
[2024-11-06] MEDS: AMOXICILLIN/CLAVULANATE K 875-125 MG TAB 1 TABLET PO ×2 (08:30→20:04)
[2024-11-06] MEDS: METOPROLOL TARTRATE 50 MG TAB PO ×2 (08:30→20:05)
[2024-11-06] MEDS: FUROSEMIDE 40 MG TABLET PO ×2 (08:30→17:10)
[2024-11-06] MEDS: guaiFENesin 200 MG/10 ML UDC PO ×2 (08:35→21:52)
--- NOTE | 2024-11-06 15:27 | PM.IMPN ---
Progress Note: A&P Assessment and Plan (1) Atrial fibrillation with rapid ventricular response: Code(s): I48.91 - Unspecified atrial fibrillation Status: Acute (2) Pneumonia: Code(s): J18.9 - Pneumonia, unspecified organism Status: Acute Plan atrial fibrillation with rapid ventricular response Heart rate 95, EKG reviewed. DI with cardioversion no longer needed patient now on po Amiodarone 400mg bid and to transition to 200mg daily on discharge Also started on Metoprolol, continue Eliquis if vital signs stable overnight will discharged tomorrow CHF exacerbation on biventricular ICD Patient has leg edema, reported orthopnea. No PND CT chest did not show any pulmonary edema. Continue lasix 20mg bid cardiology following Possible pneumonia Patient reported night sweats or cough or shortness of breath. Labs showed a leukocytosis, and CT scans showed a possible pneumonia. on Augmentin and doxycycline Blood culture, MRSA negative COPD chronic respiratory failure on 3 L at baseline. Currently on baseline oxygen, continue home bronchodilators. Coronary artery disease status post CABG Continue home medications. Hypertension Titrate medications with clinical course. DVT prophylaxis patient is Eliquis. Code status: DNR Surrogate decision maker is seamus Urena awaiting insurance auth for SNF placement Subjective Date/time seen: 11/06/24 15:27 Interval history: Comfortable at bedside awaiting insurance auth for SNF placement Review of Systems Review of Systems: All other systems reviewed and negative except as Noted in the HPI above. Exam Narrative: General: alert and comfortable Eyes: EOMI, PERRLA ENNT External ears normal, Neck is supple, no masses, Respiratory systems: Clear to auscultation Cardiovascular S1, S2, normal rhythm, no murmur, rub, or gallop; no thrill or palpable murmurs on palpation. Gastrointestinal: soft, non-tender, and non-distended abdomen with no masses; BS present Skin: no rash, lesions, ulcerations, subcutaneous nodules or induration Musculoskeletal: mild leg edema Neurologic: Alert and oriented x3, non focal Mental Status Exam: normal affect Objective Data Vital Signs Vital Signs: Vital Signs - 24 hr 11/05/24 16:00 11/05/24 17:20 11/05/24 18:21 Temperature Pulse Rate 87 99 Respiratory Rate Blood Pressure Pulse Oximetry 96 Oxygen Delivery Nasal Cannula Oxygen Flow Rate 3 11/05/24 18:21 11/05/24 18:28 11/05/24 20:00 Temperature Pulse Rate 72 87 Respiratory Rate 20 20 Blood Pressure Pulse Oximetry 98 Oxygen Delivery Nasal Cannula Oxygen Flow Rate 3 11/05/24 20:00 11/05/24 20:28 11/05/24 20:41 Temperature 97.6 F Pulse Rate 93 89 83 Respiratory Rate 26 H Blood Pressure 130/72 Pulse Oximetry 99 Oxygen Delivery Oxygen Flow Rate 11/06/24 00:00 11/06/24 03:00 11/06/24 04:00 Temperature Pulse Rate 82 78 80 Respiratory Rate 20 Blood Pressure Pulse Oximetry Oxygen Delivery Oxygen Flow Rate 11/06/24 05:22 11/06/24 06:45 11/06/24 06:45 Temperature 97.0 F L Pulse Rate 79 85 85 Respiratory Rate 24 H 18 18 Blood Pressure 121/69 Pulse Oximetry 91 98 Oxygen Delivery Nasal Cannula Oxygen Flow Rate 3.5 11/06/24 06:55 11/06/24 08:00 11/06/24 08:00 Temperature Pulse Rate 80 85 81 Respiratory Rate 18 Blood Pressure Pulse Oximetry 92 Oxygen Delivery Nasal Cannula Oxygen Flow Rate 3 11/06/24 08:30 11/06/24 08:30 11/06/24 12:00 Temperature Pulse Rate 85 85 77 Respiratory Rate Blood Pressure Pulse Oximetry Oxygen Delivery Oxygen Flow Rate 11/06/24 12:45 11/06/24 12:55 11/06/24 14:00 Temperature 97.4 F L Pulse Rate 82 83 83 Respiratory Rate 18 20 18 Blood Pressure 136/74 Pulse Oximetry 98 Oxygen Delivery Oxygen Flow Rate Intake/Output Intake/Output: Intake & Output 11/03/24 11/04/24 11/05/24 11/06/24 23:59 23:59 23:59 23:59 Intake Total 1755 1188 1268 590 Output Total 1600 1000 Balance 962 498 2963 590 Meds/Results Medications: Active Medications Generic Name Dose Route Start Last Admin Trade Name Freq PRN Reason Stop Dose Admin Albuterol/Ipratropium 3 ml 11/01/24 02:00 11/06/24 12:45 Ipratropium 0.5 Mg/Albuterol Sulfate 2.5 Mg Ampul.Neb 3 Ml INHALATION 3 ml Q6HRT GILMER Administration Alprazolam 0.25 mg 11/03/24 11:53 11/05/24 23:11 Alprazolam (*Crx) 0.25 Mg Tablet PO 0.25 mg TID PRN Administration Anxiety Amiodarone HCl 400 mg 11/02/24 10:05 11/06/24 08:30 Amiodarone Hcl 200 Mg Tablet PO 400 mg BID GILMER Administration Amoxicillin/Clavulanate Potassium 1 tablet 11/03/24 21:00 11/06/24 08:30 Amoxicillin/Clavulanate K 875-125 Mg Tab PO 11/07/24 09:01 1 tablet Q12HR GILMER Administration Apixaban 5 mg 10/31/24 21:00 11/06/24 08:30 Apixaban 5 Mg Tablet PO 5 mg Q12HR GILMER Administration Atorvastatin Calcium 40 mg 10/31/24 21:00 11/05/24 20:41 Atorvastatin 40 Mg Tablet PO 40 mg HS GILMER Administration Benzonatate 100 mg 11/02/24 13:00 11/06/24 13:44 Benzonatate 100 Mg Capsule PO Not Given TID GILMER Bupropion HCl 150 mg 11/01/24 09:00 11/06/24 08:30 Bupropion Hcl Xl (24 Hr) 150 Mg Tabcr PO 150 mg DAILY GILMER Administration Buspirone HCl 5 mg 11/01/24 09:00 11/06/24 08:30 Buspirone Hcl 5 Mg Tablet PO 5 mg BID GILMER Administration Fluticasone/Umeclidinium/Vilanterol 1 puff 10/31/24 10:40 11/06/24 06:46 Fluticasone/Umeclidin/Vilanter 200-62.5-25 Mcg Ellipta INHALATION 1 puff DAILYRT GILMER Administration Furosemide 40 mg 11/03/24 17:00 11/06/24 08:30 Furosemide 40 Mg Tablet PO 40 mg BID GILMER Administration Furosemide 40 mg 11/04/24 09:00 Furosemide 40 Mg Tablet PO DAILY GILMER Guaifenesin 200 mg 11/03/24 20:15 11/06/24 08:35 Guaifenesin 200 Mg/10 Ml Udc PO 200 mg Q4H PRN Administration Cough Metoclopramide HCl 5 mg 11/03/24 13:32 Metoclopramide Hcl 5 Mg Tablet PO PRN PRN Nausea Metoprolol Tartrate 5 mg 10/31/24 14:12 10/31/24 20:27 Metoprolol Tartrate Inj 5 Mg/5 Ml Vial IV PUSH 5 mg Q2H PRN Administration Tachycardia Metoprolol Tartrate 50 mg 11/02/24 21:00 11/06/24 08:30 Metoprolol Tartrate 50 Mg Tab PO 50 mg Q12HR GILMER Administration Miscellaneous Information 1 each 11/04/24 00:01 Med Rec Order Clarification XX 12/04/24 00:00 CLARIFY GILMER Miscellaneous Information 1 each 11/04/24 00:01 Med Rec Order Clarification XX 12/04/24 00:00 CLARIFY GILMER Miscellaneous Information 1 each 11/04/24 00:01 Med Rec Order Clarification XX 12/04/24 00:00 CLARIFY GILMER Montelukast Sodium 10 mg 11/03/24 21:00 11/05/24 20:41 Montelukast Sodium 10 Mg Tablet PO 10 mg HS GILMER Administration Non-Formulary Medication 1 tablet 11/04/24 09:00 Cyanocobalamin (Vitamin B-12) PO 12/04/24 08:59 DAILY GILMER Polyethylene Glycol 17 gm 11/02/24 11:01 11/03/24 08:46 Polyethylene Glycol 3350 17 Gm Powd.Pack PO 17 gm QAM PRN Administration Constipation Ropinirole HCl 1 mg 11/03/24 21:00 11/05/24 20:41 Ropinirole Hcl 1 Mg Tablet PO 1 mg HS GILMER Administration Sodium Chloride 1 spray 11/02/24 01:02 Saline 0.65% Anil Soln 44 Ml Btl NASAL Q6HR PRN Congestion Radiology Results: ITS Impressions Chest CT 10/31/24 12:15 Impression: Advanced emphysema. Probable mild bibasilar atelectasis, less likely pneumonia. Correlate clinically for signs/symptoms of infection. Minimal right pleural fluid. Chest X-Ray 11/01/24 08:46 IMPRESSION: Bibasilar atelectasis versus pneumonia more on the right side.
[2024-11-06] MEDS: MONTELUKAST SODIUM 10 MG TABLET PO (20:05)
[2024-11-06] MEDS: ATORVASTATIN 40 MG TABLET PO (20:05)
[2024-11-06] MEDS: rOPINIRole HCL 1 MG TABLET PO (20:05)
[2024-11-06] MEDS: ALPRAZolam (*CRX) 0.25 MG TABLET PO (21:52)
[2024-11-07] VITALS (17 sets, daily range): BP systolic 100–142; BP diastolic 66–75; PULSE 70–96; RESP 16–20; TEMP 35.8–36.2; O2SAT 93–100
[2024-11-07] MEDS: IPRATROPIUM 0.5 MG/ALBUTEROL SULFATE 2.5 MG AMPUL.NEB 3 ML INHALATION ×4 (03:29→21:35)
[2024-11-07] MEDS: FLUTICASONE/UMECLIDIN/VILANTER 200-62.5-25 MCG ELLIPTA 1 PUFF INHALATION (07:50)
[2024-11-07] MEDS: guaiFENesin 200 MG/10 ML UDC PO (08:24)
[2024-11-07] MEDS: AMOXICILLIN/CLAVULANATE K 875-125 MG TAB 1 TABLET PO (08:25)
[2024-11-07] MEDS: AMIODARONE HCL 200 MG TABLET 400 MG PO ×2 (08:25→16:19)
[2024-11-07] MEDS: APIXABAN 5 MG TABLET PO ×2 (08:25→21:06)
[2024-11-07] MEDS: busPIRone HCL 5 MG TABLET PO ×2 (08:25→16:19)
[2024-11-07] MEDS: FUROSEMIDE 20 MG TABLET PO ×2 (08:26→16:19)
[2024-11-07] MEDS: METOPROLOL TARTRATE 50 MG TAB PO ×2 (08:26→21:06)
[2024-11-07] MEDS: buPROPion HCL XL (24 HR) 150 MG TABCR PO (08:26)
--- NOTE | 2024-11-07 10:54 | P.PNIM_ITS ---
Progress Note: A&P Assessment and Plan (1) Atrial fibrillation with rapid ventricular response: Code(s): I48.91 - Unspecified atrial fibrillation Status: Acute (2) Pneumonia: Code(s): J18.9 - Pneumonia, unspecified organism Status: Acute Plan Atrial fibrillation with rapid ventricular response Heart rate 95, EKG reviewed. 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 No PND CT chest did not show any pulmonary edema. Continue lasix 20mg bid cardiology following Possible pneumonia Patient reported night sweats or cough or shortness of breath. Labs showed a leukocytosis, and CT scans showed a possible pneumonia. on Augmentin and doxycycline Blood culture, MRSA negative COPD chronic respiratory failure on 3 L at baseline. Currently on baseline oxygen, continue home bronchodilators. Coronary artery disease status post CABG Continue home medications. Hypertension Titrate medications with clinical course. DVT prophylaxis patient is Eliquis. Code status: DNR Surrogate decision maker is seamus Urena awaiting insurance auth for SNF placement Subjective Date/time seen: 11/07/24 10:54 Interval history: I saw exam patient today. Patient feels better today, still has general weakness, patient is on 3 L oxygen. Patient has shortness breath with exertion. Patient denies heart racing, lightheadedness, chest pain Exam Narrative: GENERAL: Ill-appearing in no acute distress. Well-nourished. - EYES: EOMI. Anicteric. - HENT: Moist mucous membranes. - LUNGS: Clear to auscultation bilateral ly, no wheezing, rhonchi, or rales. - CARDIOVASCULAR: Irregular rhythm,. No murmur. No JVD. - ABDOMEN: Soft, non-tender and non-dist ended. No palpable masses. - EXTREMITIES: No edema. Peripheral puls es 2+. Non-tender. - NEUROLOGIC: No focal neurological defi cits. CN II-XII grossly intact. General weakness, - PSYCHIATRIC: Awake, Alert and oriented x 3. Appropriate mood and affect. - SKIN: No rashes or lesions. Warm. - LYMPH: No cervical lymphadenopathy. Objective Data Vital Signs Vital Signs: Vital Signs - 24 hr 11/06/24 12:00 11/06/24 12:45 11/06/24 12:55 Temperature Pulse Rate 77 82 83 Respiratory Rate 18 20 Blood Pressure Pulse Oximetry Oxygen Delivery Oxygen Flow Rate 11/06/24 14:00 11/06/24 16:00 11/06/24 17:09 Temperature 97.4 F L Pulse Rate 83 98 94 Respiratory Rate 18 Blood Pressure 136/74 Pulse Oximetry 98 Oxygen Delivery Oxygen Flow Rate 11/06/24 20:00 11/06/24 20:00 11/06/24 20:05 Temperature Pulse Rate 84 83 Respiratory Rate Blood Pressure Pulse Oximetry 98 Oxygen Delivery Nasal Cannula Oxygen Flow Rate 3.5 11/06/24 21:21 11/06/24 21:33 11/06/24 21:34 Temperature 96.9 F L Pulse Rate 84 80 80 Respiratory Rate 16 20 18 Blood Pressure 129/69 Pulse Oximetry 98 97 Oxygen Delivery Nasal Cannula Oxygen Flow Rate 3.5 11/07/24 00:00 11/07/24 03:29 11/07/24 04:00 Temperature Pulse Rate 82 78 76 Respiratory Rate 20 Blood Pressure Pulse Oximetry Oxygen Delivery Oxygen Flow Rate 11/07/24 06:00 11/07/24 07:52 11/07/24 07:52 Temperature 96.5 F L Pulse Rate 76 82 82 Respiratory Rate 16 18 18 Blood Pressure 142/75 H Pulse Oximetry 99 98 Oxygen Delivery Nasal Cannula Oxygen Flow Rate 3 11/07/24 08:00 11/07/24 08:00 11/07/24 08:03 Temperature Pulse Rate 84 84 Respiratory Rate 20 Blood Pressure Pulse Oximetry 95 Oxygen Delivery Nasal Cannula Oxygen Flow Rate 3 11/07/24 08:25 11/07/24 08:26 Temperature Pulse Rate 70 70 Respiratory Rate Blood Pressure Pulse Oximetry Oxygen Delivery Oxygen Flow Rate Intake/Output Intake/Output: Intake & Output 11/04/24 11/05/24 11/06/24 11/07/24 23:59 23:59 23:59 23:59 Intake Total 1188 1268 1180 440 Output Total 1000 Balance 188 1268 1180 440 Meds/Results Medications: Active Medications Generic Name Dose Route Start Last Admin Trade Name Freq PRN Reason Stop Dose Admin Albuterol/Ipratropium 3 ml 11/01/24 02:00 11/07/24 07:50 Ipratropium 0.5 Mg/Albuterol Sulfate 2.5 Mg Ampul.Neb 3 Ml INHALATION 3 ml Q6HRT GILMER Administration Alprazolam 0.25 mg 11/03/24 11:53 11/06/24 21:52 Alprazolam (*Crx) 0.25 Mg Tablet PO 0.25 mg TID PRN Administration Anxiety Amiodarone HCl 400 mg 11/02/24 10:05 11/07/24 08:25 Amiodarone Hcl 200 Mg Tablet PO 400 mg BID GILMER Administration Apixaban 5 mg 10/31/24 21:00 11/07/24 08:25 Apixaban 5 Mg Tablet PO 5 mg Q12HR GILMER Administration Atorvastatin Calcium 40 mg 10/31/24 21:00 11/06/24 20:05 Atorvastatin 40 Mg Tablet PO 40 mg HS GILMER Administration Benzonatate 100 mg 11/02/24 13:00 11/07/24 10:17 Benzonatate 100 Mg Capsule PO Not Given TID GILMER Bupropion HCl 150 mg 11/01/24 09:00 11/07/24 08:26 Bupropion Hcl Xl (24 Hr) 150 Mg Tabcr PO 150 mg DAILY GILMER Administration Buspirone HCl 5 mg 11/01/24 09:00 11/07/24 08:25 Buspirone Hcl 5 Mg Tablet PO 5 mg BID GILEMR Administration Fluticasone/Umeclidinium/Vilanterol 1 puff 10/31/24 10:40 11/07/24 07:50 Fluticasone/Umeclidin/Vilanter 200-62.5-25 Mcg Ellipta INHALATION 1 puff DAILYRT GILMER Administration Furosemide 20 mg 11/06/24 18:05 11/07/24 08:26 Furosemide 20 Mg Tablet PO 20 mg BID GILMER Administration Guaifenesin 200 mg 11/03/24 20:15 11/07/24 08:24 Guaifenesin 200 Mg/10 Ml Udc PO 200 mg Q4H PRN Administration Cough Metoclopramide HCl 5 mg 11/06/24 19:48 Metoclopramide Hcl 5 Mg Tablet PO Q8HR PRN Nausea Metoprolol Tartrate 5 mg 10/31/24 14:12 10/31/24 20:27 Metoprolol Tartrate Inj 5 Mg/5 Ml Vial IV PUSH 5 mg Q2H PRN Administration Tachycardia Metoprolol Tartrate 50 mg 12/12/24 21:00 11/07/24 08:26 Metoprolol Tartrate 50 Mg Tab PO 50 mg Q12HR GILMER Administration Montelukast Sodium 10 mg 11/03/24 21:00 11/06/24 20:05 Montelukast Sodium 10 Mg Tablet PO 10 mg HS GILMER Administration Polyethylene Glycol 17 gm 11/02/24 11:01 11/03/24 08:46 Polyethylene Glycol 3350 17 Gm Powd.Pack PO 17 gm QAM PRN Administration Constipation Ropinirole HCl 1 mg 11/03/24 21:00 11/06/24 20:05 Ropinirole Hcl 1 Mg Tablet PO 1 mg HS GILMER Administration Sodium Chloride 1 spray 11/02/24 01:02 Saline 0.65% Anil Soln 44 Ml Btl NASAL Q6HR PRN Congestion Radiology Results: ITS Impressions Chest CT 10/31/24 12:15 Impression: Advanced emphysema. Probable mild bibasilar atelectasis, less likely pneumonia. Correlate clinically for signs/symptoms of infection. Minimal right pleural fluid. Chest X-Ray 11/01/24 08:46 IMPRESSION: Bibasilar atelectasis versus pneumonia more on the right side.
--- NOTE | 2024-11-07 11:35 | PCNWS ---
Weekly nutritional screen. Patient is tolerating current heart healthy diet with 50% intake. Pt not interested in supplements. No weight loss reported. No nutritional recommendations at this time.
[2024-11-07] MEDS: ALPRAZolam (*CRX) 0.25 MG TABLET PO (14:46)
[2024-11-07] MEDS: MONTELUKAST SODIUM 10 MG TABLET PO (21:06)
[2024-11-07] MEDS: ATORVASTATIN 40 MG TABLET PO (21:06)
[2024-11-07] MEDS: rOPINIRole HCL 1 MG TABLET PO (21:07)
[2024-11-08] VITALS (10 sets, daily range): BP systolic 118; BP diastolic 66; PULSE 72–98; RESP 14–20; TEMP 36.6; O2SAT 92–93
[2024-11-08] MEDS: IPRATROPIUM 0.5 MG/ALBUTEROL SULFATE 2.5 MG AMPUL.NEB 3 ML INHALATION ×2 (02:03→07:29)
[2024-11-08] MEDS: ALPRAZolam (*CRX) 0.25 MG TABLET PO (04:56)
--- NOTE | 2024-11-08 04:57 | PC.NURSE ---
patient appears anxious and has asked for her xanax twice this shift. i asked patient if there is something making her anxious and she is unable to name anything specific causing her anxiety
[2024-11-08] MEDS: FLUTICASONE/UMECLIDIN/VILANTER 200-62.5-25 MCG ELLIPTA 1 PUFF INHALATION (07:31)
[2024-11-08] MEDS: AMIODARONE HCL 200 MG TABLET 400 MG PO (08:14)
[2024-11-08] MEDS: buPROPion HCL XL (24 HR) 150 MG TABCR PO (08:15)
[2024-11-08] MEDS: METOPROLOL TARTRATE 50 MG TAB PO (08:15)
[2024-11-08] MEDS: FUROSEMIDE 20 MG TABLET PO (08:15)
[2024-11-08] MEDS: APIXABAN 5 MG TABLET PO (08:15)
[2024-11-08] MEDS: busPIRone HCL 5 MG TABLET PO (08:15)
[2024-11-08] MEDS: BENZONATATE 100 MG CAPSULE PO (08:15)
--- NOTE | 2024-11-08 08:18 | P.PNIM_ITS ---
Progress Note: A&P Assessment and Plan (1) Atrial fibrillation with rapid ventricular response: Code(s): I48.91 - Unspecified atrial fibrillation Status: Acute (2) Pneumonia: Code(s): J18.9 - Pneumonia, unspecified organism Status: Acute Plan Atrial fibrillation with rapid ventricular response Heart rate 95, EKG reviewed. DI with cardioversion no longer needed patient now on po Amiodarone 400mg bid and to transition to 200mg daily on discharge Continue Metoprolol 50 mg q.12 hours p.o. continue Eliquis Rate is controlled CHF exacerbation on biventricular ICD Patient has leg edema, reported orthopnea. No PND CT chest did not show any pulmonary edema. Continue lasix 20mg bid cardiology following of patient Compensated now Possible pneumonia Patient reported night sweats or cough or shortness of breath. Labs showed a leukocytosis, and CT scans showed a possible pneumonia. on Augmentin and doxycycline Blood culture, MRSA negative Complicated antibiotics COPD chronic respiratory failure on 3 L at baseline. Currently on baseline oxygen, continue home bronchodilators. On 3 L oxygen, on the baseline Coronary artery disease status post CABG Continue home medications. Patient denies chest pain Hypertension Continue current medications Blood pressure is controlled intact range DVT prophylaxis patient is Eliquis. 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 Patient feels better today, appetite improving, exercise tolerance increase. Patient denies dyspnea at rest, also denies palpitation, lightheadedness, chest pain Exam Narrative: GENERAL: Ill-appearing in no acute distress. Well-nourished. - EYES: EOMI. Anicteric. - HENT: Moist mucous membranes. - LUNGS: Clear to auscultation bilateral ly, no wheezing, rhonchi, or rales. - CARDIOVASCULAR: Irregular rhythm,. No murmur. No JVD. - ABDOMEN: Soft, non-tender and non-dist ended. No palpable masses. - EXTREMITIES: No edema. Peripheral puls es 2+. Non-tender. - NEUROLOGIC: No focal neurological defi cits. CN II-XII grossly intact. General weakness, - PSYCHIATRIC: Awake, Alert and oriented x 3. Appropriate mood and affect. - SKIN: No rashes or lesions. Warm. - LYMPH: No cervical lymphadenopathy. Objective Data Vital Signs Vital Signs: Vital Signs - 24 hr 11/07/24 08:25 11/07/24 08:26 11/07/24 12:00 Temperature Pulse Rate 70 70 81 Respiratory Rate Blood Pressure Pulse Oximetry Oxygen Delivery Oxygen Flow Rate 11/07/24 14:04 11/07/24 14:20 11/07/24 16:00 Temperature 97.2 F L Pulse Rate 77 82 84 Respiratory Rate 20 16 Blood Pressure 123/66 Pulse Oximetry 100 Oxygen Delivery Oxygen Flow Rate 11/07/24 16:19 11/07/24 20:00 11/07/24 20:00 Temperature Pulse Rate 84 96 Respiratory Rate Blood Pressure Pulse Oximetry 93 Oxygen Delivery Nasal Cannula Oxygen Flow Rate 3 11/07/24 21:28 11/07/24 21:36 11/08/24 00:00 Temperature 97.1 F L Pulse Rate 95 84 98 Respiratory Rate 16 20 Blood Pressure 100/71 Pulse Oximetry 93 Oxygen Delivery Oxygen Flow Rate 11/08/24 02:04 11/08/24 02:11 11/08/24 04:00 Temperature Pulse Rate 74 76 97 Respiratory Rate 20 20 Blood Pressure Pulse Oximetry Oxygen Delivery Oxygen Flow Rate 11/08/24 05:35 11/08/24 07:31 11/08/24 07:31 Temperature 97.8 F Pulse Rate 96 72 Respiratory Rate 14 20 Blood Pressure 118/66 Pulse Oximetry 93 92 Oxygen Delivery Nasal Cannula Oxygen Flow Rate 4 11/08/24 07:47 11/08/24 08:14 11/08/24 08:15 Temperature Pulse Rate 77 97 97 Respiratory Rate 20 Blood Pressure Pulse Oximetry Oxygen Delivery Oxygen Flow Rate Intake/Output Intake/Output: Intake & Output 11/05/24 11/06/24 11/07/24 11/08/24 23:59 23:59 23:59 23:59 Intake Total 1268 1180 960 200 Balance 1268 1180 960 200 Meds/Results Medications: Active Medications Generic Name Dose Route Start Last Admin Trade Name Freq PRN Reason Stop Dose Admin Albuterol/Ipratropium 3 ml 11/01/24 02:00 11/08/24 07:29 Ipratropium 0.5 Mg/Albuterol Sulfate 2.5 Mg Ampul.Neb 3 Ml INHALATION 3 ml Q6HRT GILMER Administration Alprazolam 0.25 mg 11/03/24 11:53 11/08/24 04:56 Alprazolam (*Crx) 0.25 Mg Tablet PO 0.25 mg TID PRN Administration Anxiety Amiodarone HCl 400 mg 11/02/24 10:05 11/08/24 08:14 Amiodarone Hcl 200 Mg Tablet PO 400 mg BID GILMER Administration Apixaban 5 mg 10/31/24 21:00 11/08/24 08:15 Apixaban 5 Mg Tablet PO 5 mg Q12HR GILMER Administration Atorvastatin Calcium 40 mg 10/31/24 21:00 11/07/24 21:06 Atorvastatin 40 Mg Tablet PO 40 mg HS GILMER Administration Benzonatate 100 mg 11/02/24 13:00 11/08/24 08:15 Benzonatate 100 Mg Capsule PO 100 mg TID GILMER Administration Bupropion HCl 150 mg 11/01/24 09:00 11/08/24 08:15 Bupropion Hcl Xl (24 Hr) 150 Mg Tabcr PO 150 mg DAILY GILMER Administration Buspirone HCl 5 mg 11/01/24 09:00 11/08/24 08:15 Buspirone Hcl 5 Mg Tablet PO 5 mg BID GILMER Administration Fluticasone/Umeclidinium/Vilanterol 1 puff 10/31/24 10:40 11/08/24 07:31 Fluticasone/Umeclidin/Vilanter 200-62.5-25 Mcg Ellipta INHALATION 1 puff DAILYRT GILMER Administration Furosemide 20 mg 11/06/24 18:05 11/08/24 08:15 Furosemide 20 Mg Tablet PO 20 mg BID GILMER Administration Guaifenesin 200 mg 11/03/24 20:15 11/07/24 08:24 Guaifenesin 200 Mg/10 Ml Udc PO 200 mg Q4H PRN Administration Cough Metoclopramide HCl 5 mg 11/06/24 19:48 Metoclopramide Hcl 5 Mg Tablet PO Q8HR PRN Nausea Metoprolol Tartrate 5 mg 10/31/24 14:12 10/31/24 20:27 Metoprolol Tartrate Inj 5 Mg/5 Ml Vial IV PUSH 5 mg Q2H PRN Administration Tachycardia Metoprolol Tartrate 50 mg 11/02/24 21:00 11/08/24 08:15 Metoprolol Tartrate 50 Mg Tab PO 50 mg Q12HR GILMER Administration Montelukast Sodium 10 mg 11/03/24 21:00 11/07/24 21:06 Montelukast Sodium 10 Mg Tablet PO 10 mg HS GILMER Administration Polyethylene Glycol 17 gm 11/02/24 11:01 11/03/24 08:46 Polyethylene Glycol 3350 17 Gm Powd.Pack PO 17 gm QAM PRN Administration Constipation Ropinirole HCl 1 mg 11/03/24 21:00 11/07/24 21:07 Ropinirole Hcl 1 Mg Tablet PO 1 mg HS GILMER Administration Sodium Chloride 1 spray 11/02/24 01:02 Saline 0.65% Anil Soln 44 Ml Btl NASAL Q6HR PRN Congestion Radiology Results: ITS Impressions Chest CT 10/31/24 12:15 Impression: Advanced emphysema. Probable mild bibasilar atelectasis, less likely pneumonia. Correlate clinically for signs/symptoms of infection. Minimal right pleural fluid. Chest X-Ray 11/01/24 08:46 IMPRESSION: Bibasilar atelectasis versus pneumonia more on the right side.
[2024-11-08 09:06] LABS: Hematocrit 35.3 % (37.0-47.0); Hemoglobin 11.5 g/dL (12.0-15.0); Mean Corpuscular HGB Conc 32.6 g/dl (32-36); Mean Corpuscular Hemoglobin 30.2 pg (26-34); Mean Corpuscular Volume 92.7 fl (80-100); Mean Platelet Volume 9.4 fl (7.4-10.4); Platelet Count Result 298 k/mm3 (150-375); Red Blood Count 3.81 M/mm3 (4.2-5.4); Red Cell Distribution Width 16.4 % (11.5-14.5); White Blood Count 15.6 K/mm3 (4.5-10.0)
[2024-11-08 09:24] LABS: Anion Gap 3 mmol/L (4-12); Blood Urea Nitrogen 12 mg/dL (7-17); Calcium 9.1 mg/dL (8.4-10.2); Carbon Dioxide 39 mmol/L (22-30); Chloride 89 mmol/L (98-107); Estimated CRCL calculation 54 ml/min; Estimated Glomerular Filt Rate > 60; Glucose 130 mg/dL (65-110); Potassium 3.3 mmol/L (3.4-5.0); Sodium 131 mmol/L (137-145)
--- NOTE | 2024-11-08 11:24 | PCPTNOTE ---
Attempted to see patient for PT, however patient refused PT this date. Patient reported she just got done working with OT and is also discharging home today, and did not want to work with PT this date.
--- NOTE | 2024-11-08 11:25 | PM.DS ---
DS: Admitting Diagnosis Discharge Date 11/08/24 Admitting Diagnosis (1) Atrial fibrillation with rapid ventricular response: Code(s): I48.91 - Unspecified atrial fibrillation Status: Acute (2) Pneumonia: Code(s): J18.9 - Pneumonia, unspecified organism Status: Acute DS: Discharge Diagnosis Discharge Diagnosis (1) Atrial fibrillation with rapid ventricular response: Code(s): I48.91 - Unspecified atrial fibrillation Status: Acute (2) Pneumonia: Code(s): J18.9 - Pneumonia, unspecified organism Status: Acute DS: Summary Hospital Course Hospital Course: Per H&P, 84 year old female with ischemic cardiomyopathy, BiV ICD, atrial fibrillation, and coronary artery disease status post CABG Presented to the ER on account of her shortness of breath of 2 days duration. noted orthopnea no PND, dry cough and next 1, no fever, no vomiting abdominal pain no diarrhea no dysuria no focal symptoms. Also endorses night sweats. ER evaluation notable for temperature 97.5?, pulse was 1 9, respiratory 20 saturating 100% on room air, Blood pressure 128/90. Labs notable for WBC 13.4, hemoglobin 11.1, ABG 7.475/41.4/98.4/29.8. Sodium 132, potassium 3.3, creatinine 0.5, blood glucose 202. NT proBNP [address] chest showed probable mild bibasilar atelectasis less likely pneumonia. Right pleural effusion. EKG showed atrial fibrillation with rapid ventricular response. Cardiology evaluation noted. Continue amiodarone. The following med issues have been addressed during hospitalization Atrial fibrillation with rapid ventricular response Heart rate 95, EKG reviewed. DI with cardioversion no longer needed patient now on po Amiodarone 400mg bid and to transition to 200mg daily on discharge Continue Metoprolol 50 mg q.12 hours p.o. continue Eliquis Rate is controlled CHF exacerbation on biventricular ICD Patient has leg edema, reported orthopnea. CT chest did not show any pulmonary edema. Continue lasix 20mg bid cardiology following of patient Compensated now Possible pneumonia Patient reported night sweats or cough or shortness of breath. Initially Labs showed a leukocytosis, and CT scans showed a possible pneumonia. on Augmentin and doxycycline Blood culture no growth, MRSA negative Completed antibiotics COPD chronic respiratory failure on 3 L at baseline. Currently on baseline oxygen, continue home bronchodilators. On 3 L oxygen, on the baseline Coronary artery disease status post CABG Continue home medications. Patient denies chest pain Hypertension Continue current medications Blood pressure is controlled in target range DVT prophylaxis patient is Eliquis. 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 Well-nourished. - EYES: EOMI. Anicteric. - HENT: Moist mucous membranes. - LUNGS: Clear to auscultation bilaterally, no wheezing, rhonchi, or rales. - CARDIOVASCULAR: Irregular rhythm,. No murmur. No JVD. - ABDOMEN: Soft, non-tender and non-distended. No palpable masses. - EXTREMITIES: No edema. Peripheral pulses 2+. Non-tender. - NEUROLOGIC: No focal neurological deficits. CN II-XII grossly intact. General weakness, - PSYCHIATRIC: Awake, Alert and oriented x 3. Appropriate mood and affect. - SKIN: No rashes or lesions. Warm. - LYMPH: No cervical lymphadenopathy. DS: Data Data Completed and Pending Labs on day of discharge: Labs from last 24 hours 11/08/24 08:37 WBC 15.6 H RBC 3.81 L Hgb 11.5 L Hct 35.3 L MCV 92.7 MCH 30.2 MCHC 32.6 RDW 16.4 H Plt Count 298 MPV 9.4 Sodium 131 L Potassium 3.3 L Chloride 89 L Carbon Dioxide 39 H Anion Gap 3 L BUN 12 Creatinine 0.60 L Estim Creat Clear Calc 54 Estimated GFR > 60 Glucose 130 H Calcium 9.1 Discharge Plan Discharge Attending physician on discharge: Jaqueline Agosto Consulting providers: Mina Medina Discharging Clinician: Jaqueline Agosto Anticipated Discharge Date/Time: 11/08/24 11:26 Patient Disposition: Home, Self-Care Activity: as tolerated Diet: as tolerated and heart healthy Discharge Instructions: Per Care Coordination: [facility] ([phone]) has been arranged for physical and occupational therapy. They will call you regarding you first visit. Patient Instructions: Antibiotic Form Patient Language: Malay Stand Alone Forms: General Discharge Information Follow-up/Referrals: Christopher,Kathie Pena APRN [Primary Care Provider] - (Patient needs to see primary care in 1 week) Mina Medina MD [Physician] - (Patient needs to see venetian blind machine operator at scheduled appointment) Discharge Medications: New Eliquis 5 mg Tablet 5 mg PO Q12HR Qty: 60 1RF amiodarone [Pacerone] 200 mg Tablet 200 mg PO DAILY Qty: 30 1RF metoprolol tartrate 50 mg tablet 50 mg PO Q12H Qty: 60 1RF furosemide 20 mg Tablet 20 mg PO BID Qty: 60 1RF Continued PreserVision AREDS 1 tab-cap PO BID ropinirole 1 mg tablet 1 mg PO HS atorvastatin 40 mg tablet 40 mg PO HS pantoprazole 40 mg tablet,delayed release (DR/EC) 40 mg PO QAM montelukast 10 mg tablet 10 mg PO HS Eliquis 5 mg tablet 5 mg PO BID Rx Instructions: Take one tablet in AM and one tablet in PM. Combivent Respimat 20-100 mcg/actuation mist 1 puff INHALATION Q6H PRN (Reason: Shortness Of Breath) buspirone 5 mg tablet 5 mg PO BID cetirizine 10 mg Tablet 10 mg PO DAILY PRN (Reason: ALLERGIES) tramadol 50 mg tablet 50 mg PO Q8H PRN (Reason: pain) acetaminophen 500 mg Tablet 1,000 mg PO Q8H PRN (Reason: Pain) spironolactone 25 mg tablet 25 mg PO DAILY metoclopramide HCl 5 mg tablet 5 mg PO PRN PRN (Reason: Nausea) Patient Comments: ordered prn q8, but patient takes scheduled every 8 hours for the past month gabapentin 300 mg capsule 300 mg PO TID fluticasone propion-salmeterol 100-50 mcg/dose blister with device 1 inh INHALATION DAILY albuterol sulfate [Ventolin HFA] 90 mcg/actuation HFA aerosol inhaler 1 puff INHALATION Q4H PRN (Reason: sob) B-complex with vitamin C Tablet 1 tablet PO DAILY cyanocobalamin (vitamin B-12) Tablet,Chewable 1 tablet PO DAILY bupropion HCl 150 mg tablet extended release 24 hr 150 mg PO DAILY lisinopril 20 mg tablet 20 mg PO BID guaifenesin [Mucus Relief ER] 600 mg Tablet Extended Release 12hr 600 mg PO Q12HR Qty: 30 0RF prednisone 10 mg tablet 10 mg PO DIRECTED Qty: 30 0RF Rx Instructions: see taper instructions 50mg x 2 days, 40mg x 2days, 30 mg x 2 days,20mg x 2 days, 10mg x 2 days Trelegy Ellipta 200-62.5-25 mcg blister with device 1 inh INHALATION Q24H Discontinued carvedilol 12.5 mg tablet 12.5 mg PO BID albuterol sulfate 90 mcg/actuation Hfa Aerosol Inhaler 2 puff INHALATION Q4H PRN (Reason: sob) furosemide 20 mg tablet 40 mg PO DAILY azithromycin 250 mg tablet 250 mg PO DAILY amoxicillin-pot clavulanate 875-125 mg tablet 1 tablet PO Q12H Date of admission: 10/31/24 11:39 Primary Care Provider: Christopher,Kathie Pena Admitting Provider: Garrett Farfan Attending physician on admission: Garrett Farfan Condition: Serious
[2024-11-08 11:42] LABS: Glucose Point of Care 176 mg/dl (65-105)
== END 2024-11-08 12:20 | disposition home health service (06) | DRG 308 ==
LOC: ANHED 09:32 → ANHIMU 11:57 → ANH3MEDSUR 11-02 13:36
PROVIDERS: Internal Medicine; Nurse Practitioner; Admitting Provider Internal Medicine; Emergency Provider Emergency Medicine; PCP Nurse Practitioner Family; Visit Provider Hospitalist
DX: I48.91 Unspecified atrial fibrillation (principal); I50.23 Acute on chronic systolic (congestive) heart failure; J18.9 Pneumonia, unspecified organism; J44.0 Chronic obstructive pulmonary disease with (acute) lower respiratory infection; J44.1 Chronic obstructive pulmonary disease with (acute) exacerbation; J96.11 Chronic respiratory failure with hypoxia; I11.0 Hypertensive heart disease with heart failure; I25.10 Atherosclerotic heart disease of native coronary artery without angina pectoris; F17.210 Nicotine dependence, cigarettes, uncomplicated; Z95.1 Presence of aortocoronary bypass graft; I25.5 Ischemic cardiomyopathy; Z66 Do not resuscitate; D50.9 Iron deficiency anemia, unspecified
CPT/HCPCS: 36415; 36600; 71045; 71250; 80048; 80053; 82375; 82728; 82805; 82948; 83050; 83540; 83550; 83735; 83880; 84132; 84484; 85018; 85025; 85027; 87040; 87641; 93005; 94640; 96374; 96375; 97161; 97165; 97530; 97535; 99285; A9270; J0282; J0696; J1756; J1836; J1940; J2919; J3480; J7040; J7050